=== PATIENT | female | born 1990 | race Caucasian/White ===

== ENCOUNTER 2020-01-15 11:45 | Outpatient (CLI) | payer BC, SELFPAY ==
[2020-01-15 13:15] LABS: Thyroid Stimulating Hormone 2.38 uIU/mL (0.36-3.74)
== END 2020-01-15 11:46 | disposition home or self-care (01) ==
LOC: CHSLAB 11:48
PROVIDERS: PCP Nurse Practitioner Family; Visit Provider Nurse Practitioner Family
DX: R79.89 Other specified abnormal findings of blood chemistry (principal); R94.6 Abnormal results of thyroid function studies
CPT/HCPCS: 36415; 84443

== ENCOUNTER 2020-08-10 10:35 | Outpatient (CLI) | payer MEDICAID, SELFPAY ==
[2020-08-10 10:50] LABS: Basophils Absolute Auto 0.03 K/mm3 (0.00-0.10); Basophils Percent Auto 0.5 % (0.0-1.0); Eosinophils Absolute Auto 0.12 K/mm3 (0.02-0.50); Eosinophils Percent Auto 1.9 % (1.0-6.0); Hematocrit 40.8 % (35.0-49.0); Hemoglobin 13.5 g/dL (12.0-15.0); Immature Granulocyte Absolute 0.04 K/mm3 (0.00-0.00); Immature Granulocyte Percent A 0.6 % (0.0-0.0); Lymphocytes Absolute Auto 1.68 K/mm3 (1.10-4.50); Lymphocytes Percent Auto 26.4 % (18.0-42.0); Mean Corpuscular HGB Conc 33.1 g/dL (32.0-36.0); Mean Corpuscular Hemoglobin 30.7 pg (27.0-31.0); Mean Corpuscular Volume 92.7 fL (78.0-102.0); Mean Platelet Volume 9.1 fl (9.2-11.8); Monocytes Absolute Auto 0.28 K/mm3 (0.10-0.90); Monocytes Percent Auto 4.4 % (2.0-11.0); Neutrophils Absolute Auto 4.2 K/mm3 (1.7-7.2); Neutrophils Percent Auto 66.2 % (50.0-70.0); Platelet Count Result 276 K/mm3 (150-420); Red Cell Distribution Width 12.8 % (11.6-14.4); White Blood Count 6.4 K/mm3 (4.8-10.8)
[2020-08-10 12:52] LABS: Alanine Aminotransferase 33 U/L (14-59); Alkaline Phosphatase 86 U/L (46-116); Anion Gap 7 mmol/L (8-16); Aspartate Amino Transferase 18 U/L (15-37); Bilirubin,Total 0.4 mg/dL (0.00-1.00); Blood Urea Nitrogen 14 mg/dL (7-18); Calcium 8.8 mg/dL (8.5-10.1); Carbon Dioxide 26 mmol/L (21-32); Chloride 106 mmol/L (98-108); Estimated Glomerular Filt Rate > 60; Free T4 Free Thyroxine 0.76 ng/dL (0.76-1.46); Glucose 106 mg/dL (70-99); Osmolality Calculated 288 mOsm/kg (285-295); Potassium 4.2 mmol/L (3.5-5.1); Sodium 139 mmol/L (136-145); Thyroid Stimulating Hormone 1.88 uIU/mL (0.36-3.74); Total Protein 7.1 g/dL (6.4-8.2); Vitamin B12 534 pg/mL (193-986)
[2020-08-13 12:11] LABS: Vitamin D 25 Hydroxy 24 ng/mL (30-100)
== END 2020-08-10 10:36 | disposition home or self-care (01) ==
PROVIDERS: PCP Nurse Practitioner Family; Visit Provider Nurse Practitioner Family
DX: D64.9 Anemia, unspecified (principal); R79.89 Other specified abnormal findings of blood chemistry; E53.8 Deficiency of other specified B group vitamins; Z79.899 Other long term (current) drug therapy
CPT/HCPCS: 36415; 80053; 82306; 82607; 84439; 84443; 85025

== ENCOUNTER 2020-08-18 11:12 | Outpatient (CLI) | payer OTHER, SELFPAY | END 2020-08-18 11:13 | disposition home or self-care (01) | PROVIDERS: PCP Nurse Practitioner Family; Visit Provider Obstetrics & Gynecology Gynecology | DX: Z32.01 Encounter for pregnancy test, result positive (principal) | CPT/HCPCS: 36415; 84702 ==

== ENCOUNTER 2020-08-20 13:14 | Outpatient (CLI) | payer OTHER, SELFPAY | END 2020-08-20 13:15 | disposition home or self-care (01) | LOC: CHSLAB 13:17 | PROVIDERS: PCP Nurse Practitioner Family; Visit Provider Obstetrics & Gynecology Gynecology | DX: O26.20 Pregnancy care for patient with recurrent pregnancy loss, unspecified trimester (principal); Z32.01 Encounter for pregnancy test, result positive | CPT/HCPCS: 36415; 84702 ==

== ENCOUNTER 2020-08-30 14:30 | Outpatient (CLI) | payer OTHER, SELFPAY ==
--- NOTE | ~2020-08-30 | US_ITS ---
EXAMINATION: US OB <=14 wk fetus w TV DATE: 08/30/2020 15:03 INDICATION: First trimester , history of miscarriages TECHNIQUE: Real-time pelvic transabdominal and transvaginal ultrasound was performed. COMPARISON: None. FINDINGS: The uterus measures 10.2 x 5.0 x 5.8 cm. There is an intrauterine gestational sac. A yolk sac is identified. heart motion is identified measuring 103 beats per minute (bpm) by M-mode Do ppler. The crown rump length measures 4 mm , which correlates with an estimated gestational age of 6 weeks and 0 day(s) (+/-) 4 day(s). The right ovary measures 4.6 x 2.9 x 2.2 cm. The left ovary measures 2.8 x 1.4 x 1.8 cm. There is nor mal vascular flow in the ovaries. There is no free fluid in the pelvis. IMPRESSION: 1. Live intrauterine with an estimated gestational age of 6 weeks and 0 day(s) (+/-) 4 day( s) and an estimated delivery date of 04/25/2021. Reviewed, dictated and finalized at location A. IMPRESSION: 1. Live intrauterine with an estimated gestational age of 6 weeks and 0 day(s) (+/-) 4 day(s) and an estimated delivery date of 04/25/2021.
== END 2020-08-30 14:31 | disposition home or self-care (01) ==
LOC: CHSIMG 14:31
PROVIDERS: PCP Nurse Practitioner Family; Visit Provider Obstetrics & Gynecology Gynecology
DX: O26.21 Pregnancy care for patient with recurrent pregnancy loss, first trimester (principal)
CPT/HCPCS: 76801; 76817

== ENCOUNTER 2020-09-09 08:46 | Outpatient (CLI) | payer OTHER, SELFPAY ==
--- NOTE | ~2020-09-09 | US_ITS ---
EXAMINATION: US OB <=14 wk fetus w TV DATE: 09/09/2020 09:32 INDICATION: Assess viability during first trimester TECHNIQUE: Real-time pelvic ultrasound utilizing both a transvaginal and transabdominal probe was pe rformed. The interpreting radiologist was not present for the study. COMPARISON: None. FINDINGS: The uterus measures 7.8 x 4.9 x 6.0 cm. There is an intrauterine gestational sac. A yolk sac and fet al pole are identified. The crown rump length measures 11 mm, which correlates with an estimated gest ational age of 7 weeks and 1 days. heart motion is identified measuring 147 beats per minute (b pm) by M-mode Doppler. The right ovary measures 4.5 x 3.0 x 2.5 cm. The left ovary measures 5.3 x 1.8 x 1.8 cm. There are mu ltiple small anechoic cysts/follicles at the periphery of both ovaries Vascular flow is identified at both ovaries on color Doppler. There is no free fluid in the pelvis. IMPRESSION: 1. Single living fetus with heart rate of 147 bpm. 2. Gestational age by ultrasound of 7 weeks 1 day(s) +/- 5 day(s) with ultrasound estimated date of delivery (TOBIN) of 04/27/2021. Reviewed, dictated and finalized at location A. IMPRESSION: 1. Single living fetus with heart rate of 147 bpm. 2. Gestational age by ultrasound of 7 weeks 1 day(s) +/- 5 day(s) with ultraso und estimated date of delivery (TOBIN) of 04/27/2021.
== END 2020-09-09 08:47 | disposition home or self-care (01) ==
LOC: CHSIMG 08:49
PROVIDERS: PCP Nurse Practitioner Family; Visit Provider Obstetrics & Gynecology Gynecology
DX: O36.80X0 Pregnancy with inconclusive fetal viability, not applicable or unspecified (principal)
CPT/HCPCS: 76801; 76817

== ENCOUNTER 2020-10-20 14:06 | Emergency (ER) | payer OTHER, SELFPAY ==
[2020-10-20 14:15] VITALS: BP 124/72; PULSE 85; RESP 20; TEMP 36.5; O2SAT 100
[2020-10-20] MEDS: SODIUM CHLORIDE 0.9% IV 1,000 ML 999 ML IV CONT (14:31)
[2020-10-20 14:46] LABS: Basophils Absolute Auto 0.01 K/mm3 (0.00-0.10); Basophils Percent Auto 0.1 % (0.0-1.0); Eosinophils Absolute Auto 0.02 K/mm3 (0.02-0.50); Eosinophils Percent Auto 0.3 % (1.0-6.0); Hematocrit 38.9 % (35.0-49.0); Hemoglobin 13.4 g/dL (12.0-15.0); Immature Granulocyte Absolute 0.02 K/mm3 (0.00-0.00); Immature Granulocyte Percent A 0.3 % (0.0-0.0); Lymphocytes Absolute Auto 1.47 K/mm3 (1.10-4.50); Lymphocytes Percent Auto 18.4 % (18.0-42.0); Mean Corpuscular HGB Conc 34.4 g/dL (32.0-36.0); Mean Corpuscular Hemoglobin 31.6 pg (27.0-31.0); Mean Corpuscular Volume 91.7 fL (78.0-102.0); Mean Platelet Volume 9.2 fl (9.2-11.8); Monocytes Absolute Auto 0.41 K/mm3 (0.10-0.90); Monocytes Percent Auto 5.1 % (2.0-11.0); Neutrophils Absolute Auto 6.1 K/mm3 (1.7-7.2); Neutrophils Percent Auto 75.8 % (50.0-70.0); Platelet Count Result 253 K/mm3 (150-420); Red Blood Count 4.24 M/mm3 (4.20-5.40); Red Cell Distribution Width 13.7 % (11.6-14.4)
[2020-10-20 14:47] LABS: Add Urine Microscopic? YES; Appearance Urine Clear (Clear); Bilirubin Urine Negative (Negative); Blood Urine Negative (Negative); Color Urine Yellow (Yellow); Glucose Urine UA Negative (Negative); Ketones Urine 2+ (Negative); Leukocyte Esterase Ur 1+ (Negative); Nitrate Urine Negative (Negative); Protein Urine Negative (Negative)
[2020-10-20 15:00] LABS: Alanine Aminotransferase 21 U/L (14-59); Albumin Level 3.2 g/dL (3.4-5.0); Alkaline Phosphatase 108 U/L (46-116); Anion Gap 11 mmol/L (8-16); Aspartate Amino Transferase 13 U/L (15-37); Bilirubin,Total 0.5 mg/dL (0.00-1.00); Blood Urea Nitrogen 8 mg/dL (7-18); Calcium 9.3 mg/dL (8.5-10.1); Carbon Dioxide 25 mmol/L (21-32); Chloride 100 mmol/L (98-108); Estimated Glomerular Filt Rate > 60; Glucose 80 mg/dL (70-99); Osmolality Calculated 279 mOsm/kg (285-295); Potassium 3.6 mmol/L (3.5-5.1); Sodium 136 mmol/L (136-145); Total Protein 7.4 g/dL (6.4-8.2)
[2020-10-20 15:04] LABS: Bacteria Urine 2+ /hpf; Mucus Urine Few /lpf; RBC Urine 0-2 /hpf (0-2); Squamous Epithelial Cell Urine Few /hpf (Few); WBC Urine 16-20 /hpf (0-3)
--- NOTE | 2020-10-20 15:25 | ED.GENADULT ---
HPI - General Adult General Chief complaint: Unspecified Stated complaint: and feeling dehydrated Source: patient and family History of Present Illness HPI narrative: this is a 30-year-old female 13 weeks presents with some which she describes as not feeling movements for the last day, also feels like she is dehydrated with no dysuria no fever chills no abdominal pain or cramps no vaginal discharge or spotting no flank pain. The patient said she has been nauseated and this concern that that she is dehydrated. Also her concern is that the baby has not moved in the last day, she called her her extract wringer and did not get a call back. Currently the patient is resting comfortably in no acute distress. Onset (ago): day(s) Severity: mild Related Data Home Medications Medication Instructions Recorded Confirmed atomoxetine [Strattera] 80 mg PO QAM 10/20/20 10/20/20 bupropion HCl 300 mg PO DAILY 10/20/20 10/20/20 ondansetron HCl 4 mg PO DAILY 10/20/20 10/20/20 [id number] 1 pkg PO MONTHLY 10/20/20 10/20/20 [Expecta ] Allergies Allergy/AdvReac Type Severity Reaction Status Date / Time ciprofloxacin Allergy Intermediate trouble Verified 09/22/20 10:03 breathing Review of Systems Review of Systems: All systems reviewed & are unremarkable except as noted in HPI and below Constitutional: Constitutional: Reports as per HPI [facility] Past Medical History Medical History (Updated 10/20/20 @ 15:44 by Flo Turner MD) Anemia Bipolar 1 disorder Costochondritis, acute Cough Engages in vaping Fatigue Joint pain Left-sided chest pain Obese Recurrent chest pain Schizoaffective disorder URI (upper respiratory infection) Weakness of wrist Surgical History Surgical History No history of previous surgery Family History Family History Mother Unknown family medical history Father Unknown family medical history Social History Social History Tobacco type: e-cigarettes/vaping Alcohol intake: never Substance use: current Substance use type: marijuana Additional living arrangements comments: with one child Gender identity (if verbalized by the patient): Female Spiritual care concerns: No Exam Const: General: cooperative, healthy appearing, comfortable, no acute distress, well developed and alert HENMT: Head: normal to inspection Eyes: General: appearance normal, both eyes and all related structures Eyelids: eyelids normal Conjunctivae: conjunctivae normal Sclera: sclerae normal EOM: EOMs intact bilaterally Resp: Effort & Inspection: normal respiratory effort and able to speak in complete sentences Cardio: Jugular venous distension: no JVD Palpation: normal PMI Rate: regular rate Rhythm: regular rhythm GI: Inspection: normal to inspection : General: Yes CVA tenderness Urinary Catheter: Urinary Catheter: patent and draining Back/Spine/Pelvis: Back: no CVA tenderness Skin: General skin exam: normal color and no rashes or lesions noted Neuro: General: oriented to person, oriented to place, oriented to time and patient oriented x3 Psych: Appearance: grossly normal Mental Status: mental status grossly normal Speech and movement: Normal speech and movement present Course Course Emergency Course: heart tones at 153, the patient continues to be oral feel comfortable we advised patient of her urinalysis and will prescribe antibiotics. Advised patient to follow-up with her extract wringer for further evaluation and treatment. Vital Signs Vital signs: Vital Signs Temperature 36.5 C 10/20/20 14:15 Pulse Rate 85 10/20/20 14:15 Respiratory Rate 20 10/20/20 14:15 Blood Pressure 124/72 10/20/20 14:15 Pulse Oximetry 100 10/20/20 14:15
[2020-10-20 16:05] VITALS: BP 102/62
== END 2020-10-20 16:10 | disposition home or self-care (01) ==
PROVIDERS: Emergency Provider Emergency Medicine; PCP Nurse Practitioner Family
DX: E86.0 Dehydration (principal); N39.0 Urinary tract infection, site not specified
CPT/HCPCS: 36415; 80053; 81001; 84702; 85025; 96360; 99283; J7030

== ENCOUNTER 2020-11-23 12:18 | Outpatient (CLI) | payer OTHER, SELFPAY ==
--- NOTE | ~2020-11-23 | US_ITS ---
EXAMINATION: US OB >= 14 weeks Fetus DATE: 11/23/2020 13:28 INDICATION: survey TECHNIQUE: Multiple obstetric sonographic images performed. FINDINGS: survey There is a single living fetus in breech presentation. The placenta is anterior without placenta pre via. Placental margin is 2.2 cm from the cervix. Amniotic fluid volume is subjectively normal. cardiac activity and movement is noted with a heart rate of 144 beats per minute. The following anatomy was identified as normal: 4 chamber heart 3 vessel cord cord insertion kidneys urinary bladder stomach spine diaphragm ventricles cisterna magna cerebellum The following biometric data were obtained: BPD: 42mm corresponds to gestational age 18 weeks 5 days. Head circumference: 149 mm corresponds to gestational age 18 weeks 0 days. Abdominal circumference: 124 mm corresponds to gestational age 18 weeks 0 days. Femur length: 27 mm corresponds to gestational age 18 weeks 1 days. Head circumference to abdominal circumference ratio: 1.2 (normal range for expected gestational age i s 1.06-1.27). Estimated weight: 223 grams +/- 33 grams using Hadlock method. IMPRESSION: 1: Single living intrauterine with an estimated gestational age of 18weeks 1days by initial ultrasound measurements, with an EDC of 04/25/2021 in breech presentation. 2. Normal survey. 3: Low-lying anterior placenta measures 2.2 cm from the cervix. Reviewed, dictated and finalized at location A. EWAY SEALER IMPRESSION: 1: Single living intrauterine with an estimated gestational age of 18 weeks 1days by initial ultrasound measurements, with an EDC of 04/25/2021 in br eech presentation. 2. Normal survey. 3: Low-lying anterior placenta measures 2.2 cm from the cervix.
== END 2020-11-23 12:19 | disposition home or self-care (01) ==
LOC: CHSIMG 12:21
PROVIDERS: PCP Nurse Practitioner Family; Visit Provider Nurse Practitioner
DX: Z36.9 Encounter for antenatal screening, unspecified (principal)
CPT/HCPCS: 76805

== ENCOUNTER 2020-11-30 11:21 | Emergency (ER) | payer OTHER, SELFPAY ==
[2020-11-30 11:37] VITALS: RESP 20
== END 2020-11-30 11:39 | disposition left against medical advice (07) ==
LOC: CHSED 11:23
PROVIDERS: Emergency Provider Emergency Medicine; PCP Nurse Practitioner Family
DX: Z53.8 Procedure and treatment not carried out for other reasons (principal)
CPT/HCPCS: 99199

== ENCOUNTER 2020-11-30 12:21 | Observation (INO) | payer OTHER, SELFPAY ==
--- NOTE | 2020-11-30 12:21 | OBADM ---
This patient, Ashlee Webster, admitted to the OB room OB Post 111 for observation. Patient/family oriented to hospital policies and general routines including ID bracelet, bed and alarms, visiting hours, pain management, procedures, bathroom and other care routines, personal items, smoking policy, room service/diet, and visiting hours. Patient/Family are encouraged to report perceived risks to care and to ask questions if they do not understand what they are told or what they should do.
[2020-11-30 12:43] VITALS: TEMP 36.3
[2020-11-30 12:46] VITALS: BP 105/60; PULSE 99
[2020-11-30 12:47] VITALS: BP 107/57; PULSE 103
--- NOTE | 2020-11-30 12:57 | PC.NURSE ---
Updated Dr. Hercules on patient arrival to OB unit with complaint of back pain and stomach tightening this morning that has since resolved. Patient states she still is feeling back pain rated 1/10. Abdomen palpates soft. FHT 145. VSS. Orders received.
[2020-11-30 13:01] VITALS: BP 112/60; PULSE 87
[2020-11-30 13:04] VITALS: BMI 33.3
[2020-11-30 13:16] VITALS: BP 89/47; PULSE 91
[2020-11-30 14:09] LABS: Add Urine Microscopic? YES; Amorphous Sediment Urine Moderate; Appearance Urine Turbid (Clear); Bilirubin Urine Negative (Negative); Blood Urine Negative (Negative); Color Urine Yellow (Yellow); Glucose Urine UA Negative (Negative); Ketones Urine Negative (Negative); Leukocyte Esterase Ur Negative LEU/UL (Negative); Nitrate Urine Negative (Negative); Protein Urine 2+ mg/dL (Negative); Specific Grav Ur 1.023 (1.001-1.035); Squamous Epithelial Cell Urine Occasional /hpf (Few); Urobilinogen Urine Negative mg/dL (<2.0)
--- NOTE | 2020-11-30 14:32 | PC.NURSE ---
Updated Dr. Hercules of patient lab results. Patient denies contractions, no contractions noted via monitoring. SVE closed/thick/high/posterior. Discharge orders received.
--- NOTE | 2020-11-30 14:45 | PC.NURSE ---
Discharge instructions reviewed with patient. Patient states understanding and denies questions. Labor precautions reviewed.
--- NOTE | 2020-12-03 10:20 | P.PNOB_ITS ---
OB - Triage/Final Diagnosis Visit Information Reason for evaluation: threatened labor Evaluation Laboratory results: Laboratory Tests 11/30/20 13:19 Urine Color Yellow Urine Appearance Turbid H Urine pH 8.0 Ur Specific [place] 1.023 Urine Protein 2+ H Urine Glucose (UA) Negative Urine Ketones Negative Ur Blood (Man) Negative Urine Nitrate Negative Urine Bilirubin Negative Urine Urobilinogen Negative Leukocyte Esterase Rfl Negative Ur Squamous Epith Cells Occasional Amorphous Sediment Moderate H
== END 2020-11-30 14:45 | disposition home or self-care (01) ==
PROVIDERS: Admitting Provider Obstetrics & Gynecology Gynecology; PCP Nurse Practitioner Family; Visit Provider Obstetrics & Gynecology Gynecology
DX: O47.9 False labor, unspecified (principal); Z3A.00 Weeks of gestation of pregnancy not specified
CPT/HCPCS: 81001; G0378; G0379

== ENCOUNTER 2020-12-27 12:29 | Outpatient (CLI) | payer OTHER, SELFPAY ==
--- NOTE | ~2020-12-27 | US_ITS ---
EXAMINATION: US OB >= 14 weeks Fetus DATE: 12/27/2020 13:08 INDICATION: Low-lying placenta TECHNIQUE: Real-time ultrasound of the pelvis was performed. COMPARISON: 11/23/2020 FINDINGS: There is a single living fetus in transverse lie. The placenta is anterior and 3.3 cm from the technical internship al cervical os. The cervical length is 3.6 cm.. heart rate is 138 beats per minute (bpm). Feta l cardiac activity and movement are noted. The amniotic fluid index is subjectively normal. The following biometric data were obtained: Biparietal diameter (BPD): 5.8 cm; head circumference (HC): 21.0 cm; abdominal circumference (AC): 18 .6 cm; femur length (FL): 4.1 cm. The femoral length to biparietal diameter ratio is greater than two standard deviations below the john n. Estimated weight is 590 g +/- 88 g, which correlates with the 63rd percentile when 04/25/2021 is used as estimated date of delivery. As single measurements, these parameters are each equal to the following estimated gestational ages w ith ranges of +/- 2 standard deviations: BPD: 24 weeks 0 days +/- 1 weeks 5 days. HC: 23 weeks 1 days +/- 1 weeks 3 days. AC: 23 weeks 3 days +/- 2 weeks 0 days. FL: 23 weeks 2 days +/- 1 weeks 6 days. estimated gestational age based solely on measurements from this exam is 23 weeks 3 days +/- 1 weeks 4 days. IMPRESSION: 1. Single living fetus in transverse lie. 2. Estimated weight is 590 g +/- 88 g, which correlates with the 63rd percentile when 04/25/2021 is used as estimated date of delivery. 3. Normal placenta position. 4. Femoral length to biparietal diameter ratio greater than two standard deviations below the mean. Reviewed, dictated and finalized at location A. LE BLOWER IMPRESSION: 1. Single living fetus in transverse lie. 2. Estimated weight is 590 g +/- 88 g, which correlates with the 63rd per centile when 04/25/2021 is used as estimated date of delivery. 3. Normal placenta position. 4. Femoral length to biparietal diameter ratio greater than two standard deviat ions below the mean.
== END 2020-12-27 12:30 | disposition home or self-care (01) ==
LOC: CHSIMG 12:30
PROVIDERS: PCP Nurse Practitioner Family; Visit Provider Obstetrics & Gynecology Gynecology
DX: O43.892 Other placental disorders, second trimester (principal)
CPT/HCPCS: 76805

== ENCOUNTER 2021-01-06 12:24 | Outpatient (CLI) | payer OTHER, SELFPAY ==
[2021-01-06 12:35] LABS: Basophils Absolute Auto 0.03 K/mm3 (0.00-0.10); Basophils Percent Auto 0.3 % (0.0-1.0); Eosinophils Absolute Auto 0.11 K/mm3 (0.02-0.50); Hematocrit 34.8 % (35.0-49.0); Hemoglobin 11.8 g/dL (12.0-15.0); Immature Granulocyte Absolute 0.17 K/mm3 (0.00-0.00); Immature Granulocyte Percent A 1.5 % (0.0-0.0); Lymphocytes Absolute Auto 1.76 K/mm3 (1.10-4.50); Mean Corpuscular HGB Conc 33.9 g/dL (32.0-36.0); Mean Corpuscular Hemoglobin 32.2 pg (27.0-31.0); Mean Corpuscular Volume 94.8 fL (78.0-102.0); Mean Platelet Volume 9.3 fl (9.2-11.8); Monocytes Absolute Auto 0.48 K/mm3 (0.10-0.90); Monocytes Percent Auto 4.4 % (2.0-11.0); Neutrophils Absolute Auto 8.5 K/mm3 (1.7-7.2); Neutrophils Percent Auto 76.8 % (50.0-70.0); Platelet Count Result 301 K/mm3 (150-420); Red Blood Count 3.67 M/mm3 (4.20-5.40); Red Cell Distribution Width 14.1 % (11.6-14.4)
[2021-01-06 13:05] LABS: Hemoglobin A1C < 4.7 % (<5.7)
[2021-01-06 13:25] LABS: HIV 1 P24 AG Negative (Negative); HIV 1/2 AB Negative (Negative)
[2021-01-06 13:29] LABS: Free T4 Free Thyroxine 0.77 ng/dL (0.76-1.46); Thyroid Stimulating Hormone 1.61 uIU/mL (0.36-3.74)
[2021-01-08 15:13] LABS: RPR Screen Non-Reactive (Non-Reactive)
[2021-01-08 20:00] LABS: Hepatitis B Surface Antigen Nonreactive (Nonreactive)
[2021-01-09 10:05] LABS: Vitamin D 25 Hydroxy 21 ng/mL (30-100)
[2021-01-09 15:04] LABS: Rubella IgG Antibody 6.41 Index
== END 2021-01-06 12:25 | disposition home or self-care (01) ==
LOC: CHSLAB 12:25
PROVIDERS: PCP Nurse Practitioner Family; Visit Provider Obstetrics & Gynecology Gynecology
DX: Z36.9 Encounter for antenatal screening, unspecified (principal)
CPT/HCPCS: 36415; 82306; 83036; 84439; 84443; 85025; 86592; 86703; 86762; 86850; 86900; 86901

== ENCOUNTER 2021-02-03 16:15 | Observation (INO) | payer OTHER, SELFPAY ==
[2021-02-03 16:43] VITALS: BP 112/64; PULSE 103; TEMP 36.9
[2021-02-03 17:00] VITALS: BMI 35.0
--- NOTE | 2021-02-03 17:00 | OBADM ---
This patient, Ashlee Webster, admitted to the OB room 112 at 1615 for observation for contractions Patient/family oriented to hospital policies and general routines including ID bracelet, bed and alarms, visiting hours, pain management, procedures, bathroom and other care routines, personal items, smoking policy, room service/diet, and visiting hours. Patient/Family are encouraged to report perceived risks to care and to ask questions if they do not understand what they are told or what they should do.
[2021-02-03 17:01] VITALS: BP 104/63; PULSE 100
[2021-02-03 17:14] LABS: Add Urine Microscopic? YES; Amorphous Sediment Urine Few; Appearance Urine Cloudy (Clear); Bacteria Urine Trace /hpf; Bilirubin Urine Negative (Negative); Blood Urine Negative (Negative); Color Urine Amber (Yellow); Glucose Urine UA 3+ mg/dL (Negative); Ketones Urine Trace mg/dL (Negative); Leukocyte Esterase Ur Negative LEU/UL (Negative); Mucus Urine Few /lpf; Nitrate Urine Negative (Negative); Protein Urine 2+ mg/dL (Negative); RBC Urine 0-2 /hpf (0-2); Squamous Epithelial Cell Urine Few /hpf (Few); WBC Urine 0-3 /hpf
[2021-02-03 18:01] VITALS: BP 115/63; PULSE 103
--- NOTE | 2021-02-27 02:03 | PM.OBTRLD ---
OB - Triage/Final Diagnosis Visit Information Comments/Additional reasons for admission: I have assessed the risk for this patient, Ashlee Webster, and determined that she would benefit from observation care. Evaluation Laboratory results: Laboratory Tests 02/03/21 17:00 Urine Color Mai Urine Appearance Cloudy H Urine pH 5.0 Ur Specific [place] 1.030 Urine Protein 2+ H Urine Glucose (UA) 3+ H Urine Ketones Trace Ur Blood (Man) Negative Urine Nitrate Negative Urine Bilirubin Negative Urine Urobilinogen 2.0 H Leukocyte Esterase Rfl Negative Urine RBC 0-2 Urine WBC 0-3 Ur Squamous Epith Cells Few Amorphous Sediment Few H Urine Bacteria Trace Urine Mucus Few H Final Diagnosis (1) Back pain affecting : Code(s): O99.891 - Other specified diseases and conditions complicating ; M54.9 - Dorsalgia, unspecified Status: Acute
== END 2021-02-03 18:41 | disposition home or self-care (01) ==
PROVIDERS: Admitting Provider Obstetrics & Gynecology; PCP Nurse Practitioner Family; Visit Provider Obstetrics & Gynecology
DX: M54.9 Dorsalgia, unspecified (principal); O99.891 Other specified diseases and conditions complicating pregnancy; Z3A.28 28 weeks gestation of pregnancy
CPT/HCPCS: 81001; G0378; G0379

== ENCOUNTER 2021-02-11 09:14 | Outpatient (CLI) | payer OTHER, SELFPAY ==
[2021-02-11 10:45] LABS: Hematocrit 33.8 % (35.0-49.0); Hemoglobin 10.8 g/dL (12.0-15.0)
[2021-02-11 11:26] LABS: Glucose 1 Hour PP 50gm Dose 164 mg/dL (70-130)
[2021-02-11 11:37] LABS: HIV 1 P24 AG Negative (Negative); HIV 1/2 AB Negative (Negative)
[2021-02-14 12:12] LABS: Vitamin D 25 Hydroxy 30 ng/mL (30-100)
== END 2021-02-11 09:15 | disposition home or self-care (01) ==
LOC: CHSLAB 09:16
PROVIDERS: PCP Nurse Practitioner Family; Visit Provider Obstetrics & Gynecology Gynecology
DX: Z34.92 Encounter for supervision of normal pregnancy, unspecified, second trimester (principal)
CPT/HCPCS: 36415; 82306; 82947; 85014; 85018; 86703

== ENCOUNTER 2021-03-23 18:44 | Observation (INO) | payer OTHER, SELFPAY ==
[2021-03-23] VITALS (25 sets, daily range): BP systolic 111–124; BP diastolic 61–76; PULSE 86–103; O2SAT 99–100; BMI 36.6
[2021-03-23 19:41] LABS: Add Urine Microscopic? YES; Appearance Urine Cloudy (Clear); Bilirubin Urine Negative (Negative); Blood Urine Negative (Negative); Color Urine Amber (Yellow); Glucose Urine UA 1+ mg/dL (Negative); Ketones Urine Negative (Negative); Leukocyte Esterase Ur 3+ LEU/UL (Negative); Mucus Urine Rare /lpf; Nitrate Urine Negative (Negative); Protein Urine 2+ mg/dL (Negative); Specific Grav Ur 1.018 (1.001-1.035); Squamous Epithelial Cell Urine Many /hpf (Few); Urobilinogen Urine Negative mg/dL (<2.0); WBC Urine >75 /hpf
[2021-03-23] MEDS: ACETAMINOPHEN 500 MG TABLET 1000 MG PO (20:29)
[2021-03-23] MEDS: FAMOTIDINE 20 MG TABLET PO (20:30)
[2021-03-23] MEDS: TERBUTALINE SULFATE 1 MG/ML VIAL 0.25 MG SUB-Q (22:01)
--- NOTE | 2021-03-23 23:21 | LDADM ---
This patient, Ashlee Webster, was admitted to OB Post 112 on 03/23/21 at 18:44. Plans for labor, pain management and were discussed with patient. Patient/family oriented to hospital policies and general routines including ID bracelet, bed and alarms, visiting hours, pain management, procedures, bathroom and other care routines, personal items, smoking policy, room service/diet and guest tray routines, infant security routines, and visiting hours. Patient/Family are encouraged to report perceived risks to care and to ask questions if they do not understand what they are told or what they should do. See OBIX for further documentation.
--- NOTE | 2021-04-18 10:06 | PM.OBTRLD ---
OB - Triage/Final Diagnosis Visit Information Comments/Additional reasons for admission: I have assessed the risk for this patient, Ashlee Webster, and determined that she would benefit from observation care. Evaluation Laboratory results: Laboratory Tests 03/23/21 19:17 Urine Color Mai Urine Appearance Cloudy H Urine pH 6.0 Ur Specific Valentines 1.018 Urine Protein 2+ H Urine Glucose (UA) 1+ H Urine Ketones Negative Ur Blood (Man) Negative Urine Nitrate Negative Urine Bilirubin Negative Urine Urobilinogen Negative Leukocyte Esterase Rfl 3+ H Urine RBC 11-20 H Urine WBC >75 H Ur Squamous Epith Cells Many H Urine Mucus Rare Final Diagnosis (1) False labor: Code(s): O47.9 - False labor, unspecified Status: Acute
== END 2021-03-23 23:35 | disposition home or self-care (01) ==
PROVIDERS: Admitting Provider Obstetrics & Gynecology; Visit Provider Obstetrics & Gynecology
DX: O47.9 False labor, unspecified (principal); Z3A.00 Weeks of gestation of pregnancy not specified
CPT/HCPCS: 81001; 87086; 87088; 96372; A9270; G0378; G0379; J3105

== ENCOUNTER 2021-04-08 10:40 | Outpatient (RCR) | payer OTHER, SELFPAY ==
--- NOTE | ~2021-04-08 | US_ITS ---
EXAMINATION: US OB follow up DATE: 04/08/2021 14:39 INDICATION: Estimated weight and amniotic fluid index to ring third trimester TECHNIQUE: Real-time ultrasound of the pelvis was performed. The interpreting radiologist was not pre sent for the study. COMPARISON: None. FINDINGS: There is a single living fetus in vertex presentation. The placenta is anterior. card iac activity and movement are noted. heart rate is 150 beats per minute (bpm). The amniot ic fluid index is 12.5 cm which is normal. The following biometric data were obtained: Biparietal diameter (BPD): 9.4 cm; head circumference (HC): 33.3 cm; abdominal circumference (AC): 36 .9 cm; femur length (FL): 7.2 cm. The femoral length to abdominal circumference ratio is greater than two standard deviations below the mean. These measurements are otherwise concordant. Estimated weight is 3792 g +/- 568 g, which correlates with the 95th percentile when 04/25/2021 i s used as estimated date of delivery. As single measurements, these parameters are each equal to the following estimated gestational ages w ith ranges of +/- 2 standard deviations: BPD: 38 weeks 2 days +/- 3 weeks 1 days. HC: 38 weeks 0 days +/- 2 weeks 5 days. AC: 40 weeks 6 days +/- 3 weeks 0 days. FL: 37 weeks 0 days +/- 3 weeks 1 days. estimated gestational age based solely on measurements from this exam is 38 weeks 4 days +/- 2 weeks 5 days. IMPRESSION: 1. Single living fetus in vertex presentation. 2. Normal amniotic fluid index. 3. Estimated weight is 3792 g +/- 568 g, which correlates with the 95th percentile when is used as estimated date of delivery. Four. Femoral length to abdominal circumference ratio greate r than two standard deviations below the mean. Reviewed, dictated and finalized at location A. IMPRESSION: 1. Single living fetus in vertex presentation. 2. Normal amniotic fluid index. 3. Estimated weight is 3792 g +/- 568 g, which correlates with the 95th p ercentile when 04/25/2021 is used as estimated date of delivery. Four. Femoral le ngth to abdominal circumference ratio greater than two standard deviations belo w the mean.
--- NOTE | 2021-04-08 14:15 | PC.NURSE ---
Pt to ultrasound per wheelchair.
--- NOTE | 2021-04-08 14:35 | PC.NURSE ---
Pt returned from ultrasound. Waiting for results.
[2021-04-08 15:15] VITALS: BP 119/73; PULSE 105
--- NOTE | 2021-04-08 15:15 | PC.NURSE ---
1158-SVE done due to contractions. SVE 3/thick/high which is unchanged from office visit yesterday. 1515- SVE done again per pt request. No change in SVE.
== END 2021-04-12 08:44 | disposition home or self-care (01) ==
LOC: ANHOBOP 10:40
PROVIDERS: PCP Nurse Practitioner Family; Visit Provider Obstetrics & Gynecology Gynecology
DX: O24.419 Gestational diabetes mellitus in pregnancy, unspecified control (principal); O36.63X0 Maternal care for excessive fetal growth, third trimester, not applicable or unspecified; Z3A.37 37 weeks gestation of pregnancy
CPT/HCPCS: 59025; 76815; 76816

== ENCOUNTER 2021-04-11 21:51 | Inpatient (IN) | payer OTHER, SELFPAY ==
[2021-04-11 22:01] VITALS: TEMP 36.6
[2021-04-11 22:31] VITALS: BP 105/64; PULSE 100
[2021-04-11 22:46] VITALS: BP 108/76; PULSE 105
[2021-04-11 23:01] VITALS: BP 109/71; PULSE 92
[2021-04-11 23:16] VITALS: BP 109/73; PULSE 92
[2021-04-11 23:28] VITALS: TEMP 36.6
[2021-04-11 23:37] LABS: Glucose Point of Care 73 mg/dl (65-105)
[2021-04-11 23:39] LABS: Basophils Percent Auto 0.2 % (0.2-1.2); Eosinophils Absolute Auto 0.1 K/mm3 (0-0.3); Eosinophils Percent Auto 0.8 % (0-4.4); Hematocrit 36.6 % (37.0-47.0); Hemoglobin 11.6 g/dL (12.0-15.0); Immature Granulocyte Absolute 0.08 K/mm3 (0.00-0.031); Immature Granulocyte Percent A 0.7 % (0-0.5); Lymphocytes Absolute Auto 2.64 K/mm3 (0.9-3.2); Lymphocytes Percent Auto 21.5 % (18.3-44.2); Mean Corpuscular HGB Conc 31.7 g/dl (32-36); Mean Corpuscular Hemoglobin 27.3 pg (26-34); Mean Corpuscular Volume 86.1 fl (80-100); Mean Platelet Volume 9.9 fl (7.4-10.4); Monocytes Absolute Auto 0.7 K/mm3 (0.1-0.6); Monocytes Percent Auto 5.8 % (2.6-8.5); Neutrophils Absolute Auto 8.7 K/mm3 (1.3-6.7); Platelet Count Result 345 k/mm3 (150-375); Red Blood Count 4.25 M/mm3 (4.2-5.4); Red Cell Distribution Width 17.1 % (11.5-14.5); White Blood Count 12.3 K/mm3 (4.5-10.0)
[2021-04-12] VITALS (240 sets, daily range): BP systolic 65–129; BP diastolic 32–87; PULSE 28–192; RESP 16–18; TEMP 35.5–36.9; O2SAT 76–100; BMI 37.0
[2021-04-12] MEDS: LACTATED RINGERS 1,000 ML 125 ML IV CONT ×2 (01:19→09:11)
[2021-04-12] MEDS: OXYTOCIN 30 UNITS/NS 500 ML 30 UNITS/500 ML BAG IV CONT (01:21)
[2021-04-12 03:59] LABS: Glucose Point of Care 135 mg/dl (65-105)
--- NOTE | 2021-04-12 04:15 | WPDANESEPP ---
Anes - Eval Pre Procedure Procedure: Labor epidural Date/Time: 04/12/21 04:15 Surgeon: Diomedes Preop Diagnosis: Abd pain with contractions Pre Op Diagnosis: SROM Patient Data Age: 30 Gender: F Height: Weight: Last Vital Signs Temp 97.4 F L 04/12/21 03:50 Pulse 93 04/12/21 04:01 BP 111/72 04/12/21 04:01 Allergies Allergy/AdvReac Type Severity Reaction Status Date / Time ciprofloxacin Allergy Intermediate trouble Verified 03/28/21 13:50 breathing Home Medications Medication Instructions Recorded Confirmed Type Expecta 1 pkg PO DAILY 10/20/20 03/31/21 History atomoxetine [Strattera] 80 mg PO QAM 10/20/20 03/31/21 History metoclopramide HCl 10 mg PO BID PRN 11/30/20 03/31/21 History bupropion HCl 300 mg PO DAILY 02/03/21 03/31/21 History melatonin 5 mg PO HS PRN 02/03/21 03/31/21 History Humulin N NPH U-100 Insulin 20 unit SUBCUT HS 03/23/21 03/31/21 History Laboratory Tests 04/11/21 04/11/21 04/11/21 23:25 23:25 23:25 WBC 12.3 K/mm3 H K/mm3 (4.5-10.0) RBC 4.25 M/mm3 M/mm3 (4.2-5.4) Hgb 11.6 g/dL L g/dL (12.0-15.0) Hct 36.6 % L % (37.0-47.0) MCV 86.1 fl fl (80-100) MCH 27.3 pg pg (26-34) MCHC 31.7 g/dl L g/dl (32-36) RDW 17.1 % H % (11.5-14.5) Plt Count 345 k/mm3 k/mm3 (150-375) MPV 9.9 fl fl (7.4-10.4) Immature Gran % (Auto) 0.7 % H % (0-0.5) Neut % (Auto) 71.0 % % (45.5-73.1) Lymph % (Auto) 21.5 % % (18.3-44.2) [place] % (Auto) 5.8 % % (2.6-8.5) Eos % (Auto) 0.8 % % (0-4.4) Baso % (Auto) 0.2 % % (0.2-1.2) Lymph # (Auto) 2.64 K/mm3 K/mm3 (0.9-3.2) [place] # (Auto) 0.7 K/mm3 H K/mm3 (0.1-0.6) Eos # (Auto) 0.1 K/mm3 K/mm3 (0-0.3) Baso # (Auto) 0.0 K/mm3 K/mm3 (0.0-0.1) Abs Immat Gran (auto) 0.08 K/mm3 H K/mm3 (0.00-0.031) Absolute Neuts (auto) 8.7 K/mm3 H K/mm3 (1.3-6.7) Absolute Nucleated RBC 0.0 K/mm3 K/mm3 (0.0-0.012) Nucleated RBC % 0.0 % % (0.0-0.2) POC Capillary Glucose RPR Pending Blood Type B Positive Antibody Screen Negative 04/11/21 04/12/21 23:25 03:55 WBC RBC Hgb Hct MCV MCH MCHC RDW Plt Count MPV Immature Gran % (Auto) Neut % (Auto) Lymph % (Auto) [place] % (Auto) Eos % (Auto) Baso % (Auto) Lymph # (Auto) [place] # (Auto) Eos # (Auto) Baso # (Auto) Abs Immat Gran (auto) Absolute Neuts (auto) Absolute Nucleated RBC Nucleated RBC % POC Capillary Glucose 73 mg/dl mg/dl 135 mg/dl H mg/dl (65-105) (65-105) RPR Blood Type Antibody Screen Patient hx anesthesia problems: none Family hx anesthesia problems: none PMFSH Past Medical History Medical History Anemia Back pain affecting Bipolar 1 disorder Costochondritis, acute Cough Engages in vaping Fatigue Joint pain Left-sided chest pain Obese Recurrent chest pain Schizoaffective disorder URI (upper respiratory infection) Weakness of wrist Surgical History Surgical History No history of previous surgery Family History Family History Mother Unknown family medical history Father Unknown family medical history Grandparent Esophageal cancer Grandparent Cerebrovascular accident Social History Social History Tobacco type: e-cigarettes/vaping Alcohol intake: never Substance use: former Substanc
[2021-04-12] MEDS: PHENYLEPHRINE 1,000 MCG/10 ML SYRINGE 100 MCG IV PUSH (04:51)
[2021-04-12 06:19] LABS: Glucose Point of Care 104 mg/dl (65-105)
[2021-04-12 06:59] LABS: Glucose Point of Care 78 mg/dl (65-105)
--- NOTE | 2021-04-12 08:52 | LDADM ---
This patient, Ashlee Webster, was admitted to Labor/Delivery/Recovery 103 on 04/11/21 at 21:51. Plans for labor, pain management and were discussed with patient. Patient/family oriented to hospital policies and general routines including ID bracelet, bed and alarms, visiting hours, pain management, procedures, bathroom and other care routines, personal items, smoking policy, room service/diet and guest tray routines, infant security routines, and visiting hours. Patient/Family are encouraged to report perceived risks to care and to ask questions if they do not understand what they are told or what they should do. See OBIX for further documentation.
[2021-04-12 08:54] LABS: Amphetamine Screen Urine Negative (Negative); Barbiturate Screen Urine Negative (Negative); Benzodiazepines Screen Urine Negative (Negative); Cannabinoid Screen Urine Negative (Negative); Cocaine Screen Urine Negative (Negative); Methadone Screen Urine Negative (Negative); Opiate Screen Urine Negative (Negative); Phencyclidine Screen Urine Negative (Negative)
[2021-04-12 08:57] LABS: Rapid Plasma Reagin Non-Reactive (NonReactive)
[2021-04-12 09:14] LABS: Glucose Point of Care 83 mg/dl (65-105)
[2021-04-12 12:35] LABS: Glucose Point of Care 95 mg/dl (65-105)
--- NOTE | 2021-04-12 14:24 | WPDOBADMIT ---
Obstetrics - Admit Note Admission Note: record reviewed. No pertinent additions to the history and/or any subsequent changes in the physical findings that are not consistent with the expected course of the were found. Presented in labor A2GDM complete and pushing Additions to the history and/or subsequent changes in the physical findings follow. None.
--- NOTE | 2021-04-12 14:25 | P.PCNOB_ITS ---
OB - Delivery Note Procedure Delivery date: 04/12/21 Procedure: events: Gestational Diabetes Intrapartal events: None Delivery augmentation: pitocin Delivery monitor: external FHT and external uterine Route of delivery: Laceration Description: None Specimen: Yes Quantitative Blood Loss (ml): 140 Anesthesia type: Epidural Disposition: floor [place] Baby Date of : 04/12/21 Time of : 14:05 Weeks of gestation at delivery: 38 gender: Male Weight (pounds): 9 Weight (ounces): 3 presentation: vertex position: Left Occiput Anterior Placenta delivery description: Spontaneous cord vessel description: 3 Vessels score one minute: 8 score five minutes: 9
[2021-04-12] MEDS: OXYTOCIN 30 UNITS/NS 500 ML 30 UNITS/500 ML BAG 125 UNITS IV CONT (14:39)
--- NOTE | 2021-04-12 16:56 | OBPPTRN ---
Patient transferred to post room # 286 via wheelchair. Support person present. Oriented to unit, room, information board, rooming in, admission packet and security measures. Patient verbalizes understanding.
[2021-04-12] MEDS: ACETAMINOPHEN 325 MG TABLET 650 MG PO (18:00)
[2021-04-12] MEDS: IBUPROFEN 600 MG TABLET PO (20:00)
[2021-04-12] MEDS: ZOLPIDEM TARTRATE (*CRX) 5 MG TABLET PO (21:31)
[2021-04-13 05:05] VITALS: BP 123/65; PULSE 95; RESP 16; TEMP 37.1; O2SAT 100
[2021-04-13] MEDS: IBUPROFEN 600 MG TABLET PO ×3 (05:05→18:30)
[2021-04-13 05:51] LABS: Hematocrit 33.7 % (37.0-47.0); Hemoglobin 10.5 g/dL (12.0-15.0)
[2021-04-13 07:30] VITALS: BP 124/74; PULSE 92; RESP 18; TEMP 37; O2SAT 99
--- NOTE | 2021-04-13 07:41 | PM.OBPNVD ---
OB - PN: Subj Subjective Date/time seen: 04/13/21 07:41 Patient comments: no complaints and pain well controlled baby status: doing well OB - PN: Obj Data Labs CBC & Chem 7: 04/13/21 05:15 Labs: Laboratory Results - last 24 hr 04/11/21 04/12/21 04/12/21 23:25 08:10 09:04 Hgb Hct POC Capillary Glucose 83 Urine Opiates Screen Negative Urine Methadone Screen Negative Ur Barbiturates Screen Negative Ur Phencyclidine Scrn Negative Ur Amphetamine Screen Negative U Benzodiazepines Scrn Negative Urine Cocaine Screen Negative U Cannabinoids Screen Negative RPR Non-reactive 04/12/21 04/13/21 12:33 05:15 Hgb 10.5 L Hct 33.7 L POC Capillary Glucose 95 Urine Opiates Screen Urine Methadone Screen Ur Barbiturates Screen Ur Phencyclidine Scrn Ur Amphetamine Screen U Benzodiazepines Scrn Urine Cocaine Screen U Cannabinoids Screen RPR OB - PN A/P Plan day: 1 Plan: routine care Time Spent With Patient Time: Total time spent is greater than 50% in coordination of care (as documented) at patient's floor/unit and/or counseling patient: Exam : Bimanual exam- vagina & uterus: other (Uterus firm, nt @U)
[2021-04-13] MEDS: MULTIVIT/MIN/PREN/FOL AC/IRON TABLET 1 TAB PO (08:02)
--- NOTE | 2021-04-13 10:14 | PC.NURSE ---
Pt. took medication from home.
--- NOTE | 2021-04-13 11:45 | PC.NURSE ---
Consult with pt., mother is listed as breast/bottle feeding . Mother reports she is bottle feeding and pumping and wishes to exclusively breastfeed. No pump is located in room and mother denies the need for assist with pumping. Offered to assist mother with next feeding. Requested mother call out next feeding before she bottle feeds or pump. Instructed feeding should be initiated three hours from start of last feeding or if feeding cues are noted before. Mother voiced understanding of information shared.
[2021-04-13 12:12] VITALS: BP 118/72; PULSE 96; RESP 16; TEMP 36.9; O2SAT 99
--- NOTE | 2021-04-13 15:46 | WPDANLDPN2 ---
Anes-Prog Note L&D Date/Time: 04/13/21 15:46 Comfortable throughout: labor (pt stated she progressed quickly and felt contractions during delivery ) Neuraxial method: epidural Epidural/Spinal procedure site: clean & non-tender Neuro status: Neuro function grossly intact. Cardiovascular status: normal Respiratory status: normal Airway patency: baseline Mental status: baseline Post-Op hydration status: normal Vital Signs: Last Vital Signs Temp 36.9 C 04/13/21 12:12 Pulse 96 04/13/21 12:12 Resp 16 04/13/21 12:12 BP 118/72 04/13/21 12:12 Pulse Ox 99 04/13/21 12:12 Pain score (VAS): 0/10. Patient up at bedside at time of assessment, appears comfortable. Support person at bedside. Post-procedural complaints: none Patient feedback: Patient satisfied with anesthetic care.
[2021-04-13 19:40] VITALS: BP 114/78; PULSE 91; RESP 16; TEMP 36.7; O2SAT 99
[2021-04-13] MEDS: ZOLPIDEM TARTRATE (*CRX) 5 MG TABLET PO (22:06)
[2021-04-14] MEDS: IBUPROFEN 600 MG TABLET PO ×2 (03:25→09:11)
[2021-04-14 07:45] VITALS: BP 116/69; PULSE 103; RESP 22; TEMP 36.7; O2SAT 98
[2021-04-14] MEDS: MULTIVIT/MIN/PREN/FOL AC/IRON TABLET 1 TAB PO (09:11)
[2021-04-14] MEDS: ACETAMINOPHEN 325 MG TABLET 650 MG PO (09:12)
--- NOTE | 2021-04-14 11:20 | PC.NURSE ---
Consult with pt., mother reports she puts to breast at times, she will always bottle feed after . Several attempts have been made to assist mother with latching. Mother reports I just put him to breast when he seems really awake Again offered assist with feeding. Mother declines stating he will latch she just does not want to do it all of the time. Reviewed stimulation and milk supply. Mother states she pumps to stimulate milk supply or will give to . Offered to assist mother with pumping, mother declines reporting she is pumping without issue. Reviewed should be fed every 3-4 hours hours hours waking if needed if she is breast and bottle feeding. Mother should wake to feed every 2-3 hours if . Mother is feeding as required and waking to feed if needed. Infant is currently meeting outcomes for weight, output, jaundice and feeding frequencies. Mother states she feels confident to continue current feeding plan at home. Reviewed transition to breast milk, signs of adequate intake, and engorgement/relief. Instructed to call ICP if intake/output less than required. Reviewed regular medications mother is taking. Information provided per Ayla. Reviewed community resources on the [facility] website and in the Mom/Baby guide. Information on outpatient services provided. Mother has no further questions at this time.
--- NOTE | 2021-04-14 12:39 | PM.OBPNVD ---
OB - PN: Subj Subjective Date/time seen: 04/14/21 12:39 Patient comments: pain well controlled and other (back pain) baby status: doing well and nursing well OB - PN: Obj Data Labs CBC & Chem 7: 04/13/21 05:15 OB - PN A/P Plan day: 2 Plan: routine care, discharge home, follow up 6 weeks and other (plans micronor for bc) Time Spent With Patient Time: Total time spent is greater than 50% in coordination of care (as documented) at patient's floor/unit and/or counseling patient: Exam : Bimanual exam- vagina & uterus: other (Uterus firm, nt @U)
--- NOTE | 2021-04-14 13:45 | PC.NURSE ---
Patient viewed the discharge video Mother & Baby Care, The First Two Weeks . Patient was given the opportunity and encouraged to ask questions. Patient verbalized understanding of information shared and has been given the mother/baby guide for home reference.
--- NOTE | 2021-04-14 13:50 | PC.NURSE ---
Pt. states she will take her own meds
[2021-04-17 13:21] VITALS: BP 117/79; PULSE 95; RESP 20; TEMP 36.8; O2SAT 99
--- NOTE | 2021-04-27 11:40 | PM.OBDSVD ---
DS: Admitting Diagnosis Admitting Diagnosis Admitting Diagnosis: labor DS: Discharge Diagnosis Discharge Diagnosis (1) (spontaneous vaginal delivery): Code(s): O80 - Encounter for full-term uncomplicated delivery Status: Acute (2) Gestational diabetes mellitus (GDM) affecting , antepartum: Code(s): O24.419 - Gestational diabetes mellitus in , unspecified control Status: Acute OB - DS: Summary OB Procedures : NST and Ultrasound OB Procedures Intrapartum: Spontaneous Vag Delivery OB Procedures: : None Time Spent with Patient Time attestation: Total time spent providing and/or coordinating discharge services: DS: Data Data Completed and Pending Completed studies during hospitalization: Pending at discharge 04/12/21 15:25 Surgical [PTH] Routine Discharge Plan Discharge Attending physician on discharge: Minerva Hercules Consulting providers: Titi Hassan Discharging Clinician: Minerva Hercules Patient Disposition: Home, Self-Care Activity: may shower and pelvic rest Diet: regular Discharge Instructions: Education: Mom and Baby Guide Given to: Mother Follow-Up: Call your delivering provider's office for an appointment to be seen in: call for appointment Mom and baby should come to the [facility] for the follow-up appointment. Appointment Date/Time: April 17, 2021 at 1:30 pm What to expect at your follow-up visit: Physical Assessment Call [phone] if you are unable to keep your appointment time. BREAST CARE: * Wear a snug supportive bra. * For engorgement discomfort: Breast Feeding: * Apply warm moist washcloths * Express milk as needed to relieve engorgement * Wear loose clothing * For sore nipples: * Identify correct latch-on * Apply warm moist washcloths before and after nursing * Air dry nipples after nursing * May apply Lansinoh cream to nipples EPISIOTOMY/PERINEAL CARE: * Until bleeding stops, use your bogdan bottle after urinating * Change your pad frequently throughout the day * No tub baths until seen by your physician - You may shower ACTIVITY: * Rest as much as possible. * Do not exercise or lift anything heavier than your baby (such as laundry or other children.) * Avoid stairs or driving as much as possible. * Do not put anything into the vagina. No douching, tampons, or sexual activity until seen by physician. NOTIFY PHYSICIAN IF YOU HAVE ANY QUESTIONS OR IF ANY OF THE FOLLOWING SYMPTOMS OCCUR: * If your perineum becomes red, swollen, or more painful than what you have experienced in the hospital. * If your vaginal bleeding becomes foul smelling. * If your vaginal bleeding becomes more heavy than a period or if your bleeding changes from pink to bright red. However, you may pass an occasional walnut-sized clot once or twice for the first week . * If you experience a sharp, shooting pain in you calves. * If you discover a hard, reddened area on your breast or if you experience flu-like symptoms. DIET: * Eat regular, well-balanced meals. * Drink plenty of fluids daily. If , drink to thirst. Patient Instructions: How to Stop Smoking (DC), Secondhand Smoke Exposure in Children (GEN), Electronic Cigarettes and Your Health (GEN) Stand Alone Forms: General Discharge Information Follow-up/Referrals: Minerva Hercules MD [Physician] - Discharge Medications: New [place]-Jose Kit 2-2 % kit 1 applic RECTAL HS PRN (Reason: hemorrhoids) Qty: 1 RF: 6 ibuprofen 600 mg Tablet 600 mg PO Q6H PRN (Reason: Cramping) Qty: 60 RF: 0 zolpidem 5 mg Tablet 5 mg PO HS PRN (Reason: Insomnia) Qty: 10 RF: 0 norethindrone (contraceptive) 0.35 mg tablet 0.35 mg PO DAILY Qty: 84 RF: 3 Continued atomoxetine [Strattera] 80 mg Capsule 80 mg PO QAM RF: 0 E
== END 2021-04-14 14:15 | disposition home or self-care (01) | DRG 560 ==
LOC: ANHLDR 04-12 16:54 → ANHOB2 04-12 16:59
PROVIDERS: Obstetrics & Gynecology; Admitting Provider Obstetrics & Gynecology Gynecology; PCP Nurse Practitioner Family; Visit Provider Obstetrics & Gynecology Gynecology
DX: O24.429 Gestational diabetes mellitus in childbirth, unspecified control (principal); Z37.0 Single live birth; Z3A.38 38 weeks gestation of pregnancy; O99.02 Anemia complicating childbirth; D64.9 Anemia, unspecified; O99.344 Other mental disorders complicating childbirth; F31.9 Bipolar disorder, unspecified; F25.9 Schizoaffective disorder, unspecified; F90.9 Attention-deficit hyperactivity disorder, unspecified type; O99.214 Obesity complicating childbirth; E66.01 Morbid (severe) obesity due to excess calories
CPT/HCPCS: 36415; 80307; 82948; 84112; 85014; 85018; 85025; 86592; 86850; 86900; 86901; 88307; A9270; J2370; J2590; J2795; J7120

== ENCOUNTER 2021-04-17 19:02 | Emergency (ER) | payer OTHER, SELFPAY ==
--- NOTE | ~2021-04-17 | XR_ITS ---
EXAMINATION: XR chest 1V portable 04/17/2021 19:44 INDICATION: Left-sided chest pain. 5 days . PROCEDURE: AP portable chest COMPARISON: 11/23/2019 FINDINGS: The lungs are clear. The cardiomediastinal silhouette is within normal limits. There are no pleural effusions. There is no pneumothorax suspected. IMPRESSION: 1: NO ACUTE CARDIOPULMONARY DISEASE. Reviewed, dictated and finalized at location A.
--- NOTE | ~2021-04-17 | CT_ITS ---
EXAMINATION: CTA chest PE protocol DATE: 04/17/2021 21:01 CDT INDICATION: Left-sided chest pain. 5 days . TECHNIQUE: Computed tomographic angiography (CTA) of the chest was performed with 100 mL Omnipaque-35 0 intravenous contrast. The dose-length product was 404.32 mGy-cm. Maximum intensity projection 3D-re constructions of the aorta and other arteries were constructed by the technologist on a separate work station. Automated exposure control and iterative reconstruction technique were employed. COMPARISON: Chest x-ray dated 04/17/2021. FINDINGS: Study is technically adequate without evidence for pulmonary embolism. No thoracic lymphade nopathy. No significant pleural or pericardial effusion. Heart size normal. Upper abdomen is unremark able. No pneumothorax. No endobronchial lesions. No focal airspace consolidation. IMPRESSION: 1. No acute cardiopulmonary disease. No evidence for pulmonary embolism. Reviewed, dictated and finalized at location A.
[2021-04-17 19:20] VITALS: BP 122/76; PULSE 92; RESP 20; TEMP 36.3; O2SAT 99
--- NOTE | 2021-04-17 19:22 | ECG_ITS ---
Measurements Intervals [place] Rate: 88 P: 44 PA: 127 QRS: 54 QRSD: 82 T: 37 QT: 351 QTc: 425 Interpretive Statements SINUS RHYTHM NORMAL ECG Electronically Signed On 04-18-2021 6:07:07 CDT by Bob Encarnacion D.O.
--- NOTE | 2021-04-17 19:23 | ED.GENADULT ---
HPI - General Adult General Chief complaint: Unspecified Stated complaint: chest pain Source: patient Mode of arrival: ambulatory Limitations: no limitations History of Present Illness HPI narrative: Ashlee is a 30F with a PMH of depression and a recent vaginal delivery on 04/12. Since leaving the hospital she has had worsening tingling and pain on a deep breath. She has also had TTP just to the left of the sternum. She admits some mild lightheadedness but no nausea or vomiting. It is not worse with activity. The tingling radiates down her left arm. Related Data Home Medications Medication Instructions Recorded Confirmed Expecta 1 pkg PO DAILY 10/20/20 04/17/21 atomoxetine [Strattera] 80 mg PO QAM 10/20/20 04/17/21 metoclopramide HCl 10 mg PO BID PRN 11/30/20 04/17/21 bupropion HCl 300 mg PO DAILY 02/03/21 04/17/21 melatonin 5 mg PO HS PRN 02/03/21 04/17/21 Allergies Allergy/AdvReac Type Severity Reaction Status Date / Time ciprofloxacin Allergy Intermediate trouble Verified 04/17/21 19:26 breathing Review of Systems Constitutional: Constitutional: Reports no additional constitutional complaints, Denies chills, Denies fever(s) and Denies headache(s) Eyes: Eyes: Reports no additional eye complaints ENT: Reports system reviewed and no additional complaints, except as documented Cardiovascular: Cardiovascular: Reports as per HPI Respiratory: Respiratory: Reports as per HPI Gastrointestinal: Gastrointestinal: Reports no additional gastrointestinal complaints Genitourinary: Genitourinary: Reports no additional female genitourinary complaints Musculoskeletal: Musculoskeletal: Reports as per HPI Integumentary/Breasts: Skin/Breast: Reports system reviewed and no additional complaints, except as docu Neurologic: Reports system reviewed and no additional complaints, except as documented Psychiatric: Psychiatric: Reports no additional psychiatric complaints Endocrine: Endocrine: Reports no additional endocrine complaints Hematologic/Lymphatic: Hematologic/Lymphatic: Reports no additional hematologic/lymphatic complaints Allergic/Immunologic: Allergic/Immunologic: Reports no additional allergic/immunologic complaints [facility] Past Medical History Medical History Anemia Back pain affecting Bipolar 1 disorder Costochondritis, acute Cough Engages in vaping Fatigue Joint pain Left-sided chest pain Obese Recurrent chest pain Schizoaffective disorder URI (upper respiratory infection) Weakness of wrist Surgical History Surgical History No history of previous surgery Family History Family History Mother Unknown family medical history Father Unknown family medical history Grandparent Esophageal cancer Grandparent Cerebrovascular accident Social History Social History Smoking status: Current every day smoker Tobacco type: smokeless tobacco Second hand tobacco smoke exposure: Yes Alcohol intake: never Substance use: former Substance use type: marijuana Additional living arrangements comments: with one child Gender identity (if verbalized by the patient): Female Spiritual care concerns: No Exam Const: General: cooperative, healthy appearing, comfortable, no acute distress, well developed and alert HENMT: Head: normal to inspection Eyes: Other: atraumatic Neck: Neck: normal visual inspection Chest: Chest palpation & inspection: normal inspection of the chest and tenderness costochondral junction and costal cartilage (left) Resp: Effort & Inspection: normal respiratory effort, able to speak in complete sentences and not labored Auscultation: clear to auscultation bilaterally Cardio: Rate: regular rate Rhythm: regular
[2021-04-17 19:40] LABS: Basophils Absolute Auto 0.03 K/mm3 (0.00-0.10); Basophils Percent Auto 0.4 % (0.0-1.0); Eosinophils Absolute Auto 0.25 K/mm3 (0.02-0.50); Hematocrit 38.5 % (35.0-49.0); Hemoglobin 11.8 g/dL (12.0-15.0); Immature Granulocyte Absolute 0.07 K/mm3 (0.00-0.00); Immature Granulocyte Percent A 0.8 % (0.0-0.0); Lymphocytes Absolute Auto 2.03 K/mm3 (1.10-4.50); Lymphocytes Percent Auto 24.3 % (18.0-42.0); Mean Corpuscular HGB Conc 30.6 g/dL (32.0-36.0); Mean Corpuscular Volume 88.1 fL (78.0-102.0); Mean Platelet Volume 8.6 fl (9.2-11.8); Monocytes Absolute Auto 0.31 K/mm3 (0.10-0.90); Monocytes Percent Auto 3.7 % (2.0-11.0); Neutrophils Absolute Auto 5.7 K/mm3 (1.7-7.2); Neutrophils Percent Auto 67.8 % (50.0-70.0); Platelet Count Result 412 K/mm3 (150-420); Red Blood Count 4.37 M/mm3 (4.20-5.40); Red Cell Distribution Width 16.4 % (11.6-14.4); White Blood Count 8.4 K/mm3 (4.8-10.8)
[2021-04-17 20:03] LABS: Alanine Aminotransferase 44 U/L (14-59); Albumin Level 2.6 g/dL (3.4-5.0); Alkaline Phosphatase 186 U/L (46-116); Anion Gap 11 mmol/L (8-16); Aspartate Amino Transferase 24 U/L (15-37); Bilirubin,Total 0.2 mg/dL (0.00-1.00); Blood Urea Nitrogen 12 mg/dL (7-18); Calcium 8.8 mg/dL (8.5-10.1); Carbon Dioxide 27 mmol/L (21-32); Chloride 103 mmol/L (98-108); Estimated CRCL calculation 85 ml/min; Estimated Glomerular Filt Rate > 60; Glucose 104 mg/dL (70-99); NT Pro B Type Natriuretic Pept 41 pg/mL (0-125); Osmolality Calculated 291 mOsm/kg (285-295); Potassium 3.6 mmol/L (3.5-5.1); Sodium 141 mmol/L (136-145); Total Protein 6.9 g/dL (6.4-8.2)
[2021-04-17 20:18] LABS: Troponin I 4.4 ng/L (0.00-60.4)
[2021-04-17] MEDS: LORazepam INJ (*CRX) 2 MG/ML VIAL 0.5 MG IV PUSH (20:45)
[2021-04-17 21:54] VITALS: BP 124/83; PULSE 86; RESP 20; TEMP 36.9; O2SAT 99
== END 2021-04-17 21:55 | disposition home or self-care (01) ==
PROVIDERS: Emergency Provider Family Medicine; PCP Nurse Practitioner Family
DX: M94.0 Chondrocostal junction syndrome [Tietze] (principal)
CPT/HCPCS: 36415; 71045; 71275; 80053; 83880; 84484; 85025; 85380; 93005; 96374; 99283; 99284; J2060; Q9967

== ENCOUNTER 2021-06-13 18:07 | Outpatient (CLI) | payer OTHER, SELFPAY ==
[2021-06-13 19:28] LABS: SARS-CoV-2 RNA PCR Negative (Negative)
== END 2021-06-13 18:08 | disposition home or self-care (01) ==
LOC: CHSLAB 18:10
PROVIDERS: PCP Nurse Practitioner Family; Visit Provider Nurse Practitioner Family
DX: R09.81 Nasal congestion (principal); R68.89 Other general symptoms and signs; Z20.822 Contact with and (suspected) exposure to COVID-19
CPT/HCPCS: C9803; U0003; U0005

== ENCOUNTER 2021-10-10 13:22 | Outpatient (CLI) | payer OTHER, SELFPAY ==
--- NOTE | 2021-10-10 13:40 | PC.NURSE ---
PT to room 211 amb. A&Ox3. [facility] plan of care explained. Consent signed. Pt has no questions or complaints. Oriented to room. Call waldrop in reach. Reminded to call with needs.
[2021-10-10] MEDS: FAMOTIDINE 20 MG TABLET PO (13:50)
[2021-10-10] MEDS: ACETAMINOPHEN 325 MG TABLET 650 MG PO (13:50)
[2021-10-10] MEDS: diphenhydrAMINE HCl CAP 25 MG CAPSULE PO (13:50)
[2021-10-10 14:14] VITALS: BP 127/69; PULSE 84; RESP 20; TEMP 36.6; O2SAT 99
--- NOTE | 2021-10-10 15:31 | PC.NURSE ---
Pt has no complaints or concerns. Discharged to home amb per self.
== END 2021-10-10 13:23 | disposition home or self-care (01) ==
LOC: CHSTREATRM 13:26
PROVIDERS: PCP Nurse Practitioner Family; Visit Provider Nurse Practitioner Family
DX: U07.1 COVID-19 (principal)
CPT/HCPCS: A9270; J7050; M0243; Q0244

== ENCOUNTER 2021-11-22 18:16 | Outpatient (CLI) | payer OTHER, SELFPAY | END 2021-11-22 18:17 | disposition home or self-care (01) | PROVIDERS: PCP Nurse Practitioner Family; Visit Provider Obstetrics & Gynecology Gynecology | DX: O26.21 Pregnancy care for patient with recurrent pregnancy loss, first trimester (principal) | CPT/HCPCS: 36415; 84702 ==

== ENCOUNTER 2021-11-24 17:30 | Outpatient (CLI) | payer OTHER, SELFPAY | END 2021-11-24 17:31 | disposition home or self-care (01) | LOC: CHSLAB 17:32 | PROVIDERS: PCP Nurse Practitioner Family; Visit Provider Obstetrics & Gynecology Gynecology | DX: O26.21 Pregnancy care for patient with recurrent pregnancy loss, first trimester (principal) | CPT/HCPCS: 36415; 84702 ==

== ENCOUNTER 2021-11-30 18:09 | Outpatient (CLI) | payer OTHER, SELFPAY | END 2021-11-30 18:10 | disposition home or self-care (01) | LOC: CHSLAB 18:10 | PROVIDERS: PCP Nurse Practitioner Family; Visit Provider Obstetrics & Gynecology Gynecology | DX: Z32.00 Encounter for pregnancy test, result unknown (principal) | CPT/HCPCS: 36415; 84702 ==

== ENCOUNTER 2021-12-02 13:30 | Outpatient (CLI) | payer OTHER, SELFPAY | END 2021-12-02 13:31 | disposition home or self-care (01) | LOC: CHSLAB 13:33 | PROVIDERS: PCP Nurse Practitioner Family; Visit Provider Obstetrics & Gynecology Gynecology | DX: Z32.00 Encounter for pregnancy test, result unknown (principal) | CPT/HCPCS: 36415; 84702 ==

== ENCOUNTER 2021-12-11 15:01 | Outpatient (CLI) | payer OTHER, SELFPAY ==
--- NOTE | ~2021-12-11 | US_ITS ---
US OB <=14 wk fetus w TV DATE: 12/11/2021 15:38 INDICATION: ; history of miscarriage. TECHNIQUE: Region imaging via transabdominal and transvaginal approaches COMPARISON: 04/08/2021 obstetrical ultrasound follow-up FINDINGS: Retroverted uterus measures up to 7.6 cm vertical dimension, 4.8 cm anteroposterior dimensi on. A normally shaped intrauterine gestational sac is identified with yolk sac and pole, heart rate 119 bpm. [place]-rump length averages 0.66 cm, consistent with 6 weeks 4 days +/- 4 days estimated gestational a ge, TOBIN: 08/02/2022. 2 cm right ovarian cyst. There is blood flow to the right ovary. Left ovary is not visualized. No pel lorena mass or abnormal pelvic fluid collection is evident. IMPRESSION: Estimated gestational age of 6 weeks 4 days +/- 4 days; TOBIN: 08/02/2022 2 cm right ovarian cyst Reviewed, dictated and finalized at Location [facility]. Reviewed, dictated and finalized at location A. Y MAKER IMPRESSION: Estimated gestational age of 6 weeks 4 days +/- 4 days; TOBIN: 022 2 cm right ovarian cyst
== END 2021-12-11 15:02 | disposition home or self-care (01) ==
LOC: CHSIMG 15:02
PROVIDERS: PCP Nurse Practitioner Family; Visit Provider Obstetrics & Gynecology Gynecology
DX: O26.21 Pregnancy care for patient with recurrent pregnancy loss, first trimester (principal)
CPT/HCPCS: 76801; 76817

== ENCOUNTER 2022-02-19 11:07 | Observation (INO) | payer MEDICARE, SELFPAY ==
[2022-02-19 11:33] VITALS: BP 113/63; PULSE 79; RESP 15; TEMP 35.5
--- NOTE | 2022-02-19 11:55 | OBADM ---
This patient, Ashlee Webster, admitted to the OB room OB Post 112 for observation. Patient/family oriented to hospital policies and general routines including ID bracelet, bed and alarms, visiting hours, pain management, procedures, bathroom and other care routines, personal items, smoking policy, room service/diet, and visiting hours. Patient/Family are encouraged to report perceived risks to care and to ask questions if they do not understand what they are told or what they should do.
--- NOTE | 2022-02-19 11:58 | PC.NURSE ---
Addendum entered by Minerva Lozano RN 02/27/22 08:37: Pt is 17 wks gestation. Original Note: 1107-Pt came in stating she has dfm and feels unsafe at home b/c she has thoughts of killing herself. Pt states I took a whole bottle of pills on Saturday and tried to kill myself b/c I am overwhelmed and sleep deprived and I have borderline personality disorder and this happens when I am . FHT's dopplered at 140, pt immediately began to cry. I asked if these are tears of natalie and she said yes. Pt said she did not call 911 or come to the ER Saturday after taking the pills, I asked if she slept and she responded with I don't really remember what happened when asked what kind of pills she took she said she took 30 15mg pills of adderal. Pt says she wants to be admitted into a psychiatric facility b/c she is afraid of what she will do to herself. called, orders received to transfer pt to ER so she can be assessed and transferred to a psych lui. Pt agrees to this plan. VSS 1145-Pt taken to ER per wheelchair.
--- NOTE | 2022-02-26 09:47 | PM.OBTRLD ---
OB - Triage/Final Diagnosis Visit Information Reason for evaluation: other (NST secondary suicide attempt by drug overdose) Comments/Additional reasons for admission: I have assessed the risk for this patient, Ashlee Webster, and determined that she would benefit from observation care.
== END 2022-02-19 11:45 ==
PROVIDERS: Admitting Provider Obstetrics & Gynecology Gynecology; PCP Nurse Practitioner Family; Visit Provider Obstetrics & Gynecology Gynecology
DX: O9A.212 Injury, poisoning and certain other consequences of external causes complicating pregnancy, second trimester (principal); T50.902A Poisoning by unspecified drugs, medicaments and biological substances, intentional self-harm, initial encounter; Z3A.17 17 weeks gestation of pregnancy
CPT/HCPCS: 36415; 80053; 80307; 81001; 81025; 84443; 84702; 85025; 87086; 93005; 99284; C9803; G0378; G0379; J7030; U0003; U0005

== ENCOUNTER 2022-02-19 11:51 | Emergency (ER) | payer MEDICARE, MEDICAID, SELFPAY ==
[2022-02-19 11:55] VITALS: BP 104/60; PULSE 78; RESP 14; TEMP 36.5; O2SAT 100
--- NOTE | 2022-02-19 12:37 | ECG_ITS ---
Measurements Intervals [place] Rate: 94 P: 43 ME: 134 QRS: 36 QRSD: 82 T: 34 QT: 383 QTc: 480 Interpretive Statements SINUS RHYTHM COMPARED TO ECG 04/17/2021 19:41:11 NO SIGNIFICANT CHANGES Electronically Signed On 02-19-2022 15:53:52 CDT by Jose G Lima M.D.
[2022-02-19 12:47] LABS: Basophils Percent Auto 0.3 % (0.2-1.2); Eosinophils Absolute Auto 0.1 K/mm3 (0-0.3); Eosinophils Percent Auto 1.1 % (0-4.4); Hematocrit 34.6 % (37.0-47.0); Hemoglobin 11.2 g/dL (12.0-15.0); Immature Granulocyte Absolute 0.02 K/mm3 (0.00-0.031); Immature Granulocyte Percent A 0.3 % (0-0.5); Lymphocytes Absolute Auto 1.35 K/mm3 (0.9-3.2); Lymphocytes Percent Auto 18.7 % (18.3-44.2); Mean Corpuscular HGB Conc 32.4 g/dl (32-36); Mean Corpuscular Hemoglobin 27.5 pg (26-34); Mean Corpuscular Volume 84.8 fl (80-100); Mean Platelet Volume 9.4 fl (7.4-10.4); Monocytes Absolute Auto 0.4 K/mm3 (0.1-0.6); Monocytes Percent Auto 5.3 % (2.6-8.5); Neutrophils Absolute Auto 5.4 K/mm3 (1.3-6.7); Neutrophils Percent Auto 74.3 % (45.5-73.1); Platelet Count Result 260 k/mm3 (150-375); Red Blood Count 4.08 M/mm3 (4.2-5.4); Red Cell Distribution Width 15.5 % (11.5-14.5); White Blood Count 7.2 K/mm3 (4.5-10.0)
[2022-02-19 12:56] LABS: Alanine Aminotransferase 19 U/L (4-35); Albumin Level 3.6 g/dL (3.5-5.1); Alkaline Phosphatase 80 U/L (38-126); Anion Gap 7 mmol/L (8-16); Aspartate Amino Transferase 23 U/L (14-36); Bilirubin,Total 0.4 mg/dL (0.2-1.3); Blood Urea Nitrogen 9 mg/dL (7-17); Calcium 8.5 mg/dL (8.4-10.2); Carbon Dioxide 20 mmol/L (22-30); Chloride 107 mmol/L (98-107); Estimated CRCL calculation 115 ml/min; Estimated Glomerular Filt Rate > 60; Glucose 125 mg/dL (65-110); Potassium 3.6 mmol/L (3.4-5.0); Sodium 134 mmol/L (137-145)
[2022-02-19 12:58] LABS: Ethanol < 10 mg/dL (<10)
[2022-02-19 13:00] LABS: Add Urine Microscopic? YES; Appearance Urine Cloudy (Clear); Bilirubin Urine Negative (Negative); Blood Urine Negative (Negative); Color Urine Yellow (Yellow); Glucose Urine UA Negative (Negative); Ketones Urine Negative (Negative); Leukocyte Esterase Ur 1+ LEU/UL (Negative); Mucus Urine Rare /lpf; Nitrate Urine Negative (Negative); Protein Urine Negative (Negative); RBC Urine 0-2 /hpf (0-2); Specific Grav Ur 1.015 (1.001-1.035); Squamous Epithelial Cell Urine Many /hpf (Few); Urobilinogen Urine Negative mg/dL (<2.0)
[2022-02-19 13:02] LABS: Acetaminophen < 10 ug/mL (10-30); Amphetamine Screen Urine Positive (Negative); Barbiturate Screen Urine Negative (Negative); Benzodiazepines Screen Urine Negative (Negative); Cannabinoid Screen Urine Negative (Negative); Cocaine Screen Urine Negative (Negative); Methadone Screen Urine Negative (Negative); Opiate Screen Urine Negative (Negative); Phencyclidine Screen Urine Negative (Negative); Salicylate < 1.0 mg/dL (2-20)
--- NOTE | 2022-02-19 14:23 | ED.PSYCH ---
HPI - Psych General Chief Complaint: Psychiatric Symptoms <Daija Alvarez MD - Last Filed: 02/19/22 21:51> Stated Complaint: thoughts of harming self <Daija Alvarez MD - Last Filed: 02/19/22 21:51> Time Seen by Provider: 02/19/22 12:02 <Daija Alvarez MD - Last Filed: 02/19/22 21:51> Source: patient and RN notes reviewed <Daija Alvarez MD - Last Filed: 02/19/22 21:51> Mode of arrival: ambulatory <Daija Alvarez MD - Last Filed: 02/19/22 21:51> Limitations: no limitations <Daija Alvarez MD - Last Filed: 02/19/22 21:51> History of Present Illness HPI Narrative: This is 31 year old female GA 17 weeks who presents for evaluation of suicide attempt. Patient states she attempted suicide on Saturday by taking 30 pills of 15 mg adderall. She reports she did not realize what she did until last night so that is why she is here in ER. She has history of depression and suicide attempt in the past. She was evaluated by OB in labor and delivery today prior to ER. She states fetus was determined to be ok. She denies nausea, vomiting, abdominal pain, vaginal bleeding or leakagel of fluid. She denies chest pain or shortness of breath. <Daija Alvarez MD - Last Filed: 02/19/22 21:51> Related Data Home Medications: Home Medications Medication Instructions Recorded Confirmed dextroamphetamine-amphetamine ER 40 mg PO DAILY cap 08/10/21 20 mg 24hr capsule,extend release <Daija Alvarez MD - Last Filed: 02/19/22 21:51> Allergies/Adverse Reactions: Allergies Allergy/AdvReac Type Severity Reaction Status Date / Time ciprofloxacin Allergy Intermediate trouble Verified 09/01/21 15:51 breathing <Daija Alvarez MD - Last Filed: 02/19/22 21:51> Review of Systems Review of Systems: All systems reviewed & are unremarkable except as noted in HPI and below <Daija Alvarez MD - Last Filed: 02/19/22 21:51> PMFSH Past Medical History Medical History: Medical History Anemia Back pain affecting Bipolar 1 disorder Costochondritis, acute Cough Engages in vaping False labor Fatigue Gestational diabetes mellitus (GDM) affecting , antepartum Joint pain Left-sided chest pain Obese Recurrent chest pain Schizoaffective disorder (spontaneous vaginal delivery) URI (upper respiratory infection) Weakness of wrist <Daija Alvarez MD - Last Filed: 02/19/22 21:51> Surgical History Surgical History: Surgical History No history of previous surgery <Daija Alvarez MD - Last Filed: 02/19/22 21:51> Family History Family History: Family History Mother Unknown family medical history Father Unknown family medical history Grandparent Esophageal cancer Grandparent Cerebrovascular accident <Daija Alvarez MD - Last Filed: 02/19/22 21:51> Social History Social History: Social History Smoking status: Current every day smoker Tobacco type: smokeless tobacco Second hand tobacco smoke exposure: Yes Alcohol intake: never Substance use: former Substance use type: prescription drug Additional living arrangements comments: with one child Gender identity (if verbalized by the patient): Female Spiritual care concerns: No <Daija Alvarez MD - Last Filed: 02/19/22 21:51> Exam Const: General: no acute distress and alert <Daija Alvarez MD - Last Filed: 02/19/22 21:51> Orientation/consciousness: patient oriented x3 <Daija Alvarez MD - Last Filed: 02/19/22 21:51> Eyes: Pupils: Equal, round and reactive pupils present <Daija Alvarez MD - Last Filed: 02/19/22 21:51> EOM: EOMs intact bilaterally <Daija Alvarez MD - Last
--- NOTE | 2022-02-19 14:28 | PC.NURSE ---
called poison control. They state if pt were to have any critical side effects, they would have happened within the first 3-8 hours. Pharmacist states that there is no need to continue to evaluate the side effects of the Adderall since it has been 3 days since she consumed the medication and to continue with psychiatric follow up.
[2022-02-19] MEDS: SODIUM CHLORIDE 0.9% IV 1,000 ML 999 ML IV CONT (14:37)
--- NOTE | 2022-02-19 15:41 | PC.NURSE ---
crisis here to evaluate pt.
[2022-02-19 15:48] LABS: SARS-CoV-2 RNA PCR Negative
--- NOTE | 2022-02-19 21:56 | PC.NURSE ---
spoke with tavo from crisis, per tavo miles would like the pt information faxed over. fax number [phone]. pt packet faxed at this time .
--- NOTE | 2022-02-20 00:57 | PC.NURSE ---
pt states at this time that she no longer wants to be placed and no longer wants to be inpatient. pt is denying SI and thoughts/plans/intention of self harm. Charge nurse notified. Crisis called at this time to re-evaluate patient. Crisis states someone will be on the way.
--- NOTE | 2022-02-20 01:54 | PC.NURSE ---
crisis here to re-evaluate pt at this time.
--- NOTE | 2022-02-20 04:23 | PC.NURSE ---
back up worker states pt has decided to remain voluntary for placement. pt denying SI at this time and scoring low risk. sitter pulled at this time. Charge nurse and EDP made aware.
--- NOTE | 2022-02-20 04:44 | PC.NURSE ---
spoke with kevan from [facility], they will not be accepting pt due to her being and they do not have OB.
[2022-02-20 06:41] VITALS: BP 100/55; PULSE 66; RESP 18; O2SAT 97
--- NOTE | 2022-02-20 08:06 | PC.NURSE ---
covid result and medical clearance faxed to [facility]
--- NOTE | 2022-02-20 09:07 | PC.NURSE ---
[facility] refused pt stating they cant provide care for women.
--- NOTE | 2022-02-20 09:16 | PC.NURSE ---
crisis contacted ed and stated they will continue looking for bed placement. pt resting in darkened room. no distress noted.
--- NOTE | 2022-02-20 11:33 | PC.NURSE ---
patient requesting to speak with crisis at this time. she states that she is no longer suicidal and just wants to go home. barry reassessed
[2022-02-20 15:53] VITALS: BP 114/71; PULSE 75; RESP 16; O2SAT 98
== END 2022-02-20 15:54 | disposition home or self-care (01) ==
PROVIDERS: General Practice; Emergency Provider Emergency Medicine; PCP Nurse Practitioner Family
DX: O9A.212 Injury, poisoning and certain other consequences of external causes complicating pregnancy, second trimester (principal); T43.622A Poisoning by amphetamines, intentional self-harm, initial encounter; O99.342 Other mental disorders complicating pregnancy, second trimester; F31.9 Bipolar disorder, unspecified; F25.9 Schizoaffective disorder, unspecified; Z20.822 Contact with and (suspected) exposure to COVID-19; O99.212 Obesity complicating pregnancy, second trimester; E66.9 Obesity, unspecified; Z3A.17 17 weeks gestation of pregnancy; Z91.51 Personal history of suicidal behavior; Z79.899 Other long term (current) drug therapy; Z86.2 Personal history of diseases of the blood and blood-forming organs and certain disorders involving the immune mechanism
CPT/HCPCS: 36415; 80053; 80307; 81001; 81025; 84443; 84702; 85025; 87086; 93005; 99284; C9803; J7030; U0003; U0005

== ENCOUNTER 2022-03-07 13:42 | Observation (INO) | payer MEDICARE, MEDICAID, SELFPAY ==
--- NOTE | ~2022-03-07 | US_ITS ---
EXAMINATION: US abdomen limited DATE: 03/07/2022 15:46 INDICATION: Periumbilical infection. Appendicitis. TECHNIQUE: Multiple grayscale and Doppler ultrasound images of the right lower quadrant and umbilical region of the abdomen were obtained. COMPARISON: None FINDINGS: Moderate-sized umbilical hernia containing primarily hyperechoic fat and small amount of anechoic flu id which measures 4.1 x 3.6 x 2.6 cm. Small amount of vascular flow seen within the herniated fat on color Doppler. No hernia with peristalsing bowel. The appendix is not identified in the right lower q uadrant. IMPRESSION: 1. Moderate-sized umbilical hernia containing primarily fat and minimal fluid. No herniated bowel. 2. Appendix is not identified. Reviewed, dictated and finalized at location A.
--- NOTE | 2022-03-07 13:53 | ED_ITS ---
HPI - Abdominal Pain General Chief Complaint: Abdominal Pain Stated Complaint: abdominal pain Time Seen by Provider: 03/07/22 13:51 Source: patient Related Data Home Medications Medication Instructions Recorded Confirmed dextroamphetamine-amphetamine ER 40 mg PO DAILY cap 08/10/21 20 mg 24hr capsule,extend release Allergies Allergy/AdvReac Type Severity Reaction Status Date / Time ciprofloxacin Allergy Intermediate trouble Verified 09/01/21 15:51 breathing PMFSH Past Medical History Medical History Anemia Back pain affecting Bipolar 1 disorder Costochondritis, acute Cough Engages in vaping False labor Fatigue Gestational diabetes mellitus (GDM) affecting , antepartum Joint pain Left-sided chest pain Obese Recurrent chest pain Schizoaffective disorder (spontaneous vaginal delivery) URI (upper respiratory infection) Weakness of wrist Surgical History Surgical History No history of previous surgery Family History Family History Mother Unknown family medical history Father Unknown family medical history Grandparent Esophageal cancer Grandparent Cerebrovascular accident Social History Social History Smoking status: Current every day smoker Tobacco type: smokeless tobacco Second hand tobacco smoke exposure: Yes Alcohol intake: never Substance use: former Substance use type: prescription drug Additional living arrangements comments: with one child Gender identity (if verbalized by the patient): Female Spiritual care concerns: No Discharge Plan Discharge Prescriptions: No Action dextroamphetamine-amphetamine [Adderall XR] 20 mg capsule,extended release 24hr 40 mg PO DAILY RF: 0 flibanserin 100 mg tablet 100 mg PO QHS Qty: 30 RF: 0
[2022-03-07 14:00] VITALS: BP 105/55; PULSE 81; RESP 17; TEMP 36.7; O2SAT 100
--- NOTE | 2022-03-07 14:35 | PC.NURSE ---
Upon completing the [place] [facility] Scre[facility], pt reports that she had a suicide attempt about three weeks ago. Pt reports she was seen here and she believes that those suicidal thoughts were secondary to a medication that she was on that she is no longer taking. Pt currently denies SI/HI or any psychiatric symptoms. Has no mental health complaints and reports since she stopped the medication she has not had any more suicidal thoughts or intentions of self-harm. scrap picker made aware of high risk screening due to the recent attempt, MD Glynn also made aware. Per MD Glynn, after seeing patient, he does not feel that patient is at any current risk of self-harm, and per MD Glynn, no need to initiate any suicide precautions at this time.
--- NOTE | 2022-03-07 14:50 | ED.ABDPAIN ---
HPI - Abdominal Pain General Chief Complaint: Abdominal Pain Stated Complaint: abdominal pain Time Seen by Provider: 03/07/22 13:51 Source: patient Mode of arrival: ambulatory Limitations: no limitations History of Present Illness HPI narrative: Patient is 31 years old white female came to the emergency room complaining of periumbilical pain started last night while sleeping. Worse with touch, standing, sitting or any movement. Better laying down flat. Patient is 20 weeks , denies any vaginal bleeding or discharge. Denies any fever, chills, nausea, vomiting, diarrhea, constipation, urinary symptoms or trauma. Related Data Home Medications Medication Instructions Recorded Confirmed dextroamphetamine-amphetamine ER 40 mg PO DAILY cap 08/10/21 20 mg 24hr capsule,extend release Allergies Allergy/AdvReac Type Severity Reaction Status Date / Time ciprofloxacin Allergy Intermediate trouble Verified 09/01/21 15:51 breathing Review of Systems Review of Systems: CONSTITUTIONAL: Denies fever, chills, or sweats. EYES: Denies visual changes, redness, or discharge. ENT: Denies rhinorrhea, congestion, sore throat, or otalgia. CARDIOVASCULAR: Denies chest pain, palpitations, or edema. RESPIRATORY: Denies cough or dyspnea. GASTROINTESTINAL: Umbilical pain GENITOURINARY: Denies dysuria or hematuria. SKIN: Denies rash or itching. MUSCULOSKELETAL: Denies back pain, joint pain, or myalgia. NEUROLOGIC: Denies headache, numbness, or weakness. PSYCHIATRIC: Denies anxiety or depression. [facility] Past Medical History Medical History Anemia Back pain affecting Bipolar 1 disorder Costochondritis, acute Cough Engages in vaping False labor Fatigue Gestational diabetes mellitus (GDM) affecting , antepartum Joint pain Left-sided chest pain Obese Recurrent chest pain Schizoaffective disorder (spontaneous vaginal delivery) URI (upper respiratory infection) Weakness of wrist Surgical History Surgical History No history of previous surgery Family History Family History Mother Unknown family medical history Father Unknown family medical history Grandparent Esophageal cancer Grandparent Cerebrovascular accident Social History Social History Smoking status: Current every day smoker Tobacco type: smokeless tobacco Second hand tobacco smoke exposure: Yes Alcohol intake: never Substance use: former Substance use type: prescription drug Additional living arrangements comments: with one child Gender identity (if verbalized by the patient): Female Spiritual care concerns: No Exam Narrative: General appearance: Well-developed, well-nourished Skin: Normal color Head: Normocephalic, nontraumatic Eyes: Clear conjunctiva ENT: Oropharynx normal, ears normal, nose normal Neck: Supple, nontender Chest and respiratory: Airway patent, no respiratory distress, no accessory muscle use Heart: Regular rate/rhythm Abdomen: Soft, moderate tenderness right lower quadrant, no rebound or guarding. Severe tenderness to the umbilicus with light touch, probably indurated skin of the umbilicus with the palpation. No erythema, no discharge, no swelling no organomegaly, quiet bowel sounds Vascular: Normal peripheral pulses, normal capillary refill. Musculoskeletal: Normal range of motion, nontender back Neurologic: Alert and oriented ?3, STE[employer]INTENANCE is normal as tested, no gross motor deficit
--- NOTE | 2022-03-07 15:20 | PC.NURSE ---
Pt refused IV, states she would rather me just draw her blood without leaving an IV catheter in. Pt informed of ordered IV fluids and pain medication that are through the IV route. Pt states she does not want any IV fluids and is requesting oral pain medication. Will speak with MD Glynn. Pt being taken to US at this time. Labs obtained and sent.
[2022-03-07 15:29] LABS: Basophils Percent Auto 0.2 % (0.2-1.2); Eosinophils Absolute Auto 0.1 K/mm3 (0-0.3); Eosinophils Percent Auto 0.7 % (0-4.4); Hematocrit 36.7 % (37.0-47.0); Hemoglobin 11.7 g/dL (12.0-15.0); Immature Granulocyte Absolute 0.09 K/mm3 (0.00-0.031); Immature Granulocyte Percent A 0.8 % (0-0.5); Lymphocytes Absolute Auto 1.71 K/mm3 (0.9-3.2); Lymphocytes Percent Auto 14.6 % (18.3-44.2); Mean Corpuscular HGB Conc 31.9 g/dl (32-36); Mean Corpuscular Hemoglobin 27.1 pg (26-34); Mean Corpuscular Volume 85.2 fl (80-100); Mean Platelet Volume 9.5 fl (7.4-10.4); Monocytes Absolute Auto 0.4 K/mm3 (0.1-0.6); Monocytes Percent Auto 3.6 % (2.6-8.5); Neutrophils Absolute Auto 9.4 K/mm3 (1.3-6.7); Neutrophils Percent Auto 80.1 % (45.5-73.1); Platelet Count Result 257 k/mm3 (150-375); Red Blood Count 4.31 M/mm3 (4.2-5.4); Red Cell Distribution Width 15.9 % (11.5-14.5); White Blood Count 11.7 K/mm3 (4.5-10.0)
[2022-03-07 15:40] LABS: Alanine Aminotransferase 15 U/L (4-35); Albumin Level 3.7 g/dL (3.5-5.1); Alkaline Phosphatase 83 U/L (38-126); Anion Gap 6 mmol/L (8-16); Aspartate Amino Transferase 19 U/L (14-36); Bilirubin,Total 0.4 mg/dL (0.2-1.3); Blood Urea Nitrogen 8 mg/dL (7-17); Calcium 8.6 mg/dL (8.4-10.2); Carbon Dioxide 24 mmol/L (22-30); Chloride 103 mmol/L (98-107); Estimated Glomerular Filt Rate > 60; Glucose 86 mg/dL (65-110); Lipase 204 U/L (23-300); Potassium 3.8 mmol/L (3.4-5.0); Sodium 133 mmol/L (137-145)
[2022-03-07 17:37] VITALS: BP 112/68; PULSE 86; RESP 15; O2SAT 99
--- NOTE | 2022-03-07 19:16 | PC.NURSE ---
1911- called Dr. Hercules- full assessment of pt negative except for pain in umbilical area. pt states that it feels like someone is cutting her in belly button area. orders received to d/c IV morphine, can give tylenol 1000mg as needed for pain every 6 hours, pt may eat tonight and NPO after midnight. dopple heart tones once a shift. will continue to monitor and call if questions/concerns.
[2022-03-07] MEDS: ACETAMINOPHEN 500 MG TABLET 1000 MG PO (20:23)
[2022-03-07 20:25] VITALS: BMI 36.5
--- NOTE | 2022-03-07 21:32 | PC.NURSE ---
pt requesting sleep aid. called Dr. Hercules @[phone]- order received for Hydroxyzine 25 mg PO once. will continue to monitor pt and call if questions/concerns
[2022-03-07 22:04] VITALS: BP 110/50; PULSE 82
[2022-03-07] MEDS: hydrOXYzine HCL 25 MG TABLET PO (22:06)
--- NOTE | 2022-03-08 00:40 | PC.NURSE ---
0002- pt now NPO- all food and drinks removed from pt reach.
[2022-03-08] MEDS: SODIUM CHLORIDE 0.9% IV 1,000 ML 125 ML IV CONT (01:31)
--- NOTE | 2022-03-08 01:50 | PC.NURSE ---
pt resting quietly. no complaints at this time.
[2022-03-08 01:51] VITALS: TEMP 36.7
--- NOTE | 2022-03-08 04:40 | PC.NURSE ---
2205- Heart tones 135-140. pt feeling baby move and movement noted audibly on monitor.
[2022-03-08 08:46] VITALS: BP 93/50; PULSE 80
--- NOTE | 2022-03-08 08:50 | PM.OBTRLD ---
OB - Triage/Final Diagnosis Visit Information Date of evaluation: 03/08/22 Reason for evaluation: other (umbilical pain) Comments/Additional reasons for admission: I have assessed the risk for this patient, Ashlee Webster, and determined that she would benefit from observation care. Patient seen through ER who felt patient needed admitted for pain and surgical consult. Patient tolerating diet, pain under control with tylenol. afebrile VSS abdomen periumbilical errythema, skin tender to light touch abdomen soft, nt, fundus soft, nt +FHTs Evaluation Laboratory results: Laboratory Tests 03/07/22 03/07/22 15:19 15:19 WBC 11.7 H RBC 4.31 Hgb 11.7 L Hct 36.7 L MCV 85.2 MCH 27.1 MCHC 31.9 L RDW 15.9 H Plt Count 257 MPV 9.5 Immature Gran % (Auto) 0.8 H Neut % (Auto) 80.1 H Lymph % (Auto) 14.6 L Cannon % (Auto) 3.6 Eos % (Auto) 0.7 Baso % (Auto) 0.2 Lymph # (Auto) 1.71 Cannon # (Auto) 0.4 Eos # (Auto) 0.1 Baso # (Auto) 0.0 Abs Immat Gran (auto) 0.09 H Absolute Neuts (auto) 9.4 H Absolute Nucleated RBC 0.0 Nucleated RBC % 0.0 Sodium 133 L Potassium 3.8 Chloride 103 Carbon Dioxide 24 Anion Gap 6 L BUN 8 Creatinine 0.60 L Estim Creat Clear Calc Not Reportable Estimated GFR > 60 Glucose 86 Calcium 8.6 Total Bilirubin 0.4 AST 19 ALT 15 Alkaline Phosphatase 83 Total Protein 7.0 Albumin 3.7 Lipase 204 Vital signs: Vital Signs - 24 hr 03/07/22 14:00 03/07/22 17:37 03/07/22 22:04 Temperature 98.0 F Pulse Rate 81 86 82 Respiratory Rate 17 15 Blood Pressure 105/55 L 112/68 110/50 L Pulse Oximetry 100 99 03/08/22 01:51 03/08/22 08:46 Temperature 98.0 F Pulse Rate 80 Respiratory Rate Blood Pressure 93/50 L Pulse Oximetry Final Diagnosis (1) Cellulitis, abdominal wall: Code(s): L03.311 - Cellulitis of abdominal wall Status: Acute Plan: Plan Keflex 500 mg TID x 7 days. DC home. Cancel surgical consult as not needed.
--- NOTE | 2022-03-08 08:57 | PC.NURSE ---
Dr. Blackwell's office was informed of cancellation of consult.
[2022-03-08] MEDS: CEPHALEXIN 500 MG CAPSULE PO ×2 (09:42→16:02)
== END 2022-03-08 17:22 | disposition home or self-care (01) ==
LOC: ANHED 14:58 → ANHOBPP 17:00
PROVIDERS: Admitting Provider Obstetrics & Gynecology Gynecology; Emergency Provider Emergency Medicine; PCP Nurse Practitioner Family; Visit Provider Obstetrics & Gynecology Gynecology
DX: O99.712 Diseases of the skin and subcutaneous tissue complicating pregnancy, second trimester (principal); L03.311 Cellulitis of abdominal wall; K42.9 Umbilical hernia without obstruction or gangrene; Z3A.20 20 weeks gestation of pregnancy
CPT/HCPCS: 36415; 76705; 80053; 83690; 85025; 96360; 96361; 99285; A9270; G0378; G0379; J7030

== ENCOUNTER 2022-03-17 10:08 | Outpatient (CLI) | payer MEDICARE, SELFPAY ==
--- NOTE | ~2022-03-17 | US_ITS ---
US OB /maternal detail DATE: 03/17/2022 10:44 INDICATION: anatomy screen TECHNIQUE: Real-time imaging and Doppler analysis COMPARISON: 12/07/2021 obstetrical ultrasound FINDINGS: Live maldonado intrauterine gestation, fetus in longitudinal lie, breech presentation with heart rate of 136 bpm. Anterior placenta, lower margin 3.9 cm above the internal os. Subjectively normal amount of amniotic fluid. ventricles, cerebellum, cisterna magna, nuchal fold, upper lip, spine appear normal. Four-chamb er heart with normal left and right ventricular outflow tracts. diaphragm is intact. Flui d is demonstrated in the stomach and urinary bladder. No hydronephrosis. Three-vessel cor d with normal insertion at the abdominal wall. extremities are normal. Biparietal diameter 4.81 cm; 20 weeks 4 days Head circumference 18.19 cm; 20 weeks 4 days Abdominal circumference 15.08 cm; 20 weeks 2 days Femur length 3.30 cm; 20 weeks 2 days Composite age by Hadlock formula is 20 weeks 3 days +/- 1 week 3 days with TOBIN of 08/01/2022, compared to 08/02/2022 estimate from 12/07/2021 obstetrical ultrasound examination. Estimated weight is 348.3 +/- 50 2.2 g. Estimated weight-GP: 49.0% Head circumference/abdominal circumference 1.21, within normal range of 1.07-1.25 Femur length/head circumference 18.14, within normal range of 16.41-20.01 IMPRESSION: Breech presentation Normal anatomy screen Reviewed, dictated and finalized at [facility]. Reviewed, dictated and finalized at location A.
== END 2022-03-17 10:09 ==
LOC: MICIMG 10:09
PROVIDERS: PCP Nurse Practitioner Family; Visit Provider Nurse Practitioner
DX: O32.1XX0 Maternal care for breech presentation, not applicable or unspecified (principal); Z3A.00 Weeks of gestation of pregnancy not specified
CPT/HCPCS: 76805

== ENCOUNTER 2022-04-21 08:17 | Outpatient (CLI) | payer MEDICARE, MEDICAID, SELFPAY | END 2022-04-21 08:18 | disposition home or self-care (01) | LOC: CHSIMG 08:18 | PROVIDERS: PCP Nurse Practitioner Family; Visit Provider Nurse Practitioner Family | DX: O26.899 Other specified pregnancy related conditions, unspecified trimester (principal); R51.9 Headache, unspecified | CPT/HCPCS: 99199 ==

== ENCOUNTER 2022-04-27 19:00 | Outpatient (CLI) | payer MEDICARE, MEDICAID, SELFPAY ==
[2022-04-27 19:18] VITALS: BP 104/55; PULSE 87
[2022-04-27 19:30] VITALS: BP 101/45; PULSE 83
[2022-04-27 19:45] VITALS: BP 114/55; PULSE 82
[2022-04-27 19:45] LABS: Glucose Point of Care 71 mg/dl (65-105)
[2022-04-27 20:00] VITALS: BP 114/55; PULSE 82
== END 2022-04-27 20:04 | disposition home or self-care (01) ==
LOC: ANHOBOP 19:03 → ANHLDR 05-08 06:35
PROVIDERS: PCP Nurse Practitioner Family; Visit Provider Obstetrics & Gynecology Gynecology
DX: O13.9 Gestational [pregnancy-induced] hypertension without significant proteinuria, unspecified trimester (principal); Z3A.00 Weeks of gestation of pregnancy not specified
CPT/HCPCS: 59025; 82948; 99199

== ENCOUNTER 2022-05-10 13:04 | Observation (INO) | payer MEDICARE, MEDICAID, SELFPAY ==
--- NOTE | 2022-05-10 13:33 | OBADM ---
This patient, Ashlee Webster, admitted to the OB room [facility] for observation. Patient/family oriented to hospital policies and general routines including ID bracelet, bed and alarms, visiting hours, pain management, procedures, bathroom and other care routines, personal items, smoking policy, room service/diet, and visiting hours. Patient/Family are encouraged to report perceived risks to care and to ask questions if they do not understand what they are told or what they should do.
[2022-05-10 13:46] VITALS: BP 125/58; PULSE 90
[2022-05-10 14:01] VITALS: BP 118/57; PULSE 85
[2022-05-10 14:16] VITALS: BP 111/56; PULSE 80
[2022-05-10 14:20] LABS: Appearance Urine Slightly Cloudy (Clear); Bilirubin Urine 1+ (Negative); Blood Urine Negative (Negative); Glucose Urine UA Trace mg/dL (Negative); Ketones Urine Trace mg/dL (Negative); Leukocyte Esterase Ur Negative LEU/UL (NEGATIVE); Nitrate Urine Negative (Negative); Protein Urine 1+ mg/dL (Negative); Specific Grav Ur >= 1.030 (1.001-1.035); pH Urine 5.5 (5.0-9.0)
[2022-05-10 14:22] LABS: Add Urine Microscopic? YES; Color Urine Yellow (Yellow)
[2022-05-10 14:26] LABS: Calcium Oxalate Crystals Urine Present /hpf; Mucus Urine Rare /lpf; RBC Urine 0-2 /hpf (0-2); Squamous Epithelial Cell Urine Many /hpf (Few)
[2022-05-10 14:30] VITALS: BP 119/57; PULSE 82
--- NOTE | 2022-05-15 07:47 | PM.OBTRLD ---
OB - Triage/Final Diagnosis Visit Information Reason for evaluation: threatened labor Comments/Additional reasons for admission: I have assessed the risk for this patient, Ashlee Webster, and determined that she would benefit from observation care. Evaluation Laboratory results: Laboratory Tests 05/10/22 13:23 Urine Color Yellow Urine Appearance Slightly cloudy Urine pH 5.5 Ur Specific [place] >= 1.030 Urine Protein 1+ H Urine Glucose (UA) Trace H Urine Ketones Trace Ur Blood (Man) Negative Urine Nitrate Negative Urine Bilirubin 1+ H Urine Urobilinogen 1.0 Ur Leukocyte Esterase Negative Urine RBC 0-2 Urine WBC 4-6 H Ur Squamous Epith Cells Many H Calcium Oxalate Crystal Present Urine Mucus Rare
== END 2022-05-10 15:24 | disposition home or self-care (01) ==
PROVIDERS: Admitting Provider Obstetrics & Gynecology Gynecology; PCP Nurse Practitioner Family; Visit Provider Obstetrics & Gynecology Gynecology
DX: O47.03 False labor before 37 completed weeks of gestation, third trimester (principal); Z3A.28 28 weeks gestation of pregnancy
CPT/HCPCS: 81001; 87086; G0378; G0379

== ENCOUNTER 2022-06-04 16:27 | Outpatient (CLI) | payer MEDICARE, MEDICAID, SELFPAY ==
[2022-06-04 17:20] VITALS: BP 97/48; PULSE 90
[2022-06-04 17:21] VITALS: BP 94/54; PULSE 89
[2022-06-04 17:31] VITALS: BP 110/56; PULSE 125
[2022-06-04 17:33] LABS: Basophils Percent Auto 0.3 % (0.2-1.2); Eosinophils Absolute Auto 0.1 K/mm3 (0-0.3); Eosinophils Percent Auto 0.4 % (0-4.4); Hematocrit 30.5 % (37.0-47.0); Hemoglobin 9.4 g/dL (12.0-15.0); Immature Granulocyte Absolute 0.22 K/mm3 (0.00-0.031); Immature Granulocyte Percent A 1.9 % (0-0.5); Lymphocytes Absolute Auto 1.97 K/mm3 (0.9-3.2); Mean Corpuscular HGB Conc 30.8 g/dl (32-36); Mean Corpuscular Hemoglobin 24.7 pg (26-34); Mean Corpuscular Volume 80.3 fl (80-100); Mean Platelet Volume 9.6 fl (7.4-10.4); Monocytes Absolute Auto 0.8 K/mm3 (0.1-0.6); Neutrophils Absolute Auto 8.5 K/mm3 (1.3-6.7); Neutrophils Percent Auto 73.4 % (45.5-73.1); Platelet Count Result 296 k/mm3 (150-375); Red Cell Distribution Width 16.9 % (11.5-14.5); White Blood Count 11.6 K/mm3 (4.5-10.0)
[2022-06-04 17:34] LABS: Appearance Urine Slightly Cloudy (Clear); Bilirubin Urine Negative (Negative); Blood Urine Negative (Negative); Color Urine Yellow (Yellow); Glucose Urine UA 1+ mg/dL (Negative); Ketones Urine Negative (Negative); Leukocyte Esterase Ur 1+ LEU/UL (NEGATIVE); Nitrate Urine Negative (Negative); Protein Urine Negative (Negative); Urobilinogen Urine 0.2 mg/dL (<2.0)
[2022-06-04 17:35] LABS: Add Urine Microscopic? YES
[2022-06-04 17:43] LABS: Alanine Aminotransferase 10 U/L (6-35); Albumin Level 3.7 g/dL (3.5-5.1); Alkaline Phosphatase 105 U/L (38-126); Anion Gap 6 mmol/L (8-16); Aspartate Amino Transferase 16 U/L (14-36); Bilirubin,Total 0.4 mg/dL (0.2-1.3); Blood Urea Nitrogen 8 mg/dL (7-17); Calcium 8.7 mg/dL (8.4-10.2); Carbon Dioxide 22 mmol/L (22-30); Chloride 105 mmol/L (98-107); Estimated Glomerular Filt Rate > 60; Glucose 87 mg/dL (65-110); Sodium 133 mmol/L (137-145); Uric Acid 3.7 mg/dL (2.5-7.5)
[2022-06-04 17:46] VITALS: BP 105/52; PULSE 90
[2022-06-04 17:49] LABS: Bacteria Urine Trace /hpf; Mucus Urine Rare /lpf; Squamous Epithelial Cell Urine Many /hpf (Few)
[2022-06-04 17:58] LABS: Total Protein Urine Random 7 mg/dL; Ur Ttl Prot Creatinine Ratio 0.07 mg/mg (0-0.20)
[2022-06-04 18:01] VITALS: BP 104/56; PULSE 90
[2022-06-04 18:16] VITALS: BP 106/51; PULSE 83
[2022-06-04 18:23] LABS: HIV 1/2 Ab P24 Ag Result Negative (Negative)
[2022-06-04 22:07] LABS: Hemoglobin A1C 4.9 % (<5.7)
[2022-06-04 23:00] LABS: Hepatitis B Surface Antigen Negative (Negative); Rubella IgG Antibody 47.7 IU/ML
[2022-06-05 06:15] LABS: Rapid Plasma Reagin Non-Reactive (NonReactive)
== END 2022-06-04 18:32 | disposition home or self-care (01) ==
LOC: ANHOBOP 16:34 → ANHOBPP 16:38
PROVIDERS: PCP Nurse Practitioner Family; Visit Provider Obstetrics & Gynecology Gynecology
DX: O13.9 Gestational [pregnancy-induced] hypertension without significant proteinuria, unspecified trimester (principal); Z3A.00 Weeks of gestation of pregnancy not specified
CPT/HCPCS: 36415; 59025; 80053; 81001; 82306; 82570; 83036; 84156; 84550; 85025; 86592; 86703; 86762; 86850; 86900; 86901; 87086; 87088; 87340; 99199; G0432

== ENCOUNTER 2022-06-12 08:19 | Outpatient (CLI) | payer MEDICARE, MEDICAID, SELFPAY ==
--- NOTE | ~2022-06-12 | US_ITS ---
EXAMINATION: US OB follow up DATE: 06/12/2022 09:45 INDICATION: Size greater than dates during third trimester TECHNIQUE: Real-time ultrasound of the pelvis was performed. The interpreting radiologist was not pre sent for the study. COMPARISON: 03/17/2022 FINDINGS: There is a single living fetus in vertex presentation. The placenta is anterior and 8.2 cm from the internal cervical os. The cervical length is 5.7 cm. cardiac activity and moveme nt are noted. heart rate is 150 beats per minute (bpm). The amniotic fluid index is 13.5 cm whi ch is normal (normal range: 8.3 cm to 24.5 cm). The following biometric data were obtained: Biparietal diameter (BPD): 8.5 cm; head circumference (HC): 31.3 cm; abdominal circumference (AC): 28 .5 cm; femur length (FL): 6.4 cm. These measurements are concordant. Estimated weight is 2107 g +/- 316 g, which correlates with the 38th percentile when 07/30/2022 is used as estimated date of delivery. As single measurements, these parameters are each equal to the following estimated gestational ages w ith ranges of +/- 2 standard deviations: BPD: 34 weeks 1 days +/- 3 weeks 1 days. HC: 35 weeks 1 days +/- 3 weeks 0 days. AC: 32 weeks 4 days +/- 3 weeks 0 days. FL: 33 weeks 0 days +/- 3 weeks 0 days. estimated gestational age based solely on measurements from this exam is 33 weeks 5 days +/- 2 weeks 3 days. IMPRESSION: 1. Single living fetus in vertex presentation. 2. Estimated weight is 2107 g +/- 316 g, which correlates with the 38th percentile when 07/30/20 22 is used as estimated date of delivery. 3. Normal amniotic fluid index. Reviewed, dictated and finalized at location B. IMPRESSION: 1. Single living fetus in vertex presentation. 2. Estimated weight is 2107 g +/- 316 g, which correlates with the 38th p ercentile when 07/30/2022 is used as estimated date of delivery. 3. Normal amniotic fluid index.
== END 2022-06-12 08:20 | disposition home or self-care (01) ==
LOC: CHSIMG 08:20
PROVIDERS: PCP Nurse Practitioner Family; Visit Provider Obstetrics & Gynecology Gynecology
DX: O36.63X0 Maternal care for excessive fetal growth, third trimester, not applicable or unspecified (principal)
CPT/HCPCS: 76816

== ENCOUNTER 2022-06-19 14:12 | Observation (INO) | payer MEDICARE, MEDICAID, SELFPAY ==
[2022-06-19 14:46] VITALS: BP 115/59; PULSE 97
[2022-06-19 14:55] VITALS: BMI 39.6
[2022-06-19 15:01] VITALS: BP 123/63; PULSE 99
[2022-06-19 15:15] LABS: Appearance Urine Clear (Clear); Bilirubin Urine Negative (Negative); Blood Urine Negative (Negative); Color Urine Yellow (Yellow); Glucose Urine UA 2+ mg/dL (Negative); Ketones Urine Trace mg/dL (Negative); Leukocyte Esterase Ur Negative LEU/UL (Negative); Nitrate Urine Negative (Negative); Protein Urine Trace mg/dL (Negative); Specific Grav Ur >= 1.030 (1.001-1.035); pH Urine 5.5 (5.0-9.0)
[2022-06-19 15:16] VITALS: BP 113/58; PULSE 90
[2022-06-19 15:25] LABS: Mucus Urine Rare /lpf; RBC Urine 0-2 /hpf (0-2); Squamous Epithelial Cell Urine Few /hpf (Few); WBC Urine 0-3 /hpf
[2022-06-19 15:26] LABS: Add Urine Microscopic? YES
[2022-06-19 15:31] VITALS: BP 107/63; PULSE 91
[2022-06-19 15:46] VITALS: BP 112/61; PULSE 88
--- NOTE | 2022-06-19 15:51 | PC.NURSE ---
Spoke to Dr. Hercules. Informed of tracings and contractions. Orders to discharge home. Increase fluids.
--- NOTE | 2022-06-25 09:15 | P.PNOB_ITS ---
OB - Triage/Final Diagnosis Visit Information Reason for evaluation: threatened labor Comments/Additional reasons for admission: I have assessed the risk for this patient, Ashlee Webster, and determined that she would benefit from observation care. Evaluation Laboratory results: Laboratory Tests 06/19/22 15:05 Urine Color Yellow Urine Appearance Clear Urine pH 5.5 Ur Specific [place] >= 1.030 Urine Protein Trace Urine Glucose (UA) 2+ H Urine Ketones Trace Ur Blood (Man) Negative Urine Nitrate Negative Urine Bilirubin Negative Urine Urobilinogen 1.0 Leukocyte Esterase Rfl Negative Urine RBC 0-2 Urine WBC 0-3 Ur Squamous Epith Cells Few Urine Mucus Rare
== END 2022-06-19 16:08 | disposition home or self-care (01) ==
PROVIDERS: Admitting Provider Obstetrics & Gynecology Gynecology; PCP Nurse Practitioner Family; Visit Provider Obstetrics & Gynecology Gynecology
DX: O47.03 False labor before 37 completed weeks of gestation, third trimester (principal); O24.419 Gestational diabetes mellitus in pregnancy, unspecified control; Z3A.34 34 weeks gestation of pregnancy
CPT/HCPCS: 81001; G0378; G0379

== ENCOUNTER 2022-07-09 15:14 | Outpatient (CLI) | payer MEDICARE, MEDICAID, SELFPAY ==
[2022-07-09 16:24] LABS: SARS-CoV-2 RNA PCR Positive (Negative)
== END 2022-07-09 15:15 | disposition home or self-care (01) ==
LOC: CHSLAB 15:16
PROVIDERS: PCP Nurse Practitioner Family; Visit Provider Nurse Practitioner Family
DX: U07.1 COVID-19 (principal); J02.9 Acute pharyngitis, unspecified
CPT/HCPCS: C9803; U0003; U0005

== ENCOUNTER 2022-07-23 16:46 | Inpatient (IN) | payer MEDICARE, MEDICAID, SELFPAY ==
[2022-07-23 17:27] VITALS: BP 105/52; PULSE 93
[2022-07-23 17:38] VITALS: BMI 40.7
[2022-07-23 17:45] LABS: Basophils Percent Auto 0.3 % (0.2-1.2); Eosinophils Absolute Auto 0.2 K/mm3 (0-0.3); Eosinophils Percent Auto 1.5 % (0-4.4); Hematocrit 32.5 % (37.0-47.0); Immature Granulocyte Percent A 0.9 % (0-0.5); Lymphocytes Percent Auto 24.3 % (18.3-44.2); Mean Corpuscular HGB Conc 30.8 g/dl (32-36); Mean Corpuscular Hemoglobin 25.8 pg (26-34); Mean Platelet Volume 9.3 fl (7.4-10.4); Monocytes Absolute Auto 0.8 K/mm3 (0.1-0.6); Monocytes Percent Auto 6.9 % (2.6-8.5); Neutrophils Absolute Auto 7.6 K/mm3 (1.3-6.7); Neutrophils Percent Auto 66.1 % (45.5-73.1); Platelet Count Result 331 k/mm3 (150-375); Red Blood Count 3.87 M/mm3 (4.2-5.4); Red Cell Distribution Width 20.4 % (11.5-14.5); White Blood Count 11.5 K/mm3 (4.5-10.0)
--- NOTE | 2022-07-23 17:45 | LDADM ---
This patient, Ashlee Webster, was admitted to Labor/Delivery/Recovery 106 on 07/23/22 at 16:46. Plans for labor, pain management and were discussed with patient. Patient/family oriented to hospital policies and general routines including ID bracelet, bed and alarms, visiting hours, pain management, procedures, bathroom and other care routines, personal items, smoking policy, room service/diet and guest tray routines, infant security routines, and visiting hours. Patient/Family are encouraged to report perceived risks to care and to ask questions if they do not understand what they are told or what they should do. See OBIX for further documentation.
[2022-07-23 17:46] VITALS: BP 103/62; PULSE 90
[2022-07-23 17:46] LABS: Glucose Point of Care 99 mg/dl (65-105)
[2022-07-23 18:01] VITALS: BP 91/45; PULSE 90
[2022-07-23 18:31] VITALS: BP 87/61; PULSE 88
[2022-07-23 18:34] VITALS: BP 120/67; PULSE 91
[2022-07-23] MEDS: DINOPROSTONE 10 MG VAG INSERT VAGINAL (18:45)
[2022-07-23] MEDS: INSULIN HUMAN NPH (*BKC) 100 UNITS/ML 32 UNITS SUB-Q (21:59)
[2022-07-23] MEDS: diphenhydrAMINE HCl CAP 25 MG CAPSULE 50 MG PO (22:02)
[2022-07-23 22:11] VITALS: BP 118/61; PULSE 89
[2022-07-23 22:17] LABS: Glucose Point of Care 82 mg/dl (65-105)
[2022-07-23] MEDS: METOCLOPRAMIDE HCL 10 MG TABLET (23:13)
[2022-07-24] VITALS (178 sets, daily range): BP systolic 87–137; BP diastolic 31–75; PULSE 67–103; RESP 16; TEMP 36.2–36.7; O2SAT 96–100
[2022-07-24 02:21] LABS: Glucose Point of Care 107 mg/dl (65-105)
--- NOTE | 2022-07-24 06:28 | WPDANESEPP ---
Anes - Eval Pre Procedure Procedure: labor epidural Date/Time: 07/24/22 06:28 Surgeon: nadeen Preop Diagnosis: pain during labor Pre Op Diagnosis: iol Patient Data Age: 32 Gender: F Height: 1.65 m Weight: 111 kg Last Vital Signs Temp 36.4 C L 07/24/22 04:11 Pulse 82 07/24/22 04:11 BP 122/53 L 07/24/22 04:11 O2 Del Method Room Air 07/23/22 17:38 Allergies Allergy/AdvReac Type Severity Reaction Status Date / Time ciprofloxacin Allergy Intermediate trouble Verified 04/11/22 08:17 breathing Home Medications Medication Instructions Recorded Confirmed Type metoclopramide HCl 10 mg tablet 10 mg PO DAILY 04/11/22 07/23/22 History insulin NPH isoph U-100 human 100 32 unit subcut HS 05/10/22 07/23/22 History unit/mL subcutaneous suspension (Humulin N NPH U-100 Insulin (isophane susp)) omeprazole 20 mg capsule,delayed 20 mg PO DAILY 05/10/22 07/23/22 History release vits no.126-ferrous fum 1 tablet PO DAILY 05/10/22 07/23/22 History 28 mg iron-folic acid 800 mcg tablet (Classic ) bupropion HCl 150 mg 24 hr tablet, 150 mg PO QAM 06/19/22 07/23/22 History extended release (Wellbutrin XL) ferrous sulfate 28 mg iron tablet 28 mg PO BID 06/19/22 07/23/22 History Laboratory Tests 07/23/22 07/23/22 07/23/22 17:39 17:39 17:39 WBC 11.5 K/mm3 H K/mm3 (4.5-10.0) RBC 3.87 M/mm3 L M/mm3 (4.2-5.4) Hgb 10.0 g/dL L g/dL (12.0-15.0) Hct 32.5 % L % (37.0-47.0) MCV 84.0 fl fl (80-100) MCH 25.8 pg L pg (26-34) MCHC 30.8 g/dl L g/dl (32-36) RDW 20.4 % H % (11.5-14.5) Plt Count 331 k/mm3 k/mm3 (150-375) MPV 9.3 fl fl (7.4-10.4) Immature Gran % (Auto) 0.9 % H % (0-0.5) Neut % (Auto) 66.1 % % (45.5-73.1) Lymph % (Auto) 24.3 % % (18.3-44.2) Miner % (Auto) 6.9 % % (2.6-8.5) Eos % (Auto) 1.5 % % (0-4.4) Baso % (Auto) 0.3 % % (0.2-1.2) Lymph # (Auto) 2.80 K/mm3 K/mm3 (0.9-3.2) Miner # (Auto) 0.8 K/mm3 H K/mm3 (0.1-0.6) Eos # (Auto) 0.2 K/mm3 K/mm3 (0-0.3) Baso # (Auto) 0.0 K/mm3 K/mm3 (0.0-0.1) Abs Immat Gran (auto) 0.10 K/mm3 H K/mm3 (0.00-0.031) Absolute Neuts (auto) 7.6 K/mm3 H K/mm3 (1.3-6.7) Absolute Nucleated RBC 0.0 K/mm3 K/mm3 (0.0-0.012) Nucleated RBC % 0.0 % % (0.0-0.2) POC Capillary Glucose RPR Pending Blood Type B Positive Antibody Screen Negative 07/23/22 07/23/22 07/24/22 17:40 21:58 02:16 WBC RBC Hgb Hct MCV MCH MCHC RDW Plt Count MPV Immature Gran % (Auto) Neut % (Auto) Lymph % (Auto) Miner % (Auto) Eos % (Auto) Baso % (Auto) Lymph # (Auto) Miner # (Auto) Eos # (Auto) Baso # (Auto) Abs Immat Gran (auto) Absolute Neuts (auto) Absolute Nucleated RBC Nucleated RBC % POC Capillary Glucose 99 mg/dl mg/dl 82 mg/dl mg/dl 107 mg/dl H mg/dl (65-105) (65-105) (65-105) RPR Blood Type Antibody Screen Patient hx anesthesia problems: none Family hx anesthesia problems: none Results Review: All pre-operative results and documents have been reviewed as part of the pre-operative evaluation. [facility] Past Medical History Medical History Anemia Back pain affecting Bipolar 1 disorder Costochondritis, acute Cough Engages in vaping False labor Fatigue Gestational diabetes mellitus (GDM) affecting , antepartum Joint pain
[2022-07-24 06:32] LABS: Rapid Plasma Reagin Non-Reactive (NonReactive)
[2022-07-24 07:06] LABS: Glucose Point of Care 93 mg/dl (65-105)
--- NOTE | 2022-07-24 07:37 | WPDOBADMIT ---
Obstetrics - Admit Note Admission Note: record reviewed. No pertinent additions to the history and/or any subsequent changes in the physical findings that are not consistent with the expected course of the were found. Additions to the history and/or subsequent changes in the physical findings follow. None.
--- NOTE | 2022-07-24 07:56 | PM.OBPNLAB ---
Pain Control Date/time seen: 07/24/22 07:45 Assessment and Plan Comments: Called to bedside. Pt sitting on bathroom floor and reported that she fell. She stated, it was a slow fall . She denies impact to her abdomen and that she slid down onto her bottom. There is no vaginal bleeding or leaking of fluid. Plan to apply EFM immediately. If increased pain or abnormal uterine tone, or change in FHT tracing, will consider abruption labs.
--- NOTE | 2022-07-24 08:06 | PM.OBPNLAB ---
Pain Control Date/time seen: 07/24/22 08:06 Comments: Feeling very occasional contractions. Minimal discomfort. Pelvic Exam Dilation (cm): 2 Effacement (%): 50 station: -3 (ballotable) Amniotic membrane status: Intact Contractions Monitor mode: External Contraction pattern: Irregular Contraction phase: Resting Contraction intensity: Mild Status status: Category ll Assessment and Plan Assessment: induction ongoing Plan: begin patient augmentation Comments: Discussed plan of care with patient. Uterine resting tone soft. Abdomen nontender. Instructed patient to notify staff immediately for vaginal bleeding, rupture of membranes, or increased abdominal pain.. Deferred amniotomy at this time due to head is ballotable. Plan for induction with Pitocin. Discussed possibility of Kuhn balloon placement with patient and she declines. Consider amniotomy later today when head is well applied to the cervix.
[2022-07-24] MEDS: LACTATED RINGERS 1,000 ML 125 ML IV CONT ×3 (08:18→13:10)
[2022-07-24] MEDS: FAMOTIDINE 20 MG TABLET PO (08:18)
[2022-07-24] MEDS: OXYTOCIN 30 UNITS/NS 500 ML 30 UNITS/500 ML BAG IV CONT (08:18)
[2022-07-24] MEDS: METOCLOPRAMIDE HCL 10 MG TABLET PO (08:18)
[2022-07-24 10:59] LABS: Glucose Point of Care 102 mg/dl (65-105)
--- NOTE | 2022-07-24 11:28 | P.PNAN_ITS ---
Anes - Eval Final PreProcedure Day of Procedure 07/24/22 11:28 Patient weight: morbidly obese Neurological: alert and oriented ASA classification: III Emergent: no Anesthetic plan: proceed Anesthesia type and monitoring: regional epidural and standard monitoring Results Review: All pre-operative results and documents have been reviewed as part of the pre- operative evaluation. Informed Consent: The patient's anesthetic plan and its attendant risks and benefits were discussed with the patient/family/POA. Questions were solicited and answers provided to the satisfaction of the patient/family/POA.
--- NOTE | 2022-07-24 12:18 | PM.OBPNLAB ---
Pain Control Date/time seen: 07/24/22 12:12 Pain control: epidural Pelvic Exam Dilation (cm): 2 Effacement (%): 50 station: -3 (ballotable) Amniotic membrane status: Intact Comments: head ballotable Contractions Monitor mode: External Contraction frequency: 2 (2-4) Contraction duration: 60 Contraction pattern: Irregular Contraction phase: Resting Contraction intensity: Mild Status status: Category ll Comments: Reassured by moderate variability and accelerations Assessment and Plan Pitocin rate (mU/min): 6 Assessment: induction ongoing Plan: continuous present management Comments: Discussed plan of care with patient. Due to lack of cervical change, recommend placing Kuhn balloon for cervical dilation. Patient is comfortable with her epidural and is agreeable. Kuhn balloon placed through cervical os easily using a stylet. Inflated with 60 mL sterile saline and secured the patient's thigh. Plan to up titrate Pitocin as needed to achieve adequate contraction pattern. Recommend applying tension to Kuhn balloon Q 30-60 minutes. Will assess for possibility of amniotomy with next exam. Anticipate vaginal .
[2022-07-24] MEDS: ONDANSETRON INJ 4 MG/2 ML VIAL IV PUSH (13:11)
[2022-07-24 15:41] LABS: Glucose Point of Care 80 mg/dl (65-105)
--- NOTE | 2022-07-24 17:50 | P.PNOB_ITS ---
Pain Control Date/time seen: 07/24/22 17:20 Pain control: epidural Pelvic Exam Dilation (cm): 4 Effacement (%): 50 station: -3 (ballotable) Amniotic membrane status: Intact Comments: Cervix extremely far to the right Contractions Monitor mode: External Contraction frequency: 2 (2-4) Contraction pattern: Irregular Contraction phase: Resting Contraction intensity: Moderate Status status: Category ll Assessment and Plan Assessment: active labor and induction ongoing Comments: CNM to bedside. Discussed plan of care with patient. RN at bedside frequently this afternoon and the pt was frequently repositioned. Despite this, the head remained ballotable and the cervix was not midline. Patient strongly wishes to avoid section. Discussed option of Walcher's position with her and she is agreeable. Patient assisted to Walcher's position with 2 RNs at bedside. The bed was not broken down during this time. After approximately 5 minutes, she was repositioned to low Enriquez's. A repeat cervical exam was per formed and there was much improvement. The head was well applied to the cervix and the cervix was noted to be midline. Discussed option of amniotomy with patient including risks and benefits and she is agreeable. Amniotomy performed. Large amount of clear amniotic fluid returned. Cervical exam is 5 cm 60% effaced -2 station and the head remains well applied to the cervix. Pitocin was decreased to half the rate. Anticipate vaginal .
[2022-07-24] MEDS: METOCLOPRAMIDE HCL INJ 10 MG/2 ML VIAL IV PUSH (18:21)
[2022-07-24 21:35] LABS: Glucose Point of Care 88 mg/dl (65-105)
[2022-07-24 23:16] LABS: Glucose Point of Care 88 mg/dl (65-105)
[2022-07-25] VITALS (78 sets, daily range): BP systolic 104–144; BP diastolic 48–81; PULSE 76–103; RESP 16–20; TEMP 36.3–36.7; O2SAT 96–100
[2022-07-25] MEDS: LACTATED RINGERS 1,000 ML 125 ML IV CONT (01:31)
[2022-07-25 02:43] LABS: Glucose Point of Care 93 mg/dl (65-105)
[2022-07-25] MEDS: METOCLOPRAMIDE HCL 10 MG TABLET PO (03:12)
[2022-07-25] MEDS: miSOPROStol 200 MCG TABLET 800 MCG RECTAL (04:21)
--- NOTE | 2022-07-25 04:36 | PM.OBPRVD ---
OB - Delivery Note Procedure Delivery date: 07/25/22 Procedure: Events: Gestational Diabetes (GDMA2) Induction method: Per Cervidil Protocol Delivery augmentation: Rupture of Membranes and Pitocin Delivery monitor: External FHT, External Uterine and Internal Uterine Route of delivery: Episiotomy description: None Laceration Description: None Specimen: Yes (placenta) Quantitative Blood Loss (ml): 150 Anesthesia type: Epidural Disposition: Floor Complications: Retained placenta Narrative: Patient with urge to push. Patient pushed and brought the head to a crown. With the next push, there was delivery of the entire head and good restitution. Then there was spontaneous delivery of the remainder of the . The infant was placed skin to skin on the maternal abdomen and there was delayed cord clamping for just over a minute. The cord was then doubly clamped and cut. After greater than 20 minutes, there was slight cord elongation and a small gush of blood but the placenta was not expulsed. On exam, part of the placenta was found to be at the cervical os. The cervix was then manually removed. Afterwards it was examined and found to be grossly intact. There was good uterine tone with minimal bleeding. Cytotec 800 mcg was given ND for prophylaxis. Ancef 2 g IV piggyback will be given for infection prophylaxis. Baby Date of : 07/25/22 Time of : 03:49 Weeks of gestation at delivery: 39 gender: Male Weight (pounds): 8 Weight (ounces): 12 presentation: vertex position: Left Occiput Anterior Placenta delivery description: Manual Removal Cord Vessel Description: 3 Vessels score one minute: 9 score five minutes: 9
--- NOTE | 2022-07-25 04:44 | PM.OBDSVD ---
DS: Admitting Diagnosis Discharge Date 07/26/22 Admitting Diagnosis IUP at 39 weeks GDMA2 ADHD/Anxiety Schizoaffective Disorder DS: Discharge Diagnosis Discharge Diagnosis (1) Vaginal delivery: Code(s): O80 - Encounter for full-term uncomplicated delivery Status: Acute (2) Anxiety: Code(s): F41.9 - Anxiety disorder, unspecified Status: Acute (3) Gestational diabetes mellitus (GDM) affecting , antepartum: Code(s): O24.419 - Gestational diabetes mellitus in , unspecified control Status: Acute (4) (spontaneous vaginal delivery): Code(s): O80 - Encounter for full-term uncomplicated delivery Status: Acute (5) Schizoaffective disorder: Code(s): F25.9 - Schizoaffective disorder, unspecified Status: Acute OB - DS: Summary Hospital Course Hospital Course: Uncomplicated OB Procedures : NST and Ultrasound OB Procedures Intrapartum: Spontaneous Vag Delivery OB Procedures: : Antibiotics Peripartum Data Delivery Method: Natural Vaginal Laceration Description: None Episiotomy description: None complications: retained placenta (Manual removal of placenta) Status at Discharge Overall status at discharge: patient is progressing back to baseline Time Spent with Patient Time attestation: Total time spent providing and/or coordinating discharge services: Exam Narrative: Alert and oriented. Mood is pleasant and cooperative. Urinating without difficulty. Denies passing any large clots. Perineum with minimal edema. Const: General: no acute distress Orientation/consciousness: patient oriented x3 Limitations: no limitations Resp: Effort & Inspection: normal respiratory effort Auscultation: clear to auscultation bilaterally Cardio: Rate: regular rate GI: Inspection: normal to inspection Skin: General skin exam: normal color Neuro: General: patient oriented x3 Extrem: General: normal to inspection Psych: Appearance: grossly normal Mental Status: mental status grossly normal Affect: normal affect Thought process: Normal thought process present DS: Data Data Completed and Pending Labs on day of discharge: Labs from last 24 hours 07/25/22 07/24/22 07/24/22 01:44 23:13 20:00 POC Capillary Glucose 93 88 88 RPR 07/24/22 07/24/22 07/24/22 15:37 10:55 06:59 POC Capillary Glucose 80 102 93 RPR 07/23/22 17:39 POC Capillary Glucose RPR Non-reactive Discharge Plan Discharge Attending physician on discharge: Minerva Hercules Discharging Clinician: Gosia Cohen Anticipated Discharge Date/Time: 07/26/22 11:51 Patient Disposition: Home, Self-Care Activity: may shower Diet: as tolerated and regular Discharge Instructions: Education: Mom and Baby Guide Given to: Mother Follow-Up: Call your delivering provider's office for an appointment to be seen in: 2 weeks for hormone check and 6 weeks post Mom and baby should come to the [facility] for the follow-up appointment. Appointment Date/Time: July 27, 2022 at 10:00 am What to expect at your follow-up visit: Blood Pressure Check Call [phone] if you are unable to keep your appointment time. BREAST CARE: * Wear a snug supportive bra. * For engorgement discomfort: Bottle Feeding: * May apply ice packs PERINEAL CARE: * Until bleeding stops, use your bogdan bottle after urinating * Change your pad frequently throughout the day * You may take sitz baths several times a day (fill your bathtub with warm water and soak for 20 minutes.) Do NOT bathe in the water * No tub baths until seen by your physician - You may shower ACTIVITY: * Rest as much as possible. * Do not exercise or lift anything heavier than your baby (such as laundry or other children.) * Avoid stairs or driving as much as possible. * Do not put anything into the vagin
[2022-07-25] MEDS: OXYTOCIN 30 UNITS/NS 500 ML 30 UNITS/500 ML BAG 125 UNITS IV CONT (04:52)
[2022-07-25] MEDS: ceFAZolin 2 GM/D5W 50 ML 2 GM/50 ML BAG IVPB (06:27)
[2022-07-25] MEDS: PANTOPRAZOLE 40 MG TABLET PO (07:21)
[2022-07-25] MEDS: IBUPROFEN 600 MG TABLET PO ×2 (07:22→16:36)
[2022-07-25] MEDS: DOCUSATE SODIUM 100 MG CAPSULE PO ×2 (07:22→16:37)
[2022-07-25] MEDS: buPROPion HCL XL (24 HR) 150 MG TABCR PO (10:04)
[2022-07-25] MEDS: ACETAMINOPHEN 325 MG TABLET 650 MG PO ×2 (11:58→20:26)
--- NOTE | 2022-07-25 12:35 | PC.NURSE ---
[id number] Introductions were made, then consulted with patient to assess needs related to . Mother led the conversation with her?plans to feed?her infant and the?experience so far. Mother states she does not want to breastfeed or breastpump at this time. Resources provided for inpatient and outpatient services using a resource guide and mom/baby guide. Mother voiced understanding of information provided for milk production, risks and benefits related to medications she is prescribed, and mother decided to formula bottle feed her infant. Primary is present for mother's decision.
--- NOTE | 2022-07-25 14:14 | PCCCNOTE ---
Addendum entered by MERVIN Villegas 07/26/22 12:20: Have spoke to DCFS in [facility] as well as DCFS in [facility] today. DCFS will be following up with pt. and her family at home. They are aware of discharge home today. Spoke to GUTIERREZ Mojica to notify. She is aware and in agreement; she states no additional concerns at this time. Intake ID#[id number]. Original Note: Received referral. Met with pt. She lives with her spouse, one year old and three year old. She denies any history with DCFS. She confirms mental health history of Borderline Personality Disorder. Bipolar, Schizoaffective Disorder, Depression, Anxiety and ADHD also in history and physical. She took overdose of aderrall in February of 2022 at 20 weeks in suicide attempt. Behavioral Health hospitalization was attempted at that time however, unable to find acceptance due to . A safety contract was completed through [facility] cylinder worker at that time. She indicates following with a psychiatrist at [facility] in [place]. I provided her with additional counseling resources and Suicide Prevention Lifeline card. She indicates having support from her spouse's brother, mother and father that live locally. She indicates having all needed items to care for at return home. She is current with [facility]. Additional resources also provided. Have discussion with post RN and labor/manager labor delivery. RN's indicate that when father of baby visited hospital, the one year old and three year old where left in the car for at least 25 minutes. Pt. indicated to RN having childcare issues. All above has been reported to DCFS. Received call from [facility] DCFS; she indicates plan to visit father of baby and other children. She indicates [facility] DCFS to be present at hospital to visit mother and . RN notified.
[2022-07-25] MEDS: POLYSACCHARIDE IRON COMPLEX 150 MG CAPSULE PO (16:37)
--- NOTE | 2022-07-25 17:10 | PCCCNOTE ---
Addendum entered by Leah Gabriel RN 07/25/22 17:54: cc called and clarified with patient that the DCFS called was made because her left the 1 and 3 year old in the car while he came into the hospital. patient stated that the staff was aware that the children were in the car and he only came in to cut the cord . patient also stated that she doesnt want to talk about it anymore, and wanted CC to notify the staff of that as well. patient stated that DCFS made the home visit already today and she spoke with DCFS as well. CC called and spoke with GUTIERREZ martinez to notify her that patient does not want to talk about it. CC will continue to follow for any needs that may arise. Original Note: spoke with patient via phone after malt house kiln operator received a call from patient's spouse with concerns of patient not feeling safe here in the hospital. patient stated to myself, that she felt like the staff was talking bad about her and that is why DCFS was called. I informed patient that DCFS was likely called due to the suicide attempt while . patient inquired why the call to DCFS was made now and not when she attempted suicide in February. CC informed patient that a care coordination consult was made for that prior attempt from february and not for any current concerns with her care of the . patient states that she would like to put the past in the past and she is doing really well now . CC gave her phone # to patient and said she can call again if she feels unsafe. patient states she feels safe, she just was not sure why DCFS was just now getting involved.
[2022-07-25 18:49] LABS: Hematocrit 29.9 % (37.0-47.0); Hemoglobin 9.2 g/dL (12.0-15.0)
[2022-07-25 19:01] LABS: Alanine Aminotransferase 13 U/L (6-35); Alkaline Phosphatase 106 U/L (38-126); Anion Gap 9 mmol/L (8-16); Aspartate Amino Transferase 21 U/L (14-36); Bilirubin,Total 0.3 mg/dL (0.2-1.3); Blood Urea Nitrogen 7 mg/dL (7-17); Calcium 8.9 mg/dL (8.4-10.2); Carbon Dioxide 22 mmol/L (22-30); Chloride 105 mmol/L (98-107); Estimated CRCL calculation 142 ml/min; Estimated Glomerular Filt Rate > 60; Glucose 134 mg/dL (65-110); Potassium 3.5 mmol/L (3.4-5.0); Sodium 136 mmol/L (137-145); Uric Acid 4.5 mg/dL (2.5-7.5)
[2022-07-25] MEDS: ZOLPIDEM TARTRATE (*CRX) 5 MG TABLET PO (20:26)
--- NOTE | 2022-07-25 22:00 | PC.NURSE ---
Stated, I'm exhausted and want to get a good nights sleep. Ambien 5mg administered at 2025 for sleep. [place] sent to nursery for the night.
[2022-07-26 04:55] VITALS: BP 128/75; PULSE 76; RESP 18; TEMP 37
[2022-07-26] MEDS: ACETAMINOPHEN 325 MG TABLET 650 MG PO ×2 (04:55→15:30)
[2022-07-26] MEDS: IBUPROFEN 600 MG TABLET PO ×3 (04:55→15:30)
--- NOTE | 2022-07-26 05:49 | PC.NURSE ---
Fasting blood sugar 139.
[2022-07-26 05:54] LABS: Glucose Point of Care 139 mg/dl (65-105)
[2022-07-26 07:30] VITALS: BP 108/84; PULSE 77; RESP 18; TEMP 36.6; O2SAT 99
--- NOTE | 2022-07-26 08:15 | PC.NURSE ---
PT introductions made and plan of care discussed per post , pain management, bottle feeding, daily care activities and pending discharge to home. PT sole recipient of such instructions and no barriers to learning identified at this time. PT received such instructions per one to one discussion, mom baby care guide and demonstrations this shift. PT verbalized understanding of such care.
[2022-07-26] MEDS: buPROPion HCL XL (24 HR) 150 MG TABCR PO (09:57)
[2022-07-26] MEDS: DOCUSATE SODIUM 100 MG CAPSULE PO (09:58)
[2022-07-26] MEDS: MULTIVIT/MIN/PREN/FOL AC/IRON TABLET 1 TAB PO (09:58)
[2022-07-26] MEDS: POLYSACCHARIDE IRON COMPLEX 150 MG CAPSULE PO (09:59)
[2022-07-26 10:00] VITALS: PULSE 77; RESP 18; O2SAT 99
[2022-07-26] MEDS: PANTOPRAZOLE 40 MG TABLET PO (10:03)
--- NOTE | 2022-07-26 10:50 | WPDANLDPN2 ---
Anes-Prog Note L&D Date/Time: 07/26/22 10:50 Comfortable throughout: labor and delivery Neuraxial method: epidural Epidural/Spinal procedure site: clean & non-tender Neuro status: Neuro function grossly intact. Cardiovascular status: normal Respiratory status: normal Airway patency: baseline Mental status: baseline Post-Op hydration status: normal Vital Signs: Last Vital Signs Temp 36.6 C 07/26/22 07:30 Pulse 77 07/26/22 10:00 Resp 18 07/26/22 10:00 BP 108/84 07/26/22 07:30 Pulse Ox 99 07/26/22 10:00 O2 Del Method Room Air 07/26/22 10:00 Pain score (VAS): 2 I/O: Intake & Output 07/25/22 07/26/22 07/26/22 23:59 07:59 15:59 Intake Total 240 240 Balance 240 240 Patient feedback: Patient satisfied with anesthetic care.
--- NOTE | 2022-07-26 12:26 | P.PNOB_ITS ---
OB - PN: Subj Subjective Date/time seen: 07/26/22 12:27 Patient comments: pain well controlled [place] baby status: bottle feeding well [place] feeding status: exclusively bottle feeding OB - PN: Obj Data Labs CBC & Chem 7: 07/25/22 18:44 07/25/22 18:44 Labs: Laboratory Results - last 24 hr 07/25/22 07/25/22 07/26/22 18:44 18:44 05:49 Hgb 9.2 L Hct 29.9 L Sodium 136 L Potassium 3.5 Chloride 105 Carbon Dioxide 22 Anion Gap 9 BUN 7 Creatinine 0.60 L Estim Creat Clear Calc 142 Estimated GFR > 60 Glucose 134 H POC Capillary Glucose 139 H Uric Acid 4.5 Calcium 8.9 Total Bilirubin 0.3 AST 21 ALT 13 Alkaline Phosphatase 106 Total Protein 6.0 L Albumin 3.0 L OB - PN A/P Plan day: 1 Plan: discharge home Comments: s/p consult with clinical social worker. Time Spent With Patient Time: Total time spent is greater than 50% in coordination of care (as documented) at patient's floor/unit and/or counseling patient: Review of Systems Review of Systems: All systems reviewed & are unremarkable except as noted in HPI and below Exam Narrative: Alert and oriented. Mood is pleasant and cooperative. Urinating without difficulty. Denies passing any large clots. Perineum with minimal edema. Const: General: no acute distress Orientation/consciousness: patient oriented x3 Limitations: no limitations Resp: Effort & Inspection: normal respiratory effort Auscultation: clear to auscultation bilaterally Cardio: Rate: regular rate GI: Inspection: normal to inspection Neuro: General: patient oriented x3 Extrem: General: normal to inspection Psych: Appearance: grossly normal Mental Status: mental status grossly normal Affect: normal affect Thought process: Normal thought process present
--- NOTE | 2022-07-26 15:00 | PC.NURSE ---
Pt received discharge instructions per protocol and verbalized understanding of such care.
--- NOTE | 2022-07-26 15:42 | PC.NURSE ---
PT discharged to home ambulatory accompanied by infant to waiting car.
[2022-07-27 10:13] VITALS: BP 129/76; PULSE 66; RESP 20; TEMP 37.1; O2SAT 100
== END 2022-07-26 15:42 | disposition home or self-care (01) | DRG 807 ==
LOC: ANHLDR 07-25 04:54 → ANHOB2 07-25 07:13
PROVIDERS: Advanced Practice Midwife; Admitting Provider Obstetrics & Gynecology Gynecology; PCP Nurse Practitioner Family; Visit Provider Obstetrics & Gynecology Gynecology
DX: O24.429 Gestational diabetes mellitus in childbirth, unspecified control (principal); Z37.0 Single live birth; O99.344 Other mental disorders complicating childbirth; F41.9 Anxiety disorder, unspecified; O76 Abnormality in fetal heart rate and rhythm complicating labor and delivery; Z3A.39 39 weeks gestation of pregnancy; O73.0 Retained placenta without hemorrhage; F25.9 Schizoaffective disorder, unspecified; W19.XXXA Unspecified fall, initial encounter
CPT/HCPCS: 36415; 80053; 82948; 84550; 85014; 85018; 85025; 86592; 86850; 86900; 86901; 88307; A9270; J0131; J0690; J1815; J2405; J2590; J2765; J2795; J7120

== ENCOUNTER 2022-07-29 08:08 | Emergency (ER) | payer MEDICARE, MEDICAID, SELFPAY ==
--- NOTE | ~2022-07-29 | CT_ITS ---
EXAMINATION: CT brain wo con DATE: 07/29/2022 08:54 INDICATION: Headache for 2 hours. Hypertension. TECHNIQUE: Computed tomography (CT) of the head was performed without intravenous contrast. The mA wa s adjusted according to patient size. Iterative reconstruction technique was employed. Exam dose: 52 9.67 mGy-cm total exam DLP. COMPARISON: None FINDINGS: No intracranial mass lesion or hemorrhage or cerebrovascular accident. No midline shift or mass effect effect. Normal ventricular size. Normal arzola-white matter differentiation. No subdural or epidural hematoma. No fracture or bone destruction of the cranial vault. Included paranasal sinuses and mastoid air cell s are normally developed and aerated. IMPRESSION: No significant abnormality Reviewed, dictated and finalized at [facility]. Reviewed, dictated and finalized at [facility]. IMPRESSION: No significant abnormality
--- NOTE | ~2022-07-29 | XR_ITS ---
XR chest 1V DATE: 07/29/2022 08:55 INDICATION: Chest tightness TECHNIQUE: PA chest COMPARISON: 04/17/2021 CT pulmonary scan portable AP chest 11/23/2021 view chest FINDINGS: Normal heart size. No hilar or mediastinal enlargement. No pulmonary infiltrate or consolid ation, pleural effusion or pulmonary vascular congestion or pneumothorax. Included skeletal structures are unremarkable. IMPRESSION: Negative chest Reviewed, dictated and finalized at [facility]. IMPRESSION: Negative chest
[2022-07-29 08:10] VITALS: BP 173/95; PULSE 83; RESP 18; TEMP 36.6; O2SAT 97
--- NOTE | 2022-07-29 08:12 | ECG_ITS ---
Measurements Intervals [place] Rate: 81 P: 35 NH: 133 QRS: 49 QRSD: 78 T: 38 QT: 367 QTc: 426 Interpretive Statements SINUS RHYTHM BASELINE ARTIFACT- I, II, III, AVR, AVL NORMAL ECG COMPARED TO ECG 02/19/2022 14:46:02 NO SIGNIFICANT CHANGES Electronically Signed On 07-29-2022 8:40:47 CDT by Bob Encarnacion D.O.
[2022-07-29 08:30] VITALS: BP 172/93; PULSE 81; RESP 16; O2SAT 97
[2022-07-29 09:00] VITALS: BP 154/89; PULSE 74; RESP 16; O2SAT 100
[2022-07-29] MEDS: ASPIRIN 325 MG ENTERIC TABLET PO (09:00)
[2022-07-29] MEDS: ONDANSETRON INJ 4 MG/2 ML VIAL IV PUSH (09:00)
[2022-07-29] MEDS: SODIUM CHLORIDE 0.9% IV 500 ML 999 ML IV CONT (09:00)
[2022-07-29 09:14] LABS: Basophils Absolute Auto 0.04 K/mm3 (0.00-0.10); Basophils Percent Auto 0.6 % (0.0-1.0); Eosinophils Absolute Auto 0.24 K/mm3 (0.02-0.50); Eosinophils Percent Auto 3.6 % (1.0-6.0); Hematocrit 35.5 % (35.0-49.0); Hemoglobin 10.9 g/dL (12.0-15.0); Immature Granulocyte Absolute 0.09 K/mm3 (0.00-0.00); Immature Granulocyte Percent A 1.3 % (0.0-0.0); Lymphocytes Absolute Auto 1.37 K/mm3 (1.10-4.50); Lymphocytes Percent Auto 20.4 % (18.0-42.0); Mean Corpuscular HGB Conc 30.7 g/dL (32.0-36.0); Mean Corpuscular Hemoglobin 26.1 pg (27.0-31.0); Mean Corpuscular Volume 85.1 fL (78.0-102.0); Mean Platelet Volume 9.1 fl (9.2-11.8); Monocytes Absolute Auto 0.33 K/mm3 (0.10-0.90); Monocytes Percent Auto 4.9 % (2.0-11.0); Neutrophils Absolute Auto 4.6 K/mm3 (1.7-7.2); Neutrophils Percent Auto 69.2 % (50.0-70.0); Platelet Count Result 285 K/mm3 (150-420); Red Blood Count 4.17 M/mm3 (4.20-5.40); Red Cell Distribution Width 18.7 % (11.6-14.4); White Blood Count 6.7 K/mm3 (4.8-10.8)
[2022-07-29 09:17] LABS: Add Urine Microscopic? YES; Appearance Urine Clear (Clear); Bilirubin Urine Negative (Negative); Blood Urine 3+ (Negative); Color Urine Light Yellow (Yellow); Glucose Urine UA Negative (Negative); Ketones Urine Negative (Negative); Leukocyte Esterase Ur 1+ (Negative); Nitrate Urine Negative (Negative); Protein Urine Negative (Negative); Specific Grav Ur <= 1.005 (1.010-1.020); Urobilinogen Urine 0.2 mg/dL (0.2-1.0)
[2022-07-29 09:20] LABS: Amphetamine Screen Urine Positive (Negative); Barbiturate Screen Urine Negative (Negative); Benzodiazepines Screen Urine Negative (Negative); Cannabinoid Screen Urine Negative (Negative); Cocaine Screen Urine Negative (Negative); Methadone Screen Urine Negative (Negative); Opiate Screen Urine Negative (Negative); Phencyclidine Screen Urine Negative (Negative)
[2022-07-29 09:25] LABS: Amorphous Sediment Urine Few; Squamous Epithelial Cell Urine Many /hpf (Few); WBC Clumps Urine Present /hpf
[2022-07-29 09:27] LABS: Alanine Aminotransferase 21 U/L (14-59); Albumin Level 3.1 g/dL (3.4-5.0); Alkaline Phosphatase 116 U/L (46-116); Anion Gap 12 mmol/L (8-16); Aspartate Amino Transferase 20 U/L (15-37); Bilirubin,Total 0.4 mg/dL (0.00-1.00); Blood Urea Nitrogen 10 mg/dL (7-18); Calcium 9.1 mg/dL (8.5-10.1); Carbon Dioxide 25 mmol/L (21-32); Chloride 105 mmol/L (98-108); Estimated CRCL calculation 96 ml/min; Estimated Glomerular Filt Rate > 60; Glucose 102 mg/dL (70-99); Osmolality Calculated 293 mOsm/kg (285-295); Potassium 3.7 mmol/L (3.5-5.1); Sodium 142 mmol/L (136-145); Total Protein 7.1 g/dL (6.4-8.2); Troponin I 11.2 ng/L (0.00-60.4)
[2022-07-29 09:29] LABS: Ethanol < 2 mg/dL (0-6)
[2022-07-29 09:30] VITALS: BP 153/74; PULSE 74; RESP 16; O2SAT 98
[2022-07-29 09:30] LABS: SPREG INTERNAL CONTROL Positive; Serum Qual hCG Positive
[2022-07-29 09:32] LABS: Lactic Acid Reflex 1.2 mmol/L (0.4-2.0)
--- NOTE | 2022-07-29 09:52 | ED.CHESTPAIN ---
HPI - Chest Pain General Chief Complaint: Chest Pain Stated Complaint: high BP, chest pain Time Seen by Provider: 07/29/22 08:12 Source: patient and RN notes reviewed Mode of arrival: ambulatory Limitations: no limitations History of Present Illness complaint: chest pain and other (BP was elevated at home.) Timing of current episode: constant Onset: during rest Pain location: substernal (mild) and other Pain radiation: none Severity: mild Pain scale (0-10): 2 Quality: aching Relieving factors: remaining still Exacerbating factors: exertion and inspiration Related Data Home Medications Medication Instructions Recorded Confirmed dextroamphetamine-amphetamine ER 1 cap PO QHS 07/29/22 07/29/22 25 mg 24hr capsule,extend release Allergies Allergy/AdvReac Type Severity Reaction Status Date / Time ciprofloxacin Allergy Intermediate trouble Verified 07/29/22 08:45 breathing Review of Systems Review of Systems: All systems reviewed & are unremarkable except as noted in HPI and below Constitutional: Constitutional: Reports no additional constitutional complaints Eyes: Eyes: Reports no additional eye complaints ENT: Reports system reviewed and no additional complaints, except as documented Cardiovascular: Cardiovascular: Reports chest pain Respiratory: Respiratory: Reports no additional respiratory complaints Gastrointestinal: Gastrointestinal: Reports heartburn and Reports nausea Genitourinary: Genitourinary: Reports no additional female genitourinary complaints Musculoskeletal: Musculoskeletal: Reports no additional musculoskeletal complaints Integumentary/Breasts: Skin/Breast: Reports system reviewed and no additional complaints, except as docu Neurologic: Reports system reviewed and no additional complaints, except as documented Psychiatric: Psychiatric: Reports no additional psychiatric complaints Endocrine: Endocrine: Reports no additional endocrine complaints Hematologic/Lymphatic: Hematologic/Lymphatic: Reports no additional hematologic/lymphatic complaints Allergic/Immunologic: Allergic/Immunologic: Reports no additional allergic/immunologic complaints [facility] Past Medical History Medical History Anemia Back pain affecting Bipolar 1 disorder Costochondritis, acute Cough Engages in vaping False labor Fatigue Gestational diabetes mellitus (GDM) affecting , antepartum Joint pain Left-sided chest pain Obese Recurrent chest pain Schizoaffective disorder (spontaneous vaginal delivery) URI (upper respiratory infection) Weakness of wrist Surgical History Surgical History No history of previous surgery Family History Family History Mother Unknown family medical history Father Unknown family medical history Grandparent Esophageal cancer Grandparent Cerebrovascular accident Social History Social History Smoking status: Current every day smoker Tobacco type: e-cigarettes/vaping Second hand tobacco smoke exposure: No Alcohol intake: never Substance use: never Substance use type: prescription drug Additional living arrangements comments: with one child Gender identity (if verbalized by the patient): Female Spiritual care concerns: No Exam Const: General: healthy appearing and no acute distress Nutritional Appearance: well nourished Orientation/consciousness: patient oriented x3 Limitations: no limitations HENMT: Head: normal to inspection Ears: external ears normal, TM's normal bilaterally and EAC's normal General nose exam: Normal external nose present and Normal nares present Face and sinus: normal facial exam and sinuses nontender Mouth: Yes Normal oral and palatal mucosa present and Yes moist mucou
[2022-07-29] MEDS: IBUPROFEN 400 MG TABLET 800 MG PO (09:59)
[2022-07-29 10:00] VITALS: BP 143/79; PULSE 76; RESP 16; TEMP 36.8; O2SAT 100
[2022-07-29] MEDS: PANTOPRAZOLE SODIUM IV 40 MG VIAL IV PUSH (10:02)
[2022-07-29] MEDS: MAG HYDROX/ALUMINUM HYD/SIMETH 30 ML, PHENobarb/HYOSCY/ATROPINE/SCOP 32.4 MG, LIDOCAINE... PO (10:03)
== END 2022-07-29 10:19 | disposition home or self-care (01) ==
PROVIDERS: Emergency Provider Emergency Medicine; PCP Nurse Practitioner Family
DX: N39.0 Urinary tract infection, site not specified (principal); R07.89 Other chest pain; K21.9 Gastro-esophageal reflux disease without esophagitis; F17.200 Nicotine dependence, unspecified, uncomplicated; F31.9 Bipolar disorder, unspecified; M25.50 Pain in unspecified joint
CPT/HCPCS: 36415; 70450; 71045; 80053; 80307; 81001; 83605; 84484; 84703; 85025; 93005; 96361; 96374; 96375; 99284; A9270; C9113; J0696; J2405; J7040

== ENCOUNTER 2022-08-06 16:33 | Emergency (ER) | payer MEDICARE, MEDICAID, SELFPAY ==
[2022-08-06 16:42] VITALS: BP 121/98; PULSE 93; RESP 16; TEMP 36.3; O2SAT 99
--- NOTE | 2022-08-06 16:47 | PC.NURSE ---
Patient moderate risk on [place] suicide risk assessment. Denies having thoughts of harming herself in the past month, however she states she has attempted to harm herself in the past.
[2022-08-06 17:22] LABS: Basophils Percent Auto 0.7 % (0.2-1.2); Eosinophils Absolute Auto 0.2 K/mm3 (0-0.3); Eosinophils Percent Auto 2.8 % (0-4.4); Hematocrit 42.6 % (37.0-47.0); Hemoglobin 12.8 g/dL (12.0-15.0); Immature Granulocyte Absolute 0.02 K/mm3 (0.00-0.031); Immature Granulocyte Percent A 0.3 % (0-0.5); Lymphocytes Absolute Auto 1.81 K/mm3 (0.9-3.2); Lymphocytes Percent Auto 29.9 % (18.3-44.2); Mean Corpuscular Hemoglobin 26.2 pg (26-34); Mean Corpuscular Volume 87.1 fl (80-100); Mean Platelet Volume 8.7 fl (7.4-10.4); Monocytes Absolute Auto 0.3 K/mm3 (0.1-0.6); Monocytes Percent Auto 4.3 % (2.6-8.5); Neutrophils Absolute Auto 3.8 K/mm3 (1.3-6.7); Platelet Count Result 403 k/mm3 (150-375); Red Blood Count 4.89 M/mm3 (4.2-5.4); Red Cell Distribution Width 17.8 % (11.5-14.5); White Blood Count 6.1 K/mm3 (4.5-10.0)
[2022-08-06 17:32] LABS: Alanine Aminotransferase 24 U/L (6-35); Albumin Level 4.4 g/dL (3.5-5.1); Alkaline Phosphatase 118 U/L (38-126); Anion Gap 11 mmol/L (8-16); Aspartate Amino Transferase 23 U/L (14-36); Bilirubin,Total 0.6 mg/dL (0.2-1.3); Blood Urea Nitrogen 20 mg/dL (7-17); Calcium 9.2 mg/dL (8.4-10.2); Carbon Dioxide 24 mmol/L (22-30); Chloride 105 mmol/L (98-107); Estimated CRCL calculation 84 ml/min; Estimated Glomerular Filt Rate > 60; Glucose 79 mg/dL (65-110); Potassium 4.4 mmol/L (3.4-5.0); Sodium 140 mmol/L (137-145)
--- NOTE | 2022-08-06 18:36 | PC.NURSE ---
pt approached intake desk and states she is going to make an appointment with her OBGYN. pt ambulated out of ED doors.
--- NOTE | 2022-08-06 20:32 | PC.NURSE ---
pt LWBS TRIAGED, CALLED FOR ROOM AND NOT IN LOBBY
== END 2022-08-06 20:37 | disposition left against medical advice (07) ==
LOC: ANHED 20:36
PROVIDERS: Emergency Provider Emergency Medicine; PCP Nurse Practitioner Family
DX: O72.2 Delayed and secondary postpartum hemorrhage (principal)
CPT/HCPCS: 36415; 80053; 85025; 86850; 86900; 86901; 99199

== ENCOUNTER 2023-01-25 12:56 | Outpatient (CLI) | payer MEDICARE, MEDICAID, SELFPAY ==
[2023-01-25 13:09] LABS: Basophils Absolute Auto 0.02 K/mm3 (0.00-0.10); Basophils Percent Auto 0.4 % (0.0-1.0); Eosinophils Absolute Auto 0.06 K/mm3 (0.02-0.50); Eosinophils Percent Auto 1.3 % (1.0-6.0); Hematocrit 43.6 % (35.0-49.0); Immature Granulocyte Absolute 0.01 K/mm3 (0.00-0.00); Immature Granulocyte Percent A 0.2 % (0.0-0.0); Lymphocytes Absolute Auto 1.21 K/mm3 (1.10-4.50); Lymphocytes Percent Auto 26.9 % (18.0-42.0); Mean Corpuscular HGB Conc 34.4 g/dL (32.0-36.0); Mean Corpuscular Hemoglobin 29.9 pg (27.0-31.0); Mean Platelet Volume 9.5 fl (9.2-11.8); Monocytes Absolute Auto 0.23 K/mm3 (0.10-0.90); Monocytes Percent Auto 5.1 % (2.0-11.0); Neutrophils Percent Auto 66.1 % (50.0-70.0); Platelet Count Result 332 K/mm3 (150-420); Red Blood Count 5.01 M/mm3 (4.20-5.40); Red Cell Distribution Width 14.6 % (11.6-14.4); White Blood Count 4.5 K/mm3 (4.8-10.8)
--- NOTE | 2023-01-25 13:15 | ECG_ITS ---
Measurements Intervals [place] Rate: 66 P: 55 CT: 134 QRS: 59 QRSD: 82 T: 53 QT: 392 QTc: 412 Interpretive Statements SINUS RHYTHM BORDERLINE ST-T WAVE ABNORMALITY- ANTERIOR LEADS BORDERLINE ECG COMPARED TO ECG 07/29/2022 08:30:32 NO SIGNIFICANT CHANGES Electronically Signed On 01-25-2023 13:39:52 RESIDENT SERVICES SUPERVISOR by Bob Encarnacion D.O.
[2023-01-25 13:31] LABS: Appearance Urine Clear (Clear); Color Urine Yellow (Yellow); Glucose Urine UA Negative (Negative); Protein Urine Negative (Negative); Specific Grav Ur 1.015 (1.010-1.020); pH Urine 7.5 (5.0-8.0)
[2023-01-25 13:32] LABS: Add Urine Microscopic? YES; Bacteria Urine Trace /hpf; Bilirubin Urine Negative (Negative); Blood Urine Negative (Negative); Ketones Urine Negative (Negative); Leukocyte Esterase Ur 1+ LEU/UL (Negative); Nitrate Urine Negative (Negative); RBC Urine None seen /hpf (0-2); Squamous Epithelial Cell Urine Moderate /hpf (Few); Urobilinogen Urine 0.2 mg/dL (0.2-1.0)
[2023-01-25 13:56] LABS: Alanine Aminotransferase 111 U/L (14-59); Albumin Level 3.9 g/dL (3.4-5.0); Alkaline Phosphatase 97 U/L (46-116); Anion Gap 11 mmol/L (8-16); Aspartate Amino Transferase 56 U/L (15-37); Bilirubin,Total 0.9 mg/dL (0.00-1.00); Blood Urea Nitrogen 8 mg/dL (7-18); Carbon Dioxide 23 mmol/L (21-32); Chloride 108 mmol/L (98-108); Estimated Glomerular Filt Rate > 60; Free T4 Free Thyroxine 0.94 ng/dL (0.76-1.46); Glucose 93 mg/dL (70-99); Magnesium 2.2 mg/dL (1.8-2.4); Osmolality Calculated 292 mOsm/kg (285-295); Sodium 142 mmol/L (136-145); Thyroid Stimulating Hormone 1.29 uIU/mL (0.36-3.74); Total Protein 7.5 g/dL (6.4-8.2)
--- NOTE | 2023-01-28 13:25 | WPDHOLTEREM ---
Holter/Event Monitor Holter/Event Monitor Date of procedure: 01/25/23 Holter/Event Procedure: 48 Hr Holter Monitor Indications: Palpitations Conclusion: 1. 48 hour holter monitor on 01/25/23. 2. Underlying rhythm is sinus rhythm. HR range 49-114 bpm; average HR 78 bpm. 3. There are 13 premature supraventricular complexes and 2 supraventricular couplets. 4. No premature ventricular complexes. No ventricular tachycardia. 5. No sinoatrial or atrioventricular blocks. No significant pauses greater than 2 seconds. 6. Patient reports symptoms of chest pain, palpitations, dizziness demonstrates sinus rhythm, HR range 80-86 bpm.
== END 2023-01-25 12:57 | disposition home or self-care (01) ==
LOC: CHSLAB 12:58
PROVIDERS: PCP Nurse Practitioner Family; Visit Provider Nurse Practitioner Family
DX: R00.2 Palpitations (principal); R82.90 Unspecified abnormal findings in urine; R94.31 Abnormal electrocardiogram [ECG] [EKG]
CPT/HCPCS: 36415; 80053; 81001; 83735; 84439; 84443; 85025; 87086; 93005; 93225; 93226

== ENCOUNTER 2023-03-26 17:33 | Outpatient (CLI) | payer MEDICARE, MEDICAID, SELFPAY ==
--- NOTE | ~2023-03-26 | XR_ITS ---
Lumbosacral Spine: AP and lateral views Clinical History: Pain Findings: The normal lordotic curve is maintained. The vertebral bodies and posterior elements are i ntact. The intervertebral disc spaces are preserved. The sacroiliac joints are normally outlined. Impression: No significant abnormality. Reviewed, dictated and finalized at [facility]. Impression: No significant abnormality.
--- NOTE | ~2023-03-26 | XR_ITS ---
AP view of the pelvis and AP and lateral views of the bilateral hips Clinical history: Pain Findings: No acute fracture or dislocation is seen. Osseous alignment is anatomic. Bilateral hip and SI joint spaces are preserved. No evidence of pubic diastases. Soft tissues are unremarkable. Impression: No significant abnormality is seen. Reviewed, dictated and finalized at [facility]. Impression: No significant abnormality is seen.
[2023-03-26 17:57] LABS: Basophils Absolute Auto 0.04 K/mm3 (0.00-0.10); Basophils Percent Auto 0.7 % (0.0-1.0); Eosinophils Absolute Auto 0.12 K/mm3 (0.02-0.50); Eosinophils Percent Auto 2.1 % (1.0-6.0); Hemoglobin 14.3 g/dL (12.0-15.0); Immature Granulocyte Absolute 0.02 K/mm3 (0.00-0.00); Immature Granulocyte Percent A 0.3 % (0.0-0.0); Lymphocytes Absolute Auto 1.72 K/mm3 (1.10-4.50); Lymphocytes Percent Auto 29.6 % (18.0-42.0); Mean Corpuscular Hemoglobin 31.3 pg (27.0-31.0); Mean Corpuscular Volume 91.9 fL (78.0-102.0); Mean Platelet Volume 9.6 fl (9.2-11.8); Monocytes Absolute Auto 0.46 K/mm3 (0.10-0.90); Monocytes Percent Auto 7.9 % (2.0-11.0); Neutrophils Absolute Auto 3.5 K/mm3 (1.7-7.2); Neutrophils Percent Auto 59.4 % (50.0-70.0); Platelet Count Result 306 K/mm3 (150-420); Red Blood Count 4.57 M/mm3 (4.20-5.40); Red Cell Distribution Width 13.7 % (11.6-14.4); White Blood Count 5.8 K/mm3 (4.8-10.8)
[2023-03-26 18:34] LABS: Iron 58 ug/dL (50-170)
[2023-03-26 18:39] LABS: Rheumatoid Factor Screen Negative (Negative)
[2023-03-26 18:59] LABS: Erythrocyte Sedimentation Rate 18 mm/hr (0-15)
[2023-04-02 13:01] LABS: Vitamin D 25 Hydroxy 29 ng/mL (30-100)
[2023-04-04 05:33] LABS: Anti Nuclear Antibody Pattern Nuclear, Speckled
== END 2023-03-26 17:34 | disposition home or self-care (01) ==
PROVIDERS: PCP Nurse Practitioner Family; Visit Provider Nurse Practitioner Family
DX: M25.552 Pain in left hip (principal); M25.551 Pain in right hip; Z79.899 Other long term (current) drug therapy
CPT/HCPCS: 36415; 72100; 73521; 82306; 83540; 85025; 85652; 86038; 86039; 86430

== ENCOUNTER 2023-05-06 11:12 | Emergency (ER) | payer MEDICARE, MEDICAID, SELFPAY ==
[2023-05-06] VITALS (17 sets, daily range): BP systolic 113–131; BP diastolic 72–87; PULSE 76–93; RESP 15–24; TEMP 36.8; O2SAT 96–100
--- NOTE | 2023-05-06 11:21 | ED.ARRPALP ---
HPI - Arrhythmia/Palpitations General Chief Complaint: Arrhythmia/Palpitations Stated Complaint: palpations Time Seen by Provider: 05/06/23 11:21 Source: patient Mode of arrival: ambulatory Limitations: no limitations History of Present Illness HPI narrative: 32-year-old female with a history of vaping, any [place], bipolar disorder, Adalgisa-Danlos, uterovaginal prolapse, umbilical hernia, palpitation with an unremarkable 48 hour Holter in on 01/25/2023 presents to the ER with -- 1 hour history of palpitation without any chest pain shortness of breath At rest -- arthralgia involving the lower back the hips the knees and the neck. She had a positive MANDO in the past and thinks she has lupus. She would like to be tested. complaint: rapid heart beat Onset (ago): hour(s) ( started 1 hour ago and now resolved) Duration: constant Severity: mild Context: occurred during rest Associated symptoms: other ( arthralgias) Related Data Home Medications Medication Instructions Recorded Confirmed lorazepam 0.5 mg tablet 0.25 mg PO PRN PRN Anxiety 12/11/22 05/06/23 propranolol 20 mg tablet 5 mg PO TID 01/08/23 05/06/23 topiramate 50 mg tablet 100 mg PO BID 01/08/23 05/06/23 atomoxetine 60 mg capsule 60 mg PO DAILY 05/06/23 05/06/23 drospirenone (contraceptive) 4 mg 1 tablet PO DAILY 05/06/23 05/06/23 (28) tablet (Slynd) zolpidem 5 mg tablet 5 mg PO HS 05/06/23 05/06/23 Allergies Allergy/AdvReac Type Severity Reaction Status Date / Time ciprofloxacin Allergy Intermediate trouble Verified 05/06/23 11:17 breathing Review of Systems Review of Systems: All systems reviewed & are unremarkable except as noted in HPI and below Constitutional: Constitutional: Reports as per HPI and Reports no additional constitutional complaints Eyes: Eyes: Reports as per HPI and Reports no additional eye complaints ENT: Reports system reviewed and no additional complaints, except as documented and Reports as per HPI Cardiovascular: Cardiovascular: Reports as per HPI, Reports no additional cardiovascular complaints and Reports rapid heart rate Respiratory: Respiratory: Reports as per HPI and Reports no additional respiratory complaints Gastrointestinal: Gastrointestinal: Reports as per HPI and Reports no additional gastrointestinal complaints Genitourinary: Genitourinary: Reports no additional female genitourinary complaints and Reports as per HPI Musculoskeletal: Musculoskeletal: Reports no additional musculoskeletal complaints and Reports as per HPI Integumentary/Breasts: Skin/Breast: Reports system reviewed and no additional complaints, except as docu and Reports as per HPI Neurologic: Reports system reviewed and no additional complaints, except as documented and Reports as per HPI Psychiatric: Psychiatric: Reports no additional psychiatric complaints, Reports as per HPI and Reports anxiety Endocrine: Endocrine: Reports no additional endocrine complaints and Reports as per HPI Hematologic/Lymphatic: Hematologic/Lymphatic: Reports no additional hematologic/lymphatic complaints and Reports as per HPI Allergic/Immunologic: Allergic/Immunologic: Reports no additional allergic/immunologic complaints and Reports as per HPI PMFSH Past Medical History Medical History Anemia Back pain affecting Bipolar 1 disorder Costochondritis, acute Cough Engages in vaping False labor Fatigue Gestational diabetes mellitus (GDM) affecting , antepartum Joint pain Left-sided chest pain Obese Recurrent chest pain Schizoaffective disorder (spontaneous vaginal delivery) URI (upper respiratory infection) Weakness of wrist Surgical History Surgical History No history of previous surgery Family History Family History Mother Unknown family medical history Father Unknown
--- NOTE | 2023-05-06 11:36 | ECG_ITS ---
Measurements Intervals [place] Rate: 76 P: 52 NV: 139 QRS: 56 QRSD: 81 T: 46 QT: 377 QTc: 424 Interpretive Statements SINUS RHYTHM NONSPECIFIC T-WAVE ABNORMALITY BORDERLINE ECG COMPARED TO ECG 01/25/2023 13:24:19 NO SIGNIFICANT CHANGE Electronically Signed On 05-06-2023 16:14:58 CDT by Flo Lyman M.D.
[2023-05-06 11:57] LABS: Basophils Absolute Auto 0.03 K/mm3 (0.00-0.10); Basophils Percent Auto 0.6 % (0.0-1.0); Eosinophils Absolute Auto 0.05 K/mm3 (0.02-0.50); Hematocrit 44.7 % (35.0-49.0); Hemoglobin 15.3 g/dL (12.0-15.0); Immature Granulocyte Absolute 0.01 K/mm3 (0.00-0.00); Immature Granulocyte Percent A 0.2 % (0.0-0.0); Lymphocytes Absolute Auto 1.45 K/mm3 (1.10-4.50); Lymphocytes Percent Auto 28.9 % (18.0-42.0); Mean Corpuscular HGB Conc 34.2 g/dL (32.0-36.0); Mean Corpuscular Hemoglobin 31.8 pg (27.0-31.0); Mean Corpuscular Volume 92.9 fL (78.0-102.0); Mean Platelet Volume 9.5 fl (9.2-11.8); Monocytes Absolute Auto 0.24 K/mm3 (0.10-0.90); Monocytes Percent Auto 4.8 % (2.0-11.0); Neutrophils Absolute Auto 3.2 K/mm3 (1.7-7.2); Neutrophils Percent Auto 64.5 % (50.0-70.0); Platelet Count Result 328 K/mm3 (150-420); Red Blood Count 4.81 M/mm3 (4.20-5.40); Red Cell Distribution Width 12.9 % (11.6-14.4)
[2023-05-06 11:58] LABS: Appearance Urine Clear (Clear); Bilirubin Urine Negative (Negative); Blood Urine Negative (Negative); Color Urine Light Yellow (Yellow); Glucose Urine UA Negative (Negative); Ketones Urine Negative (Negative); Leukocyte Esterase Ur 2+ LEU/UL (Negative); Nitrate Urine Negative (Negative); Protein Urine Negative (Negative); pH Urine 7.5 (5.0-8.0)
[2023-05-06 12:02] LABS: Add Urine Microscopic? YES; Pregnancy On Board Control Positive; Urine Pregnancy Test Negative
[2023-05-06 12:03] LABS: Bacteria Urine 1+ /hpf; RBC Urine None seen /hpf (0-2); Squamous Epithelial Cell Urine Few /hpf (Few)
[2023-05-06 12:14] LABS: Lactic Acid Reflex 0.4 mmol/L (0.4-2.0)
[2023-05-06 12:21] LABS: Alanine Aminotransferase 65 U/L (14-59); Alkaline Phosphatase 103 U/L (46-116); Anion Gap 12 mmol/L (8-16); Aspartate Amino Transferase 31 U/L (15-37); Bilirubin,Total 0.8 mg/dL (0.00-1.00); Blood Urea Nitrogen 17 mg/dL (7-18); Carbon Dioxide 23 mmol/L (21-32); Chloride 105 mmol/L (98-108); Estimated CRCL calculation 88 ml/min; Estimated Glomerular Filt Rate > 60; Glucose 90 mg/dL (70-99); Osmolality Calculated 291 mOsm/kg (285-295); Potassium 4.1 mmol/L (3.5-5.1); Sodium 140 mmol/L (136-145); Thyroid Stimulating Hormone 1.97 uIU/mL (0.36-3.74); Total Protein 7.9 g/dL (6.4-8.2)
[2023-05-06 12:22] LABS: Troponin I < 4.0 ng/L (0.00-60.4)
--- NOTE | 2023-05-06 12:25 | PC.NURSE ---
PT IS SITTING ON STRETCHER ON CELL PHONE AT THIS TIME. NAD NOTED. WILL CONTINUE TO MONITOR. PT IS AWAITING RESULTS.
--- NOTE | 2023-05-08 12:28 | PC.NURSE ---
FINAL URINE CULTURE RESULTS: MIXED GENITAL MOHSEN ISOLATED. NO ACTION NEEDED.
== END 2023-05-06 13:00 | disposition home or self-care (01) ==
PROVIDERS: Emergency Provider Internal Medicine Critical Care Medicine; PCP Nurse Practitioner Family
DX: F41.9 Anxiety disorder, unspecified (principal); R00.2 Palpitations; M54.50 Low back pain, unspecified; M54.2 Cervicalgia; M25.552 Pain in left hip; M25.551 Pain in right hip; M25.562 Pain in left knee; M25.561 Pain in right knee; R21 Rash and other nonspecific skin eruption; Q79.60 Ehlers-Danlos syndrome, unspecified; F17.219 Nicotine dependence, cigarettes, with unspecified nicotine-induced disorders; Z79.899 Other long term (current) drug therapy
CPT/HCPCS: 36415; 80053; 81001; 81025; 83605; 84443; 84484; 85025; 87086; 87088; 93005; 99284

== ENCOUNTER 2023-05-22 16:46 | Outpatient (CLI) | payer MEDICARE, MEDICAID, SELFPAY ==
--- NOTE | ~2023-05-22 | XR_ITS ---
XR chest 2V DATE: 05/22/2023 17:07 INDICATION: Pleural pain, palpitations. TECHNIQUE: PA and lateral views COMPARISON: 07/29/2022 PA chest FINDINGS: Normal heart size. No hilar or mediastinal enlargement. No pulmonary infiltrate or consolid ation, pleural effusion or pulmonary vascular congestion or pneumothorax. Mild thoracic dextroscoliosis. IMPRESSION: No active cardiopulmonary disease Reviewed, dictated and finalized at location A.
== END 2023-05-22 16:47 | disposition home or self-care (01) ==
LOC: CHSIMG 16:50
PROVIDERS: PCP Nurse Practitioner Family; Visit Provider Nurse Practitioner Family
DX: R07.81 Pleurodynia (principal)
CPT/HCPCS: 71046

== ENCOUNTER 2023-06-03 12:43 | Outpatient (CLI) | payer MEDICARE, MEDICAID, SELFPAY ==
--- NOTE | 2023-06-03 12:48 | ECHO_ITS ---
Patient Info Name: Ashlee Webster Age: 32 years : 1990 Gender: Female Ht: 65 in Wt: 200 lbs BSA: 2.07 m2 HR: 77 bpm BP: 120 / 84 mmHg Heart Rhythm: Sinus Rhythm Technical Quality: Good Exam Date: 06/03/2023 12:53 PM Exam Location: [facility] Patient Status: Outpatient Admit Date: 06/03/2023 Staff Ordering Physician: Mai Saeed NP [employer] Manager: Anthony Vora RDCS Attending Provider: Mai Saeed NP Referring Physician: Darlin MORAN; Exam Type: CA echo doppler color flow Study Info Indications - other chest pain Complete two-dimensional, color flow and Doppler transthoracic echocardiogram is performed. Summary 1. Complete two-dimensional, color flow and Doppler transthoracic echocardiogram is performed. 2. Left ventricular chamber dimension is normal. 3. Left ventricular systolic function is normal, estimated at 60-65%. 4. The left ventricular diastolic function is normal. 5. E/e' 7 is not elevated. 6. There is trace mitral valve regurgitation. 7. There is mild tricuspid valve regurgitation. 8. No pulmonary hypertension, estimated pulmonary arterial systolic pressure is 25 mmHg. Left Ventricle E/e' 7 is not elevated. Left ventricular chamber dimension is normal. Left ventricular systolic function is normal, estimated at 60-65%. The left ventricular diastolic function is normal. Right Ventricle Right ventricular chamber dimension is normal. Right ventricular systolic function is normal. Left Atria Left atrial chamber dimension is normal. Right Atria Right atrial chamber dimension is normal. Aortic Valve The aortic valve is trileaflet. There is no aortic valve stenosis. There is no aortic valve regurgitation. Pulmonic Valve There is no pulmonic regurgitation. Mitral Valve There is no mitral valve stenosis. There is trace mitral valve regurgitation. Tricuspid Valve There is mild tricuspid valve regurgitation. No pulmonary hypertension, estimated pulmonary arterial systolic pressure is 25 mmHg. Pericardium/Pleural There is no pericardial effusion. Inferior Vena Cava Normal inferior vena cava with >50% collapse upon inspiration consistent with normal right atrial pressure, 5 mmHg. Aorta The aortic root size at the sinus of Valsalva is normal. Left Ventricular Outflow Tract Name Value Normal LVOT 2D LVOT Diameter 1.8 cm LVOT Doppler LVOT Peak Velocity 115 cm/s LVOT Peak Gradient 5 mmHg LVOT Mean Gradient 3 mmHg LVOT VTI 24 cm LVOT VTI/AV VTI Ratio 0.8 LVOT Stroke Volume 64 ml Pulmonic Valve Name Value Normal RVOT Doppler RVOT Peak Gradient 3 mmHg PV Doppler PV Peak Velocity 98 cm/s
== END 2023-06-03 12:44 | disposition home or self-care (01) ==
LOC: CHSIMG 12:44
PROVIDERS: PCP Nurse Practitioner Family; Visit Provider Nurse Practitioner Family
DX: R00.2 Palpitations (principal); R07.89 Other chest pain; I08.1 Rheumatic disorders of both mitral and tricuspid valves
CPT/HCPCS: 93306

== ENCOUNTER 2023-07-03 12:17 | Outpatient (CLI) | payer MEDICARE, MEDICAID, SELFPAY | END 2023-07-03 12:18 | disposition home or self-care (01) | LOC: CHSLAB 12:20 | PROVIDERS: PCP Nurse Practitioner Family; Visit Provider Obstetrics & Gynecology Gynecology | DX: O26.21 Pregnancy care for patient with recurrent pregnancy loss, first trimester (principal); Z3A.00 Weeks of gestation of pregnancy not specified | CPT/HCPCS: 36415; 84702 ==

== ENCOUNTER 2023-07-05 12:08 | Outpatient (CLI) | payer MEDICARE, MEDICAID, SELFPAY | END 2023-07-05 12:09 | disposition home or self-care (01) | LOC: CHSLAB 12:11 | PROVIDERS: PCP Nurse Practitioner Family; Visit Provider Obstetrics & Gynecology Gynecology | DX: O26.21 Pregnancy care for patient with recurrent pregnancy loss, first trimester (principal); Z3A.00 Weeks of gestation of pregnancy not specified | CPT/HCPCS: 36415; 84702 ==

== ENCOUNTER 2023-08-02 12:47 | Outpatient (CLI) | payer MEDICARE, MEDICAID, SELFPAY ==
--- NOTE | ~2023-08-02 | US_ITS ---
EXAMINATION: US OB <=14 wk fetus w TV DATE: 08/02/2023 14:08 INDICATION: Spotting during first trimester TECHNIQUE: Real-time pelvic transabdominal and transvaginal ultrasound was performed. COMPARISON: None. FINDINGS: The uterus measures 11.4 x 5.8 x 5.5 cm. There is an intrauterine gestational sac. A yolk s ac is identified. No pole is identified. The mean sac diameter measures 2.3 cm, which correlate s with an estimated gestational age of 7 weeks and 1 day(s) (+/-) 5 day(s). The left ovary is not visualized however no left adnexal abnormality is seen. The right ovary measure s 3.8 x 3.1 x 2.7 cm. There is normal vascular flow in the right ovary. There is no free fluid in the pelvis. IMPRESSION: 1. Intrauterine gestational sac and yolk sac without visible pole with an estimated gestational age of 7 weeks and 1 day(s) (+/-) 5 day(s) and an estimated delivery date of 03/19/2024 based on mean sac diameter. Reviewed, dictated and finalized at location F. IMPRESSION: 1. Intrauterine gestational sac and yolk sac without visible pole with an estimated gestational age of 7 weeks and 1 day(s) (+/-) 5 day(s) and an estima sharmin delivery date of 03/19/2024 based on mean sac diameter.
== END 2023-08-02 12:48 | disposition home or self-care (01) ==
LOC: CHSIMG 12:49
PROVIDERS: PCP Nurse Practitioner Family; Visit Provider Obstetrics & Gynecology Gynecology
DX: O26.851 Spotting complicating pregnancy, first trimester (principal); Z3A.01 Less than 8 weeks gestation of pregnancy
CPT/HCPCS: 76801; 76817

== ENCOUNTER 2023-08-05 14:19 | Outpatient (CLI) | payer MEDICARE, SELFPAY | END 2023-08-05 14:20 | disposition home or self-care (01) | LOC: CHSLAB 14:22 | PROVIDERS: PCP Nurse Practitioner Family; Visit Provider Obstetrics & Gynecology Gynecology | DX: O26.21 Pregnancy care for patient with recurrent pregnancy loss, first trimester (principal); O28.3 Abnormal ultrasonic finding on antenatal screening of mother | CPT/HCPCS: 36415; 84702 ==

== ENCOUNTER 2023-08-07 12:23 | Outpatient (CLI) | payer MEDICARE, SELFPAY | END 2023-08-07 12:24 | disposition home or self-care (01) | LOC: CHSLAB 12:26 | PROVIDERS: PCP Nurse Practitioner Family; Visit Provider Obstetrics & Gynecology Gynecology | DX: O26.21 Pregnancy care for patient with recurrent pregnancy loss, first trimester (principal); O28.3 Abnormal ultrasonic finding on antenatal screening of mother; Z3A.00 Weeks of gestation of pregnancy not specified | CPT/HCPCS: 36415; 84702 ==

== ENCOUNTER 2023-08-14 12:11 | Outpatient (CLI) | payer MEDICARE, SELFPAY | END 2023-08-14 12:12 | disposition home or self-care (01) | LOC: CHSLAB 08-15 11:55 | PROVIDERS: PCP Nurse Practitioner Family; Visit Provider Obstetrics & Gynecology Gynecology | DX: O02.81 Inappropriate change in quantitative human chorionic gonadotropin (hCG) in early pregnancy (principal) | CPT/HCPCS: 36415; 84702 ==

== ENCOUNTER 2023-08-21 09:59 | Outpatient (CLI) | payer MEDICARE, SELFPAY | END 2023-08-21 10:00 | disposition home or self-care (01) | PROVIDERS: PCP Nurse Practitioner Family; Visit Provider Obstetrics & Gynecology Gynecology | DX: O02.81 Inappropriate change in quantitative human chorionic gonadotropin (hCG) in early pregnancy (principal) | CPT/HCPCS: 36415; 84702 ==

== ENCOUNTER 2023-08-28 12:18 | Outpatient (CLI) | payer MEDICARE, SELFPAY | END 2023-08-28 12:19 | disposition home or self-care (01) | LOC: CHSLAB 12:19 | PROVIDERS: Visit Provider Obstetrics & Gynecology Gynecology | DX: O02.81 Inappropriate change in quantitative human chorionic gonadotropin (hCG) in early pregnancy (principal) | CPT/HCPCS: 36415; 84702 ==

== ENCOUNTER 2023-09-04 10:38 | Outpatient (CLI) | payer MEDICARE, SELFPAY | END 2023-09-04 10:39 | disposition home or self-care (01) | LOC: CHSLAB 10:40 | PROVIDERS: PCP Nurse Practitioner Family; Visit Provider Obstetrics & Gynecology Gynecology | DX: O00.01 Abdominal pregnancy with intrauterine pregnancy (principal); O03.9 Complete or unspecified spontaneous abortion without complication | CPT/HCPCS: 36415; 84702 ==

== ENCOUNTER 2023-09-11 09:58 | Outpatient (CLI) | payer MEDICARE, SELFPAY | END 2023-09-11 09:59 | disposition home or self-care (01) | LOC: CHSLAB 10:00 | PROVIDERS: PCP Nurse Practitioner Family; Visit Provider Obstetrics & Gynecology Gynecology | DX: O02.81 Inappropriate change in quantitative human chorionic gonadotropin (hCG) in early pregnancy (principal) | CPT/HCPCS: 36415; 84702 ==

== ENCOUNTER 2023-09-18 09:36 | Outpatient (CLI) | payer MEDICARE, SELFPAY | END 2023-09-18 09:37 | disposition home or self-care (01) | LOC: CHSLAB 09:38 | PROVIDERS: PCP Nurse Practitioner Family; Visit Provider Obstetrics & Gynecology Gynecology | DX: O02.81 Inappropriate change in quantitative human chorionic gonadotropin (hCG) in early pregnancy (principal) | CPT/HCPCS: 36415; 84702 ==

== ENCOUNTER 2023-09-25 09:10 | Outpatient (CLI) | payer MEDICARE, SELFPAY | END 2023-09-25 09:11 | disposition home or self-care (01) | LOC: CHSLAB 09:13 | PROVIDERS: PCP Nurse Practitioner Family; Visit Provider Obstetrics & Gynecology Gynecology | DX: O02.81 Inappropriate change in quantitative human chorionic gonadotropin (hCG) in early pregnancy (principal) | CPT/HCPCS: 36415; 84702 ==

== ENCOUNTER 2023-09-27 14:06 | Outpatient (CLI) | payer MEDICARE, MEDICAID, SELFPAY ==
--- NOTE | ~2023-09-27 | US_ITS ---
EXAMINATION: US pelvic complete w TV DATE: 09/27/2023 14:40 INDICATION: Abnormal uterine bleeding, recent miscarriage TECHNIQUE: Multiple transabdominal and endovaginal sonographic images of the pelvis were obtained. COMPARISON: 08/02/2023 FINDINGS: The uterus measures 9.1 x 5.3 x 6.1 cm. The endometrial complex measures 32 mm. The right o vary measures 3.8 x 2.2 x 2.2 cm. The left ovary measures 2.6 x 2.6 x 2.8 cm. There is normal vascula r flow in the right ovary. There is no free fluid in the pelvis. IMPRESSION: 1. Thickened endometrium which could be due to recent miscarriage or possibly retained products of co nception. Reviewed, dictated and finalized at location B. E THEATER USHER IMPRESSION: 1. Thickened endometrium which could be due to recent miscarriage or possibly r etained products of conception.
[2023-09-27 14:24] LABS: Basophils Absolute Auto 0.03 K/mm3 (0.00-0.10); Basophils Percent Auto 0.5 % (0.0-1.0); Eosinophils Absolute Auto 0.18 K/mm3 (0.02-0.50); Eosinophils Percent Auto 2.8 % (1.0-6.0); Hematocrit 42.9 % (35.0-49.0); Hemoglobin 14.2 g/dL (12.0-15.0); Immature Granulocyte Absolute 0.02 K/mm3 (0.00-0.00); Immature Granulocyte Percent A 0.3 % (0.0-0.0); Lymphocytes Absolute Auto 2.12 K/mm3 (1.10-4.50); Mean Corpuscular HGB Conc 33.1 g/dL (32.0-36.0); Mean Corpuscular Hemoglobin 30.9 pg (27.0-31.0); Mean Corpuscular Volume 93.5 fL (78.0-102.0); Monocytes Absolute Auto 0.35 K/mm3 (0.10-0.90); Monocytes Percent Auto 5.4 % (2.0-11.0); Neutrophils Absolute Auto 3.7 K/mm3 (1.7-7.2); Platelet Count Result 290 K/mm3 (150-420); Red Blood Count 4.59 M/mm3 (4.20-5.40); Red Cell Distribution Width 12.1 % (11.6-14.4); White Blood Count 6.4 K/mm3 (4.8-10.8)
== END 2023-09-27 14:07 | disposition home or self-care (01) ==
LOC: CHSIMG 14:07
PROVIDERS: PCP Nurse Practitioner Family; Visit Provider Obstetrics & Gynecology Gynecology
DX: N93.8 Other specified abnormal uterine and vaginal bleeding (principal); R93.89 Abnormal findings on diagnostic imaging of other specified body structures
CPT/HCPCS: 36415; 76830; 76856; 85025

== ENCOUNTER 2023-10-02 09:50 | Outpatient (CLI) | payer MEDICARE, SELFPAY | END 2023-10-02 09:51 | disposition home or self-care (01) | LOC: CHSLAB 09:52 | PROVIDERS: PCP Nurse Practitioner Family; Visit Provider Obstetrics & Gynecology Gynecology | DX: O02.81 Inappropriate change in quantitative human chorionic gonadotropin (hCG) in early pregnancy (principal) | CPT/HCPCS: 36415; 84702 ==

== ENCOUNTER 2023-10-09 09:33 | Outpatient (CLI) | payer MEDICARE, SELFPAY | END 2023-10-09 09:34 | disposition home or self-care (01) | LOC: CHSLAB 09:35 | PROVIDERS: PCP Nurse Practitioner Family; Visit Provider Obstetrics & Gynecology Gynecology | DX: O02.81 Inappropriate change in quantitative human chorionic gonadotropin (hCG) in early pregnancy (principal) | CPT/HCPCS: 36415; 84702 ==

== ENCOUNTER 2023-10-23 08:59 | Outpatient (CLI) | payer MEDICARE, SELFPAY | END 2023-10-23 09:00 | disposition home or self-care (01) | LOC: CHSLAB 09:04 | PROVIDERS: PCP Nurse Practitioner Family; Visit Provider Obstetrics & Gynecology Gynecology | DX: O02.81 Inappropriate change in quantitative human chorionic gonadotropin (hCG) in early pregnancy (principal) | CPT/HCPCS: 36415; 84702 ==

== ENCOUNTER 2023-10-24 16:52 | Outpatient (CLI) | payer MEDICARE, SELFPAY ==
[2023-10-24 17:28] LABS: Strep Group A RT-PCR NOT DETECTED (Negative)
[2023-10-24 17:38] LABS: SARS-CoV-2 RNA PCR Negative (Negative)
[2023-10-24 17:39] LABS: Influenza A QL RT-PCR Negative (Negative); Influenza B QL RT-PCR Negative (Negative)
== END 2023-10-24 16:53 | disposition home or self-care (01) ==
LOC: CHSLAB 16:54
PROVIDERS: PCP Nurse Practitioner Family; Visit Provider Nurse Practitioner Family
DX: R07.0 Pain in throat (principal); R07.81 Pleurodynia
CPT/HCPCS: 87636; 87651

== ENCOUNTER 2023-10-30 09:12 | Outpatient (CLI) | payer MEDICARE, SELFPAY | END 2023-10-30 09:13 | disposition home or self-care (01) | LOC: CHSLAB 09:13 | PROVIDERS: PCP Nurse Practitioner Family; Visit Provider Obstetrics & Gynecology Gynecology | DX: O02.81 Inappropriate change in quantitative human chorionic gonadotropin (hCG) in early pregnancy (principal) | CPT/HCPCS: 36415; 84702 ==

== ENCOUNTER 2023-11-06 09:08 | Outpatient (CLI) | payer MEDICARE, SELFPAY ==
[2023-11-06 17:34] LABS: Basophils Absolute Auto 0.03 K/mm3 (0.00-0.10); Basophils Percent Auto 0.4 % (0.0-1.0); Eosinophils Absolute Auto 0.17 K/mm3 (0.02-0.50); Eosinophils Percent Auto 2.1 % (1.0-6.0); Hematocrit 44.1 % (35.0-49.0); Immature Granulocyte Absolute 0.02 K/mm3 (0.00-0.00); Immature Granulocyte Percent A 0.2 % (0.0-0.0); Lymphocytes Absolute Auto 2.67 K/mm3 (1.10-4.50); Mean Corpuscular Volume 91.1 fL (78.0-102.0); Mean Platelet Volume 9.5 fl (9.2-11.8); Monocytes Percent Auto 3.7 % (2.0-11.0); Neutrophils Absolute Auto 4.9 K/mm3 (1.7-7.2); Neutrophils Percent Auto 60.6 % (50.0-70.0); Platelet Count Result 350 K/mm3 (150-420); Red Blood Count 4.84 M/mm3 (4.20-5.40); Red Cell Distribution Width 12.6 % (11.6-14.4); White Blood Count 8.1 K/mm3 (4.8-10.8)
[2023-11-06 18:22] LABS: Alanine Aminotransferase 52 U/L (14-59); Alkaline Phosphatase 88 U/L (46-116); Anion Gap 7 mmol/L (8-16); Aspartate Amino Transferase 22 U/L (15-37); Bilirubin,Total 0.8 mg/dL (0.00-1.00); Blood Urea Nitrogen 9 mg/dL (7-18); Calcium 9.4 mg/dL (8.5-10.1); Carbon Dioxide 30 mmol/L (21-32); Chloride 100 mmol/L (98-108); Estimated Glomerular Filt Rate 60; Glucose 81 mg/dL (70-99); Osmolality Calculated 281 mOsm/kg (285-295); Potassium 3.9 mmol/L (3.5-5.1); Sodium 137 mmol/L (136-145); Total Protein 7.5 g/dL (6.4-8.2)
== END 2023-11-06 09:09 | disposition home or self-care (01) ==
PROVIDERS: PCP Nurse Practitioner Family; Visit Provider Obstetrics & Gynecology Gynecology
DX: O02.81 Inappropriate change in quantitative human chorionic gonadotropin (hCG) in early pregnancy (principal)
CPT/HCPCS: 36415; 80053; 84702; 85025

== ENCOUNTER 2023-11-14 09:29 | Outpatient (CLI) | payer MEDICARE, MEDICAID, SELFPAY | END 2023-11-14 09:30 | disposition home or self-care (01) | PROVIDERS: PCP Nurse Practitioner Family; Visit Provider Obstetrics & Gynecology Gynecology | DX: O02.81 Inappropriate change in quantitative human chorionic gonadotropin (hCG) in early pregnancy (principal) | CPT/HCPCS: 36415; 84702 ==

== ENCOUNTER 2023-11-21 09:11 | Outpatient (CLI) | payer MEDICARE, SELFPAY | END 2023-11-21 09:12 | disposition home or self-care (01) | PROVIDERS: PCP Nurse Practitioner Family; Visit Provider Obstetrics & Gynecology Gynecology | DX: O02.81 Inappropriate change in quantitative human chorionic gonadotropin (hCG) in early pregnancy (principal) | CPT/HCPCS: 36415; 84702 ==

== ENCOUNTER 2023-11-28 09:23 | Outpatient (CLI) | payer MEDICARE, SELFPAY | END 2023-11-28 09:24 | disposition home or self-care (01) | LOC: CHSLAB 09:27 | PROVIDERS: PCP Nurse Practitioner Family; Visit Provider Obstetrics & Gynecology Gynecology | DX: O02.81 Inappropriate change in quantitative human chorionic gonadotropin (hCG) in early pregnancy (principal) | CPT/HCPCS: 36415; 84702 ==

== ENCOUNTER 2023-11-29 11:45 | Outpatient (CLI) | payer MEDICARE, SELFPAY ==
--- NOTE | ~2023-11-29 | US_ITS ---
EXAMINATION: US pelvic complete w TV DATE: 11/29/2023 12:50 INDICATION: Inappropriate rising hCG TECHNIQUE: Multiple transabdominal and endovaginal sonographic images of the pelvis were obtained. COMPARISON: 09/27/2023 FINDINGS: The uterus measures 9.9 x 3.6 x 6.4 cm. The endometrial complex thickened measuring 20 mm in thickne ss with prominent increased vascular flow within the endometrial complex on color Doppler. No evident intrauterine gestational sac. The right ovary measures 3.4 x 1.7 x 3.0 cm. The left ovary measures 2 .2 x 2.0 x 3.1 cm. 1.6 cm anechoic cyst in the left ovary. There is a minimal amount of anechoic flui d along the left ovary. There is normal vascular flow in the ovaries. IMPRESSION: 1. Endometrial complex remain thickened and hypervascular measuring 20 mm in thickness but without in ternal gestational sac. Differential would include retained products of conception related to a misca rriage from several months prior; more recent early, failed or ectopic or potentially gesta tional trophoblastic disease. 2. 1.2 cm left ovarian cyst with minimal amount of anechoic free fluid at the left adnexa. Reviewed, dictated and finalized at location A. ERY ROD ASSEMBLER IMPRESSION: 1. Endometrial complex remain thickened and hypervascular measuring 20 mm in th ickness but without internal gestational sac. Differential would include retain ed products of conception related to a miscarriage from several months prior; m ore recent early, failed or ectopic or potentially gestational tropho blastic disease. 2. 1.2 cm left ovarian cyst with minimal amount of anechoic free fluid at the l eft adnexa.
== END 2023-11-29 11:46 | disposition home or self-care (01) ==
PROVIDERS: PCP Nurse Practitioner Family; Visit Provider Obstetrics & Gynecology Gynecology
DX: O02.81 Inappropriate change in quantitative human chorionic gonadotropin (hCG) in early pregnancy (principal); Z3A.00 Weeks of gestation of pregnancy not specified; N83.202 Unspecified ovarian cyst, left side
CPT/HCPCS: 76830; 76856

== ENCOUNTER 2023-12-02 01:32 | Day surgery (SDC) | payer MEDICARE, MEDICAID, SELFPAY ==
[2023-11-29 15:02] VITALS: BMI 32.3
--- NOTE | 2023-11-29 15:13 | PC.NURSE ---
Report to the Outpatient Waiting Room, entrance under the green pavilion located off [facility], at time 0900 on date 12/02/23. Planned Procedure Time: 1100. Time changes happen often and if your time is changed the preop area will call you the afternoon before. - You and your visitor will be asked to self-screen and do not enter if you have any COVID symptoms. - A mask is optional within the hospital at this time. Patients may have clear liquids (water, carbonated beverages, clear teas, apple juice) until 3 hours prior to surgery with a maximum of 20 ounces. - No food from midnight until time of surgery Take the following medications with a SIP of water the morning of surgery: LAMOTRIGINE, PROPRANOLOL DO NOT STOP ANY OF YOUR OTHER PRESCRIPTION MEDICATIONS PRIOR TO SURGERY ?EXCEPT THE FOLLOWING Medications to discontinue per physician: VITAMINS/SUPPLEMENTS Date to take last dose: NO MORE UNTIL AFTER SURGERY Please no make-up, nail arabic, hairspray, perfume, deodorant, or body powder the day of surgery. No jewelry (including any body piercings) or valuables the day of surgery, leave them at home. Please take a shower or bath the night before, or the morning of, surgery with an antibacterial soap. Wear comfortable, loose fitting clothing. - Jewelry must be removed prior to entering the operating room. Rings and piercings that are not removed may be cut off. - The hospital will not accept responsibility for valuables. - Please leave all valuables, including medications, at home the day of surgery. If you are going home after surgery, a licensed cement mixer driver must drive you home. - NO public transportation without another adult if you receive anesthesia. - We recommend that an adult stay with you for 24 hours following discharge. - We also recommend that you do not drive, make important decision, drink alcoholic beverages, or take any drugs that were not prescribed by your health care provider for at least 24 hours after your discharge time. Follow any additional instructions given to you from your surgeon. If you or anyone in your household have experienced Covid symptoms in the past week, please notify your surgeon or the nurse liaison at the phone number below for possible testing. Telephone instructions given to PT - SB NIX and asked if any additional questions and then verbalized understanding. Patient advised to call surgeon office or pre surgery nurse liaison [phone] if any additional questions.
--- NOTE | 2023-12-02 07:18 | WPDANESEPPF ---
Anes - Initial Pre Proc Eval Procedure: Operation Date: 12/02/23 11:00 Proposed Procedures p Suction Dilation and Curettage - Minerva Hercules MD Date/Time: 12/02/23 07:18 Surgeon: Minerva Hercules MD Pre Op Diagnosis: retained products of conception Patient Data Age: 33 Gender: F Height: 1.65 m Weight: 88 kg Allergies Allergy/AdvReac Type Severity Reaction Status Date / Time ciprofloxacin Allergy Intermediate trouble Verified 12/02/23 09:43 breathing Home Medications Medication Instructions Recorded Confirmed Type ferrous sulfate 28 mg PO BID 30 days #60 tabs 07/26/22 11/29/23 Rx omeprazole magnesium 20 mg 20 mg PO ONCE PRN acid reflux #20 07/12/23 11/29/23 Rx tablet,delayed release (Prilosec tabs OTC) propranolol 20 mg tablet 5 mg PO BID 07/12/23 12/02/23 History lamotrigine 100 mg tablet 200 mg PO DAILY 10/15/23 12/02/23 History (Lamictal) atomoxetine 60 mg capsule 60 mg PO DAILY 11/07/23 11/29/23 History (Strattera) clonazepam 0.25 mg disintegrating 0.25 mg PO HS 11/07/23 11/29/23 History tablet semaglutide 1 mg/dose (4 mg/3 mL) 1 mg (0.75 mL) subcut WEEKLY #3 mL 11/14/23 12/02/23 Rx subcutaneous pen injector Patient hx anesthesia problems: none Family hx anesthesia problems: none Results Review: All pre-operative results and documents have been reviewed as part of the pre-operative evaluation. [facility] Past Medical History Medical History (Updated 12/02/23 @ 08:27 by Minerva Hercules MD) Back pain affecting Bipolar 1 disorder History of spontaneous x5 Hypertension Obese Panic attacks Schizoaffective disorder (spontaneous vaginal delivery) x3 Surgical History Surgical History No history of previous surgery Family History Family History Mother Unknown family medical history Father Unknown family medical history Grandparent Esophageal cancer Grandparent Cerebrovascular accident Social History Social History Smoking status: Current every day smoker Tobacco type: e-cigarettes/vaping Second hand tobacco smoke exposure: No Alcohol intake: current Alcohol use details: 1/YEAR Substance use: never Substance use type: does not use Lack of Transportation: No Lack of Food: Sometimes True Current Housing: I Have Housing Concerned About Future Housing: No Difficulty Paying Gas/Electric Bills: YES Difficulty Paying for Meds: No Currently Unemployed: No Education: High School Diploma/GED Difficulty w/ Childcare or Family Care: YES Living arrangements: with family Additional living arrangements comments: with one child Occupation/Education: unemployed Gender identity (if verbalized by the patient): Female Spiritual care concerns: No Anes - Eval Final PreProcedure Day of Procedure 12/02/23 07:18 Patient weight: obese Heart: regular rate and rhythm Lungs: clear to auscultation Airway: Mallampati scale class II Neurological: alert and oriented Last oral intake: >/= 8 hours ASA classification: III Emergent: no Anesthetic plan: proceed Anesthesia type and monitoring: general GIVS and standard monitoring Results Review: All pre-operative results and documents have been reviewed as part of the pre-operative evaluation. Informed Consent: The patient's anesthetic plan and its attendant risks and benefits were discussed with the patient/family/POA. Questions were solicited and answers provided to the satisfaction of the patient/family/POA.
--- NOTE | 2023-12-02 08:22 | WPDHPUPDATE1 ---
History and Physical Update Update Date/Time: 12/02/23 08:22 History and Physical has been reviewed, including an updated exam of the patient. There are NO changes in the patient's condition. Risks, benefits, and alternatives have been discussed and questions answered. Patient agrees to proceed with procedure.
--- NOTE | 2023-12-02 08:22 | PM.HPGS ---
History of Present Illness History of Present Illness Consent: Risks, benefits, and alternatives have been discussed and questions answered. Patient agrees to proceed with procedure. Chief complaint: retained products of conception Narrative: Ashlee Webster is a 33 year old female with persistently elevated beta HCG levels after spontaneous . Initially levels decreased consistently however the levels plateaued and then went up slightly. Patient was given methotrexate x1 and the level initially went down but now has gone up again. Pelvic ultrasound shows possible retained products conception. Plan is to proceed with D&C hysteroscopy possible suction D&C to evaluate the endometrium. The risks of infection, bleeding, perforation, and possible pathology are reviewed. Review of Systems Review of Systems: not repeated day of surgery; patient states no changes in status PMFSH Past Medical History Medical History (Updated 12/02/23 @ 08:27 by Minerva Hercules MD) Back pain affecting Bipolar 1 disorder History of spontaneous x5 Hypertension Obese Panic attacks Schizoaffective disorder (spontaneous vaginal delivery) x3 Surgical History Surgical History No history of previous surgery Family History Family History Mother Unknown family medical history Father Unknown family medical history Grandparent Esophageal cancer Grandparent Cerebrovascular accident Social History Social History Smoking status: Current every day smoker Tobacco type: e-cigarettes/vaping Second hand tobacco smoke exposure: No Alcohol intake: current Alcohol use details: 1/YEAR Substance use: never Substance use type: does not use Lack of Transportation: No Lack of Food: Sometimes True Current Housing: I Have Housing Concerned About Future Housing: No Difficulty Paying Gas/Electric Bills: YES Difficulty Paying for Meds: No Currently Unemployed: No Education: High School Diploma/GED Difficulty w/ Childcare or Family Care: YES Living arrangements: with family Additional living arrangements comments: with one child Occupation/Education: unemployed Gender identity (if verbalized by the patient): Female Spiritual care concerns: No Meds Home Medications and Allergies Home Medications Medication Instructions Recorded Confirmed Type ferrous sulfate 28 mg PO BID 30 days #60 tabs 07/26/22 11/29/23 Rx omeprazole magnesium 20 mg 20 mg PO ONCE PRN acid reflux #20 07/12/23 11/29/23 Rx tablet,delayed release (Prilosec tabs OTC) propranolol 20 mg tablet 5 mg PO BID 07/12/23 11/29/23 History lamotrigine 100 mg tablet 200 mg PO DAILY 10/15/23 11/29/23 History (Lamictal) atomoxetine 60 mg capsule 60 mg PO DAILY 11/07/23 11/29/23 History (Strattera) clonazepam 0.25 mg disintegrating 0.25 mg PO HS 11/07/23 11/29/23 History tablet semaglutide 1 mg/dose (4 mg/3 mL) 1 mg (0.75 mL) subcut WEEKLY #3 mL 11/14/23 11/29/23 Rx subcutaneous pen injector Allergies Allergy/AdvReac Type Severity Reaction Status Date / Time ciprofloxacin Allergy Intermediate trouble Verified 11/29/23 15:02 breathing Exam Const: General: healthy appearing and alert Orientation/consciousness: patient oriented x3 Resp: Effort & Inspection: normal respiratory effort GI: GI Palp: Yes Soft to palpation, No Tenderness to palpation present (GI) and No Palpable mass present : External Female Exam: normal external appearance Speculum Exam - Vagina: normal appearance of the vagina and normal vaginal discharge Speculum Exam - Cervix: normal appearance of the cervix Bimanual exam- vagina & uterus: uterine size normal and consistency normal Bimanual Exam- Adnexa, other: normal adnexae and No adn
[2023-12-02 09:35] VITALS: BP 122/84; PULSE 89; RESP 14; TEMP 36.9; O2SAT 100
[2023-12-02] MEDS: ACETAMINOPHEN 500 MG TABLET 1000 MG PO (09:35)
[2023-12-02] MEDS: LACTATED RINGERS 1,000 ML 30 ML IV CONT (09:35)
[2023-12-02 09:37] LABS: Glucose Point of Care 70 mg/dl (65-105)
--- NOTE | 2023-12-02 11:39 | SUR.PREOP ---
no upreg test per Dr. Hercules.
--- NOTE | 2023-12-02 12:21 | P.OP_ITS ---
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 There is a irregular, white, nodule on the left endometrium in the lower uterine segment. There are increased areas of vascularity at the fundus. The remainder of the endometrium appears grossly normal. Description of Procedure The patient is taken to the operating room and placed under anesthesia in the dorsal lithotomy position. She was prepped and draped in the usual sterile fashion. Watkins speculum was placed in the vagina and the cervix grasped on the anterior lip with a tenaculum. The uterus is sounded to 10cm. The [employer] hysteroscope was placed and with the above-stated findings the Aveeta resection device is placed. Under direct visualization the nodularity is removed. The device read a fluid deficit 900cc however fluid was leaking between the under buttock drape onto the floor. The sheet and towels were soaking wet probably more of an accurate deficit would be 400 to 500 cc. Near the end of the resection, visibility became poor. The hysteroscope was removed and the sharp curette used to curette the endometrium until a good uterine cry was noted in all areas. Once no further tissue was obtained the curetting ceased and all instruments were removed. The sponge, needle, and instrument counts are correct per the OR staff. Patient was taken to recovery in stable condition. Estimated Blood Loss 50 Drains No Packing No Pathology Yes ( Endocervical shavings and curettings) Complications No immediate complications Condition Stable Disposition PACU
[2023-12-02 12:24] VITALS: BP 125/82; PULSE 88; RESP 16; O2SAT 98
[2023-12-02] MEDS: fentaNYL CITRATE INJ (*CRX) 100 MCG/2 ML VIAL 25 MCG IV PUSH ×2 (12:35→12:39)
[2023-12-02 12:55] VITALS: BP 125/58; PULSE 73; RESP 16
[2023-12-02 13:25] VITALS: BP 111/58; PULSE 70; RESP 16
== END 2023-12-02 13:40 | disposition home or self-care (01) ==
PROVIDERS: PCP Nurse Practitioner Family; Visit Provider Obstetrics & Gynecology Gynecology
PROC: (CPT 59812; principal; 2023-12-02 11:00)
DX: O03.4 Incomplete spontaneous abortion without complication (principal); I10 Essential (primary) hypertension; F31.9 Bipolar disorder, unspecified; F25.9 Schizoaffective disorder, unspecified; F17.290 Nicotine dependence, other tobacco product, uncomplicated; Z79.85 Long-term (current) use of injectable non-insulin antidiabetic drugs
CPT/HCPCS: 59812; 82948; 88305; A9270; J1100; J1885; J2250; J2405; J2704; J3010; J7120

== ENCOUNTER 2023-12-05 16:06 | Outpatient (CLI) | payer MEDICARE, MEDICAID, SELFPAY ==
--- NOTE | ~2023-12-05 | US_ITS ---
EXAMINATION: US venous doppler [facility] DATE: 12/05/2023 17:04 INDICATION: Left lower limb pain TECHNIQUE: Faulkner scale images without and with compression and Doppler images of the left lower extrem ity veins were obtained. COMPARISON: None FINDINGS: The left common femoral vein, profunda femoral vein, femoral vein, popliteal vein, peroneal trunk, posterior tibial veins, and greater saphenous vein are patent. IMPRESSION: 1. Patent left lower extremity veins. No evidence of deep venous thrombosis. Reviewed, dictated and finalized at location F. S ENABLEMENT LEAD
== END 2023-12-05 16:07 | disposition home or self-care (01) ==
PROVIDERS: PCP Nurse Practitioner Family; Visit Provider Obstetrics & Gynecology Gynecology
DX: M79.662 Pain in left lower leg (principal)
CPT/HCPCS: 93971

== ENCOUNTER 2023-12-12 15:49 | Outpatient (CLI) | payer MEDICARE, MEDICAID, SELFPAY ==
[2023-12-12 16:33] LABS: Beta HCG Quantitative < 1.00 mIU/mL (0-6)
== END 2023-12-12 15:50 | disposition home or self-care (01) ==
PROVIDERS: PCP Nurse Practitioner Family; Visit Provider Obstetrics & Gynecology Gynecology
DX: O03.9 Complete or unspecified spontaneous abortion without complication (principal); O02.81 Inappropriate change in quantitative human chorionic gonadotropin (hCG) in early pregnancy
CPT/HCPCS: 36415; 84702

== ENCOUNTER 2023-12-19 15:58 | Outpatient (CLI) | payer MEDICARE, OTHER, SELFPAY ==
[2023-12-19 16:38] LABS: Beta HCG Quantitative < 1.00 mIU/mL (0-6)
== END 2023-12-19 15:59 | disposition home or self-care (01) ==
LOC: CHSLAB 16:01
PROVIDERS: PCP Nurse Practitioner Family; Visit Provider Obstetrics & Gynecology Gynecology
DX: O02.81 Inappropriate change in quantitative human chorionic gonadotropin (hCG) in early pregnancy (principal)
CPT/HCPCS: 36415; 84702

== ENCOUNTER 2023-12-26 08:53 | Outpatient (RCR) | payer MEDICARE, MEDICAID, SELFPAY ==
[2023-12-05 09:58] LABS: Beta HCG Quantitative < 1.00 mIU/mL (0-6)
[2023-12-26 09:50] LABS: Beta HCG Quantitative < 1.00 mIU/mL (0-6)
== END 2024-03-04 23:59 | disposition home or self-care (01) ==
LOC: CHSLAB 08:53
PROVIDERS: PCP Nurse Practitioner Family; Visit Provider Obstetrics & Gynecology Gynecology
DX: O03.9 Complete or unspecified spontaneous abortion without complication (principal); O02.81 Inappropriate change in quantitative human chorionic gonadotropin (hCG) in early pregnancy
CPT/HCPCS: 36415; 84702

== ENCOUNTER 2023-12-30 14:01 | Outpatient (NON) | payer MEDICARE, MEDICAID, SELFPAY | END 2023-12-30 14:02 | disposition home or self-care (01) | LOC: CHSLAB 14:04 | PROVIDERS: Visit Provider Family Medicine | DX: D23.62 Other benign neoplasm of skin of left upper limb, including shoulder (principal) | CPT/HCPCS: 88305 ==

== ENCOUNTER 2024-01-02 09:03 | Outpatient (CLI) | payer MEDICARE, MEDICAID, SELFPAY ==
[2024-01-02 09:58] LABS: Beta HCG Quantitative < 1.00 mIU/mL (0-6)
== END 2024-01-02 09:04 | disposition home or self-care (01) ==
LOC: CHSLAB 09:06
PROVIDERS: PCP Nurse Practitioner Family; Visit Provider Obstetrics & Gynecology Gynecology
DX: O02.81 Inappropriate change in quantitative human chorionic gonadotropin (hCG) in early pregnancy (principal)
CPT/HCPCS: 36415; 84702

== ENCOUNTER 2024-01-29 20:56 | Emergency (ER) | payer MEDICARE, MEDICAID, SELFPAY ==
[2024-01-29] VITALS (20 sets, daily range): BP systolic 107–119; BP diastolic 71–95; PULSE 84–110; RESP 12–29; TEMP 37.3; O2SAT 98–100
--- NOTE | ~2024-01-29 | XR_ITS ---
EXAMINATION: XR chest 1V portable 01/29/2024 23:01 INDICATION: Left-sided chest pain for 4 hours PROCEDURE: AP portable chest COMPARISON: Comparison to multiple prior studies sequentially, with oldest reviewed study dated 04/2020. FINDINGS: The lungs are clear. The cardiomediastinal silhouette is within normal limits. There are no pleural effusions. There is no pneumothorax suspected. IMPRESSION: 1: NO ACUTE CARDIOPULMONARY DISEASE. Reviewed, dictated and finalized at location A.
--- NOTE | 2024-01-29 22:08 | PC.NURSE ---
PATIENT RESTING ON STRETCHER IN ED 7 WITHOUT DISTRESS, DENIES CURRENT NEEDS. RN MONITORING. CALL LIGHT WITHIN REACH. PATIENT AWAITING RESULTS.
--- NOTE | 2024-01-29 22:09 | ECG_ITS ---
Measurements Intervals [place] Rate: 90 P: 24 PA: 118 QRS: 30 QRSD: 77 T: 29 QT: 358 QTc: 440 Interpretive Statements SINUS RHYTHM WITH SHORT PA INTERVAL LOW QRS VOLTAGE IN PRECORDIAL LEADS BORDERLINE ST-T WAVE ABNORMALITY- ANTERIOR LEADS BASELINE ARTIFACT- I, III, AVR, AVL, AVF, V2 BORDERLINE ECG COMPARED TO ECG 05/06/2023 11:57:35 NO SIGNIFICANT CHANGES Electronically Signed On 01-30-2024 6:28:21 CDT by Bob Encarnacion D.O.
--- NOTE | 2024-01-29 22:13 | ED.CHESTPAIN ---
HPI - Chest Pain General Chief Complaint: Dizziness Stated Complaint: chest pain/back pain/dizziness Time Seen by Provider: 01/29/24 21:47 Source: patient Mode of arrival: ambulatory Limitations: no limitations History of Present Illness HPI narrative: 33-year-old female, smoker with history of obesity, hypertension, panic disorder, schizoaffective disorder, anemia, undifferentiated connective tissue disorder presents to the ER with -- 30 minute history of substernal chest pain which started off as 6/10 and decreased spontaneously. symptoms started at 6:30 p.m. and resolved by 7 p.m. -- interscapular back pain which is persistent -- dizziness/ lightheadedness which started after her chest pain resolved. it is persistent -- transient shortness of breath along with the chest pain which has currently resolved no fever or chills. No upper respiratory symptoms. MD complaint: chest pain Onset (ago): hour(s) ( Started 3 hours ago) Timing of current episode: episodic Prior episodes: No Onset: during rest Pain location: substernal Pain radiation: back Pain scale (0-10): 6 Quality: aching Relieving factors: nothing Exacerbating factors: nothing Associated symptoms: dyspnea Treatment prior to arrival: none Risk Factors Coronary artery disease risk factors: smoking history Thoracic aortic dissection risk factors: none Related Data On Oral Contraceptives: Yes ( estrogen free control pill Drospirenone) Home Medications Medication Instructions Recorded Confirmed propranolol 20 mg tablet 5 mg PO BID 07/12/23 12/20/23 lamotrigine 100 mg tablet 200 mg PO DAILY 10/15/23 12/20/23 (Lamictal) atomoxetine 60 mg capsule 60 mg PO DAILY 11/07/23 12/20/23 (Strattera) clonazepam 0.25 mg disintegrating 0.25 mg PO HS 11/07/23 12/20/23 tablet drospirenone (contraceptive) 4 mg 1 tablet PO DAILY 12/20/23 12/20/23 (28) tablet (Slynd) hydroxychloroquine 100 mg tablet 100 mg PO BID 01/10/24 Allergies Allergy/AdvReac Type Severity Reaction Status Date / Time ciprofloxacin Allergy Intermediate trouble Verified 01/10/24 07:48 breathing Review of Systems Review of Systems: All systems reviewed & are unremarkable except as noted in HPI and below Constitutional: Constitutional: Reports as per HPI and Reports no additional constitutional complaints Eyes: Eyes: Reports as per HPI and Reports no additional eye complaints ENT: Reports system reviewed and no additional complaints, except as documented and Reports as per HPI Cardiovascular: Cardiovascular: Reports as per HPI, Reports no additional cardiovascular complaints and Reports chest pain ( radiates to the back) Respiratory: Respiratory: Reports as per HPI, Reports no additional respiratory complaints and Reports dyspnea Comments: patient had transient shortness of which resolved when the chest pain resolved Gastrointestinal: Gastrointestinal: Reports as per HPI and Reports no additional gastrointestinal complaints Genitourinary: Genitourinary: Reports no additional female genitourinary complaints Musculoskeletal: Musculoskeletal: Reports no additional musculoskeletal complaints and Reports as per HPI Integumentary/Breasts: Skin/Breast: Reports system reviewed and no additional complaints, except as docu and Reports as per HPI Neurologic: Reports system reviewed and no additional complaints, except as documented and Reports as per HPI Psychiatric: Psychiatric: Reports no additional psychiatric complaints and Reports as per HPI Endocrine: Endocrine: Reports no additional endocrine complaints and Reports as per HPI Hematologic/Lymphatic: Hematologic/Lymphatic: Reports no additional hematologic/lymphatic complaints and Reports as per HPI Allergic/Immunologic: Allergic/Immunologic: Reports no additional allergic/immunologic complaints and Reports as per HPI [facility] Past Medical History Medical History Back pa
[2024-01-29 22:28] LABS: Basophils Absolute Auto 0.03 K/mm3 (0.00-0.10); Basophils Percent Auto 0.6 % (0.0-1.0); Eosinophils Absolute Auto 0.15 K/mm3 (0.02-0.50); Eosinophils Percent Auto 3.1 % (1.0-6.0); Hematocrit 45.3 % (35.0-49.0); Hemoglobin 15.6 g/dL (12.0-15.0); Immature Granulocyte Absolute 0.01 K/mm3 (0.00-0.00); Immature Granulocyte Percent A 0.2 % (0.0-0.0); Lymphocytes Absolute Auto 2.06 K/mm3 (1.10-4.50); Lymphocytes Percent Auto 42.4 % (18.0-42.0); Mean Corpuscular HGB Conc 34.4 g/dL (32-36); Mean Corpuscular Hemoglobin 31.1 pg (27.0-31.0); Mean Corpuscular Volume 90.2 fL (78.0-102.0); Monocytes Absolute Auto 0.41 K/mm3 (0.10-0.90); Monocytes Percent Auto 8.4 % (2.0-11.0); Neutrophils Percent Auto 45.3 % (50.0-70.0); Platelet Count Result 248 K/mm3 (150-420); Red Blood Count 5.02 M/mm3 (4.20-5.40); Red Cell Distribution Width 12.5 % (11.6-14.4); White Blood Count 4.9 K/mm3 (4.8-10.8)
[2024-01-29 22:43] LABS: D Dimer 0.19 mg/L (0.19-0.50); Partial Thromboplastin Time 25.9 Sec (23.9-30.70); Prothrombin Time 10.5 Seconds (9.50-12.1)
[2024-01-29 22:49] LABS: Lactic Acid Reflex 0.9 mmol/L (0.4-2.0)
[2024-01-29] MEDS: ASPIRIN 81 MG CHEWABLE TABLET 324 MG PO (22:59)
[2024-01-29 23:00] LABS: Alanine Aminotransferase 35 U/L (14-59); Albumin Level 4.4 g/dL (3.4-5.0); Alkaline Phosphatase 83 U/L (46-116); Anion Gap 11 mmol/L (8-16); Aspartate Amino Transferase 19 U/L (15-37); Bilirubin,Total 1.3 mg/dL (0.00-1.00); Blood Urea Nitrogen 12 mg/dL (7-18); Carbon Dioxide 26 mmol/L (21-32); Chloride 105 mmol/L (98-108); Estimated Glomerular Filt Rate 57; Glucose 79 mg/dL (70-99); NT Pro B Type Natriuretic Pept 19 pg/mL (0-125); Osmolality Calculated 292 mOsm/kg (285-295); Potassium 3.6 mmol/L (3.5-5.1); Sodium 142 mmol/L (136-145); Total Protein 7.8 g/dL (6.4-8.2)
[2024-01-29 23:01] LABS: Thyroid Stimulating Hormone 2.51 uIU/mL (0.36-3.74); Troponin I < 4.0 ng/L (0.00-60.4)
--- NOTE | 2024-01-29 23:03 | PC.NURSE ---
PATIENT MEDICATED, EKG COMPLETED AND PATIENT PROVIDED WITH ICE WATER PER REQUEST. PATIENT REPORTS HER DIZZINESS REMAINS HOWEVER THE PAIN IN HER BACK HAS IMPROVED. RN MONITORING. CALL LIGHT WITHIN REACH.
--- NOTE | 2024-01-29 23:43 | PC.NURSE ---
PATIENT AWAKE AND ALERT, AMBULATORY TO BATHROOM WITHOUT DIFFICULTY.
[2024-01-30] VITALS (8 sets, daily range): BP systolic 106–115; BP diastolic 69–76; PULSE 78–99; RESP 15–22; TEMP 37.1; O2SAT 91–100
[2024-01-30] LABS: Pregnancy On Board Control Positive; Urine Pregnancy Test Negative
--- NOTE | 2024-01-30 00:05 | PC.NURSE ---
DR BENNETT AT BEDSIDE FOR PATIENT UPDATE. PATIENT AWAKE AND ALERT WITHOUT DISTRESS, VSS. RN MONITORING. CALL LIGHT WITHIN REACH.
[2024-01-30 00:34] LABS: Appearance Urine Clear (Clear); Bilirubin Urine Negative (Negative); Blood Urine Negative (Negative); Color Urine Light Yellow (Yellow); Glucose Urine UA Negative (Negative); Ketones Urine Negative (Negative); Leukocyte Esterase Ur Negative LEU/UL (Negative); Nitrate Urine Negative (Negative); Protein Urine Negative (Negative); Urobilinogen Urine 0.2 mg/dL (0.2-1.0)
[2024-01-30 00:35] LABS: Add Urine Microscopic? NO
== END 2024-01-30 01:08 | disposition home or self-care (01) ==
PROVIDERS: Emergency Provider Internal Medicine Critical Care Medicine; PCP Nurse Practitioner Family
DX: R07.89 Other chest pain (principal); F41.9 Anxiety disorder, unspecified; R42 Dizziness and giddiness; M54.6 Pain in thoracic spine; I10 Essential (primary) hypertension; F17.290 Nicotine dependence, other tobacco product, uncomplicated
CPT/HCPCS: 36415; 71045; 80053; 81003; 81025; 83605; 83880; 84443; 84484; 85025; 85380; 85610; 85730; 93005; 99284; A9270

== ENCOUNTER 2024-03-23 14:41 | Outpatient (CLI) | payer MEDICARE, MEDICAID, SELFPAY ==
--- NOTE | ~2024-03-23 | XR_ITS ---
AP view of the pelvis and AP and lateral views of the bilateral hips Clinical history: Pain Findings: No acute fracture or dislocation is seen. Osseous alignment is anatomic. Bilateral hip and SI joint spaces are preserved. Soft tissues are unremarkable. Impression: No significant abnormality is seen. Reviewed, dictated and finalized at location . Impression: No significant abnormality is seen.
== END 2024-03-23 14:42 | disposition home or self-care (01) ==
LOC: CHSIMG 14:43
PROVIDERS: PCP Nurse Practitioner Family; Visit Provider Nurse Practitioner Family
DX: M25.552 Pain in left hip (principal); M25.551 Pain in right hip
CPT/HCPCS: 73521

== ENCOUNTER 2024-03-27 14:30 | Outpatient (RCR) | payer MEDICARE, MEDICAID, SELFPAY ==
--- NOTE | 2024-03-27 16:24 | OPREHPOC ---
Outpatient Therapy Plan of Care This is a Multidisciplinary Plan of Care that may contain components documented by all disciplines (PT, OT, and ST.) PT Problem 1 PT Problem #1 Knowledge Deficit PT Goal 1 Goal patient to demonstrate independence with HEP Target Visit 5 PT Problem 2 PT Problem #2 Pain PT Goal 1 Goal 1. patient to report highest pain at 3/10 2. patient to report ability to sleep with no disturbance due to B hip pain Target Visit 10 PT Problem 3 PT Problem #3 Impaired Strength PT Goal 1 Goal Patient to demonstrate 4+/5 B hip strength to return to stair navigation at PLOF Target Visit 10 PT Problem 4 PT Problem #4 Impaired Functional Mobil PT Goal 1 Goal 1. Patient to demonstrate 20% improvement on LEFS 2. patient to report ability to get into car and into bed with no reports of B hip pain 3. patient to report ability to stand for >30 min to complete house hold tasks Target Visit 10
--- NOTE | 2024-03-27 16:27 | PTOPEVAL1 ---
Assessment and note entered by Coreen Burton DPT Evaluation Information Assessment Status Evaluation Diagnosis B hip pain Subjective Information patient reports that she has been having B hip pain for the last 4 years but reports recently they have been painful as well as unstable. she reports last year after having a baby she was diagnosed with undifferentiated connective tissue disease. She reports the L LE is worse and is unstable . patient reports that any activity that requires her to lift her leg increases her pain such as getting into and out of the car, getting into of bed, walking, and navigating stairs. she reports things are worse when her hip goes out on her which happens about 1x a week. at this time to improve pain she rests and has a cane. Reported Pain Level Pain Score 0,2: Self Report Assessment PT Clinical Summary Mrs. Webster is a 33 year old female who presents to PT with B hip pain. She demonstrates decreased B LE strength, decreased core strength and tenderness to the L greater trochanter limiting her ability to sleep, get into and out of bed and the car, stand for prolonged periods and ambulate prolonged distances. She would benefit from skilled PT to address impairments and return to PLOF. Plan of Care Interventions Aquatic Therapy,Electrical Stimulation,Gait Training,Hot Pack/Cold Pack,Mechanical Traction, Neuro Re-education,Patient/Caregiver Educati, Therapeutic Activities,Therapeutic Exercise PT Services Indicated Yes Treatment Frequency and 2x weekly for 10 visits Duration These treatments will address the objective and functional deficits as defined above. The patient will be advanced safely and appropriately in order for the patient to progress towards his/her prior level of function. Additional exercises will be introduced and as well as a comprehensive home exercise program upon discharge, if needed, ?to ensure carryover of functional gains achieved in the clinic. This treatment plan has been reviewed and agreement upon by the patient.
--- NOTE | 2024-04-08 13:03 | PCPTNOTE ---
Patient cancelled session due to illness.
== END 2024-06-17 14:31 | disposition home or self-care (01) ==
LOC: CHSPT 14:30
PROVIDERS: PCP Family Medicine; Visit Provider Nurse Practitioner Family
DX: M25.551 Pain in right hip (principal); M25.552 Pain in left hip
CPT/HCPCS: 97014; 97110; 97112; 97140; 97150; 97161; G0283

== ENCOUNTER 2024-04-15 10:48 | Outpatient (CLI) | payer MEDICARE, MEDICAID, SELFPAY | END 2024-04-15 10:49 | disposition home or self-care (01) | LOC: CHSLAB 10:50 | PROVIDERS: PCP Nurse Practitioner Family; Visit Provider Obstetrics & Gynecology Gynecology | DX: O02.81 Inappropriate change in quantitative human chorionic gonadotropin (hCG) in early pregnancy (principal) | CPT/HCPCS: 36415; 84702 ==

== ENCOUNTER 2024-04-17 13:37 | Outpatient (CLI) | payer MEDICARE, MEDICAID, SELFPAY | END 2024-04-17 13:38 | disposition home or self-care (01) | LOC: CHSLAB 13:40 | PROVIDERS: PCP Nurse Practitioner Family; Visit Provider Obstetrics & Gynecology Gynecology | DX: O02.81 Inappropriate change in quantitative human chorionic gonadotropin (hCG) in early pregnancy (principal) | CPT/HCPCS: 36415; 84702 ==

== ENCOUNTER 2024-04-24 21:18 | Emergency (ER) | payer MEDICARE, MEDICAID, SELFPAY ==
[2024-04-24] VITALS (17 sets, daily range): BP systolic 84–135; BP diastolic 49–79; PULSE 55–87; RESP 14–24; TEMP 35.5–35.6; O2SAT 95–100
--- NOTE | ~2024-04-24 | CT_ITS ---
CT abdomen pelvis w con Ordering provider: Rolando Alvarez DO History: . RUQ ABD PAIN RADIATING TO BACK X FEW DAYS. PT 5 WEEKS PREG. . Comparison: None. Technique: CT abdomen with IV and without oral contrast. Radiation reduction technique utilized. Findings: VISUALIZED LOWER CHEST: Normal. Pleural thickening in the lower lobes area posteriorly. UPPER ABDOMINAL ORGANS: Liver: Normal. Gallbladder: Distended with no stones. CBD measures 0.8 CM. Spleen: Normal. Stomach/duodenum: Sliding hiatus hernia. Pancreas: Normal. Slightly dilated pancreatic duct. Adrenals: Normal. Kidneys: Normal. Urinary Bladder: Normal. Retroverted uterus. Small hypodense cysts seen in the uterus. VISUALIZED BOWEL AND MESENTERY: Focal Thickening of the wall of the transverse colon in the midportio n is noted. Follow-up and further evaluation advised. Normal appendix. The bowel is otherwise normal. No free air or free fluid. No mesenteric lymphadenopathy. Small mesenteric lymph nodes. RETROPERITONEUM: Normal aorta. No retroperitoneal lymphadenopathy. MUSCULOSKELETAL: fat containing umbilical hernia. Otherwise, The superficial soft tissues are normal . Normal spine. Pubic symphysitis. IMPRESSION: Sliding hiatus hernia. Focal thickening in the transverse colon which may be spastic but follow-up and further evaluation ad vised to exclude malignancy. Umbilical hernia containing fat. Reviewed, dictated and finalized at location A. IMPRESSION: Sliding hiatus hernia. Focal thickening in the transverse colon which may be spastic but follow-up and further evaluation advised to exclude malignancy. Umbilical hernia containing fat.
--- NOTE | 2024-04-24 21:36 | ECG_ITS ---
Test Date: 2024-04-24 21:49:17 Measurements Intervals [place] Rate: 52 P: 52 TN: 145 QRS: 66 QRSD: 83 T: 52 QT: 446 QTc: 416 Interpretive Statements SINUS BRADYCARDIA No previous ECG available for comparison Electronically Signed On 04-28-2024 10:38:15 CDT by eLonard Solorio M.D.
--- NOTE | 2024-04-24 21:37 | ED.GENADULT ---
HPI - General Adult General Chief complaint: Abdominal Pain Stated complaint: unspecified Time Seen by Provider: 04/24/24 21:26 History of Present Illness HPI narrative: Ashlee is a at 5 weeks gestation per her report with a medical history of anxiety, depression, tricuspid regurgitation, and connective tissue disorder that presented to the ED with abdominal pain. It started a few days ago but became much worse today and it started to radiate to the back and she became quite nauseated but did not vommit. No fevers, chills, dyspnea, chest pain or vaginal discharge/bleeding reported. Related Data Home Medications Medication Instructions Recorded Confirmed clonazepam 0.5 mg tablet 0.5 mg PO QHS 04/24/24 04/24/24 lamotrigine 100 mg tablet 200 mg PO DAILY 04/24/24 04/24/24 metformin 500 mg tablet,extended 500 mg PO BID 04/24/24 04/24/24 release 24 hr propranolol 10 mg tablet 10 mg PO DAILY 04/24/24 04/24/24 Allergies Allergy/AdvReac Type Severity Reaction Status Date / Time ciprofloxacin [From Cipro] Allergy Difficulty Verified 04/24/24 22:00 Breathing Review of Systems Review of Systems: All systems reviewed & are unremarkable except as noted in HPI and below Exam Const: General: ill appearing (rocking back and forth while sitting in bed) acutely Nutritional Appearance: well nourished Orientation/consciousness: patient oriented x3 HENMT: Head: normal to inspection Ears: external ears normal Face/Nose/Sinus: Normal external nose present Eyes: Conjunctivae: conjunctivae normal Pupils: Equal, round and reactive pupils present EOM: EOMs intact bilaterally Neck: Neck: normal visual inspection Chest: Chest palpation & inspection: normal inspection of the chest Resp: Effort & Inspection: normal respiratory effort Auscultation: clear to auscultation bilaterally Cardio: Rate: regular rate and tachycardic GI: Inspection: non-distended GI Palp: Yes Tenderness to palpation present (GI), No Guarding due to palpation present (GI), No Rigid due to palpation, No Palpable mass present and No Rebound tenderness present Auscultation: Hypoactive bowel sounds present : General: Yes CVA tenderness Skin: General skin exam: normal color Neuro: General: patient oriented x3 and moves all extremities Extrem: General: normal to inspection Psych: Mental Status: mental status grossly normal Course Course Emergency Course: Ordered morphine, Zofran, fluids, labs, EKG and UA EKG showed bradycardia with a rate of 52, normal axis, No ST elevation/depression or ectopy She was more more comfortable laying calmly in bed after the morphine. Labs showed normal WBC and Hgb, mild hypokalemia but otherwise her chemistries were unremarkable. Lipase and lactic acid were wnl as well as CRP. DDX includes pancreatitis vs gallbladder spasm vs gastritis/PUD vs nausea and vomiting vs other. No clear cause given normal labs and the GI cocktail had no effect. I discussed a CT with Ashlee. We discussed how it could potentially harm the fetus but not diagnosing a medical condition could also harm the fetus as well as her. She then stated that she has extreme mental health issues including SI while . She wants to be with her 3 children and has an appointment to terminate the fetus. After this discussion a CT was ordered. She continued to vomit so benadryl was ordered as well. CT abdomen pelvis w con Ordering provider: Rolando Alvarez DO History: . RUQ ABD PAIN RADIATING TO BACK X FEW DAYS. PT 5 WEEKS PREG. . Comparison: None. Technique: CT abdomen with IV and without oral contrast. Radiation reduction technique utilized. Findings: VISUALIZED LOWER CHEST: Normal. Pleural thickening in the lower lobes area posteriorly. UPPER ABDOMINAL ORGANS: Liver: Normal. Gallbladder: Distended with no stones. CBD measures 0.8 CM. Spleen: Normal. Stomach/duodenum: Sliding hiatus hernia. Pancreas: Normal. Slightly dilated p
[2024-04-24 21:55] LABS: Basophils Absolute Auto 0.03 K/mm3 (0.00-0.10); Basophils Percent Auto 0.3 % (0.0-1.0); Eosinophils Absolute Auto 0.11 K/mm3 (0.02-0.50); Eosinophils Percent Auto 1.2 % (1.0-6.0); Hematocrit 40.7 % (35.0-49.0); Hemoglobin 13.6 g/dL (12.0-15.0); Immature Granulocyte Absolute 0.02 K/mm3 (0.00-0.00); Immature Granulocyte Percent A 0.2 % (0.0-0.0); Lymphocytes Absolute Auto 2.88 K/mm3 (1.10-4.50); Lymphocytes Percent Auto 30.9 % (18.0-42.0); Mean Corpuscular HGB Conc 33.4 g/dL (32-36); Mean Corpuscular Hemoglobin 31.3 pg (27.0-31.0); Mean Corpuscular Volume 93.8 fL (78.0-102.0); Monocytes Absolute Auto 0.36 K/mm3 (0.10-0.90); Monocytes Percent Auto 3.9 % (2.0-11.0); Neutrophils Absolute Auto 5.92 K/mm3 (1.70-7.20); Neutrophils Percent Auto 63.5 % (50.0-70.0); Platelet Count Result 289 K/mm3 (150-420); Red Blood Count 4.34 M/mm3 (4.20-5.40); White Blood Count 9.3 K/mm3 (4.8-10.8)
[2024-04-24] MEDS: LACTATED RINGERS 1,000 ML 999 ML IV CONT (21:56)
[2024-04-24] MEDS: MORPHINE SULFATE (*CRX) 4 MG/ML INJ IV PUSH (21:56)
[2024-04-24] MEDS: ONDANSETRON INJ 4 MG/2 ML VIAL IV PUSH (21:56)
[2024-04-24 22:05] LABS: Appearance Urine Clear (Clear); Bilirubin Urine Negative (Negative); Blood Urine Negative (Negative); Color Urine Yellow (Yellow); Glucose Urine UA Negative (Negative); Ketones Urine Negative (Negative); Leukocyte Esterase Ur Negative LEU/UL (Negative); Nitrate Urine Negative (Negative); Protein Urine Negative (Negative); Specific Grav Ur 1.025 (1.010-1.020); Urobilinogen Urine 0.2 mg/dL (0.2-1.0); pH Urine 6.5 (5.0-8.0)
[2024-04-24 22:08] LABS: Add Urine Microscopic? NO; Pregnancy On Board Control Positive; Urine Pregnancy Test Positive
[2024-04-24 22:11] LABS: INR 0.9; Prothrombin Time 10.2 Seconds (9.50-12.1)
[2024-04-24 22:15] LABS: Alanine Aminotransferase 52 U/L (14-59); Albumin Level 3.9 g/dL (3.4-5.0); Alkaline Phosphatase 59 U/L (46-116); Anion Gap 11 mmol/L (4-12); Aspartate Amino Transferase 33 U/L (15-37); Blood Urea Nitrogen 12 mg/dL (7-18); Carbon Dioxide 27 mmol/L (21-32); Chloride 102 mmol/L (98-108); Estimated Glomerular Filt Rate > 60; Glucose 110 mg/dL (70-99); Lipase 55 U/L (16-77); Osmolality Calculated 290 mOsm/kg (285-295); Potassium 3.1 mmol/L (3.5-5.1); Sodium 140 mmol/L (136-145); Total Protein 7.2 g/dL (6.4-8.2)
[2024-04-24 22:17] LABS: CRP < 0.5 mg/dL (0.0-0.9); Troponin I < 4.0 ng/L (0.00-60.4)
[2024-04-24 22:20] LABS: Lactic Acid Reflex 1.8 mmol/L (0.4-2.0)
[2024-04-24] MEDS: MAG HYDROX/ALUMINUM HYD/SIMETH 30 ML, PHENobarb/HYOSCY/ATROPINE/SCOP 32.4 MG, LIDOCAINE... PO (22:34)
[2024-04-24] MEDS: POTASSIUM CHLORIDE 20 MEQ PACKET (FOR LIQUID) 40 MEQ PO (22:38)
--- NOTE | 2024-04-24 22:48 | PC.NURSE ---
dr andrade in with patient discussing plan of care. discussing ct scan with . pt states , increases mental health issues and has been feeling more depressed with this . pt has scheduled on saturday. pt has consented verbally with this marine underwriter and dr andrade for ct abdomin.
[2024-04-24] MEDS: diphenhydrAMINE HCl INJ 50 MG/ML VIAL IV PUSH (22:54)
--- NOTE | 2024-04-24 22:54 | PC.NURSE ---
assumed care. report received from Rigoberto WHITLEY
--- NOTE | 2024-04-24 23:03 | PC.NURSE ---
patient being transported to CT
--- NOTE | 2024-04-24 23:17 | PC.NURSE ---
patient returned from ct. warm blanket was given.
[2024-04-25 00:01] VITALS: BP 103/61; PULSE 72; RESP 15; O2SAT 99
[2024-04-25 00:16] VITALS: BP 102/58; PULSE 64; RESP 15; O2SAT 99
--- NOTE | 2024-04-25 00:21 | PC.NURSE ---
ER provider at the bedside
[2024-04-25 00:31] VITALS: BP 98/69; PULSE 71; RESP 10; O2SAT 100
--- NOTE | 2024-05-01 14:34 | PC.NURSE ---
Final blood culture report, No growth after 5 days, no further action or treatment needed.
== END 2024-04-25 00:44 | disposition home or self-care (01) ==
PROVIDERS: Emergency Provider Family Medicine; PCP Nurse Practitioner Family
DX: K52.9 Noninfective gastroenteritis and colitis, unspecified (principal)
CPT/HCPCS: 36415; 74177; 80053; 81003; 81025; 83605; 83690; 84484; 85025; 85610; 86140; 87040; 93005; 96361; 96374; 96375; 99284; A9270; J1200; J2270; J2405; J7120; Q9967

== ENCOUNTER 2024-05-04 09:08 | Outpatient (CLI) | payer MEDICARE, MEDICAID, SELFPAY ==
--- NOTE | ~2024-05-04 | US_ITS ---
US pelvic complete w TV Ordering provider: Minerva Hercules MD History: . Threatened AB <14 wks . Comparison: November 29, 2023 Technique: Transabdominal and endovaginal ultrasound of the pelvis (Doppler ultrasound interrogation techniques used as needed for this exam.) FINDINGS: CERVIX: Normal. UTERUS: Measures 8.4x 6.4x 5.2 cm in length which is within normal limits and is anteverted. No myom etrial masses. ENDOMETRIUM: Normal in thickness measuring 12.3 mm. (Note: the premenopausal endometrium may measure up to 16 mm when in the secretory phase.) No endometrial masses, cysts or fluid. CUL DE SAC: No free fluid. RIGHT OVARY: Normal in size measuring 3.7x 2.3x 3.5 cm. Normal echotexture. Doppler vascular flow pre sent. LEFT OVARY: Normal in size measuring 2.8x 2.5x 1.7 cm. Normal echotexture. Doppler vascular flow pres ent. ADNEXA: Normal. No mass. IMPRESSION: Slightly thickened endometrium with no gestational sac or definite retained products. Follow-up advis ed.. Reviewed, dictated and finalized at location A. IMPRESSION: Slightly thickened endometrium with no gestational sac or definite retained pro ducts. Follow-up advised..
== END 2024-05-04 09:09 | disposition home or self-care (01) ==
PROVIDERS: PCP Obstetrics & Gynecology Gynecology; Visit Provider Obstetrics & Gynecology Gynecology
DX: O20.0 Threatened abortion (principal)
CPT/HCPCS: 36415; 76830; 76856; 84702

== ENCOUNTER 2024-05-06 10:02 | Outpatient (CLI) | payer MEDICARE, MEDICAID, SELFPAY ==
[2024-05-06 11:10] LABS: Alanine Aminotransferase 37 U/L (14-59); Albumin Level 3.7 g/dL (3.4-5.0); Alkaline Phosphatase 64 U/L (46-116); Anion Gap 7 mmol/L (4-12); Aspartate Amino Transferase 21 U/L (15-37); Bilirubin,Total 0.9 mg/dL (0.00-1.00); Blood Urea Nitrogen 11 mg/dL (7-18); Calcium 8.7 mg/dL (8.5-10.1); Carbon Dioxide 29 mmol/L (21-32); Chloride 104 mmol/L (98-108); Estimated Glomerular Filt Rate > 60; Glucose 90 mg/dL (70-99); Osmolality Calculated 289 mOsm/kg (285-295); Potassium 3.7 mmol/L (3.5-5.1); Sodium 140 mmol/L (136-145); Total Protein 7.1 g/dL (6.4-8.2)
== END 2024-05-06 10:03 | disposition home or self-care (01) ==
LOC: CHSLAB 10:05
PROVIDERS: PCP Nurse Practitioner Family; Visit Provider Obstetrics & Gynecology Gynecology
DX: O02.81 Inappropriate change in quantitative human chorionic gonadotropin (hCG) in early pregnancy (principal); E87.6 Hypokalemia
CPT/HCPCS: 36415; 80053; 84702

== ENCOUNTER 2024-05-19 00:51 | Day surgery (SDC) | payer MEDICARE, MEDICAID, SELFPAY ==
[2024-05-18 10:31] VITALS: BMI 30.8
--- NOTE | 2024-05-18 10:32 | PC.NURSE ---
Report to the Outpatient Waiting Room, entrance under the green pavilion located off [facility], at time _1000_ on date _[id number]_. Planned Procedure Time: _1200_. Time changes happen often and if your time is changed the preop area will call you the afternoon before. - You and your visitor will be asked to self-screen and do not enter if you have any COVID symptoms. - A mask is optional within the hospital at this time. Patients may have clear liquids (water, carbonated beverages, clear teas, apple juice) until 3 hours prior to surgery with a maximum of 20 ounces. - No food from midnight until time of surgery Take the following medications with a SIP of water the morning of surgery: __Propanlolol and Lamotrigine DO NOT STOP ANY OF YOUR OTHER PRESCRIPTION MEDICATIONS PRIOR TO SURGERY ?EXCEPT THE FOLLOWING Medications to discontinue per physician None Date to take last dose Please no make-up, nail bruneian, hairspray, perfume, deodorant, or body powder the day of surgery. No jewelry (including any body piercings) or valuables the day of surgery, leave them at home. Please take a shower or bath the night before, or the morning of, surgery with an antibacterial soap. Wear comfortable, loose fitting clothing. - Jewelry must be removed prior to entering the operating room. Rings and piercings that are not removed may be cut off. - The hospital will not accept responsibility for valuables. - Please leave all valuables, including medications, at home the day of surgery. If you are going home after surgery, a licensed screw driver operator must drive you home. - NO public transportation without another adult if you receive anesthesia. - We recommend that an adult stay with you for 24 hours following discharge. - We also recommend that you do not drive, make important decision, drink alcoholic beverages, or take any drugs that were not prescribed by your health care provider for at least 24 hours after your discharge time. Follow any additional instructions given to you from your surgeon. If you or anyone in your household have experienced Covid symptoms in the past week, please notify your surgeon or the nurse liaison at the phone number below for possible testing. Telephone instructions given to _Ashlee___and asked if any additional questions and then verbalized understanding. Patient advised to call surgeon office or pre surgery nurse liaison [phone] if any additional questions.
[2024-05-19] MEDS: ACETAMINOPHEN 500 MG TABLET 1000 MG PO (10:08)
[2024-05-19 10:22] LABS: Glucose Point of Care 78 mg/dl (65-105)
[2024-05-19 10:52] VITALS: BP 114/70; PULSE 93; RESP 16; TEMP 37.1; O2SAT 100; BMI 31.3
[2024-05-19] MEDS: LACTATED RINGERS 1,000 ML 30 ML IV CONT (11:00)
[2024-05-19 11:06] LABS: Glucose Point of Care 71 mg/dl (65-105)
[2024-05-19] MEDS: DEXTROSE 50% 25 GM/50 ML SYRINGE IV PUSH (11:09)
--- NOTE | 2024-05-19 11:36 | WPDHPUPDATE1 ---
History and Physical Update Update Date/Time: 05/19/24 11:36 History and Physical has been reviewed, including an updated exam of the patient. There are NO changes in the patient's condition. Risks, benefits, and alternatives have been discussed and questions answered. Patient agrees to proceed with procedure.
--- NOTE | 2024-05-19 11:37 | PM.HPGS ---
History of Present Illness History of Present Illness Consent: Risks, benefits, and alternatives have been discussed and questions answered. Patient agrees to proceed with procedure. Chief complaint: retained products of conception Narrative: Ashlee Webster is a 33 year old female with decreasing HCGs and heavy bleeding episode. U/s showed no sac. HCG was being followed q week aqnd elevated from 161 to239. Recommended to proceed with suction D&C. Risks of infection, bleeding, perforation, and possible pathology. Agrees to proceed. Review of Systems Review of Systems: not repeated day of surgery; patient states no changes in status PMFSH Past Medical History Medical History (Updated 05/19/24 @ 11:43 by Minerva Hercules MD) Bipolar 1 disorder History of spontaneous x5 Hypertension Obese Panic attacks Schizoaffective disorder (spontaneous vaginal delivery) x3 Surgical History Surgical History No history of previous surgery Family History Family History Mother Unknown family medical history Father Unknown family medical history Grandparent Esophageal cancer Grandparent Cerebrovascular accident Social History Social History Smoking status: Current every day smoker Tobacco type: e-cigarettes/vaping Second hand tobacco smoke exposure: No Alcohol intake: current Alcohol use details: 1/YEAR Substance use: never Substance use type: does not use Lack of Transportation: No Lack of Food: Sometimes True Current Housing: I Have Housing Concerned About Future Housing: No Difficulty Paying Gas/Electric Bills: YES Difficulty Paying for Meds: No Currently Unemployed: No Education: High School Diploma/GED Difficulty w/ Childcare or Family Care: YES Living arrangements: with family Additional living arrangements comments: with one child Occupation/Education: unemployed Gender identity (if verbalized by the patient): Female Spiritual care concerns: No Meds Home Medications and Allergies Home Medications Medication Instructions Recorded Confirmed Type ferrous sulfate 28 mg PO BID 30 days #60 tabs 07/26/22 05/18/24 Rx omeprazole magnesium 20 mg 20 mg PO ONCE PRN acid reflux #20 07/12/23 05/18/24 Rx tablet,delayed release (Prilosec tabs OTC) clonazepam 0.5 mg tablet 0.5 mg PO QHS 04/24/24 05/18/24 History lamotrigine 100 mg tablet 200 mg PO DAILY 04/24/24 05/18/24 History cyclobenzaprine 5 mg tablet 5 mg PO QHS PRN muscle spasm #30 05/05/24 05/18/24 Rx tabs dicyclomine 20 mg tablet 20 mg PO TID PRN abdominal pain 05/05/24 05/18/24 Rx #30 tabs propranolol 10 mg tablet 5 mg PO BID 05/05/24 05/18/24 History semaglutide 2 mg/dose (8 mg/3 mL) 2 mg (0.75 mL) subcut WEEKLY 4 05/05/24 05/18/24 Rx subcutaneous pen injector (Ozempic) weeks #3 mL Allergies Allergy/AdvReac Type Severity Reaction Status Date / Time ciprofloxacin Allergy Intermediate trouble Verified 05/18/24 10:23 breathing Vital Signs Vital Signs - 24 hr 05/19/24 10:52 Temperature 98.8 F Pulse Rate 93 Respiratory Rate 16 Blood Pressure 114/70 Pulse Oximetry 100 Exam Const: General: healthy appearing and alert Orientation/consciousness: patient oriented x3 Resp: Effort & Inspection: normal respiratory effort GI: GI Palp: Yes Soft to palpation, No Tenderness to palpation present (GI) and No Palpable mass present : General: Yes other (deferred to OR) Neuro: General: patient oriented x3 Assessment and Plan Assessment and plan (1) Spontaneous loss: Code(s): O03.9 - Complete or unspecified spontaneous without complication Status: Acute Assessment and Plan: Proceed with suction D&C
--- NOTE | 2024-05-19 11:43 | WPDANESEPPF ---
Anes - Initial Pre Proc Eval Procedure: Operation Date: 05/19/24 12:00 Proposed Procedures p Suction Dilation and Curettage - Minerva Hercules MD Date/Time: 05/19/24 11:43 Surgeon: Minerva Hercules MD Pre Op Diagnosis: retained products of conception Patient Data Age: 33 Gender: F Height: 1.65 m Weight: 85.3 kg Last Vital Signs Temp 37.1 C 05/19/24 10:52 Pulse 93 05/19/24 10:52 Resp 16 05/19/24 10:52 BP 114/70 05/19/24 10:52 Pulse Ox 100 05/19/24 10:52 Allergies Allergy/AdvReac Type Severity Reaction Status Date / Time ciprofloxacin Allergy Intermediate trouble Verified 05/18/24 10:23 breathing Home Medications Medication Instructions Recorded Confirmed Type ferrous sulfate 28 mg PO BID 30 days #60 tabs 07/26/22 05/18/24 Rx omeprazole magnesium 20 mg 20 mg PO ONCE PRN acid reflux #20 07/12/23 05/18/24 Rx tablet,delayed release (Prilosec tabs OTC) clonazepam 0.5 mg tablet 0.5 mg PO QHS 04/24/24 05/18/24 History lamotrigine 100 mg tablet 200 mg PO DAILY 04/24/24 05/18/24 History cyclobenzaprine 5 mg tablet 5 mg PO QHS PRN muscle spasm #30 05/05/24 05/18/24 Rx tabs dicyclomine 20 mg tablet 20 mg PO TID PRN abdominal pain 05/05/24 05/18/24 Rx #30 tabs propranolol 10 mg tablet 5 mg PO BID 05/05/24 05/18/24 History semaglutide 2 mg/dose (8 mg/3 mL) 2 mg (0.75 mL) subcut WEEKLY 4 05/05/24 05/18/24 Rx subcutaneous pen injector (Ozempic) weeks #3 mL Laboratory Tests 05/19/24 05/19/24 10:15 11:02 POC Capillary Glucose 78 mg/dl 71 mg/dl (65-105) (65-105) Patient hx anesthesia problems: other (myalgias) Family hx anesthesia problems: none Results Review: All pre-operative results and documents have been reviewed as part of the pre-operative evaluation. [facility] Past Medical History Medical History Back pain affecting Bipolar 1 disorder History of spontaneous x5 Hypertension Obese Panic attacks Schizoaffective disorder (spontaneous vaginal delivery) x3 Surgical History Surgical History No history of previous surgery Family History Family History Mother Unknown family medical history Father Unknown family medical history Grandparent Esophageal cancer Grandparent Cerebrovascular accident Social History Social History Smoking status: Current every day smoker Tobacco type: e-cigarettes/vaping Second hand tobacco smoke exposure: No Alcohol intake: current Alcohol use details: 1/YEAR Substance use: never Substance use type: does not use Lack of Transportation: No Lack of Food: Sometimes True Current Housing: I Have Housing Concerned About Future Housing: No Difficulty Paying Gas/Electric Bills: YES Difficulty Paying for Meds: No Currently Unemployed: No Education: High School Diploma/GED Difficulty w/ Childcare or Family Care: YES Living arrangements: with family Additional living arrangements comments: with one child Occupation/Education: unemployed Gender identity (if verbalized by the patient): Female Spiritual care concerns: No Anes - Eval Final PreProcedure Day of Procedure 05/19/24 11:43 Patient weight: obese Heart: regular rate and rhythm Lungs: decreased breath sounds Airway: Mallampati scale class II Neurological: alert and oriented Last oral intake: >/= 8 hours ASA classification: III Emergent: no Anesthetic plan: proceed Anesthesia type and monitoring: general GIVS and standard monitoring Results Review: All pre-operative results and documents have been reviewed as part of the pre-operative evaluation. Informed Consent: The patient's anesthetic plan and its attendant risks and benefits were di
[2024-05-19 11:56] LABS: Glucose Point of Care 82 mg/dl (65-105)
[2024-05-19 12:43] VITALS: BP 106/64; PULSE 89; RESP 16; O2SAT 99
--- NOTE | 2024-05-19 12:43 | P.OP_ITS ---
Procedure Note - Detailed Date of Procedure 05/19/24 Pre-op Diagnosis retained products of conception Post-op Diagnosis Same Procedure Performed Suction D&C Surgeon Minerva Hercules MD Anesthesia MAC Findings the uterus sounds to 8cm and is retroverted Description of Procedure The patient is taken to operating room placed under anesthesia in dorsal lithotomy position. She was prepped and draped in usual sterile fashion. [place] speculum was placed in the vagina and the cervix was grasped on the anterior lip with a tenaculum. The uterus is sounded to 8cm noted to be retroverted. The cervix is serially dilated to an 8 [place]. The suction 8 curved curette is used to evacuate the uterus. Minimal material was obtained. The sharp curette is used to curette the endometrium until a good uterine cry was noted in all areas and 1 additional pass was taken with the suction curette. All instruments are removed. Sponge, needle, and instrument counts are correct per the OR staff. Patient was awakened from anesthesia and taken to recovery in stable condition. Estimated Blood Loss 5 Drains No Packing No Pathology Yes ( Products of conception for pathology and genetics) Complications No immediate complications Condition Stable Disposition PACU
[2024-05-19 12:52] LABS: Glucose Point of Care 85 mg/dl (65-105)
[2024-05-19] MEDS: oxyCODONE HCL (*CRX) 5 MG TAB IR PO (12:59)
[2024-05-19 13:10] VITALS: BP 106/70; PULSE 66; RESP 18
--- NOTE | 2024-05-19 13:10 | SUR.PHASEII ---
Per Dr. Hercules pt does not need rhogam.
[2024-05-19 13:28] VITALS: BP 105/64; PULSE 65; RESP 18
== END 2024-05-19 13:42 | disposition home or self-care (01) ==
PROVIDERS: PCP Nurse Practitioner Family; Visit Provider Obstetrics & Gynecology Gynecology
PROC: (CPT 59820; principal; 2024-05-19 12:00)
DX: O03.9 Complete or unspecified spontaneous abortion without complication (principal); F17.290 Nicotine dependence, other tobacco product, uncomplicated; I10 Essential (primary) hypertension; F25.9 Schizoaffective disorder, unspecified; E66.9 Obesity, unspecified; Z68.31 Body mass index [BMI] 31.0-31.9, adult
CPT/HCPCS: 59820; 82948; 88305; A9270; J2210; J2250; J3010; J7120

== ENCOUNTER 2024-05-29 09:04 | Outpatient (RCR) | payer MEDICARE, MEDICAID, SELFPAY ==
[2024-05-29 09:57] LABS: Beta HCG Quantitative < 1.00 mIU/mL (0-6)
== END 2024-08-13 23:59 | disposition home or self-care (01) ==
LOC: CHSLAB 09:04
PROVIDERS: PCP Nurse Practitioner Family; Visit Provider Obstetrics & Gynecology Gynecology
DX: O02.81 Inappropriate change in quantitative human chorionic gonadotropin (hCG) in early pregnancy (principal)
CPT/HCPCS: 36415; 84702

== ENCOUNTER 2024-06-18 13:45 | Outpatient (CLI) | payer MEDICARE, MEDICAID, SELFPAY ==
[2024-06-18 14:01] LABS: Basophils Absolute Auto 0.04 K/mm3 (0.00-0.10); Basophils Percent Auto 0.6 % (0.0-1.0); Eosinophils Absolute Auto 0.11 K/mm3 (0.02-0.50); Eosinophils Percent Auto 1.7 % (1.0-6.0); Hematocrit 45.2 % (35.0-49.0); Hemoglobin 15.9 g/dL (12.0-15.0); Immature Granulocyte Absolute 0.01 K/mm3 (0.00-0.00); Immature Granulocyte Percent A 0.2 % (0.0-0.0); Lymphocytes Absolute Auto 2.24 K/mm3 (1.10-4.50); Lymphocytes Percent Auto 35.3 % (18.0-42.0); Mean Corpuscular HGB Conc 35.2 g/dL (32-36); Mean Corpuscular Hemoglobin 31.2 pg (27.0-31.0); Mean Corpuscular Volume 88.6 fL (78.0-102.0); Mean Platelet Volume 8.6 fl (9.2-11.8); Monocytes Absolute Auto 0.26 K/mm3 (0.10-0.90); Monocytes Percent Auto 4.1 % (2.0-11.0); Neutrophils Absolute Auto 3.68 K/mm3 (1.70-7.20); Neutrophils Percent Auto 58.1 % (50.0-70.0); Platelet Count Result 318 K/mm3 (150-420); White Blood Count 6.3 K/mm3 (4.8-10.8)
[2024-06-18 14:56] LABS: Alanine Aminotransferase 33 U/L (14-59); Albumin Level 4.9 g/dL (3.4-5.0); Alkaline Phosphatase 86 U/L (46-116); Anion Gap 14 mmol/L (4-12); Aspartate Amino Transferase 17 U/L (15-37); Bilirubin,Total 1.2 mg/dL (0.00-1.00); Blood Urea Nitrogen 14 mg/dL (7-18); Calcium 9.6 mg/dL (8.5-10.1); Carbon Dioxide 26 mmol/L (21-32); Chloride 102 mmol/L (98-108); Cholesterol 165 mg/dL (0-200); Estimated Glomerular Filt Rate 58; Glucose 82 mg/dL (70-99); HDL Direct 44 mg/dL (40-60); LDL Cholesterol Calculated 93 mg/dL (<130); Osmolality Calculated 293 mOsm/kg (285-295); Potassium 4.1 mmol/L (3.5-5.1); Sodium 142 mmol/L (136-145); Total Protein 8.3 g/dL (6.4-8.2); Triglycerides 138 mg/dL (0-150)
[2024-06-18 15:00] LABS: Thyroid Stimulating Hormone Reflex 1.62 u/IU/mL (0.36-3.74)
[2024-06-22 14:59] LABS: ANA Cascade Screen NEGATIVE (NEGATIVE)
== END 2024-06-18 13:46 | disposition home or self-care (01) ==
LOC: CHSLAB 13:47
PROVIDERS: PCP Nurse Practitioner Family; Visit Provider Nurse Practitioner Family
DX: R76.8 Other specified abnormal immunological findings in serum (principal); F31.9 Bipolar disorder, unspecified; Z68.34 Body mass index [BMI] 34.0-34.9, adult; E66.9 Obesity, unspecified
CPT/HCPCS: 36415; 80053; 80061; 83516; 84443; 85025; 86038; 86225; 86235

== ENCOUNTER 2024-06-19 07:53 | Outpatient (CLI) | payer MEDICARE, MEDICAID, SELFPAY ==
--- NOTE | ~2024-06-19 | US_ITS ---
EXAMINATION: US thyroid DATE: 06/19/2024 08:22 INDICATION: Neck pain. Family history of thyroid abnormalities. TECHNIQUE: Multiple ultrasound images of the thyroid were obtained. COMPARISON: Ultrasound 09/09/2019 FINDINGS: The right thyroid lobe measures 4.0 x 1.5 x 1.7 cm. The left thyroid lobe measures 4.3 x 1.2 x 1.3 c m. There is normal echotexture and echogenicity throughout the thyroid gland. No discrete nodules id entified. Normal vascular flow is present. IMPRESSION: 1. Normal thyroid. Reviewed, dictated and finalized at location A. IMPRESSION: 1. Normal thyroid.
== END 2024-06-19 07:54 | disposition home or self-care (01) ==
LOC: CHSIMG 07:54
PROVIDERS: PCP Nurse Practitioner Family; Visit Provider Nurse Practitioner Family
DX: M54.2 Cervicalgia (principal)
CPT/HCPCS: 76536

== ENCOUNTER 2024-06-25 10:13 | Emergency (ER) | payer MEDICARE, MEDICAID, SELFPAY ==
[2024-06-25] VITALS (14 sets, daily range): BP systolic 96–149; BP diastolic 56–92; PULSE 59–100; RESP 16–20; TEMP 36.9; O2SAT 94–100
--- NOTE | ~2024-06-25 | US_ITS ---
EXAMINATION: US abdomen complete DATE: 06/25/2024 10:45 INDICATION: Epigastric and right upper quadrant abdominal pain. TECHNIQUE: Multiple grayscale and Doppler ultrasound images of the abdomen were obtained. COMPARISON: CT abdomen and pelvis 04/24/2024 FINDINGS: The visualized portions of the head, body, and tail of the pancreas are normal. The liver i s normal without focal lesion. The gallbladder is distended and contains gallstones. No gallbladder w all thickening. There was a positive sonographic Farah's sign. The common duct is dilated to 10 mm. There is normal flow in main portal vein. The spleen is normal in size. The kidneys are normal in siz e. Abdominal aorta is normal in caliber. Inferior vena cava is normal. IMPRESSION: 1. Distended gallbladder with gallstones and positive sonographic Farah sign, consistent with acute cholecystitis. 2. Dilated common duct. Consider MRCP. Reviewed, dictated and finalized at location A.
--- NOTE | 2024-06-25 10:20 | ECG_ITS ---
Test Date: 2024-06-25 10:30:56 Measurements Intervals [place] Rate: 64 P: 44 [place]: 156 QRS: 62 QRSD: 82 T: 17 QT: 415 QTc: 431 Interpretive Statements SINUS RHYTHM NONSPECIFIC T-WAVE ABNORMALITY BORDERLINE ECG No previous ECG available for comparison Electronically Signed On 06-29-2024 14:41:06 CDT by Flo Lyman M.D.
[2024-06-25 10:21] LABS: Glucose Point of Care 95 mg/dl (65-105)
--- NOTE | 2024-06-25 10:23 | PC.NURSE ---
Cardiopulmonary at bedside performing EKG
--- NOTE | 2024-06-25 10:23 | ED.ABDPAIN ---
HPI - Abdominal Pain General Chief Complaint: Abdominal Pain Stated Complaint: vomiting; back pain Time Seen by Provider: 06/25/24 10:17 History of Present Illness HPI narrative: Pt presents with sudden onset of pain under her ribs and around to her back for the last two hours. Pt also is nauseated and has vomited 4 times. Pt denies dysuria or frequency. Pt had oats this morning and salmon last night to eat. Pt is on ozempic but has not changes doses for months. Pt did get started on [id number] recently for autoimmune inflammatory condition. Related Data Home Medications Medication Instructions Recorded Confirmed clonazepam 0.5 mg tablet 0.5 mg PO QHS 04/24/24 06/25/24 lamotrigine 100 mg tablet 200 mg PO DAILY 04/24/24 06/25/24 propranolol 10 mg tablet 5 mg PO BID 05/05/24 06/25/24 hydroxychloroquine 100 mg tablet 100 mg PO DAILY 06/15/24 06/25/24 propranolol 10 mg tablet 1 mg PO DAILY 06/25/24 06/25/24 Allergies Allergy/AdvReac Type Severity Reaction Status Date / Time ciprofloxacin Allergy Intermediate trouble Verified 06/25/24 11:23 breathing Review of Systems Review of Systems: All systems reviewed & are unremarkable except as noted in HPI and below PMFSH Past Medical History Medical History Bipolar 1 disorder History of spontaneous x5 Hypertension Obese Panic attacks Schizoaffective disorder (spontaneous vaginal delivery) x3 Surgical History Surgical History No history of previous surgery Family History Family History Mother Unknown family medical history Father Unknown family medical history Grandparent Esophageal cancer Grandparent Cerebrovascular accident Social History Social History Smoking status: Current every day smoker Tobacco type: e-cigarettes/vaping Second hand tobacco smoke exposure: No Alcohol intake: current Alcohol use details: 1/YEAR Substance use: never Substance use type: does not use Lack of Transportation: No Lack of Food: Sometimes True Current Housing: I Have Housing Concerned About Future Housing: No Difficulty Paying Gas/Electric Bills: YES Difficulty Paying for Meds: No Currently Unemployed: No Education: High School Diploma/GED Difficulty w/ Childcare or Family Care: YES Living arrangements: with family Additional living arrangements comments: with one child Occupation/Education: unemployed Gender identity (if verbalized by the patient): Female Spiritual care concerns: No Exam Const: General: healthy appearing and no acute distress Nutritional Appearance: well nourished Orientation/consciousness: patient oriented x3 Limitations: no limitations HENMT: Head: normal to inspection Neck: Neck: normal visual inspection and no lymphadenopathy Resp: Effort & Inspection: normal respiratory effort Auscultation: clear to auscultation bilaterally Cardio: Rate: regular rate Rhythm: regular rhythm GI: GI Palp: Yes Soft to palpation and Yes Tenderness to palpation present (GI) (epigastric regoin and RUQ) Auscultation: normal bowel sounds : General: Yes bladder normal to palpation Back/Spine/Pelvis: Back: CVA tenderness Skin: General skin exam: normal color Rashes: no rashes Wounds: no wounds Neuro: General: patient oriented x3, moves all extremities, no meningeal signs and no focal motor deficits Speech: normal speech Extrem: General: normal to inspection and no clubbing, cyanosis or edema Psych: Mental Status: mental status grossly normal Affect: normal affect Attitude: cooperative Course Vital Signs Vital signs: Vital Signs Temperature 98.4 F 06/25/24 10:13 Pulse Rate 100 06/25/24 10:13 Respiratory Rate 20 06/25/24 10:13 Blood Press
--- NOTE | 2024-06-25 10:30 | PC.NURSE ---
Cardiopulmonary finished with EKg, Patient being taken down to ultrasound.
[2024-06-25 11:07] LABS: Basophils Absolute Auto 0.04 K/mm3 (0.00-0.10); Basophils Percent Auto 0.5 % (0.0-1.0); Eosinophils Absolute Auto 0.06 K/mm3 (0.02-0.50); Eosinophils Percent Auto 0.7 % (1.0-6.0); Hematocrit 42.7 % (35.0-49.0); Hemoglobin 15.1 g/dL (12.0-15.0); Immature Granulocyte Absolute 0.02 K/mm3 (0.00-0.00); Immature Granulocyte Percent A 0.2 % (0.0-0.0); Lymphocytes Absolute Auto 1.46 K/mm3 (1.10-4.50); Lymphocytes Percent Auto 17.7 % (18.0-42.0); Mean Corpuscular HGB Conc 35.4 g/dL (32-36); Mean Corpuscular Hemoglobin 31.4 pg (27.0-31.0); Mean Corpuscular Volume 88.8 fL (78.0-102.0); Mean Platelet Volume 8.6 fl (9.2-11.8); Monocytes Percent Auto 3.6 % (2.0-11.0); Neutrophils Absolute Auto 6.36 K/mm3 (1.70-7.20); Neutrophils Percent Auto 77.3 % (50.0-70.0); Platelet Count Result 312 K/mm3 (150-420); Red Blood Count 4.81 M/mm3 (4.20-5.40); White Blood Count 8.2 K/mm3 (4.8-10.8)
[2024-06-25] MEDS: SODIUM CHLORIDE 0.9% IV 1,000 ML 999 ML IV CONT (11:11)
[2024-06-25] MEDS: ONDANSETRON INJ 4 MG/2 ML VIAL IV PUSH (11:12)
[2024-06-25 11:19] LABS: Prothrombin Time 10.9 Seconds (9.50-12.1)
[2024-06-25 11:23] LABS: Alanine Aminotransferase 19 U/L (14-59); Albumin Level 4.3 g/dL (3.4-5.0); Alkaline Phosphatase 78 U/L (46-116); Anion Gap 10 mmol/L (4-12); Aspartate Amino Transferase 18 U/L (15-37); Bilirubin,Total 1.6 mg/dL (0.00-1.00); Blood Urea Nitrogen 11 mg/dL (7-18); Calcium 9.2 mg/dL (8.5-10.1); Carbon Dioxide 28 mmol/L (21-32); Chloride 105 mmol/L (98-108); Estimated CRCL calculation 67 ml/min; Estimated Glomerular Filt Rate 58; Glucose 96 mg/dL (70-99); Osmolality Calculated 295 mOsm/kg (285-295); Potassium 4.1 mmol/L (3.5-5.1); Sodium 143 mmol/L (136-145); Total Protein 7.6 g/dL (6.4-8.2)
[2024-06-25 11:26] LABS: Troponin I < 4.0 ng/L (0.00-60.4)
[2024-06-25] MEDS: fentaNYL CITRATE INJ (*CRX) 100 MCG/2 ML VIAL 50 MCG IV PUSH (11:38)
--- NOTE | 2024-06-25 11:50 | PC.NURSE ---
Took pt to restroom in wheelchair. Collected urine sample. Pt. returned to room, resting comfortably.
[2024-06-25 11:53] LABS: Lipase 651 U/L (16-77)
[2024-06-25 11:57] LABS: Add Urine Microscopic? NO; Appearance Urine Clear (Clear); Bilirubin Urine Negative (Negative); Blood Urine Negative (Negative); Color Urine Light Yellow (Yellow); Glucose Urine UA Negative (Negative); Ketones Urine Negative (Negative); Leukocyte Esterase Ur Negative LEU/UL (Negative); Nitrate Urine Negative (Negative); Protein Urine Negative (Negative); Specific Grav Ur 1.015 (1.010-1.020); Urobilinogen Urine 0.2 mg/dL (0.2-1.0); pH Urine 7.5 (5.0-8.0)
== END 2024-06-25 14:06 | disposition short-term general hospital (02) ==
PROVIDERS: Emergency Provider Emergency Medicine; PCP Nurse Practitioner Family
DX: K80.70 Calculus of gallbladder and bile duct without cholecystitis without obstruction (principal); K85.90 Acute pancreatitis without necrosis or infection, unspecified; I10 Essential (primary) hypertension; F17.290 Nicotine dependence, other tobacco product, uncomplicated; Z79.899 Other long term (current) drug therapy
CPT/HCPCS: 36415; 76700; 80053; 81003; 82948; 83690; 84484; 85025; 85610; 93005; 96361; 96374; 96375; 99285; J1885; J2405; J3010; J7030

== ENCOUNTER 2024-06-25 14:47 | Observation (INO) | payer MEDICARE, MEDICAID, SELFPAY ==
--- NOTE | 2024-06-25 14:55 | ADMGEN ---
This patient, Ashlee Webster, was admitted to [facility] Room 304-01. Patient/family oriented to hospital policies and general routines including ID bracelet, bed and alarms, visiting hours, pain management, procedures, bathroom and other care routines, personal items, smoking policy, room service/diet, and visiting hours. Information on how to activate the Rapid Response Team has been discussed. Patient/Family are encouraged to report perceived risks to care and to ask questions if they do not understand what they are told or what they should do.
[2024-06-25 15:05] LABS: Glucose Point of Care 77 mg/dl (65-105)
[2024-06-25] MEDS: SODIUM CHLORIDE 0.9% IV 1,000 ML 100 ML IV CONT (15:41)
[2024-06-25] MEDS: ACETAMINOPHEN 325 MG TABLET 650 MG PO (16:00)
--- NOTE | 2024-06-25 16:19 | PM.IMHP ---
H&P: HPI History of Present Illness Date/Time: 06/25/24 16:19 Chief Complaint: Abdominal Pain Narrative: 34 y/o F presents here with abdominal pain with PMH of vape nicotine use, anxiety, depression, insomnia, pre-diabetic, and undifferentiated connective tissue disease, and tricuspid regurgitation. The patient presented to [place] ED for further evaluation of abdominal pain today (06/25). She reported acute onset of right upper abdominal pain, nausea, and vomiting 1 hour prior to arrival to the ED. She describes the abdominal pain as nondescript, radiating to right flank, constant initially, no aggravating factors, and alleviated by pain medication. Emesis is nonbilious and nonbloody, estimates she vomited 4 times. Abdominal pain is accompanied by chills and diarrhea. Denying fever, urinary symptoms, or body aches. recently but had DNC done. No previous episodes similar to today. Has had intermittent shoulder pain with radiation into shoulder for the past month. No trauma or heavy lifting. Patient is currently on Ozempic for weight loss but has no recent dosing changes and on Plaquenil for an undifferentiated connective tissue disease. Abdominal pain currently improved. Initial VS at presentation: 98.4? F, HR 100, RR 20, 149/92, and 94% on RA. ED workup showed: No leukocytosis, hemoglobin 15.1, creatinine 1.08 and GFR 58 (previously 0.79 and GFR >60 on 05/06/2024), total bilirubin 1.6 and lipase 651. UA not suggestive of UTI. Ultrasound of the abdomen showed distended gallbladder with gallstones and positive sonographic Farah sign and dilated common bile duct. Review of Systems Review of Systems: All systems reviewed & are unremarkable except as noted in HPI and below PMFSH Past Medical History Medical History Anxiety Eczema Gestational diabetes mellitus (GDM) affecting , antepartum History of spontaneous x5 Hypertension former, resolved with weight loss Panic attacks Positive MANDO (antinuclear antibody) (spontaneous vaginal delivery) x3 Trace mitral valve regurgitation Trace tricuspid valve regurgitation Surgical History Surgical History (Updated 06/25/24 @ 17:36 by Dorothy Ann APRN) History of dilatation and curettage Family History Family History Mother Unknown family medical history Father Unknown family medical history Grandparent Esophageal cancer Grandparent Cerebrovascular accident Social History Social History Smoking status: Current every day smoker Second hand tobacco smoke exposure: No Additional smoking assessment comments: pt states vapes, but not cigarettes. Alcohol intake: current Alcohol use details: 1/YEAR Substance use: never Substance use type: does not use Do You Feel Safe in your Home?: Yes Lack of Transportation: No Lack of Food: Sometimes True Current Housing: I Have Housing Concerned About Future Housing: No Difficulty Paying Gas/Electric Bills: YES Difficulty Paying for Meds: No Currently Unemployed: No Education: High School Diploma/GED Difficulty w/ Childcare or Family Care: YES Living arrangements: with family Additional living arrangements comments: with one child Occupation/Education: unemployed Gender identity (if verbalized by the patient): Female Spiritual care concerns: No Meds Home Medications and Allergies Home Medications Medication Instructions Recorded Confirmed Type ferrous sulfate 28 mg PO BID 30 days #60 tabs 07/26/22 06/25/24 Rx clonazepam 0.5 mg tablet 0.5 mg PO QHS 04/24/24 06/25/24 History lamotrigine 100 mg tablet 200 mg PO DAILY 04/24/24 06/25/24 History cyclobenzaprine 5 mg tablet 5 mg PO QHS PRN muscle spasm #30 05/05/24 06/25/24 Rx tabs dicyclomine 20 mg tablet 20 mg PO TID PRN a
[2024-06-25] MEDS: NICOTINE (*PBKC) 14 MG PATCH 1 PATCH TRANSDERM (17:47)
--- NOTE | 2024-06-25 19:04 | PM.CNGS ---
Assessment and Plan Assessment and plan (1) Cholelithiasis and cholecystitis without obstruction: Qualifiers: Cholelithiasis location: gallbladder Cholecystitis acuity: unspecified acuity Qualified Code(s): K80.10 - Calculus of gallbladder with chronic cholecystitis without obstruction Code(s): K80.10 - Calculus of gallbladder with chronic cholecystitis without obstruction Status: Acute Assessment and Plan: it appears that patient has had an episode of acute biliary colic with some evidence of acute cholecystitis but no fever or leukocytosis. Her lipase was elevated but with her pain much improved and decreased tenderness, I suspect this has significantly decreased. Patient looks much better this evening and is eating with minimal abdominal pain. Dr. Aguilar will be taking over for me tomorrow. I called and talked to him about the patient. We will go ahead and make her NPO after midnight but recheck her labs in the morning. May possibly go ahead with cholecystectomy tomorrow. She will need cholecystectomy eventually due to her gallstones and episode of pain from gallstones. (2) Serum lipase elevation: Code(s): R74.8 - Abnormal levels of other serum enzymes Status: Acute Assessment and Plan: Could have been due to acute gallbladder inflammation or possibly from a small stone in the bile duct. Will recheck lipase again in the morning. As I noted above, patient is feeling much better this evening. Further plans pending labs and clinical condition tomorrow morning. History of Present Illness Consult details Consult date: 06/25/24 Reason for consult: abdominal pain Requesting physician: Maricruz Horowitz III, DO Narrative: Patient developed about 9:00 a.m. this morning severe epigastric and subcostal abdominal pain that radiated around to her back. She had at least 4 episodes of vomiting. She does take Ozempic and has been on Ozempic for quite some time. 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 She was noted to have right upper quadrant tenderness and some tachycardia. Her white blood cell count and liver enzymes were normal. She had an ultrasound that showed a dilated gallbladder with multiple gallstones and a positive sonographic Farah sign. Her common bile duct was [address] scan from 04/24/2024 showed an 8 mm common bile duct. I called and spoke to Dr. Horowitz, the emergency room physician in [place]. Serum lipase level was noted to be 651. This was not back when I talked to Dr. Horowitz. I saw the patient after she arrived at [place] earlier this evening. Her abdominal pain was greatly improved. She had been started on a low-fat diet and was very hungry. She noted that she felt much better than she did earlier today. She is seen now in consultation. Review of Systems Review of Systems: All systems reviewed & are unremarkable except as noted in HPI and below ( HPI) PMFSH Past Medical History Medical History Anxiety Eczema Gestational diabetes mellitus (GDM) affecting , antepartum History of spontaneous x5 Hypertension former, resolved with weight loss Panic attacks Positive MANDO (antinuclear antibody) (spontaneous vaginal delivery) x3 Trace mitral valve regurgitation Trace tricuspid valve regurgitation Surgical History Surgical History History of dilatation and curettage Family History Family History Mother Unknown family medical history Father Unknown family medical history Grandparent Esophageal cancer Grandparent Cerebrovascular accident Social History Social History Smoking status: Current every day smoker Second hand tobacco smoke exposure: No Neeraj
[2024-06-25 20:58] VITALS: BP 104/71; PULSE 75; RESP 19; TEMP 36.8; O2SAT 98
[2024-06-25] MEDS: clonazePAM (*CRX) 0.5 MG TABLET PO (22:12)
[2024-06-25] MEDS: MELATONIN 3 MG TABLET PO (22:12)
[2024-06-25 22:47] LABS: Pregnancy On Board Control Positive; Urine Pregnancy Test Negative
[2024-06-26] VITALS (15 sets, daily range): BP systolic 96–126; BP diastolic 59–82; PULSE 62–100; RESP 12–20; TEMP 36.3–37; O2SAT 75–100; BMI 29.0
[2024-06-26 06:11] LABS: Basophils Percent Auto 0.7 % (0.2-1.2); Eosinophils Absolute Auto 0.1 K/mm3 (0-0.3); Eosinophils Percent Auto 1.6 % (0-4.4); Hematocrit 41.8 % (37.0-47.0); Immature Granulocyte Absolute 0.01 K/mm3 (0.00-0.031); Immature Granulocyte Percent A 0.2 % (0-0.5); Lymphocytes Absolute Auto 1.57 K/mm3 (0.9-3.2); Lymphocytes Percent Auto 35.4 % (18.3-44.2); Mean Corpuscular HGB Conc 33.5 g/dl (32-36); Mean Corpuscular Volume 92.7 fl (80-100); Mean Platelet Volume 9.1 fl (7.4-10.4); Monocytes Absolute Auto 0.2 K/mm3 (0.1-0.6); Monocytes Percent Auto 3.6 % (2.6-8.5); Neutrophils Absolute Auto 2.6 K/mm3 (1.3-6.7); Neutrophils Percent Auto 58.5 % (45.5-73.1); Platelet Count Result 229 k/mm3 (150-375); Red Blood Count 4.51 M/mm3 (4.2-5.4); Red Cell Distribution Width 12.4 % (11.5-14.5); White Blood Count 4.4 K/mm3 (4.5-10.0)
[2024-06-26 06:25] LABS: Alanine Aminotransferase 19 U/L (6-35); Albumin Level 3.9 g/dL (3.5-5.1); Alkaline Phosphatase 57 U/L (38-126); Anion Gap 8 mmol/L (4-12); Aspartate Amino Transferase 20 U/L (14-36); Bilirubin,Total 1.2 mg/dL (0.2-1.3); Blood Urea Nitrogen 9 mg/dL (7-17); Calcium 8.6 mg/dL (8.4-10.2); Carbon Dioxide 23 mmol/L (22-30); Chloride 107 mmol/L (98-107); Estimated Glomerular Filt Rate > 60; Glucose 89 mg/dL (65-110); Lipase 274 U/L (23-300); Potassium 3.8 mmol/L (3.4-5.0); Sodium 138 mmol/L (137-145)
[2024-06-26] MEDS: NICOTINE (*PBKC) 14 MG PATCH 1 PATCH TRANSDERM (07:48)
--- NOTE | 2024-06-26 08:10 | PM.IMPN ---
Progress Note: A&P Assessment and Plan (1) Acute cholecystitis: Code(s): K81.0 - Acute cholecystitis Status: Acute Assessment and Plan: Patient transferred from [facility] with complaints of abdominal pain. Imaging was concerning for acute cholecystitis. General surgery was consulted, recs appreciated She is POD 0 for lap opal Labs were unremarkable on admission VSS Surgery is okay with discharge later today if she tolerates her dinner Subjective Date/time seen: 06/26/24 08:10 Interval history: 34 y/o F presents here with abdominal pain with PMH of vape nicotine use, anxiety, depression, insomnia, pre-diabetic, and undifferentiated connective tissue disease, and tricuspid regurgitation. The patient presented to [place] ED for further evaluation of abdominal pain today (06/25). She reported acute onset of right upper abdominal pain, nausea, and vomiting 1 hour prior to arrival to the ED. She describes the abdominal pain as nondescript, radiating to right flank, constant initially, no aggravating factors, and alleviated by pain medication. Emesis is nonbilious and nonbloody, estimates she vomited 4 times. Abdominal pain is accompanied by chills and diarrhea. Denying fever, urinary symptoms, or body aches. 06/26/24: Patient is seen after her surgery. She is having some abdominal pain. Laprascopic sites are clean, dry, intact, and open to air. Review of Systems Review of Systems: All systems reviewed & are unremarkable except as noted in HPI and below Exam Narrative: General: well appearing, appears stated age. HEENT: normocephalic, atraumatic. Mucous membranes moist. EOMI, PERRLA, bilateral sclera anicteric, no conjunctival injection. Neck supple without JVD, lymphadenopathy, or bruit. Respiratory: clear to auscultation bilaterally. No rales/rhonic/wheezes. Cardiovascular: Regular rate and rhythm, normal S1-S2 upon auscultation. No murmurs, rubs, or clicks. PMI is nondisplaced, capillary refill less than 3 second. Abdomen: Soft, round, no pulsatile masses, . No rebound, no guarding. No CVA tenderness, no hepatosplenomegaly. Bowel sounds hypoactive four quadrants. No high pitch or tinkling sounds, resonant to percussion. Extremities: No cyanosis, clubbing, or edema present. Pulses are palpable 2/2. Active ROM to all four extremities. Neuro: Alert and orientated x 4. PERRLA. Cranial nerves 2-12 intact without focal deficit. Skin: Warm, dry, and intact, without rash, erythema, or lesion. Lines: PIV Incisions: Laparoscopic incisional sites which are clean, dry, and intact. Psych: pleasant, cooperative, normal speech, normal affect, no hallucinations, no dysarthria Objective Data Vital Signs Vital Signs: Vital Signs - 24 hr 06/25/24 20:58 06/25/24 20:00 06/26/24 06:00 Temperature 98.2 F 98.6 F Pulse Rate 75 77 Respiratory Rate 19 20 Blood Pressure 104/71 96/60 L Pulse Oximetry 98 100 Oxygen Delivery Room Air 06/26/24 07:46 Temperature Pulse Rate 87 Respiratory Rate Blood Pressure 103/59 L Pulse Oximetry 99 Oxygen Delivery Intake/Output Intake/Output: Intake & Output 06/23/24 06/24/24 06/25/24 06/26/24 23:59 23:59 23:59 23:59 Intake Total 120 1000 Balance 120 1000 Meds/Results Medications: Active Medications Generic Name Dose Route Start Last Admin Trade Name Freq PRN Reason Stop Dose Admin Acetaminophen 650 mg 06/25/24 14:58 06/25/24 16:00 Acetaminophen 325 Mg Tablet PO 650 mg Q4H PRN Administration Mild Pain (1-3) or Fever Hydrocodone Bitart/Acetaminophen 1 tab 06/25/24 14:58 Hydrocodone/Acetaminophen (*Crx) 5-325 Mg Tablet PO Q4H PRN Moderate Pain (4-6) Bisacodyl 5 mg 06/25/24 14:58 Bisacodyl 5 Mg Tablet Ec PO DAILY PRN Constipation Clonazepam 0.5 mg 06/25/24 21:00 06/25/24 22:12 Clonazepam (*Crx) 0.5 Mg Tablet PO 0.5 mg QHS KRISTAL Administration Hydroxychloroquine
--- NOTE | 2024-06-26 08:27 | WPDHPUPDATE1 ---
History and Physical Update Update Date/Time: 06/26/24 08:27 History and Physical has been reviewed, including an updated exam of the patient. There are NO changes in the patient's condition. Risks, benefits, and alternatives have been discussed and questions answered. Patient agrees to proceed with procedure.
--- NOTE | 2024-06-26 08:37 | PC.NURSE ---
Patient down to pre-op via wheelchair.
--- NOTE | 2024-06-26 09:05 | WPDANESEPPF ---
Anes - Initial Pre Proc Eval Procedure: Operation Date: 06/26/24 09:15 Proposed Procedures p Laparoscopic Cholecystectomy - Katrina Blackwell MD Date/Time: 06/26/24 09:05 Surgeon: Morena Sampson APRN Pre Op Diagnosis: ACUTE CHOLECYSTITIS/PANCREATITIS Patient Data Age: 34 Gender: F Height: 1.65 m Weight: 79.3 kg Last Vital Signs Temp 36.8 C 06/26/24 08:35 Pulse 80 06/26/24 08:35 Resp 16 06/26/24 08:35 BP 118/77 06/26/24 08:35 Pulse Ox 98 06/26/24 08:35 O2 Del Method Room Air 06/26/24 08:35 Allergies Allergy/AdvReac Type Severity Reaction Status Date / Time ciprofloxacin Allergy Intermediate trouble Verified 06/25/24 11:23 breathing Home Medications Medication Instructions Recorded Confirmed Type ferrous sulfate 28 mg PO BID 30 days #60 tabs 07/26/22 06/25/24 Rx clonazepam 0.5 mg tablet 0.5 mg PO QHS 04/24/24 06/25/24 History lamotrigine 100 mg tablet 200 mg PO DAILY 04/24/24 06/25/24 History cyclobenzaprine 5 mg tablet 5 mg PO QHS PRN muscle spasm #30 05/05/24 06/25/24 Rx tabs dicyclomine 20 mg tablet 20 mg PO TID PRN abdominal pain 05/05/24 06/25/24 Rx #30 tabs azelastine 137 mcg (0.1 %) nasal 137 mcg (0.137 mL) intranasal Q12H 06/15/24 06/25/24 Rx spray #30 mL cetirizine 10 mg tablet (Zyrtec) 10 mg PO DAILY PRN allergy 06/15/24 06/25/24 Rx symptoms #30 tabs hydroxychloroquine 100 mg tablet 100 mg PO DAILY 06/15/24 06/25/24 History nicotine (polacrilex) 4 mg gum 4 mg buccal Q1H PRN nicotine 06/15/24 06/25/24 Rx cravings #110 ea semaglutide 2 mg/dose (8 mg/3 mL) 2 mg (0.75 mL) subcut WEEKLY 4 06/15/24 06/25/24 Rx subcutaneous pen injector (Ozempic) weeks #3 mL [id number] 3-fat com #1 27 1 cap PO DAILY 06/25/24 06/25/24 History mg-1 mg-300 mg capsule acetaminophen 325 mg capsule 650 mg PO Q6H PRN pain 06/25/24 06/25/24 History (Tylenol) omeprazole magnesium 20 mg 20 mg PO DAILY acid reflux 06/25/24 06/25/24 History tablet,delayed release (Prilosec OTC) propranolol 10 mg tablet 5 mg PO DAILY 06/25/24 06/25/24 History Laboratory Tests 06/25/24 06/25/24 06/26/24 15:01 22:39 06:00 WBC 4.4 L K/mm3 (4.5-10.0) RBC 4.51 M/mm3 (4.2-5.4) Hgb 14.0 g/dL (12.0-15.0) Hct 41.8 % (37.0-47.0) MCV 92.7 fl (80-100) MCH 31.0 pg (26-34) MCHC 33.5 g/dl (32-36) RDW 12.4 % (11.5-14.5) Plt Count 229 k/mm3 (150-375) MPV 9.1 fl (7.4-10.4) Immature Gran % (Auto) 0.2 % (0-0.5) Neut % (Auto) 58.5 % (45.5-73.1) Lymph % (Auto) 35.4 % (18.3-44.2) [place] % (Auto) 3.6 % (2.6-8.5) Eos % (Auto) 1.6 % (0-4.4) Baso % (Auto) 0.7 % (0.2-1.2) Lymph # (Auto) 1.57 K/mm3 (0.9-3.2) [place] # (Auto) 0.2 K/mm3 (0.1-0.6) Eos # (Auto) 0.1 K/mm3 (0-0.3) Baso # (Auto) 0.0 K/mm3 (0.0-0.1) Abs Immat Gran (auto) 0.01 K/mm3 (0.00-0.031) Absolute Neuts (auto) 2.6 K/mm3 (1.3-6.7) Absolute Nucleated RBC 0.000 K/mm3 (0.0-0.012) Nucleated RBC % 0.0 % (0.0-0.2) Sodium 138 mmol/L (137-145) Potassium 3.8 mmol/L (3.4-5.0) Chloride 107 mmol/L (98-107) Carbon Dioxide 23 mmol/L (22-30) Anion Gap 8 mmol/L (4-12) BUN 9 D mg/dL (7-17) Creatinine 0.80 mg/dL (0.7-1.0) Estim Creat Clear Calc Not Reportable Estimated GFR > 60 (59 - ) Glucose 89 mg/dL (65-110) POC Capillary Glucose 77 mg/dl (65-105) Calcium 8.6 mg/dL (8.4-10.2) Total Bilirubin 1.2 mg/dL (0.2-1.3) AST 20 U/L (14-36) ALT 19 U/L (6-35) Alkaline Phosphatase 57 U/L (38-126) Total Protein 7.0 g/dL (6.3-8.2) Albumin 3.9 g/dL (3.5-5.1) Lipase
[2024-06-26] MEDS: ceFAZolin 2 GM/D5W 50 ML 2 GM/50 ML BAG IVPB (09:10)
[2024-06-26] MEDS: BUPIVACAINE/EPINEPHRINE 0.5% 10 ML VIAL 30 ML INFILTRATE (09:10)
[2024-06-26] MEDS: LACTATED RINGERS 1,000 ML 30 ML IV CONT ×2 (10:21)
--- NOTE | 2024-06-26 10:22 | W.PM.PROC2 ---
Procedure Note - Detailed Date of Procedure 06/26/24 Pre-op Diagnosis ACUTE CHOLECYSTITIS/PANCREATITIS Post-op Diagnosis Same Procedure Performed Laparoscopic cholecystectomy Surgeon Katrina Blackwell MD Anesthesia General Indications 34-year-old female presented to the hospital complaining of postprandial right upper quadrant abdominal pain associated with nausea and vomiting. Workup including imaging significant for cholecystitis, cholelithiasis, biliary pancreatitis. Findings Cholecystitis with cholelithiasis Description of Procedure The patient was taken to the operating room placed in the supine position. After adequate induction of general anesthesia, the patient was prepped and draped in normal sterile fashion. A time-out was then performed to verify the patient's identity as well as the procedure being performed. I then made a 5 mm incision in the supraumbilical region. Through this, a Veress needle was placed into the peritoneal cavity and CO2 gas was then insufflated. After adequate pneumoperitoneum was achieved, the Veress needle was removed and a 5 mm optiview trocar was placed through this incision under direct visualization. I then placed the laparoscope through this trocar site and under direct visualization placed a further 12 mm subxiphoid port as well as 2 additional 5 mm ports in the right upper abdomen. The gallbladder was then identified and was noted to be inflamed, distended, and full of gallstones. I was able to place a grasper at the dome of the gallbladder and this was retracted anterior and cephalad up over the liver. A 2nd retractor was then placed at the infundibulum and retracted laterally, this allowed visualization of the triangle of [place]. I then was able to visualize the cystic duct in its entirety from its proximal insertion into the gallbladder, to its distal junction with the common hepatic/common bile duct junction. At this point, I carefully skeletonized the proximal cystic duct with the [place] dissector. I then clipped and transected the proximal cystic duct. Next I visualized the cystic artery. Again the artery was skeletonized, clipped, and transected. I then used the Bovie cautery to take down the peritoneal attachments of the gallbladder off the liver bed. This was somewhat difficult given the amount of inflammation in the posterior space. Once the gallbladder specimen was completely detached, an endo-pouch was placed through the 12 mm port site. I then placed the gallbladder specimen into the Endo pouch and removed the endo-pouch from the 12 mm port site. The specimen will now be sent to pathology for further review. I then copiously irrigated the right upper quadrant. Some mild oozing was noted in the liver bed and this was controlled with the bovie cautery. Hemostasis was noted in the liver bed, the clips were noted to be in good position on both the cystic duct stump and the cystic artery stump. No other pathology was noted in the right upper quadrant. I then moved the laparoscope to the subxiphoid port. No iatrogenic injury or other pathology was noted in the lower abdomen. I then closed the 12 mm trocar site under direct visualization using the Ángel cone and 0 Vicryl suture. At this point, the abdomen was desufflated and all ports removed. All port sites were then closed with 4.O Monocryl subcuticular sutures. Dermabond was placed on each incision. The patient tolerated the procedure well, was extubated in the operating room postoperative and will be transferred to the recovery room in stable condition Estimated Blood Loss 5 Drains No Packing No Pathology Yes Complications No immediate complications Condition Stable Disposition PACU [facility] Billing Surgery - Charge Forward: Surgery Billing
[2024-06-26] MEDS: fentaNYL CITRATE INJ (*CRX) 100 MCG/2 ML VIAL 25 MCG IV PUSH ×4 (10:30→10:47)
[2024-06-26] MEDS: ONDANSETRON INJ 4 MG/2 ML VIAL IV PUSH (10:33)
[2024-06-26] MEDS: diphenhydrAMINE HCl INJ 50 MG/ML VIAL 25 MG IV PUSH (11:00)
[2024-06-26] MEDS: SCOPOLAMINE 1 MG PATCH 1 PATCH TRANSDERM (11:00)
[2024-06-26] MEDS: MORPHINE SULFATE (*CRX) 2 MG/ML INJ IV PUSH (11:30)
--- NOTE | 2024-06-26 11:37 | PC.NURSE ---
Patient back from PACU at 11:25.
[2024-06-26] MEDS: PROPRANOLOL HCL 10 MG TABLET 5 MG PO (12:04)
[2024-06-26] MEDS: PANTOPRAZOLE 40 MG TABLET PO (12:04)
[2024-06-26] MEDS: lamoTRIgine 100 MG TABLET 200 MG PO (12:04)
[2024-06-26] MEDS: oxyCODONE/ACETAMINOPHEN (*CRX) 5-325 MG TABLET 1 TABLET PO (14:55)
--- NOTE | 2024-06-26 16:17 | PM.DS ---
DS: Admitting Diagnosis Discharge Date 06/26/24 Admitting Diagnosis abdominal pain DS: Discharge Diagnosis Discharge Diagnosis (1) Acute cholecystitis: Code(s): K81.0 - Acute cholecystitis Status: Acute Assessment and Plan: Patient transferred from [facility] with complaints of abdominal pain. Imaging was concerning for acute cholecystitis. General surgery was consulted, recs appreciated She is POD 0 for lap opal Labs were unremarkable on admission VSS Surgery is okay with discharge later today if she tolerates her dinner DS: Summary Hospital Course Reason for hospitalization: acute choleycystits Hospital Course: 34 y/o F presents here with abdominal pain with PMH of vape nicotine use, anxiety, depression, insomnia, pre-diabetic, and undifferentiated connective tissue disease, and tricuspid regurgitation. The patient presented to [place] ED for further evaluation of abdominal pain today (06/25). She reported acute onset of right upper abdominal pain, nausea, and vomiting 1 hour prior to arrival to the ED. She describes the abdominal pain as nondescript, radiating to right flank, constant initially, no aggravating factors, and alleviated by pain medication. Emesis is nonbilious and nonbloody, estimates she vomited 4 times. Abdominal pain is accompanied by chills and diarrhea. Denying fever, urinary symptoms, or body aches. She was taken to surgery for a laparoscopic cholecystectomy. She did well and tolerated diet. Her labs were unremarkable on admission. Surgery was okay with her discharging same day. Overall did well and she was discharged in stable condition with surgical follow-up. Time Spent with Patient Time attestation: Total time spent providing and/or coordinating discharge services:65 Exam Narrative: General: well appearing, appears stated age. HEENT: normocephalic, atraumatic. Mucous membranes moist. EOMI, PERRLA, bilateral sclera anicteric, no conjunctival injection. Neck supple without JVD, lymphadenopathy, or bruit. Respiratory: clear to auscultation bilaterally. No rales/rhonic/wheezes. Cardiovascular: Regular rate and rhythm, normal S1-S2 upon auscultation. No murmurs, rubs, or clicks. PMI is nondisplaced, capillary refill less than 3 second. Abdomen: Soft, round, no pulsatile masses, . No rebound, no guarding. No CVA tenderness, no hepatosplenomegaly. Bowel sounds hypoactive four quadrants. No high pitch or tinkling sounds, resonant to percussion. Extremities: No cyanosis, clubbing, or edema present. Pulses are palpable 2/2. Active ROM to all four extremities. Neuro: Alert and orientated x 4. PERRLA. Cranial nerves 2-12 intact without focal deficit. Skin: Warm, dry, and intact, without rash, erythema, or lesion. Lines: PIV Incisions: Laparoscopic incisional sites which are clean, dry, and intact. Psych: pleasant, cooperative, normal speech, normal affect, no hallucinations, no dysarthria DS: Data Data Completed and Pending Pending studies at discharge: Pending at discharge 06/26/24 09:45 Surgical [PTH] Routine Labs on day of discharge: Labs from last 24 hours 06/26/24 06/25/24 06:00 22:39 WBC 4.4 L RBC 4.51 Hgb 14.0 Hct 41.8 MCV 92.7 MCH 31.0 MCHC 33.5 RDW 12.4 Plt Count 229 MPV 9.1 Immature Gran % (Auto) 0.2 Neut % (Auto) 58.5 Lymph % (Auto) 35.4 [place] % (Auto) 3.6 Eos % (Auto) 1.6 Baso % (Auto) 0.7 Lymph # (Auto) 1.57 [place] # (Auto) 0.2 Eos # (Auto) 0.1 Baso # (Auto) 0.0 Abs Immat Gran (auto) 0.01 Absolute Neuts (auto) 2.6 Absolute Nucleated RBC 0.000 Nucleated RBC % 0.0 Sodium 138 Potassium 3.8 Chloride 107 Carbon Dioxide 23 Anion Gap 8 BUN 9 D Creatinine 0.80 Estim Creat Clear Calc Not Reportable Estimated GFR > 60 Glucose 89 Calcium 8.6 Total Bilirubin 1.2 AST 20 ALT 19 Alkaline Phosphatase 57 Total Protein 7.0 Albumin 3.9
== END 2024-06-26 17:00 | disposition home or self-care (01) ==
PROVIDERS: Internal Medicine; Student in an Organized Health Care Education/Training Program; Surgery; Admitting Provider Family Medicine; PCP Nurse Practitioner Family; Visit Provider Nurse Practitioner Acute Care
PROC: 0FT44ZZ Resection of Gallbladder, Percutaneous Endoscopic Approach (ICD-10-PCS; CPT 47562; principal; 2024-06-26 09:15)
DX: K80.00 Calculus of gallbladder with acute cholecystitis without obstruction (principal); F41.9 Anxiety disorder, unspecified; F32.A Depression, unspecified; F17.290 Nicotine dependence, other tobacco product, uncomplicated; Z79.85 Long-term (current) use of injectable non-insulin antidiabetic drugs
CPT/HCPCS: 47562; 36415; 80053; 81025; 82948; 83690; 85025; 88304; 96361; 96365; A9270; G0378; J0690; J1100; J1170; J1200; J2250; J2270; J2405; J2704; J3010; J7030; J7120

== ENCOUNTER 2024-06-28 16:34 | Emergency (ER) | payer MEDICARE, MEDICAID, SELFPAY ==
[2024-06-28 16:36] VITALS: BP 114/77; PULSE 90; RESP 16; TEMP 36.4; O2SAT 100
--- NOTE | 2024-06-28 16:57 | ED.ABDPAIN ---
HPI - Abdominal Pain General Chief Complaint: Abdominal Pain Stated Complaint: abdominal pain s/p cholecystectomy Source: patient Mode of arrival: ambulatory Limitations: no limitations History of Present Illness MD elicited complaint: abdominal pain Pertinent past history: other (had laparoscopic cholecystectomy 2 days ago) Location: RUQ and R flank Severity: moderate Related Data Patient : No Home Medications Medication Instructions Recorded Confirmed clonazepam 0.5 mg tablet 0.5 mg PO QHS 04/24/24 06/25/24 lamotrigine 100 mg tablet 200 mg PO DAILY 04/24/24 06/25/24 hydroxychloroquine 100 mg tablet 100 mg PO DAILY 06/15/24 06/25/24 [id number]-omega 3-fat com #1 27 1 cap PO DAILY 06/25/24 06/25/24 mg-1 mg-300 mg capsule acetaminophen 325 mg capsule 650 mg PO Q6H PRN pain 06/25/24 06/25/24 (Tylenol) omeprazole magnesium 20 mg 20 mg PO DAILY acid reflux 06/25/24 06/25/24 tablet,delayed release (Prilosec OTC) propranolol 10 mg tablet 5 mg PO DAILY 06/25/24 06/25/24 Allergies Allergy/AdvReac Type Severity Reaction Status Date / Time ciprofloxacin Allergy Intermediate trouble Verified 06/28/24 16:43 breathing Review of Systems Review of Systems: All systems reviewed & are unremarkable except as noted in HPI and below Constitutional: Constitutional: Reports as per HPI, Denies chills and Denies fever(s) Eyes: Eyes: Reports as per HPI ENT: Reports system reviewed and no additional complaints, except as documented Cardiovascular: Cardiovascular: Reports as per HPI and Denies chest pain Respiratory: Respiratory: Reports as per HPI, Denies cough and Denies dyspnea Gastrointestinal: Gastrointestinal: Reports as per HPI, Reports abdominal pain, Reports bloating, Denies constipation, Denies diarrhea, Denies nausea and Denies vomiting Genitourinary: Genitourinary: Reports no additional female genitourinary complaints Musculoskeletal: Musculoskeletal: Reports no additional musculoskeletal complaints Integumentary/Breasts: Skin/Breast: Reports system reviewed and no additional complaints, except as docu Neurologic: Reports system reviewed and no additional complaints, except as documented PMFSH Past Medical History Medical History Anxiety Eczema Gestational diabetes mellitus (GDM) affecting , antepartum History of spontaneous x5 Hypertension former, resolved with weight loss Panic attacks Positive MANDO (antinuclear antibody) (spontaneous vaginal delivery) x3 Trace mitral valve regurgitation Trace tricuspid valve regurgitation Surgical History Surgical History History of dilatation and curettage Family History Family History Mother Unknown family medical history Father Unknown family medical history Grandparent Esophageal cancer Grandparent Cerebrovascular accident Social History Social History Smoking status: Current every day smoker Second hand tobacco smoke exposure: No Additional smoking assessment comments: pt states vapes, but not cigarettes. Alcohol intake: current Alcohol use details: 1/YEAR Substance use: never Substance use type: does not use Do You Feel Safe in your Home?: Yes Lack of Transportation: No Lack of Food: Sometimes True Current Housing: I Have Housing Concerned About Future Housing: No Difficulty Paying Gas/Electric Bills: YES Difficulty Paying for Meds: No Currently Unemployed: No Education: High School Diploma/GED Difficulty w/ Childcare or Family Care: YES Living arrangements: with family Additional living arrangements comments: with one child Occupation/Education: unemployed Gender identity (if verbalized by the patient): Female Spiritual care concerns: No
== END 2024-06-28 17:08 | disposition home or self-care (01) ==
PROVIDERS: Emergency Provider Emergency Medicine; PCP Nurse Practitioner Family
DX: G89.18 Other acute postprocedural pain (principal); I10 Essential (primary) hypertension; F17.200 Nicotine dependence, unspecified, uncomplicated; Z79.899 Other long term (current) drug therapy
CPT/HCPCS: 99281

== ENCOUNTER 2024-07-02 10:25 | Outpatient (CLI) | payer MEDICARE, MEDICAID, SELFPAY ==
--- NOTE | ~2024-07-02 | XR_ITS ---
XR abdomen/kub 1V Ordering provider: Mai Saeed NP History: . R10.9 - Unspecified abdominal pain gallbladder removed kyleigh . Comparison: None. FINDINGS: BOWEL: Nonobstructive bowel gas pattern. ORGANOMEGALY: None. Status post cholecystectomy. SIGNIFICANT PATHOLOGIC CALCIFICATIONS: None. OTHER: Pubic symphysitis. No free air is seen under the diaphragm. IMPRESSION: NO ACUTE ABDOMINAL FINDINGS. Reviewed, dictated and finalized at location A.
== END 2024-07-02 10:26 | disposition home or self-care (01) ==
LOC: CHSIMG 10:29
PROVIDERS: PCP Nurse Practitioner Family; Visit Provider Nurse Practitioner Family
DX: R10.9 Unspecified abdominal pain (principal)
CPT/HCPCS: 74018

== ENCOUNTER 2024-07-23 15:57 | Outpatient (CLI) | payer MEDICARE, MEDICAID, SELFPAY ==
--- NOTE | 2024-07-23 16:02 | ECHO_ITS ---
Patient Info Name: Ashlee Webster Age: 34 years : 1990 Gender: Female Ht: 65 in Wt: 170 lbs BSA: 1.90 m2 HR: 78 bpm BP: 124 / 78 mmHg Heart Rhythm: Sinus Rhythm Technical Quality: Good Exam Date: 07/23/2024 3:50 PM Exam Location: Echo Lab Patient Status: Outpatient Admit Date: 07/23/2024 Staff Ordering Physician: Tavo Moffett APRN Crime Scene Technician: Anthony Vora RDCS Attending Provider: Tavo Moffett APRN Exam Type: CA echo doppler color flow Study Info Indications - NONRHUMATIC MITRAL VALVE INSUFFICENCY Complete two-dimensional, color flow and Doppler transthoracic echocardiogram is performed. Summary 1. Complete two-dimensional, color flow and Doppler transthoracic echocardiogram is performed. 2. Left ventricular chamber dimension is normal. 3. Left ventricular systolic function is normal, estimated at 60-65%. 4. The left ventricular diastolic function is grade I diastolic dysfunction. 5. E/e' 7 is not elevated. 6. There is mild tricuspid valve regurgitation. 7. No pulmonary hypertension, estimated pulmonary arterial systolic pressure is 25 mmHg. Left Ventricle E/e' 7 is not elevated. Left ventricular chamber dimension is normal. Left ventricular systolic function is normal, estimated at 60-65%. The left ventricular diastolic function is grade I diastolic dysfunction. Right Ventricle Right ventricular systolic function is normal and with normal TAPSE 3.0 cm. Right ventricular chamber dimension is normal. Left Atria Left atrial chamber dimension is normal. Right Atria Right atrial chamber dimension is normal. Aortic Valve The aortic valve is trileaflet. There is no aortic valve stenosis. There is no aortic valve regurgitation. Pulmonic Valve There is no pulmonic regurgitation. Mitral Valve There is no mitral valve stenosis. There is no mitral valve regurgitation. Tricuspid Valve There is mild tricuspid valve regurgitation. No pulmonary hypertension, estimated pulmonary arterial systolic pressure is 25 mmHg. Pericardium/Pleural There is no pericardial effusion. Inferior Vena Cava Normal inferior vena cava with >50% collapse upon inspiration consistent with normal right atrial pressure, 5 mmHg. Aorta The aortic root size at the sinus of Valsalva is normal. Left Ventricular Outflow Tract Name Value Normal LVOT 2D LVOT Diameter 1.8 cm LVOT Doppler LVOT Peak Velocity 138 cm/s LVOT Peak Gradient 8 mmHg LVOT Mean Gradient 4 mmHg LVOT VTI 26 cm LVOT VTI/AV VTI Ratio 0.9 LVOT Stroke Volume 68 ml Pulmonic Valve Name Value Normal PV Doppler PV Peak Velocity 106 cm/s PV Peak Gradient 4 mmHg Mitral Valve Name
== END 2024-07-23 15:58 | disposition home or self-care (01) ==
LOC: CHSIMG 15:58
PROVIDERS: PCP Nurse Practitioner Family; Visit Provider Nurse Practitioner Family
DX: R07.89 Other chest pain (principal); R00.2 Palpitations; I34.0 Nonrheumatic mitral (valve) insufficiency; I07.1 Rheumatic tricuspid insufficiency
CPT/HCPCS: 93306

== ENCOUNTER 2024-08-30 19:10 | Emergency (ER) | payer MEDICARE, MEDICAID, SELFPAY ==
--- NOTE | ~2024-08-30 | XR_ITS ---
EXAMINATION: XR chest 2V Exam Date/Time: 08/30/2024 21:00 CDT HISTORY: COUGH X 2 WEEKS. FEVER. Comparison: 01/29/2024, 05/22/2023. RESULT: Lines, tubes, and devices: None. Lungs and pleura: Ill-defined segmental airspace disease in the right upper lobe, best seen in the l ateral view. No pneumothorax or pleural effusion. Cardiomediastinal silhouette: Stable. Other: No acute osseous or upper abdominal finding. IMPRESSION: Findings concerning for right upper lobe pneumonia. Reviewed, dictated and finalized at location K.
[2024-08-30 19:12] VITALS: BP 136/87; PULSE 126; RESP 18; TEMP 37.7; O2SAT 100
--- NOTE | 2024-08-30 19:13 | ED.GENADULT ---
HPI - General Adult General Chief complaint: Upper Respiratory Infection Stated complaint: upper respiratory Time Seen by Provider: 08/30/24 19:13 Source: patient Mode of arrival: ambulatory Limitations: no limitations History of Present Illness HPI narrative: 34-year-old white female complains of cough and fever for last 2 weeks associated with the yellow-green sputum trunk back and chest discomfort with cough. Sore throat sneezing and runny nose. She has been taking Tylenol and cough drops. She has had no exposure to COVID but her family was sick a month or month and half ago. She has had some nausea without any vomiting. She denies any rash or itching bleeding or bruising swelling lumps or bumps dizziness or lightheadedness. She has general fatigue and tiredness and generalized weakness. Denies any numbness. Denies any other complaints. She lost 83 lb on Ozempic she has hyperglycemia. She is on Ozempic for weight loss and for her hyperglycemia. She called her primary care provider [facility] nurse practitioner on Saturday but could get in. That was 2 days ago. Related Data Home Medications Medication Instructions Recorded Confirmed clonazepam 0.5 mg tablet 0.5 mg PO QHS 04/24/24 08/30/24 lamotrigine 100 mg tablet 200 mg PO DAILY 04/24/24 08/30/24 hydroxychloroquine 100 mg tablet 100 mg PO DAILY 06/15/24 08/30/24 acetaminophen 325 mg capsule 650 mg PO Q6H PRN pain 06/25/24 08/30/24 (Tylenol) omeprazole magnesium 20 mg 20 mg PO DAILY acid reflux 06/25/24 08/30/24 tablet,delayed release (Prilosec OTC) propranolol 10 mg tablet 5 mg PO DAILY 06/25/24 08/30/24 bupropion HCl 100 mg tablet,12 hr 100 mg PO DAILY 08/30/24 08/30/24 sustained-release Allergies Allergy/AdvReac Type Severity Reaction Status Date / Time ciprofloxacin Allergy Intermediate trouble Verified 08/30/24 19:32 breathing Review of Systems Review of Systems: All systems reviewed & are unremarkable except as noted in HPI and below PMFSH Past Medical History Medical History Anxiety Eczema Gestational diabetes mellitus (GDM) affecting , antepartum History of spontaneous x5 Hypertension former, resolved with weight loss Panic attacks Positive MANDO (antinuclear antibody) (spontaneous vaginal delivery) x3 Trace mitral valve regurgitation Trace tricuspid valve regurgitation Surgical History Surgical History History of dilatation and curettage Hx laparoscopic cholecystectomy 06/26/24 Dr. Katrina Blackwell Family History Family History Mother Unknown family medical history Father Unknown family medical history Grandparent Esophageal cancer Grandparent Cerebrovascular accident Social History Social History Smoking status: Current every day smoker Tobacco type: e-cigarettes/vaping Second hand tobacco smoke exposure: No Additional smoking assessment comments: pt states vapes, but not cigarettes. Alcohol intake: never Substance use: never Substance use type: does not use Do You Feel Safe in your Home?: Yes Lack of Transportation: No Lack of Food: Sometimes True Current Housing: I Have Housing Concerned About Future Housing: No Difficulty Paying Gas/Electric Bills: YES Difficulty Paying for Meds: No Currently Unemployed: No Education: High School Diploma/GED Difficulty w/ Childcare or Family Care: YES Living arrangements: with family Additional living arrangements comments: with one child Occupation/Education: unemployed Gender identity (if verbalized by the patient): Female Spiritual care concerns: No Exam Narrative: White female patient with no apparent distress.? Pulse 126 temp 37.7? centigrade rest of the vitals are normal. Head normocephalic, atraumatic.? Eyes conjunctiva pink sclera nonicteric.? Extraocular movements are intact.? Ears externally normal.? Oropharynx is clear with moist mucous membranes without exudates.? Neck is supple nontender no lymphadenopathy.? Back is nontender.? Lungs are clear.?Heart is regular rate and rhythm without murmurs gallops or rubs.? Chest wall nontender. Abdomen is soft and nontender no hepatosplenomegaly or masses no CVA tenderness no abdominal bruits.? Extremities no cyanosis clubbing or edema.? Skin is warm and dry without rashes or lesions.? Neurological patient is alert and oriented x4.? Motor and sensory grossly intact.? Gait is normal. Course Vital Signs Vital signs: Vital Signs Temperature 37.7 C H 08/30/24 19:12 Pulse Rate 126 H 08/30/24 19:12 Respiratory Rate 18 08/30/24 19:12 Blood Pressure 136/87 08/30/24 19:12 Pulse Oximetry 100 08/30/24 19:12 Oxygen Delivery Room Air 08/30/24 19:12 Temperature 37.7 C H 08/30/24 19:12 Pulse Rate 126 H 08/30/24 19:12 Respiratory Rate 18 08/30/24 19:12 Blood Pressure 136/87 08/30/24 19:12 Pulse Oximetry 100 08/30/24 19:12 Oxygen Delivery Room Air 08/30/24 19:12 Medical Decision Making MDM Narrative Medical decision making narrative: Patient was placed in Room # 6 History and physical was performed. COVID flu RSV negative, strep screen negative, test negative chest x-ray PA and lateral per radiologist:Findings concerning for right upper lobe pneumonia. Independent Historian: patient External Source Review: Differential Dx includes but not limited to: COVID flu RSV pneumonia Medications were Reviewed: home meds reviewed Independently Interpreted by me: Meds, treatment, ED course: Zofran 4 ODT Social Situation Impacting Patients Care: Shared decision Making: evaluation was discussed all questions were asked and answered patient agreed with the plan. Discussed with Dr. ZAIDI DIAGNOSIS: Right upper lobe pneumonia DISPOSITION: discharge home CONDITION AT DISCHARGE: stable Vital Signs Vital Signs: Vital Signs Temperature 37.7 C H 08/30/24 19:12 Pulse Rate 126 H 08/30/24 19:12 Respiratory Rate 18 08/30/24 19:12 Blood Pressure 136/87 08/30/24 19:12 Pulse Oximetry 100 08/30/24 19:12 Oxygen Delivery Room Air 08/30/24 19:12 Temperature 37.7 C H 08/30/24 19:12 Pulse Rate 126 H 08/30/24 19:12 Respiratory Rate 18 08/30/24 19:12 Blood Pressure 136/87 08/30/24 19:12 Pulse Oximetry 100 08/30/24 19:12 Oxygen Delivery Room Air 08/30/24 19:12 Lab Data Labs: Lab Results 08/30/24 08/30/24 Range/Units 19:14 20:28 Urine Test Negative Influenza A (RT-PCR) Negative (Negative) Influenza B (RT-PCR) Negative (Negative) RSV (RT-PCR) Negative (Negative) SARS-CoV-2 RNA (RT-PCR) Negative (Negative) Group A Strep (PCR) Not detected (Negative) Discharge Plan Discharge Clinical Impression: Pneumonia Qualifiers: Pneumonia type: due to unspecified organism Laterality: right Lung location: upper lobe of lung Qualified Code(s): J18.9 - Pneumonia, unspecified organism Patient Disposition: Home, Self-Care Condition: Stable Instructions: Antibiotic Form, Bacterial Pneumonia (ED) Additional Instructions: doxycycline 100 mg twice a day for 7 days. Albuterol 2 puffs 4 times a day for 10 days. Zofran 4 mg dissolved under tongue every 4 hours as needed for nausea vomiting. Increase her fluids by mouth. Return if you get worse or develops any new symptoms. Follow-up with your primary care provider this week. Prescriptions: New doxycycline hyclate 100 mg capsule 100 mg PO BID 10 Days Qty: 20 0RF albuterol sulfate 90 mcg/actuation aerosol powdr breath activated 2 inh inhalation QID 10 Days Qty: 1 0RF ondansetron 4 mg tablet,disintegrating 4 mg PO Q4H PRN (Reason: nausea and vomiting) 7 Days Qty: 14 0RF Rx Instructions: give 1st dose 30min before emetogenic chemo No Action clonazepam 0.5 mg tablet 0.5 mg PO QHS lamotrigine 100 mg tablet 200 mg PO DAILY propranolol 10 mg tablet 5 mg PO DAILY bupropion HCl 100 mg tablet sustained-release 12 hr 100 mg PO DAILY dicyclomine 20 mg tablet 20 mg PO TID PRN (Reason: abdominal pain) Qty: 30 1RF cyclobenzaprine 5 mg tablet 5 mg PO QHS PRN (Reason: muscle spasm) Qty: 30 1RF Rx Instructions: Can increase to 10 mg (2 tablets) as needed at night magnesium hydroxide [Milk of Magnesia] 400 mg/5 mL suspension 30 ml PO BID PRN (Reason: constipation) Qty: 355 0RF nicotine 14 mg/24 hr patch 24 hour 1 patch transdermal DAILY Qty: 14 0RF Rx Instructions: STEP 2 hydroxychloroquine 100 mg tablet 100 mg PO DAILY Patient Comments: Once daily at night. Ozempic 2 mg/dose (8 mg/3 mL) pen injector 2 mg subcut WEEKLY 28 Days Qty: 3 1RF Rx Instructions: Saturday acetaminophen [Tylenol] 325 mg Capsule 650 mg PO Q6H PRN (Reason: pain) omeprazole magnesium [Prilosec OTC] 20 mg tablet,delayed release (DR/EC) 20 mg PO DAILY Ferrous Sulfate 28 mg PO BID 30 Days Qty: 60 2RF Follow-up/Referrals: Tavo Moffett APRN [Primary Care Provider] - Time of Disposition: 21:29
--- NOTE | 2024-08-30 19:23 | PC.NURSE ---
COVID PCR obtained and taken to lab
[2024-08-30 20:11] LABS: Influenza A QL RT-PCR Negative (Negative); Influenza B QL RT-PCR Negative (Negative); RSV RNA, RT-PCR Negative (Negative); SARS-CoV-2 RNA PCR Negative (Negative)
[2024-08-30 20:46] LABS: Pregnancy On Board Control Positive; Urine Pregnancy Test Negative
[2024-08-30 21:10] LABS: Strep Group A RT-PCR NOT DETECTED (Negative)
[2024-08-30] MEDS: ONDANSETRON HCL ODT 4 MG TABLET PO (21:21)
[2024-08-30] MEDS: DOXYCYCLINE HYCLATE 100 MG TABLET PO (21:52)
[2024-08-30 21:59] VITALS: BP 128/79; PULSE 98; RESP 18; TEMP 37.2; O2SAT 100
== END 2024-08-30 21:59 | disposition home or self-care (01) ==
PROVIDERS: Emergency Provider Emergency Medicine; PCP Nurse Practitioner Family
DX: J18.9 Pneumonia, unspecified organism (principal); I10 Essential (primary) hypertension; F17.290 Nicotine dependence, other tobacco product, uncomplicated; Z79.899 Other long term (current) drug therapy; Z20.822 Contact with and (suspected) exposure to COVID-19
CPT/HCPCS: 71046; 81025; 87637; 87651; 99283; A9270

== ENCOUNTER 2024-09-14 09:22 | Outpatient (CLI) | payer MEDICARE, MEDICAID, SELFPAY ==
--- NOTE | ~2024-09-14 | XR_ITS ---
Clinical Indication: Pneumonia PA and lateral views of the chest: Comparison: 08/30/2024 Findings: The lungs are clear, without evidence of focal consolidation or pleural effusion. Cardiome diastinal silhouette is within normal limits. Bones and soft tissues are unremarkable. Impression: Normal chest. Reviewed, dictated and finalized at location . Impression: Normal chest.
== END 2024-09-14 09:23 | disposition home or self-care (01) ==
LOC: CHSIMG 09:24
PROVIDERS: PCP Nurse Practitioner Family; Visit Provider Nurse Practitioner Family
DX: J18.9 Pneumonia, unspecified organism (principal)
CPT/HCPCS: 71046

== ENCOUNTER 2024-10-12 15:35 | Outpatient (CLI) | payer MEDICARE, MEDICAID, SELFPAY ==
--- NOTE | 2024-10-12 15:55 | ECG_ITS ---
Test Date: 2024-10-12 16:06:31 Measurements Intervals [place] Rate: 88 P: 56 [place]: 134 QRS: 71 QRSD: 83 T: 62 QT: 356 QTc: 433 Interpretive Statements SINUS RHYTHM BASELINE WANDER- II, III, AVR, AVL, AVF NORMAL ECG Compared to ECG 06/25/2024 10:30:56 No significant changes Electronically Signed On 10-12-2024 16:16:55 CASH SURRENDER CALCULATOR by Bob Encarnacion D.O.
[2024-10-12 15:58] LABS: Basophils Absolute Auto 0.02 K/mm3 (0.00-0.10); Basophils Percent Auto 0.3 % (0.0-1.0); Eosinophils Absolute Auto 0.14 K/mm3 (0.02-0.50); Eosinophils Percent Auto 2.1 % (1.0-6.0); Hematocrit 40.2 % (35.0-49.0); Hemoglobin 13.7 g/dL (12.0-15.0); Immature Granulocyte Absolute 0.02 K/mm3 (0.00-0.00); Immature Granulocyte Percent A 0.3 % (0.0-0.0); Lymphocytes Absolute Auto 1.93 K/mm3 (1.10-4.50); Lymphocytes Percent Auto 29.4 % (18.0-42.0); Mean Corpuscular HGB Conc 34.1 g/dL (32-36); Mean Corpuscular Hemoglobin 31.1 pg (27.0-31.0); Mean Corpuscular Volume 91.2 fL (78.0-102.0); Mean Platelet Volume 8.6 fl (9.2-11.8); Monocytes Absolute Auto 0.33 K/mm3 (0.10-0.90); Neutrophils Absolute Auto 4.12 K/mm3 (1.70-7.20); Neutrophils Percent Auto 62.9 % (50.0-70.0); Platelet Count Result 347 K/mm3 (150-420); Red Blood Count 4.41 M/mm3 (4.20-5.40); White Blood Count 6.6 K/mm3 (4.8-10.8)
[2024-10-12 16:00] LABS: Add Urine Microscopic? YES; Appearance Urine Clear (Clear); Bilirubin Urine Negative (Negative); Blood Urine Negative (Negative); Color Urine Light Yellow (Yellow); Glucose Urine UA Negative (Negative); Ketones Urine Negative (Negative); Leukocyte Esterase Ur Trace (Negative); Nitrate Urine Negative (Negative); Protein Urine Negative (Negative); Urobilinogen Urine 0.2 mg/dL (0.2-1.0)
[2024-10-12 16:06] LABS: Bacteria Urine 3+ /hpf; RBC Urine 0-2 /hpf (0-2); Squamous Epithelial Cell Urine Moderate /hpf (Few)
[2024-10-12 17:11] LABS: Alanine Aminotransferase 57 U/L (14-59); Alkaline Phosphatase 97 U/L (46-116); Anion Gap 8 mmol/L (4-12); Aspartate Amino Transferase 29 U/L (15-37); Carbon Dioxide 29 mmol/L (21-32); Chloride 101 mmol/L (98-108); Estimated Glomerular Filt Rate > 60; Free T4 Free Thyroxine 0.93 ng/dL (0.76-1.46); Iron 143 ug/dL (50-170); Sodium 138 mmol/L (136-145); Thyroid Stimulating Hormone 1.54 uIU/mL (0.36-3.74); Total Protein 7.1 g/dL (6.4-8.2); Vitamin B12 749 pg/mL (193-986)
[2024-10-12 17:39] LABS: Albumin Level 4.1 g/dL (3.4-5.0); Bilirubin,Total 0.7 mg/dL (0.00-1.00); Blood Urea Nitrogen 10 mg/dL (7-18); Calcium 9.5 mg/dL (8.5-10.1); Glucose 78 mg/dL (70-99); Osmolality Calculated 284 mOsm/kg (285-295)
[2024-10-13 09:09] LABS: Vitamin D 25 Hydroxy 27 ng/mL (30-100)
[2024-10-13 09:38] LABS: Total Triiodothyronine (T3) 123 ng/dL (76-181)
== END 2024-10-12 15:36 | disposition home or self-care (01) ==
PROVIDERS: PCP Nurse Practitioner Family; Visit Provider Obstetrics & Gynecology Gynecology
DX: O26.21 Pregnancy care for patient with recurrent pregnancy loss, first trimester (principal); Z79.899 Other long term (current) drug therapy; R79.89 Other specified abnormal findings of blood chemistry; R00.0 Tachycardia, unspecified
CPT/HCPCS: 36415; 80053; 81001; 82306; 82607; 83540; 83735; 84439; 84443; 84480; 84702; 85025; 93005

== ENCOUNTER 2024-10-14 16:27 | Outpatient (CLI) | payer MEDICARE, MEDICAID, SELFPAY | END 2024-10-14 16:28 | disposition home or self-care (01) | PROVIDERS: PCP Nurse Practitioner Family; Visit Provider Obstetrics & Gynecology Gynecology | DX: O26.21 Pregnancy care for patient with recurrent pregnancy loss, first trimester (principal); O02.81 Inappropriate change in quantitative human chorionic gonadotropin (hCG) in early pregnancy | CPT/HCPCS: 36415; 84702 ==

== ENCOUNTER 2024-10-21 13:35 | Outpatient (CLI) | payer MEDICARE, MEDICAID, SELFPAY ==
--- NOTE | ~2024-10-21 | US_ITS ---
EXAMINATION: US OB transvaginal DATE: 10/21/2024 14:34 INDICATION: Spotting in the first trimester. Beta-hCG was 14,357 mIU/mL on 10/14/24. TECHNIQUE: Real-time transvaginal pelvic ultrasound was performed. COMPARISON: None. FINDINGS: The uterus measures 9.0 x 5.6 x 5.0 cm. There is no visible intrauterine gestational sac. The endomet rial complex measures 21 mm in thickness. The right ovary measures 3.7 x 2.0 x 2.3 cm. The left ovary measures 5.1 x 3.6 x 3.3 cm. There is a 3.6 cm cyst in left ovary, likely a follicular cyst. There i s no free fluid in the pelvis. IMPRESSION: 1. No visible intrauterine gestational sac. Given the recent beta-hCG, this finding may be secondary to spontaneous or ectopic . Reviewed, dictated and finalized at location A. NESS INTELLIGENCE DIRECTOR IMPRESSION: 1. No visible intrauterine gestational sac. Given the recent beta-hCG, this fi nding may be secondary to spontaneous or ectopic .
== END 2024-10-21 13:36 | disposition home or self-care (01) ==
PROVIDERS: PCP Nurse Practitioner Family; Visit Provider Obstetrics & Gynecology Gynecology
DX: O26.851 Spotting complicating pregnancy, first trimester (principal); O26.21 Pregnancy care for patient with recurrent pregnancy loss, first trimester
CPT/HCPCS: 76817

== ENCOUNTER 2024-10-22 07:44 | Outpatient (CLI) | payer MEDICARE, SELFPAY | END 2024-10-22 07:45 | disposition home or self-care (01) | LOC: CHSLAB 07:45 | PROVIDERS: PCP Nurse Practitioner Family; Visit Provider Obstetrics & Gynecology Gynecology | DX: O03.9 Complete or unspecified spontaneous abortion without complication (principal); O02.81 Inappropriate change in quantitative human chorionic gonadotropin (hCG) in early pregnancy | CPT/HCPCS: 36415; 84702 ==

== ENCOUNTER 2024-10-28 09:29 | Day surgery (SDC) | payer MEDICARE, SELFPAY ==
[2024-09-03 15:03] VITALS: BMI 29.0
[2024-10-28 11:05] VITALS: BP 117/77; PULSE 85; RESP 15; TEMP 37.1; O2SAT 100
[2024-10-28 11:19] LABS: Glucose Point of Care 66 mg/dl (65-105)
[2024-10-28] MEDS: LACTATED RINGERS 1,000 ML 150 ML IV CONT (11:20)
--- NOTE | 2024-10-28 11:25 | SUR.PREOP ---
Pt at [facility] for colonoscopy procedure. While getting pt ready for procedure Pt states had a confirmed miscarriage last week. Pt's test performed today at [facility] positive. Pt states had an ultrasound at [facility] on 10/21/24 which showed no visible intrauterine gestational sac and then had confirmed decreasing beta-hcg levels. This RN went over this information with Dr. Cuellar and Dr. Bowman who both state it is okay to procedure with procedure. Both physicians spoke with patient at bedside. Pt would like to continue with plan of colonoscopy today. Pt's pre-op blood sugar 66, pt states is asymptomatic of low blood sugar symptoms. Dr. Cuellar notified of pt's blood sugar. No further orders at this time, but states he would like a post-op blood sugar drawn.
--- NOTE | 2024-10-28 11:35 | WPDANESEPPF ---
Anes - Initial Pre Proc Eval Procedure: Operation Date: 10/28/24 12:00 Proposed Procedures p Diagnostic Colonoscopy - Randal Bowman MD Date/Time: 10/28/24 11:35 Surgeon: Randal Bowman MD Pre Op Diagnosis: Abnormal Findings on Diagnostic Imaging of Other Patient Data Age: 34 Gender: F Height: 1.65 m Weight: 81.25 kg Last Vital Signs Temp 37.1 C 10/28/24 11:05 Pulse 85 10/28/24 11:05 Resp 15 10/28/24 11:05 BP 117/77 10/28/24 11:05 Pulse Ox 100 10/28/24 11:05 O2 Del Method Room Air 10/28/24 11:05 Allergies Allergy/AdvReac Type Severity Reaction Status Date / Time ciprofloxacin Allergy Intermediate trouble Verified 10/28/24 10:53 breathing Home Medications ?Medication ?Instructions ?Recorded ?Confirmed ?Type ferrous sulfate 28 mg PO BID 30 days #60 tabs 07/26/22 10/28/24 Rx clonazepam 0.5 mg tablet 0.5 mg PO QHS 04/24/24 10/28/24 History lamotrigine 100 mg tablet 200 mg PO DAILY 04/24/24 10/28/24 History cyclobenzaprine 5 mg tablet 5 mg PO QHS PRN muscle spasm #30 05/05/24 10/28/24 Rx tabs dicyclomine 20 mg tablet 20 mg PO TID PRN abdominal pain 05/05/24 10/28/24 Rx #30 tabs acetaminophen 325 mg capsule 650 mg PO Q6H PRN pain 06/25/24 10/28/24 History (Tylenol) omeprazole magnesium 20 mg 20 mg PO DAILY acid reflux 06/25/24 10/28/24 History tablet,delayed release (Prilosec OTC) propranolol 10 mg tablet 5 mg PO DAILY 06/25/24 10/28/24 History benzonatate 200 mg capsule 200 mg PO TID PRN cough #30 caps 09/07/24 10/28/24 Rx guaifenesin 200 mg tablet 200 mg PO QID PRN congestion #30 09/07/24 10/28/24 Rx tabs hydroxychloroquine 100 mg tablet 200 mg PO DAILY 10/02/24 10/28/24 History melatonin 1 tab-cap PO DIRECTED 10/06/24 10/28/24 History nicotine 14 mg/24 hr daily 10/28/24 History transdermal patch semaglutide 1 mg/dose (4 mg/3 mL) mg subcut 10/28/24 History subcutaneous pen injector (Ozempic) Laboratory Tests 10/28/24 11:16 POC Capillary Glucose 66 mg/dl (65-105) Patient hx anesthesia problems: none Family hx anesthesia problems: none Results Review: All pre-operative results and documents have been reviewed as part of the pre-operative evaluation. [facility] Past Medical History Medical History History of spontaneous x5 Hypertension former, resolved with weight loss Trace tricuspid valve regurgitation Trace mitral valve regurgitation Positive MANDO (antinuclear antibody) Eczema Anxiety Gestational diabetes mellitus (GDM) affecting , antepartum (spontaneous vaginal delivery) x3 Panic attacks Surgical History Surgical History Hx laparoscopic cholecystectomy 06/26/24 Dr. Katrina Blackwell History of dilatation and curettage Family History Family History Mother Unknown family medical history Father Unknown family medical history Grandparent Esophageal cancer Grandparent Cerebrovascular accident Social History Social History Smoking status: Former smoker Tobacco type: e-cigarettes/vaping Smokeless tobacco user: other Second hand tobacco smoke exposure: No Additional smoking assessment comments: pt states vapes, but not cigarettes. Alcohol intake: never Substance use: never Substance use type: does not use Do You Feel Safe in your Home?: Yes Lack of Transportation: No Lack of Food: Sometimes True Current Housing: I Have Housing Concerned About Future Housing: No Difficulty Paying Gas/Electric Bills: YES Difficulty Paying for Meds: No Currently Unemployed: No Education: High School Diploma/GED Difficulty w/ Childcare or Family Care: YES Living arrangements: with family Additional living arrangements comments: with one child Occupation/Education: unemployed Gender identity (if verbalized by the patient): Female Spiritual care concerns: No Anes - Eval Final PreProcedure Day of Procedure 10/28/24 11:35 Patient weight: overweight Heart: regular rate and rhythm Lungs: clear to auscultation Airway: Mallampati scale class II Neurological: alert and oriented Last oral intake: >/= 8 hours ASA classification: III Emergent: no Anesthetic plan: proceed Anesthesia type and monitoring: general and standard monitoring Results Review: All pre-operative results and documents have been reviewed as part of the pre-operative evaluation. Informed Consent: The patient's anesthetic plan and its attendant risks and benefits were discussed with the patient/family/POA. Questions were solicited and answers provided to the satisfaction of the patient/family/POA.
--- NOTE | 2024-10-28 11:39 | PM.HPGS ---
History of Present Illness History of Present Illness Consent: Risks, benefits, and alternatives have been discussed and questions answered. Patient agrees to proceed with procedure. Chief complaint: Abnormal CT scan Narrative: Ashlee Webster is a 34 year old female referred for colonoscopy. Patient has a history of abdominal pain requiring her to go to the emergency room in April of this year. CT scan of the abdomen revealed thickening to the transverse colon. For this reason she presents today for colonoscopy. Patient reports that dilated gallbladder was noted on that CT scan. Additional testing and ongoing pain prompted additional testing and ultimately cholecystectomy. Patient states that her abdominal pain has resolved. She also reports having had a miscarriage within the last month. Patient presents today for colonoscopy to assess abnormalities seen on initial CT scanning 6 months ago. Review of Systems Review of Systems: All systems reviewed & are unremarkable except as noted in HPI and below PMFSH Past Medical History Medical History History of spontaneous x5 Hypertension former, resolved with weight loss Trace tricuspid valve regurgitation Trace mitral valve regurgitation Positive MANDO (antinuclear antibody) Eczema Anxiety Gestational diabetes mellitus (GDM) affecting , antepartum (spontaneous vaginal delivery) x3 Panic attacks Surgical History Surgical History Hx laparoscopic cholecystectomy 06/26/24 Dr. Katrina Blackwell History of dilatation and curettage Family History Family History Mother Unknown family medical history Father Unknown family medical history Grandparent Esophageal cancer Grandparent Cerebrovascular accident Social History Social History Smoking status: Former smoker Tobacco type: e-cigarettes/vaping Smokeless tobacco user: other Second hand tobacco smoke exposure: No Additional smoking assessment comments: pt states vapes, but not cigarettes. Alcohol intake: never Substance use: never Substance use type: does not use Do You Feel Safe in your Home?: Yes Lack of Transportation: No Lack of Food: Sometimes True Current Housing: I Have Housing Concerned About Future Housing: No Difficulty Paying Gas/Electric Bills: YES Difficulty Paying for Meds: No Currently Unemployed: No Education: High School Diploma/GED Difficulty w/ Childcare or Family Care: YES Living arrangements: with family Additional living arrangements comments: with one child Occupation/Education: unemployed Gender identity (if verbalized by the patient): Female Spiritual care concerns: No Meds Home Medications and Allergies Home Medications ?Medication ?Instructions ?Recorded ?Confirmed ?Type ferrous sulfate 28 mg PO BID 30 days #60 tabs 07/26/22 10/28/24 Rx clonazepam 0.5 mg tablet 0.5 mg PO QHS 04/24/24 10/28/24 History lamotrigine 100 mg tablet 200 mg PO DAILY 04/24/24 10/28/24 History cyclobenzaprine 5 mg tablet 5 mg PO QHS PRN muscle spasm #30 05/05/24 10/28/24 Rx tabs dicyclomine 20 mg tablet 20 mg PO TID PRN abdominal pain 05/05/24 10/28/24 Rx #30 tabs acetaminophen 325 mg capsule 650 mg PO Q6H PRN pain 06/25/24 10/28/24 History (Tylenol) omeprazole magnesium 20 mg 20 mg PO DAILY acid reflux 06/25/24 10/28/24 History tablet,delayed release (Prilosec OTC) propranolol 10 mg tablet 5 mg PO DAILY 06/25/24 10/28/24 History benzonatate 200 mg capsule 200 mg PO TID PRN cough #30 caps 09/07/24 10/28/24 Rx guaifenesin 200 mg tablet 200 mg PO QID PRN congestion #30 09/07/24 10/28/24 Rx tabs hydroxychloroquine 100 mg tablet 200 mg PO DAILY 10/02/24 10/28/24 History melatonin 1 tab-cap PO DIRECTED 10/06/24 10/28/24 History nicotine 14 mg/24 hr daily 10/28/24 History transdermal patch semaglutide 1 mg/dose (4 mg/3 mL) mg subcut 10/28/24 History subcutaneous pen injector (Ozempic) Allergies Allergy/AdvReac Type Severity Reaction Status Date / Time ciprofloxacin Allergy Intermediate trouble Verified 10/28/24 10:53 breathing Vital Signs Vital Signs - 24 hr 10/28/24 11:05 Temperature 98.7 F Pulse Rate 85 Respiratory Rate 15 Blood Pressure 117/77 Pulse Oximetry 100 Oxygen Delivery Room Air Exam Narrative: Physical exam reveals patient to be alert. Vital signs stable. HEENT exam is unremarkable. Patient is anicteric. Lungs are clear to auscultation and percussion. Heart is without murmur or extra sounds. Abdomen bowel sounds are present soft nontender with no organomegaly. Digital external rectal exam normal. Assessment and Plan Assessment and plan (1) Abnormal CT scan, colon: Code(s): R93.3 - Abnormal findings on diagnostic imaging of other parts of digestive tract Status: Acute Assessment and Plan: Patient was found to have abnormal CT scan suggesting thickening of the transverse colon in April of 2024. Patient presents today for colonoscopy to assess this area. Previous symptoms have resolved after cholecystectomy.
[2024-10-28 12:33] VITALS: BP 105/66; PULSE 92; RESP 18; O2SAT 100
[2024-10-28 12:43] VITALS: BP 104/60; PULSE 72; RESP 16; O2SAT 100
[2024-10-28 12:53] VITALS: BP 106/71; PULSE 85; RESP 18; O2SAT 100
[2024-10-28 13:08] LABS: Glucose Point of Care 72 mg/dl (65-105)
== END 2024-10-28 13:15 | disposition home or self-care (01) ==
PROVIDERS: PCP Nurse Practitioner Family; Visit Provider Internal Medicine Gastroenterology
PROC: 0DJD8ZZ Inspection of Lower Intestinal Tract, Via Natural or Artificial Opening Endoscopic (ICD-10-PCS; CPT 45378; principal; 2024-10-28 12:00)
DX: R93.3 Abnormal findings on diagnostic imaging of other parts of digestive tract (principal)
CPT/HCPCS: 45378

== ENCOUNTER 2024-11-05 09:26 | Outpatient (RCR) | payer MEDICARE, SELFPAY | END 2025-01-28 23:59 | disposition home or self-care (01) | LOC: CHSLAB 09:26 | PROVIDERS: PCP Nurse Practitioner Family; Visit Provider Obstetrics & Gynecology Gynecology | DX: O03.9 Complete or unspecified spontaneous abortion without complication (principal); O02.81 Inappropriate change in quantitative human chorionic gonadotropin (hCG) in early pregnancy | CPT/HCPCS: 36415; 84702 ==

== ENCOUNTER 2024-11-12 00:53 | Day surgery (SDC) | payer MEDICARE, MEDICAID, SELFPAY ==
[2024-11-05 15:28] VITALS: BMI 28.3
--- NOTE | 2024-11-05 15:33 | PC.NURSE ---
Report to the Outpatient Waiting Room, entrance under the green pavilion located off [facility], at time _0600_ on date _[id number]_. Planned Procedure Time: _0730_.? Time changes happen often and if your time is changed the preop area will call you the afternoon before. - You and your visitor will be asked to self-screen and do not enter if you have any COVID symptoms. Please call surgeon if you need to reschedule. - A mask is optional within the hospital at this time. Patients may have clear liquids (water, carbonated beverages, clear teas, apple juice) until 3 hours prior to surgery with a maximum of 20 ounces. - No food from midnight until time of surgery and no smoking. This includes no chewing gum, candy or mints. Take only the following medications with a SIP of water on the morning of surgery: Lamotrigine and Propanolol DO NOT STOP ANY OF YOUR OTHER PRESCRIPTION MEDICATIONS PRIOR TO SURGERY EXCEPT THE FOLLOWING Medications to discontinue per physician __Vitamins and supplements____ Date to take last wxah___[phone]__ Please no make-up, nail maori, hairspray, perfume, deodorant, or body powder the day of surgery.? No jewelry (including any body piercings) or valuables the day of surgery, leave them at home.? Please take a shower or bath the night before, or the morning of, surgery with an antibacterial soap.? Wear comfortable, loose fitting clothing.? - Jewelry must be removed prior to entering the operating room.? Rings and piercings that are not removed may be cut off. - The hospital will not accept responsibility for valuables.? - Please leave all valuables, including medications, at home the day of surgery. If you are going home after surgery, a licensed regional dedicated truck driver must drive you home.? - NO public transportation without another adult if you receive anesthesia. - We recommend that an adult stay with you for 24 hours following discharge. - We also recommend that you do not drive, make important decision, drink alcoholic beverages, or take any drugs that were not prescribed by your health care provider for at least 24 hours after your discharge time. Follow any additional instructions given to you from your surgeon. Telephone instructions given to _Ashlee__and asked if any additional questions and then verbalized understanding. Patient advised to call surgeon office or pre surgery nurse liaison [phone] if any additional questions.
[2024-11-12 06:57] VITALS: BP 95/55; PULSE 80; TEMP 36.2; O2SAT 99
--- NOTE | 2024-11-12 06:59 | P.PNAN_ITS ---
Anes - Initial Pre Proc Eval Procedure: Operation Date: 11/12/24 07:30 Proposed Procedures p Suction Dilation and Curettage - Minerva Hercules MD Date/Time: 11/12/24 06:59 Surgeon: Minerva Hercules MD Pre Op Diagnosis: Miscarriage Patient Data Age: 34 Gender: F Height: 1.65 m Weight: 77.3 kg Allergies Allergy/AdvReac Type Severity Reaction Status Date / Time ciprofloxacin Allergy Intermediate trouble Verified 11/05/24 15:23 breathing Home Medications ?Medication ?Instructions ?Recorded ?Confirmed ?Type ferrous sulfate 28 mg PO BID 30 days #60 tabs 07/26/22 11/05/24 Rx clonazepam 0.5 mg tablet 0.5 mg PO QHS 04/24/24 11/05/24 History lamotrigine 100 mg tablet 200 mg PO DAILY 04/24/24 11/05/24 History cyclobenzaprine 5 mg tablet 5 mg PO QHS PRN muscle spasm #30 05/05/24 11/05/24 Rx tabs dicyclomine 20 mg tablet 20 mg PO TID PRN abdominal pain 05/05/24 11/05/24 Rx #30 tabs acetaminophen 325 mg capsule 650 mg PO Q6H PRN pain 06/25/24 11/05/24 History (Tylenol) omeprazole magnesium 20 mg 20 mg PO DAILY acid reflux 06/25/24 11/05/24 History tablet,delayed release (Prilosec OTC) propranolol 10 mg tablet 5 mg PO DAILY 06/25/24 11/05/24 History hydroxychloroquine 100 mg tablet 200 mg PO DAILY 10/02/24 11/05/24 History melatonin 1 tab-cap PO DIRECTED 10/06/24 11/05/24 History nicotine 7 mg/24 hr daily See Rx Instructions .Route 10/29/24 11/05/24 Rx transdermal patch .COMPLEX #14 patches semaglutide 0.25 mg or 0.5 mg (2 0.25 mg (0.368 mL) subcut WEEKLY 1 10/29/24 11/05/24 Rx mg/3 mL) subcutaneous pen injector month #1.84 mL (Ozempic) zaleplon 10 mg capsule 10 mg PO DAILY PRN sleep 11/05/24 11/05/24 History Patient hx anesthesia problems: none Family hx anesthesia problems: none Results Review: All pre-operative results and documents have been reviewed as part of the pre- operative evaluation. FOR[facility]LY [facility] Past Medical History Medical History Schizoaffective disorder, bipolar type Borderline diabetes History of spontaneous x6 Hypertension former, resolved with weight loss Trace tricuspid valve regurgitation Trace mitral valve regurgitation Positive MANDO (antinuclear antibody) Eczema Anxiety (spontaneous vaginal delivery) x3 Panic attacks Surgical History Surgical History Hx laparoscopic cholecystectomy 06/26/24 Dr. Katrina Blackwell History of dilatation and curettage Family History Family History Mother Unknown family medical history Father Unknown family medical history Grandparent Esophageal cancer Grandparent Cerebrovascular accident Social History Social History Smoking status: Former smoker Tobacco type: e-cigarettes/vaping Smokeless tobacco user: other Second hand tobacco smoke exposure: No Additional smoking assessment comments: pt states vapes, but not cigarettes. Alcohol intake: never Substance use: never Substance use type: does not use Do You Feel Safe in your Home?: Yes Lack of Transportation: No Lack of Food: Sometimes True Current Housing: I Have Housing Concerned About Future Housing: No Difficulty Paying Gas/Electric Bills: YES Difficulty Paying for Meds: No Currently Unemployed: No Education: High School Diploma/GED Difficulty w/ Childcare or Family Care: YES Living arrangements: with family Additional living arrangements comments: with one child Occupation/Education: unemployed Gender identity (if verbalized by the patient): Female Spiritual care concerns: No Anes - Eval Final PreProcedure Day of Procedure 11/12/24 06:59 Patient weight: obese Heart: regular rate and rhythm Lungs: clear to auscultation Airway: Mallampati scale class 1 Neurological: alert and oriented Last oral intake: >/= 8 hours ASA classification: II Emergent: no Anesthetic plan: proceed Anesthesia type and monitoring: general GIVS and standard monitoring Results Review: All pre-operative results and documents have been reviewed as part of the pre- operative evaluation. Prev pt vaped, now on nicotine patch. DM, ozempic last taken 5 days ago, no N/V or early satiety. Informed Consent: The patient's anesthetic plan and its attendant risks and benefits were discussed with the patient/family/POA. Questions were solicited and answers provided to the satisfaction of the patient/family/POA.
[2024-11-12 07:00] LABS: Glucose Point of Care 85 mg/dl (65-105)
[2024-11-12] MEDS: ACETAMINOPHEN 500 MG TABLET 1000 MG PO (07:01)
[2024-11-12] MEDS: LACTATED RINGERS 1,000 ML 30 ML IV CONT (07:01)
--- NOTE | 2024-11-12 07:16 | PM.HPGS ---
History of Present Illness History of Present Illness Consent: Risks, benefits, and alternatives have been discussed and questions answered. Patient agrees to proceed with procedure. Chief complaint: Miscarriage Narrative: Ashlee Webster is a 34 year old female with a missed . Pelvic ultrasound shows no with hCG 14,000 initially. HCGs have continued to decrease except from 10/30 to 11 05 the hCG went from 2700 to 2900. It was therefore recommended the patient undergo D&C for pathology evaluation. Risks of procedure were reviewed including possible pathology, infection, bleeding, perforation, and anesthesia. Patient voices understanding and agrees to proceed. Review of Systems Review of Systems: not repeated day of surgery; patient states no changes in status PMFSH Past Medical History Medical History (Updated 11/12/24 @ 07:20 by Minerva Hercules MD) Schizoaffective disorder, bipolar type Borderline diabetes History of spontaneous x6 Hypertension former, resolved with weight loss Trace tricuspid valve regurgitation Trace mitral valve regurgitation Positive MANDO (antinuclear antibody) Eczema Anxiety (spontaneous vaginal delivery) x3 Panic attacks Surgical History Surgical History Hx laparoscopic cholecystectomy 06/26/24 Dr. Katrina Blackwell History of dilatation and curettage Family History Family History Mother Unknown family medical history Father Unknown family medical history Grandparent Esophageal cancer Grandparent Cerebrovascular accident Social History Social History Smoking status: Former smoker Tobacco type: e-cigarettes/vaping Smokeless tobacco user: other Second hand tobacco smoke exposure: No Additional smoking assessment comments: pt states vapes, but not cigarettes. Alcohol intake: never Substance use: never Substance use type: does not use Do You Feel Safe in your Home?: Yes Lack of Transportation: No Lack of Food: Sometimes True Current Housing: I Have Housing Concerned About Future Housing: No Difficulty Paying Gas/Electric Bills: YES Difficulty Paying for Meds: No Currently Unemployed: No Education: High School Diploma/GED Difficulty w/ Childcare or Family Care: YES Living arrangements: with family Additional living arrangements comments: with one child Occupation/Education: unemployed Gender identity (if verbalized by the patient): Female Spiritual care concerns: No Meds Home Medications and Allergies Home Medications ?Medication ?Instructions ?Recorded ?Confirmed ?Type ferrous sulfate 28 mg PO BID 30 days #60 tabs 07/26/22 11/05/24 Rx clonazepam 0.5 mg tablet 0.5 mg PO QHS 04/24/24 11/05/24 History lamotrigine 100 mg tablet 200 mg PO DAILY 04/24/24 11/05/24 History cyclobenzaprine 5 mg tablet 5 mg PO QHS PRN muscle spasm #30 05/05/24 11/05/24 Rx tabs dicyclomine 20 mg tablet 20 mg PO TID PRN abdominal pain 05/05/24 11/05/24 Rx #30 tabs acetaminophen 325 mg capsule 650 mg PO Q6H PRN pain 06/25/24 11/05/24 History (Tylenol) omeprazole magnesium 20 mg 20 mg PO DAILY acid reflux 06/25/24 11/05/24 History tablet,delayed release (Prilosec OTC) propranolol 10 mg tablet 5 mg PO DAILY 06/25/24 11/05/24 History hydroxychloroquine 100 mg tablet 200 mg PO DAILY 10/02/24 11/05/24 History melatonin 1 tab-cap PO DIRECTED 10/06/24 11/05/24 History nicotine 7 mg/24 hr daily See Rx Instructions .Route 10/29/24 11/05/24 Rx transdermal patch .COMPLEX #14 patches semaglutide 0.25 mg or 0.5 mg (2 0.25 mg (0.368 mL) subcut WEEKLY 1 10/29/24 11/05/24 Rx mg/3 mL) subcutaneous pen injector month #1.84 mL (Ozempic) zaleplon 10 mg capsule 10 mg PO DAILY PRN sleep 11/05/24 11/05/24 History Allergies Allergy/AdvReac Type Severity Reaction Status Date / Time ciprofloxacin Allergy Intermediate trouble Verified 11/05/24 15:23 breathing Vital Signs Vital Signs - 24 hr 11/12/24 06:57 Temperature 97.2 F L Pulse Rate 80 Blood Pressure 95/55 L Pulse Oximetry 99 Oxygen Delivery Room Air Exam Const: General: healthy appearing and alert Orientation/consciousness: patient oriented x3 Resp: Effort & Inspection: normal respiratory effort : External Female Exam: normal external appearance Speculum Exam - Vagina: normal appearance of the vagina and normal vaginal discharge Speculum Exam - Cervix: normal appearance of the cervix Bimanual exam- vagina & uterus: uterine size normal and consistency normal Bimanual Exam- Adnexa, other: normal adnexae and No adnexal tenderness Neuro: General: patient oriented x3 Assessment and Plan Assessment and plan (1) Missed : Code(s): O02.1 - Missed Status: Acute Assessment and Plan: Plan to proceed with D&C
--- NOTE | 2024-11-12 07:27 | WPDHPUPDATE1 ---
History and Physical Update Update Date/Time: 11/12/24 07:27 History and Physical has been reviewed, including an updated exam of the patient. There are NO changes in the patient's condition. Risks, benefits, and alternatives have been discussed and questions answered. Patient agrees to proceed with procedure.
[2024-11-12] MEDS: LIDOCAINE 1% PF INJ 5 ML VIAL 10 ML INFILTRATE (07:42)
--- NOTE | 2024-11-12 07:51 | P.OP_ITS ---
Procedure Note - Detailed Date of Procedure 11/12/24 Pre-op Diagnosis Missed Post-op Diagnosis Same Procedure Performed Suction D&C Surgeon Minerva Hercules MD Anesthesia MAC and Local Findings Uterus sounds to 8cm. Minimal products of conception. Description of Procedure Patient was taken to the operating room and placed under anesthesia in the dorsal lithotomy position. She was prepped and draped in the usual sterile fashion. [place] speculum was placed in the vagina and cervix was the anterior with a tenaculum. Cervix was injected in each quadrant with 1% lidocaine. Uterus is sounded to 8cm. The cervix was serially dilated to an 8 [place]. The uterus is evacuated using an 8 curved suction curette until no products were noted in the tubing. One additional pass was taken with a sharp curette and 1 additional pass was taken with the suction curette no additional material was obtained. All instruments are removed. The patient is awakened from anesthesia and taken to recovery in stable condition. Sponge, needle, and instrument c ounts are correct per the OR staff. Estimated Blood Loss 25 Drains No Packing No Pathology Yes (Products of conception) Complications No immediate complications Condition Stable Disposition PACU
[2024-11-12 07:53] VITALS: BP 86/54; PULSE 73; RESP 16; O2SAT 100
[2024-11-12] MEDS: KETOROLAC 15 MG/ML VIAL (*BKC) IV PUSH (08:06)
[2024-11-12 08:20] VITALS: BP 98/66; PULSE 62; RESP 20
[2024-11-12] MEDS: oxyCODONE HCL (*CRX) 5 MG TAB IR PO (08:25)
[2024-11-12 08:40] VITALS: BP 94/56; PULSE 60; RESP 20
== END 2024-11-12 08:55 | disposition home or self-care (01) ==
PROVIDERS: PCP Nurse Practitioner Family; Visit Provider Obstetrics & Gynecology Gynecology
PROC: (CPT 59820; principal; 2024-11-12 07:30)
DX: O02.1 Missed abortion (principal); I10 Essential (primary) hypertension; R73.03 Prediabetes; F25.0 Schizoaffective disorder, bipolar type; F41.9 Anxiety disorder, unspecified; F41.0 Panic disorder [episodic paroxysmal anxiety]; F17.290 Nicotine dependence, other tobacco product, uncomplicated; Z79.85 Long-term (current) use of injectable non-insulin antidiabetic drugs; Z98.890 Other specified postprocedural states; Z90.49 Acquired absence of other specified parts of digestive tract; Z80.0 Family history of malignant neoplasm of digestive organs; Z82.49 Family history of ischemic heart disease and other diseases of the circulatory system
CPT/HCPCS: 59820; 36415; 82948; 85461; 86850; 86900; 86901; 88305; A9270; J1885; J2003; J2210; J2250; J2704; J3010; J7120

== ENCOUNTER 2025-01-01 11:15 | Outpatient (CLI) | payer MEDICARE, MEDICAID, SELFPAY ==
--- OUTSIDE RECORDS SUMMARY | 2025-01-01 11:25 | XMS_ITS | Clinical Summary ---
Author Organization [facility] Address [address] [place] [address] Care Team Providers Care Student Union Consultant Name Role Phone Mai Saeed NP Primary Care Provider [phone] Encounters Date Type Department Care Team Description 12/07/2024 1:40 PM [facility] Lab [facility] [address] [place] [address] from Last 3 Months Social History Tobacco Use Types Packs/Day Years Used Date Smoking Tobacco: Never Assessed Personal Safety Answer Date Recorded Getting School Help Needed Not on file 01/18 Comments Unknown Sex and Gender Information Value Date Recorded Sex Assigned at Not on file Legal Sex Female 2:59 PM CDT Gender Identity Not on file Sexual Orientation Not on file Plan of Treatment Health Maintenance Due Date Last Done Comments Cervical Cancer Screening 1990 Depression Screening 1990 DTaP/Tdap/Td Vaccine (1 - Tdap) 2001 Varicella Vaccines (1 of 2 - 13+ 2-dose series) 2003 Hepatitis B Screening 2008 Regular Well Visit/Exam 18-64 2008 Covid-19 Vaccine (3 - 2023-2 5 season) 2024 03/24/2022, 03/15/2021 Influenza Vaccine (#1) 2024 Hepatitis C Screening Completed 2023 HPV Vaccines Aged Out No longer eligi ble based on patient's age to complete this topic Pneumococcal vaccine <65 Aged Out No longer eligible based on patient's age to complete this topic Procedures Procedure Name Priority Date/Time Associated Diagnosis Comments ALLEN ANTIBODY EVALUATION WITH REFLEX Routine 12/07/2024 1:41 PM [employer]IAL ANTI-DOUBLE STRANDED DNA ANTIBODIES Routine 12/07/2024 1:41 PM [employer]IAL EGFR Routine 12/07/2024 1:41 PM [employer]ICIAL DIFFERENTIAL AUTO Routine 12/07/2024 1:4 1 PM [employer]IAL RHEUMATOID FACTOR Routine 12/07/2024 1:4 1 PM [employer]IAL CRP (ACUTE PHASE) Routine 12/07/2024 1:4 1 PM [employer] OFFICIAL C3 COMPLEMENT Routine 12/07/2024 1:41 PM [employer]ADE [employer] OFFICIAL MANDO SCREEN W/REFLEX ALLEN+DSDNA Routine 12/07/2024 1:41 PM [employer] OFFICIAL C4 COMPLEMENT Routine 12/07/2024 1:41 PM [employer] OFFICIAL CREATINE KINASE (CK), TOTAL Routine 12/07/2024 1:41 PM [employer] OFFICIAL ERYTHROCYTE SEDIMENTATION RATE Routine 12/07/2024 1:41 PM [employer]IAL COMPREHENSIVE METABOLIC PANEL Routine 12/07/2024 1:41 PM [employer]ICIAL CYCLIC CITRUL PEPTIDE ANTIBODY, IGG Routine 12/07/2024 1:41 PM [employer] OFFICIAL CBC WITH AUTO DIFFERENTIAL Routine 12/07/2024 1:41 PM [employer]IAL HEPATITIS C ANTIBODY Routine 2023 3:12 PM CDT from Last 3 Months or Most Recently Relevant to Health Maintenance Results * (ABNORMAL) MANDO screen w/rflx ALLEN+dsDNA (12/07/2024 1:41 PM [employer] OFFICIAL) MANDO Positive 1:80 Comment: Interpretive Data Normal range for MANDO Qualitative Antibody = Negative. 1. MANDO is performed using indirect immunofluorescence against HEp-2 cells 2. MANDO titers are performed on all positive qualitative results. 3. A significantly positive MANDO result is defined as a positive nuclear fluorescence at a titer of 1:80 or greater. 4. 15% of normal people above age 65 have significantly positive MANDO results. 5% or less of normal people age 65 or under have significantly positive MANDO results. Current interpretive data was last revised on 2020. Testing performed by: [facility], [address] [place] [address]., [id number] MANDO, quant 1:80 titer [facility] Comment:Testing performed by : [facility], [address] [place] [address]., [id number] MANDO, interp Homogeneous (A) [facility] Comment:Testing performed by : [facility], [address] [place] [address]., [id number] Blood 12/07/2024 1:41 PM [employer] OFFICIAL 12/07/2024 8:18 PM [employer] OFFICIAL us Anca Negron MD LAB BLOOD ORDERABLES Final Resul t Performing Organization Address City/[facility]/ZIP Co de Phone Number [facility] [address] Department [place] [address] * Anti-double stranded DNA abs (12/07/2024 1:41 PM [employer] OFFICIAL) dsDNA Ab <1.0 <=4.0 IUnits/mL Comment: Interpretive Data Negative: < or = 4 IUnits/mL Indeterminate: 5 - 9 IUnits/mL Positive: > or = 10 IUnits/mL Current interpretive data was last revised on 2017. Testing performed by: [facility], [address] [place] [address]., [id number] Blood 12/07/2024 1:41 PM [employer] OFFICIAL 12/07/2024 8:18 PM [employer] OFFICIAL us Anca Negron MD LAB BLOOD ORDERABLES Final Resul t Performing Organization Address City/[facility]/ZIP Co de Phone Number [facility] [address] Department [place] [address] * eGFR (12/07/2024 1:41 PM TRADE [employer] OFFICIAL) Pathologist [facility] eGFR >90 >=60 mL/min/1. 73 m2 Comment: Interpretive Data Reference Interval Normal >/= 90 mL/min/1.73m2 Mildly decreased* 60 - 89 mL/min/1.73m2 Mildly to moderately decreased 45 - 59 mL/min/1.73m2 Moderately to severely decreased 30 - 44 mL/min/1.73m2 Severely decreased 15 - 29 mL/min/1.73m2 Kidney Failure < 15 mL/min/1.73m2 *Relative to young adult level Estimated glomerular filtration rate is determined by the 2020 CKD-EPI equation recommended by the National Kidney Foundation (A Unifying Approach to GFR Estimation: Recommendations of the NKF-ASK Task Force on Reassessing the Inclusion of Race in Diagnosing Kidney Disease, JASN 2020). The CKD-EPI equation should not be used for patients with unstable renal function and has not been validated in children and those over 70. Current interpretive data was last reviewed 2021. Blood 12/07/2024 1:41 PM [employer] OFFICIAL 12/07/2024 7:03 PM [employer] OFFICIAL us Anca Negron MD LAB BLOOD ORDERABLES Final Resul t [facility] [address] Department [place] [address] * Differential, auto (12/07/2024 1:41 PM [employer] OFFICIAL) Pathologist [facility] Neutrophil abs 3.7 1.5 - 6.5 K/cumm Imm gran abs 0.0 0.0 - 0.1 K/cumm [facility] Lymphocyte abs 2.1 0.8 - 3.3 K/cumm [facility] Monocyte abs 0.4 0.2 - 0.8 K/cumm [facility] Eosinophil abs 0.1 0.0 - 0.5 K/cumm [facility] Basophil abs 0.0 0.0 - 0.1 K/cumm [facility] Neutrophil pct 57.8 % [facility] Comment: Interpretive Data Percent cell count reference ranges are not reported, since discordance with absolute values may lead to misinterpretation of CBC data. Current Interpretive Data was last revised on 2018. Imm gran pct 0.3 % [facility] Comment: Interpretive Data Percent cell count reference ranges are not reported, since discordance with absolute values may lead to misinterpretation of CBC data. Current Interpretive Data was last revised on 2018. Lymphocyte pct 33.6 % [facility] Comment: Interpretive Data Percent cell count reference ranges are not reported, since discordance with absolute values may lead to misinterpretation of CBC data. Current Interpretive Data was last revised on 2018. Monocyte pct 5.8 % [facility] Comment: Interpretive Data Percent cell count reference ranges are not reported, since discordance with absolute values may lead to misinterpretation of CBC data. Current Interpretive Data was last revised on 2018. Eosinophil pct 2.0 % [facility] Comment: Interpretive Data Percent cell count reference ranges are not reported, since discordance with absolute values may lead to misinterpretation of CBC data. Current Interpretive Data was last revised on 2018. Basophil pct 0.5 % [facility] Comment: Interpretive Data Percent cell count reference ranges are not reported, since discordance with absolute values may lead to misinterpretation of CBC data. Current Interpretive Data was last revised on 2018. Blood 12/07/2024 1:41 PM [employer] OFFICIAL 12/07/2024 3:08 PM [employer] OFFICIAL us Anca Negron MD LAB BLOOD ORDERABLES Final Resul t [facility] [address] Department [place] [address] * C4 complement (12/07/2024 1:41 PM [employer] OFFICIAL) Complement C4 25 10 - 40 mg/dL Blood 12/07/2024 1:41 PM [employer] OFFICIAL 12/07/2024 7:03 PM [employer] OFFICIAL us Anca Negron MD LAB BLOOD ORDERABLES Final Resul t Performing Organization Address [facility] Co de Phone Number [facility] [address] [facility] [employer] [address] * ALLEN ab eval w/reflex (12/07/2024 1:41 PM [employer] OFFICIAL) Pathologist [facility] ALLEN ab Negative Negative Comment: Interpretive Data Positive Screens will be reflexed to specific testing for Antibodies against the following antigens: Thania-1 Ab, BUSINESS ANALYTICS DIRECTOR Ab, Scl-70 Ab, Jj Ab, SS-A/Ro Ab, and SS- B/La Ab. Further testing for dsDNA, Centromere, or Ribosomal P antibodies is suggested in patient with a positive screen and negative specific antibodies. Current interpretive data was last revised on 2023. Testing performed by: [facility], [address] [place]., [address] Blood 12/07/2024 1:41 PM [employer] OFFICIAL 12/07/2024 8:18 PM [employer] OFFICIAL us Anca Negron MD LAB BLOOD ORDERABLES Final Resul t Performing Organization Address [facility] Co de Phone Number [facility] [address] [place] [address] * CBC with auto differential (12/07/2024 1:41 PM [employer] OFFICIAL) [facility] WBC 6.4 3.8 - 9.9 K/cumm Hgb 14.5 11.9 - 15.5 g/dL [facility] Hct 42.9 35.6 - 45.5 % [facility] Plt 298 150 - 400 K/cumm [facility] MPV 9.3 9.1 - 12.3 fL [facility] RBC 4.64 3.90 - 5.20 M/cumm [facility] MCV 92.5 81.3 - 96.4 fL [facility] MCH 31.3 27.1 - 33.3 pg [facility] MCHC 33.8 32.3 - 35.7 g/dL [facility] RDW CV 12.6 11.1 - 14.9 % [facility] RDW SD 42.5 35.7 - 48.1 fL [facility] NRBC abs 0.00 0.00 - 0.01 K/cumm [facility] Blood 12/07/2024 1:41 PM [employer] OFFICIAL 12/07/2024 3:08 PM [employer] OFFICIAL us Anca Negron MD LAB BLOOD ORDERABLES Final Resul t Performing Organization Address [facility] Co de Phone Number [facility] [address] Department [place] [address] * Cyclic citrul peptide antibody, IgG (12/07/2024 1:41 PM [employer] OFFICIAL) CCP Ab <0.5 <=2.9 units/mL Comment: Interpretive data Negative: <3 units/mL Positive: > or equal to 3 units/mL Current interpretive data was last revised on 2017. Testing performed by: [facility], [address] [place]., [address] Blood 12/07/2024 1:41 PM [employer] OFFICIAL 12/07/2024 8:18 PM [employer] OFFICIAL Result Shiva Negron MD LAB BLOOD ORDERABLES Final Resul t Performing Organization Address [facility] Co de Phone Number [facility] [address] Department [place] [address] * Erythrocyte sedimentation rate (12/07/2024 1:41 PM [employer] OFFICIAL) Erythrocyte sedimentation rate 8 1 - 20 mm/hr Blood 12/07/2024 1:41 PM [employer] OFFICIAL 12/07/2024 3:08 PM [employer] OFFICIAL Result Shiva Negron MD LAB BLOOD ORDERABLES Final Resul t Performing Organization Address [facility] Co de Phone Number [facility] [address] Department [place] [address] * Rheumatoid factor (12/07/2024 1:41 PM [employer] OFFICIAL) Pathologist [facility] Rheumatoid factor, quant <10 <=15 IUnits/mL Blood 12/07/2024 1:41 PM [employer] OFFICIAL 12/07/2024 7:03 PM [employer] OFFICIAL us Anca Negron MD LAB BLOOD ORDERABLES Final Resul t Performing Organization Address City/[facility] Co de Phone Number [facility] [address] Department [employer] [address] * C3 complement (12/07/2024 1:41 PM TR[employer] OFFICIAL) Pathologist [facility] Complement C3 150 90 - 180 mg/dL Blood 12/07/2024 1:41 PM [employer] OFFICIAL 12/07/2024 7:03 PM [employer] OFFICIAL us Anca Negron MD LAB BLOOD ORDERABLES Final Resul t Performing Organization Address [facility] de Phone Number [place] [address] [facility] [employer] [address] * CRP (acute phase) (12/07/2024 1:41 PM [employer] OFFICIAL) Pathologist [facility] CRP <3.0 <=10.0 mg/L Blood 12/07/2024 1:41 PM [employer] OFFICIAL 12/07/2024 7:03 PM [employer] OFFICIAL Result Shiva Negron MD LAB BLOOD ORDERABLES Final Resul t Performing Organization Address [facility] de Phone Number [facility] [address] [facility] [employer] [address] * Creatine kinase (CK), total (12/07/2024 1:41 PM [employer] OFFICIAL) Pathologist [facility] CK 87 30 - 200 Units/L Blood 12/07/2024 1:41 PM [employer] OFFICIAL 12/07/2024 7:03 PM [employer] OFFICIAL Anca Nergon MD LAB BLOOD ORDERABLES Final Resul t [facility] [address] Department [place] [address] * Comprehensive metabolic panel (12/07/2024 1:41 PM [employer] OFF[employer]IAL) Sodium 142 135 - 145 mmol/L Potassium, pl 3.7 3.3 - 4.9 mmol/L [facility] Chloride 104 97 - 110 mmol/L [facility] CO2 25 22 - 32 mmol/L [facility] Anion gap 13 2 - 15 mmol/L [facility] BUN 14 6 - 25 mg/dL [facility] Creatinine 0.80 0.60 - 1.10 mg/dL [facility] Glucose 73 70 - 199 mg/dL [facility] Comment: Interpretive Data Fasting glucose >/= 126 mg/dl is diagnostic for diabetes. Fasting is defined as no caloric intake for at least 8 hours. Fasting glucose between 100 mg/dl to 125 mg/dl is diagnostic of prediabetes. In a patient with classic symptoms of hyperglycemia or hyperglycemic crisis, a random glucose >/= 200 mg/dl is diagnostic for diabetes. In the absence of unequivocal hyperglycemia, results should be confirmed by repeat testing. The classification and Diagnosis of Diabetes Diabetes Care 2021; 46: S19-S40. Current interpretive data was last revised 2022. Calcium 9.3 8.5 - 10.3 mg/dL [facility] Bilirubin, total 0.7 0.1 - 1.2 mg/dL [facility] Protein, pl 7.4 6.5 - 8.5 g/dL [facility] Albumin 4.6 3.5 - 5.0 g/dL [facility] Alk phos 87 40 - 130 Units/L [facility] ALT 32 7 - 45 Units/L [facility] AST 23 10 - 45 Units/L [facility] Blood 12/07/2024 1:41 PM [employer] OFFICIAL 12/07/2024 7:03 PM [employer] OFFICIAL Anca Negron MD LAB BLOOD ORDERABLES Final Resul t Performing Organization Address City/[facility] Co de Phone Number [facility] [address] [place] [address] * Hepatitis C antibody (2023 3:12 PM CDT) Hep C Ab Nonreactive Nonreactive [facility] Comment: Interpretive Data Nonreactive: Antibodies to HCV not detected. Does NOT exclude the possibility of recent exposure to HCV. Equivocal: Equivocal for HCV antibodies. Supplemental molecular testing will be automatically performed to determine infection status in accordance with current CDC screening recommendations. Reactive: Positive for HCV antibodies. This may represent current or past HCV infection. Supplemental molecular testing will be automatically performed to determine current infection status in accordance with current CDC screening recommendations. Interpretive data was last revised on 2020. Blood 2023 3:12 PM CDT 2023 6:02 PM CDT Anca Negron MD LAB MICROBIOLOGY - GENERAL ORDER BERNICE Final Result Performing Organization Address [facility] Co de Phone Number [facility] [address] [place] [address] from Last 3 Months or Most Recently Relevant to Health Maintenance Insurance [place] [address] [facility] Care Teams Student Union Consultant Relationship Specialty Start Date End Date Mai Saeed NP [address] [place] [address] PCP - General Nurse Practitioner 06/21/23
--- OUTSIDE RECORDS SUMMARY | 2025-01-01 11:25 | XMS_ITS | Referral Summary ---
Author Organization [facility] Address [address] [place] [address] Care Team Providers Care Control Technician Name Role Phone Mai Saeed NP Primary Care Provider +[phone] Encounters Date Type Department Care Team Description 12/07/2024 1:40 PM RAW STOCK DRIER TENDER Lab [facility] [address] [place] [address] from Last 3 Months Social [...] Orientation Not on file Plan of Treatment Not on file Procedures Procedure Name Priority Date/Time Associated Diagnosis Comments ALLEN ANTIBODY EVALUATION WITH REFLEX Routine 12/07/2024 1:41 PM RAW STOCK DRIER TENDER ANTI-DOUBLE STRANDED DNA ANTIBODIES Routine 12/07/2024 1:41 PM RAW STOCK DRIER TENDER EGFR Routine 12/07/2024 1:41 PM RAW STOCK DRIER TENDER DIFFERENTIAL AUTO Routine 12/07/2024 1:4 1 PM RAW STOCK DRIER TENDER RHEUMATOID FACTOR Routine 12/07/2024 1:4 1 PM RAW STOCK DRIER TENDER CRP (ACUTE PHASE) Routine 12/07/2024 1:4 1 PM RAW STOCK DRIER TENDER C3 COMPLEMENT Routine 12/07/2024 1:41 PM RAW STOCK DRIER TENDER MANDO SCREEN W/REFLEX ALLEN+DSDNA Routine 12/07/2024 1:41 PM RAW STOCK DRIER TENDER C4 COMPLEMENT Routine 12/07/2024 1:41 PM RAW STOCK DRIER TENDER CREATINE KINASE (CK), TOTAL Routine 12/07/2024 1:41 PM RAW STOCK DRIER TENDER ERYTHROCYTE SEDIMENTATION RATE Routine 12/07/2024 1:41 PM RAW STOCK DRIER TENDER COMPREHENSIVE METABOLIC PANEL Routine 12/07/2024 1:41 PM RAW STOCK DRIER TENDER CYCLIC CITRUL PEPTIDE ANTIBODY, IGG Routine 12/07/2024 1:41 PM RAW STOCK DRIER TENDER CBC WITH AUTO DIFFERENTIAL Routine 12/07/2024 1:41 PM RAW STOCK DRIER TENDER HEPATITIS C ANTIBODY Routine 2023 3:12 PM CDT from Last 3 Months or Most Recently Relevant to Health Maintenance Results * (ABNORMAL) MANDO screen w/rflx ALLEN+dsDNA (12/07/2024 1:41 PM RAW STOCK DRIER TENDER) MANDO Positive 1:80 Comment: Interpretive Data Normal [...] last revised on 2020. Testing performed by: [facility], [address] [place]., [address] MANDO, quant 1:80 titer [facility] Comment:Testing performed by : [facility], [address] [place] [address] MANDO, interp Homogeneous (A) [facility] Comment:Testing performed by : [facility], [address] [place]., [address] Blood 12/07/2024 1:41 PM RAW STOCK DRIER TENDER 12/07/2024 8:18 PM RAW STOCK DRIER TENDER us Anca Negron MD LAB BLOOD ORDERABLES Final Resul t Performing Organization Address [facility] de Phone Number [facility] [address] [place] [address] * Anti-double stranded DNA abs (12/07/2024 1:41 PM RAW STOCK DRIER TENDER) Pathologist [facility] dsDNA Ab <1.0 <=4.0 IUnits/mL Comment: Interpretive Data Negative: < or = 4 IUnits/mL Indeterminate: 5 - 9 IUnits/mL Positive: > or = 10 IUnits/mL Current interpretive data was last revised on 2017. Testing performed by: [facility], [address] [place] [address] Blood 12/07/2024 1:41 PM RAW STOCK DRIER TENDER 12/07/2024 8:18 PM RAW STOCK DRIER TENDER Result Shiva Negron MD LAB BLOOD ORDERABLES Final Resul t Performing Organization Address [facility] de Phone Number [facility] [address] Department [place] [address] * eGFR (12/07/2024 1:41 PM RAW STOCK DRIER TENDER) Pathologist [facility] eGFR >90 >=60 mL/min/1. 73 m2 Comment: [...] of Race in Diagnosing Kidney Disease, JASN 202). The CKD-EPI equation should not be used for patients with unstable renal function and has not been validated in children and those over 70. Current interpretive data was last reviewed 2021. Blood 12/07/2024 1:41 PM RAW STOCK DRIER TENDER 12/07/2024 7:03 PM RAW STOCK DRIER TENDER us Anca Negron MD LAB BLOOD ORDERABLES Final Resul t [facility] [address] Department [place] [address] * Differential, auto (12/07/2024 1:41 PM RAW STOCK DRIER TENDER) Neutrophil abs 3.7 1.5 - 6.5 K/cumm Imm gran abs 0.0 0.0 - 0.1 K/cumm [facility] Lymphocyte abs 2.1 0.8 - 3.3 K/cumm [facility] Monocyte abs 0.4 0.2 - 0.8 K/cumm [facility] Eosinophil abs 0.1 0.0 - 0.5 K/cumm [facility] Basophil abs 0.0 0.0 - 0.1 K/cumm [facility] Neutrophil pct 57.8 % [facility] Comment: Interpretive Data Percent cell count reference ranges are not reported, since discordance with absolute values may lead to misinterpretation of CBC data. Current Interpretive Data was last revised on 2018. Imm gran pct 0.3 % [facility] Comment: Interpretive Data Percent cell count reference ranges are not reported, since discordance with absolute values may lead to misinterpretation of CBC data. Current Interpretive Data was last revised on 2018. Lymphocyte pct 33.6 % [facility] Comment: Interpretive Data Percent cell count reference ranges are not reported, since discordance with absolute values may lead to misinterpretation of CBC data. Current Interpretive Data was last revised on 2018. Monocyte pct 5.8 % [facility] Comment: Interpretive Data Percent cell count reference ranges are not reported, since discordance with absolute values may lead to misinterpretation of CBC data. Current Interpretive Data was last revised on 2018. Eosinophil pct 2.0 % [facility] Comment: Interpretive Data Percent cell count reference ranges are not reported, since discordance with absolute values may lead to misinterpretation of CBC data. Current Interpretive Data was last revised on 2018. Basophil pct 0.5 % [facility] Comment: Interpretive Data Percent cell count reference ranges are not reported, since discordance with absolute values may lead to misinterpretation of CBC data. Current Interpretive Data was last revised on 2018. Blood 12/07/2024 1:41 PM RAW STOCK DRIER TENDER 12/07/2024 3:08 PM RAW STOCK DRIER TENDER us Anca Negron MD LAB BLOOD ORDERABLES Final Resul t Performing Organization Address [facility] Co de Phone Number [facility] [address] Department [place] [address] * C4 complement (12/07/2024 1:41 PM RAW STOCK DRIER TENDER) Complement C4 25 10 - 40 mg/dL Blood 12/07/2024 1:41 PM RAW STOCK DRIER TENDER 12/07/2024 7:03 PM RAW STOCK DRIER TENDER us Anca Negron MD LAB BLOOD ORDERABLES Final Resul t Performing Organization Address [facility] Co de Phone Number [facility] [address] Department [place] [address] * ALLEN ab eval w/reflex (12/07/2024 1:41 PM RAW STOCK DRIER TENDER) Pathologist [facility] ALLEN ab Negative Negative Comment: Interpretive Data Positive Screens will be reflexed to specific testing for Antibodies against the following antigens: Thania-1 Ab, PROSTHETIC LAB TECHNICIAN Ab, Scl-70 Ab, Jj Ab, SS-A/Ro Ab, and SS- B/La Ab. Further testing for dsDNA, Centromere, or Ribosomal P antibodies is suggested in patient with a positive screen and negative specific antibodies. Current interpretive data was last revised on 2023. Testing performed by: [facility], [address] [place]., [address] Blood 12/07/2024 1:41 PM RAW STOCK DRIER TENDER 12/07/2024 8:18 PM RAW STOCK DRIER TENDER Anca Negron MD LAB BLOOD ORDERABLES Final Resul t Performing Organization Address [facility] Co de Phone Number [facility] [address] [place] [address] * CBC with auto differential (12/07/2024 1:41 PM RAW STOCK DRIER TENDER) WBC 6.4 3.8 - 9.9 K/cumm Hgb 14.5 11.9 - 15.5 g/dL [facility] Hct 42.9 35.6 - 45.5 % [facility] Plt 298 150 - 400 K/cumm [facility] MPV 9.3 9.1 - 12.3 fL [facility] RBC 4.64 3.90 - 5.20 M/cumm [facility] MCV 92.5 81.3 - 96.4 fL [facility] MCH 31.3 27.1 - 33.3 pg [facility] MCHC 33.8 32.3 - 35.7 g/dL [facility] RDW CV 12.6 11.1 - 14.9 % [facility] RDW SD 42.5 35.7 - 48.1 fL [facility] NRBC abs 0.00 0.00 - 0.01 K/cumm [facility] Blood 12/07/2024 1:41 PM RAW STOCK DRIER TENDER 12/07/2024 3:08 PM RAW STOCK DRIER TENDER us Anca Negron MD LAB BLOOD ORDERABLES Final Resul t Performing Organization Address [facility] Co de Phone Number [facility] [address] Department [place] [address] * Cyclic citrul peptide antibody, IgG (12/07/2024 1:41 PM RAW STOCK DRIER TENDER) CCP Ab <0.5 <=2.9 units/mL Comment: Interpretive data Negative: <3 units/mL Positive: > or equal to 3 units/mL Current interpretive data was last revised on 2017. Testing performed by: [facility], [address] [place]., [address] Blood 12/07/2024 1:41 PM RAW STOCK DRIER TENDER 12/07/2024 8:18 PM RAW STOCK DRIER TENDER Result Shiva Negron MD LAB BLOOD ORDERABLES Final Resul t Performing Organization Address [facility] Co de Phone Number [facility] [address] [facility] [place] [address] * Erythrocyte sedimentation rate (12/07/2024 1:41 PM RAW STOCK DRIER TENDER) Pathologist [facility] Erythrocyte sedimentation rate 8 1 - 20 mm/hr Blood 12/07/2024 1:41 PM RAW STOCK DRIER TENDER 12/07/2024 3:08 PM RAW STOCK DRIER TENDER Result Shiva Negron MD LAB BLOOD ORDERABLES Final Resul t Performing Organization Address [facility] Co de Phone Number [place] [address] [facility] [place] [address] * Rheumatoid factor (12/07/2024 1:41 PM RAW STOCK DRIER TENDER) Pathologist [facility] Rheumatoid factor, quant <10 <=15 IUnits/mL Blood 12/07/2024 1:41 PM RAW STOCK DRIER TENDER 12/07/2024 7:03 PM RAW STOCK DRIER TENDER Result Shiva Negron MD LAB BLOOD ORDERABLES Final Resul t Performing Organization Address [facility] Co de Phone Number [facility] [address] [facility] [place] [address] * C3 complement (12/07/2024 1:41 PM RAW STOCK DRIER TENDER) [facility] Complement C3 150 90 - 180 mg/dL Blood 12/07/2024 1:41 PM RAW STOCK DRIER TENDER 12/07/2024 7:03 PM RAW STOCK DRIER TENDER Result Shiva Negron MD LAB BLOOD ORDERABLES Final Resul t Performing Organization Address [facility] Co de Phone Number [facility] [address] [facility] [place] [address] * CRP (acute phase) (12/07/2024 1:41 PM RAW STOCK DRIER TENDER) [facility] CRP <3.0 <=10.0 mg/L Blood 12/07/2024 1:41 PM RAW STOCK DRIER TENDER 12/07/2024 7:03 PM RAW STOCK DRIER TENDER Result Shiva Negron MD LAB BLOOD ORDERABLES Final Resul t Performing Organization Address [facility] de Phone Number [facility] [address] [place] [address] * Creatine kinase (CK), total (12/07/2024 1:41 PM RAW STOCK DRIER TENDER) [facility] CK 87 30 - 200 Units/L Blood 12/07/2024 1:41 PM RAW STOCK DRIER TENDER 12/07/2024 7:03 PM RAW STOCK DRIER TENDER Result Shiva Negron MD LAB BLOOD ORDERABLES Final Resul t Performing Organization Address [facility] de Phone Number [facility] [address] [facility] [place] [address] * Comprehensive metabolic panel (12/07/2024 1:41 PM RAW STOCK DRIER TENDER) [facility] Sodium 142 135 - 145 mmol/L Potassium, pl 3.7 3.3 - 4.9 mmol/L [facility] Chloride 104 97 - 110 mmol/L [facility] CO2 25 22 - 32 mmol/L [facility] Anion gap 13 2 - 15 mmol/L [facility] BUN 14 6 - 25 mg/dL [facility] Creatinine 0.80 0.60 - 1.10 mg/dL [facility] Glucose 73 70 - 199 mg/dL [facility] Comment: Interpretive Data Fasting glucose >/= 126 [...] 2022. Calcium 9.3 8.5 - 10.3 mg/dL [facility] Bilirubin, total 0.7 0.1 - 1.2 mg/dL [facility] Protein, pl 7.4 6.5 - 8.5 g/dL [facility] Albumin 4.6 3.5 - 5.0 g/dL [facility] Alk phos 87 40 - 130 Units/L [facility] ALT 32 7 - 45 Units/L [facility] AST 23 10 - 45 Units/L [facility] Blood 12/07/2024 1:41 PM RAW STOCK DRIER TENDER 12/07/2024 7:03 PM RAW STOCK DRIER TENDER us Anca Negron MD LAB BLOOD ORDERABLES Final Resul t [facility] [address] Department [place] [address] * Hepatitis C antibody (2023 3:12 PM CDT) Hep C Ab Nonreactive Nonreactive [facility] Comment: Interpretive Data Nonreactive: Antibodies to HCV [...] 3:12 PM CDT 2023 6:02 PM CDT us Anca Negron MD LAB MICROBIOLOGY - GENERAL ORDER BERNICE Final Result [facility] [address] Department [place] [address] from Last 3 Months or Most Recently Relevant to Health Maintenance Insurance MEDICARE SOLUTIONS [facility] MEDICARE Address: [address] [address] [place] [address] [facility] Care Teams Control Technician Relationship Specialty Start Date End Date Mai Saeed NP [address] [place] [address] PCP - General Nurse Practitioner 06/21/23
[2025-01-01 12:49] LABS: Troponin I < 4.0 ng/L (0.00-60.4)
[2025-01-04 13:02] LABS: Immunoglobulin A 143 mg/dL (47-310); TTG IGA AB <1.0 U/mL
[2025-01-06 21:24] LABS: Almond (F20) IgE <0.10 kU/L; Brazil Nut (f18) <0.10 kU/L; Brazil Nut (f18) Class 0; Cashew Nut (F202) IgE <0.10 kU/L; Cashew Nut (F202) IgE Class 0; Codfish (F3) IgE <0.10 kU/L; Codfish (F3) IgE Class 0; Cow's Milk (F2) IgE <0.10 kU/L; Cow's Milk (F2) IgE Class 0; Egg White (F1) IgE <0.10 kU/L; Egg White (F1) IgE Class 0; Hazelnut (F17) IgE <0.10 kU/L; Hazelnut (F17) IgE Class 0; Macadamia Nut (rf345) <0.10 kU/L; Macadamia Nut (rf345) Class 0; Peanut (F13) IgE <0.10 kU/L; Peanut (F13) IgE Class 0; Salmon (F41) IgE <0.10 kU/L; Salmon (F41) IgE Class 0; Scallop (F338) IgE <0.10 kU/L; Scallop (F338) IgE Class 0; Sesame Seed <0.10 kU/L; Shrimp (F24) IgE <0.10 kU/L; Soybean (F14) IgE <0.10 kU/L; Soybean (F14) IgE Class 0; Tuna (F40) <0.10 kU/L; Tuna (F40) Class 0; Walnut (F256) IgE <0.10 kU/L; Walnut (F256) IgE Class 0; Wheat (F4) IgE <0.10 kU/L; Wheat (F4) IgE Class 0
== END 2025-01-01 11:16 | disposition home or self-care (01) ==
LOC: CHSLAB 11:17
PROVIDERS: PCP Nurse Practitioner Family; Visit Provider Nurse Practitioner Family
DX: R07.89 Other chest pain (principal); R14.0 Abdominal distension (gaseous); J30.5 Allergic rhinitis due to food
CPT/HCPCS: 36415; 82784; 83516; 84484; 86003

== ENCOUNTER 2025-03-26 11:24 | Outpatient (CLI) | payer MEDICARE, MEDICAID, SELFPAY ==
--- OUTSIDE RECORDS SUMMARY | 2025-03-26 11:32 | XMS_ITS | Referral Summary ---
Author Organization [facility] Address [address] [place] [address] Care Team Providers Care Torch Straightener And Heater Name Role Phone Mai Saeed NP Primary Care Provider +1 [phone] Social History Tobacco Use Types Packs/Day Years [...] Procedure Name Priority Date/Time Associated Diagnosis Comments HEPATITIS C ANTIBODY Routine 2023 3:12 PM CDT from Last 3 Months or Most Recently Relevant to Health Maintenance Results * Hepatitis C antibody (2023 3:12 PM CDT) Hep C Ab Nonreactive Nonreactive [facility] Comment: Interpretive Data Nonreactive: Antibodies to HCV [...] - GENERAL ORDER BERNICE Final Result [facility] [address] [place] [address] from Last 3 Months or Most Recently Relevant to Health Maintenance Insurance [facility] MEDICARE ADVANTAGE [facility] IDPA Care Teams Torch Straightener And Heater Relationship Specialty Start Date End Date Mai Saeed NP [address] [place] [address] PCP - General Nurse Practitioner 06/21/23
--- OUTSIDE RECORDS SUMMARY | 2025-03-26 11:32 | XMS_ITS | Clinical Summary ---
Author Organization [facility] Address [address] [place] [address] Care Team Providers Care Machine Shop Supervisor Name Role Phone Mai Saeed NP Primary Care Provider [phone] [phone] Social History Tobacco Use Types Packs/Day Years [...] Regular Well Visit/Exam 18-64 2008 Covid-19 Vaccine ( - 2023-2 5 season) 2024 03/24/2022, 03/15/2021 [...] PM CDT) Hep C Ab Nonreactive [facility] Comment: Interpretive Data Nonreactive: Antibodies to HCV [...] MICROBIOLOGY - GENERAL ORDER BERNICE Final Result [facility] [address] Department [place] [address] from Last 3 Months or Most Recently Relevant to Health Maintenance Insurance [facility] MEDICARE ADVANTAGE [facility] Address: [facility] [address] [place] [address] [facility] IDPA Care Teams Machine Shop Supervisor Relationship Specialty Start Date End Date Mai Saeed NP [address] [place] [address] PCP - General Nurse Practitioner 06/21/23
--- NOTE | 2025-03-26 11:44 | ECG_ITS ---
Test Date: 2025-03-26 11:54:34 Measurements Intervals [place] Rate: 73 P: 62 VA: 142 QRS: 76 QRSD: 90 T: 64 QT: 374 QTc: 415 Interpretive Statements SINUS RHYTHM Compared to ECG 10/12/2024 16:06:31 No significant changes Electronically Signed On 03-26-2025 12:02:55 CDT by Leonard Solorio M.D.
[2025-03-26 12:19] LABS: Troponin I < 4.0 ng/L (0.00-60.4)
[2025-03-26 12:20] LABS: CRP < 0.5 mg/dL (0.0-0.9)
== END 2025-03-26 11:25 | disposition home or self-care (01) ==
PROVIDERS: PCP Nurse Practitioner Family; Visit Provider Nurse Practitioner Family
DX: R07.89 Other chest pain (principal)
CPT/HCPCS: 36415; 84484; 86140; 93005

== ENCOUNTER 2025-05-17 09:43 | Outpatient (CLI) | payer MEDICARE, MEDICAID, SELFPAY ==
--- NOTE | 2025-05-17 09:47 | EST_ITS ---
Patient Info Name: Ashlee Webster Age: 34 years : 1990 Gender: Female Ht: 65 in Wt: 188 lbs BSA: 2.01 m2 HR: 89 bpm BP: 118 / 77 mmHg Heart Rhythm: Sinus Rhythm Technical Quality: Good Exam Date: 05/17/2025 9:47 AM Patient Status: O Admit Date: 05/17/2025 Exam Type: CA stress test treadmill A treadmill exercise stress test was performed. Staff Attending Provider: Bob Encarnacion DO Summary 1. 1. Negative Roger exercise stress test for ischemic ST changes by ECG criteria. 2. 2. Good functional capacity, achieving 7 METs of workload. 3. 3. Appropriate HR response to exercise. 4. 4. Appropriate HR recovery at 1 minute post exercise. 5. 5. No imaging with stress testing. Protocol: Roger Stress ECG Details Stage: REST Duration (min): 1 min : 28 sec Speed (mph): 0.0 Grade (%): 0 HR (bpm): 90 SBP (mmHg): 118 DBP (mmHg): 77 METS: --- Stage: REST Duration (min): 9 min : 49 sec Speed (mph): 0.0 Grade (%): 0 HR (bpm): 105 SBP (mmHg): 118 DBP (mmHg): 77 METS: --- Stage: STAGE 1 Duration (min): 1 min : 0 sec Speed (mph): 1.7 Grade (%): 10 HR (bpm): 107 SBP (mmHg): 118 DBP (mmHg): 77 METS: --- Stage: STAGE 1 Duration (min): 2 min : 0 sec Speed (mph): 1.7 Grade (%): 10 HR (bpm): 117 SBP (mmHg): 118 DBP (mmHg): 77 METS: --- Stage: STAGE 1 Duration (min): 3 min : 0 sec Speed (mph): 1.7 Grade (%): 10 HR (bpm): 123 SBP (mmHg): 118 DBP (mmHg): 77 METS: --- Stage: STAGE 2 Duration (min): 1 min : 0 sec Speed (mph): 2.5 Grade (%): 12 HR (bpm): 135 SBP (mmHg): 159 DBP (mmHg): 87 METS: --- Stage: STAGE 2 Duration (min): 2 min : 0 sec Speed (mph): 2.5 Grade (%): 12 HR (bpm): 140 SBP (mmHg): 159 DBP (mmHg): 87 METS: --- Stage: STAGE 2 Duration (min): 3 min : 0 sec Speed (mph): 2.5 Grade (%): 12 HR (bpm): 146 SBP (mmHg): 159 DBP (mmHg): 87 METS: --- Stage: STAGE 3 Duration (min): 1 min : 0 sec Speed (mph): 3.4 Grade (%): 14 HR (bpm): 161 SBP (mmHg): 142 DBP (mmHg): 92 METS: --- Stage: STAGE 3 Duration (min): 1 min : 15 sec Speed (mph): 3.4 Grade (%): 14 HR (bpm): 161 SBP (mmHg): 142 DBP (mmHg): 92 METS: --- Stage: RECOVERY Duration (min): 0 min : 44 sec Speed (mph): 0.0 Grade (%): 0 HR (bpm): 147 SBP (mmHg): 142 DBP (mmHg): 92 METS: --- Stage: RECOVERY Duration (min): 1 min : 44 sec Speed (mph): 0.0 Grade (%): 0 HR (bpm): 123 SBP (mmHg): 121 DBP (mmHg): 60 METS: --- Stage: RECOVERY Duration (min): 2 min : 44 sec Speed (mph): 0.0 Grade (%): 0 HR (bpm): 114 SBP (mmHg): 121 DBP (mmHg): 60 METS: --- Stage: RECOVERY Duration (min): 3 min : 44 sec Speed (mph): 0.0 Grade (%): 0 HR (bpm): 110 SBP (mmHg): 109 DBP (mmHg): 60 METS: --- Stage: RECOVERY Duration (min): 4 min : 44 sec Speed (mph): 0.0 Grade (%): 0 HR (bpm): 111 SBP (mmHg): 109 DBP (mmHg): 60 METS: --- Stage: RECOVERY Duration (min): 5 min : 18 sec Speed (mph): 0.0 Grade (%): 0 HR (bpm): 110 SBP (mmHg): 109 DBP (mmHg): 60 METS: --- Rest HR: 105 bpm Peak HR: 161 bpm Rest Sys BP: 118 mmHg Peak Sys BP: 159 mmHg Max Pred HR: 186 bpm % Max Pred HR: 87 % Target HR: 158 bpm Max RPP: 25,599 bpm*mmHg Paulson Score: -0 Target HR Summary: Test terminated after reaching target heart rate (85% max predicted) BP Response: Normal blood pressure response Termination Reason: Fatigue Cardiac Symptoms: None Max ST Seg Deviation: -1.50 mm Total Time: 7 min : 15 sec Rest Damon BP: 77 mmHg Peak Damon BP: 87 mmHg Angina Score: None Total METS: 9.2 Resting ECG Normal sinus rhythm. Stress ECG No abnormal ST/T wave changes with exercise. Arrhythmias None. Report Signatures
== END 2025-05-17 09:44 | disposition home or self-care (01) ==
LOC: CHSCARD 09:44
PROVIDERS: PCP Nurse Practitioner Family; Visit Provider Internal Medicine Cardiovascular Disease
DX: R07.89 Other chest pain (principal)
CPT/HCPCS: 93017

== ENCOUNTER 2025-05-26 11:42 | Outpatient (CLI) | payer MEDICARE, MEDICAID, SELFPAY ==
--- OUTSIDE RECORDS SUMMARY | 2025-05-26 11:46 | XMS_ITS | Clinical Summary ---
Author Organization [facility] Address [address] [place] [address] Care Team Providers Care Darklight Inspector Name Role Phone Mai Saeed NP Primary Care Provider [phone] Social History Tobacco Use Types Packs/Day Years [...] 5 season) 2024 03/24/2022, 03/15/2021 Influenza Vaccine (Season Ended) 2025 Hepatitis C Screening Completed 2023 HPV Vaccines [...] PM CDT) Hep C Ab Nonreactive Nonreactive [facility] Comment: Interpretive Data Nonreactive: Antibodies to HCV [...] MICROBIOLOGY - GENERAL ORDER BERNICE Final Result [facility] [address] Department [place] [address] from Last 3 Months or Most Recently Relevant to Health Maintenance Insurance [facility] MEDICARE ADVANTAGE [facility] IDPA Care Teams Darklight Inspector Relationship Specialty Start Date End Date Mai Saeed NP [address] [place] [address] PCP - General Nurse Practitioner 06/21/23
--- OUTSIDE RECORDS SUMMARY | 2025-05-26 11:46 | XMS_ITS | Referral Summary ---
Author Organization [facility] Address [address] [place] [address] Care Team Providers Care Single Wire Saw Operator Name Role Phone Mai Saeed NP Primary Care Provider +1 [phone] Social History Tobacco Use Types Packs/Day Years [...] CDT) Hep C Ab Nonreactive Nonreactive [facility] Comment: Interpretive Data Nonreactive: Antibodies to [...] - GENERAL ORDER BERNICE Final Result [facility] [address] Department [place] [address] from Last 3 Months or Most Recently Relevant to Health Maintenance Insurance [facility] MEDICARE ADVANTAGE [facility] IDPA Care Teams Single Wire Saw Operator Relationship Specialty Start Date End Date Mai Saeed NP [address] [place] [address] PCP - General Nurse Practitioner 06/21/23
== END 2025-05-26 11:43 | disposition home or self-care (01) ==
PROVIDERS: PCP Nurse Practitioner Family; Visit Provider Nurse Practitioner Family
DX: H04.129 Dry eye syndrome of unspecified lacrimal gland (principal)
CPT/HCPCS: 86235

== ENCOUNTER 2025-06-04 08:46 | Outpatient (CLI) | payer MEDICARE, MEDICAID, SELFPAY ==
--- NOTE | ~2025-06-04 | MM_ITS ---
EXAMINATION: MM diagnostic regla BI w simona HISTORY: Breast pain TECHNIQUE: Additional 3-D tomosynthesis images of the breasts were performed and synthetic 2-D images were generated. CAD analysis was submitted and interpreted. COMPARISON: None BREAST PARENCHYMAL COMPOSITION: Not dense: There are scattered areas of fibroglandular density. FINDINGS: There are no suspicious masses, calcifications or architectural distortion in either breast to suggest malignancy. IMPRESSION: 1. No evidence for malignancy in either breast. 2. Routine yearly screening mammogram and regular clinical breast examination are recommended. BI-RADS Category 1: Negative Reviewed, dictated and finalized at location B. IMPRESSION: 1. No evidence for malignancy in either breast. 2. Routine yearly screening mammogram and regular clinical breast examination a re recommended. BI-RADS Category 1: Negative
--- OUTSIDE RECORDS SUMMARY | 2025-06-04 08:50 | XMS_ITS ---
Author Organization [facility] Address [address] [place] [address] Care Team Providers Care Scheduling Clerk Name Role Phone Darlin BELTRAN, Mai Primary Care Provider Anca Pink [phone] REASON FOR VISIT yd/3 month follow up/flc Encounters Encounter Location Date Provider Diagnosis [facility] [address] [place] [address] 03/22/2025 Anca Joshi Plan Of Treatment No Information Progress Notes * Ashlee WEBSTERDOB:1989 (34 yo F)Acc No.[id number]:03/22/2025 Progress Notes Patient: Ashlee VILLAVICENCIO Appointment Provider: Greta JOSHI MD :1990 A ge:34 Y S ex:Female Date:03/22/2025 [address] [facility] Pcp:Mai Saeed NP Subjective: * Chief Complaints: * 1 . Yd/3 month follow up/flc. * Medical History: Objective: * Vitals: Assessment: Plan: * Treatment: * Billing Information: * Visit Code: * Procedure Codes: * Electronic signature of Anca Joshi MD on 06/04/2025 at 08:49 AM CDT Sign off status: Pending * Appointment Provider: Greta JOSHI MD Date: 0 03/22/2025 Generated for Printi ng/Faxing/eTransmitting on: 0 06/04/2025 08:49 AM CDT
--- OUTSIDE RECORDS SUMMARY | 2025-06-04 08:50 | XMS_ITS | Clinical Summary ---
Author Organization [facility] Address [address] [place] [address] Care Team Providers Care Blood Bank Custodian Name Role Phone Mai Saeed NP Primary Care Provider [phone] Social History Tobacco Use Types Packs/Day Years [...] PM CDT) Hep C Ab Nonreactive Nonreactive [facility] Comment: Interpretive Data Nonreactive: Antibodies to [...] MICROBIOLOGY - GENERAL ORDER BERNICE Final Result [facility] [address] Department [place] [address] from Last 3 Months or Most Recently Relevant to Health Maintenance Insurance [facility] MEDICARE ADVANTAGE [facility] IDPA Care Teams Blood Bank Custodian Relationship Specialty Start Date End Date Mai Saeed NP [address] [place] [address] PCP - General Nurse Practitioner 06/21/23
--- OUTSIDE RECORDS SUMMARY | 2025-06-04 08:50 | XMS_ITS | Referral Summary ---
Author Organization [facility] Address [address] [place] [address] Care Team Providers Care Mill Roll Operator Name Role Phone Mai Saeed NP Primary Care Provider [phone] [phone] Social History Tobacco Use Types Packs/Day Years [...] CDT) Hep C Ab Nonreactive Nonreactive [facility] Comment: Interpretive Data Nonreactive: Antibodies to [...] - GENERAL ORDER BERNICE Final Result [facility] [address] Department [place] [address] from Last 3 Months or Most Recently Relevant to Health Maintenance Insurance [place] MEDICARE ADVANTAGE [facility] IDPA Care Teams Mill Roll Operator Relationship Specialty Start Date End Date Mai Saeed NP [address] [place] [address] PCP - General Nurse Practitioner 06/21/23
--- OUTSIDE RECORDS SUMMARY | 2025-06-04 08:50 | XMS_ITS | Patient Health Record ---
Author Organization [facility] Address [address] [place] [address] Care Team Providers Care Photogrammetric Surveyor Name Role Phone Darlin BELTRAN, Mai Primary Care Provider Sacha bobbysofie Anca Negron Unavailable [phone] Allergies Allergen (clinical drug ingredient) Drug/Non Drug Allergy documented on EMR Reaction Allergy Type Onset Date Status ciprofloxacin Cipro Unknown Drug Allergy 06/13/2023 Ac tive Results Component Value Reference Range Notes MANDO reflex titer pattern ALLEN + dsDNA Reviewed date:12/08/2024 02:09:53 PM Interpretation: Performing Lab:[facility] , [address] [facility] [address] Notes/Report: MANDO, Qual Positive 1:80 Interpretive Data Normal range for MANDO Qualitative [...] last revised on 2020. Testing performed by: [facility], [address] [place] [address] MANDO, Josiah 1:80 Testing performed by: [facility], [address] [place]., [address] MANDO Pattern 1 Homogeneous Testing performed by: [facility], [address] [facility] [place]., [address] Anti-CCP (Cyclic Citrullinat ed Peptide Ab) Reviewed date:12/08/2024 10:41:41 AM Interpretation: Performing Lab:[facility] , [address] [place] [address] Notes/Report: CCP Ab <0.5 <=2.9 units/mL Interpretive data Negative: <3 units/mL Positive: > or equal to 3 units/mL Current interpretive data was last revised on 2017. C Reactive Protein Reviewed date:12/07/2024 07:46:16 PM Interpretation: Performing Lab:[facility] , [address] [place] [address]. [facility] [address] Notes/Report: C-Reactive Protein <3.0 <=10.0 mg/L CBC w auto diff Reviewed date:12/07/2024 07:46:16 PM Interpretation: Performing Lab:[facility] , [address] [place] [address] Notes/Report: WBC 6.4 3.8-9.9 K/cumm Hgb 14.5 11.9-15.5 g/dL Hct 42.9 35.6-45.5 % Platelet Ct 298 150-400 K/cumm MPV 9.3 9.1-12.3 fL RBC 4.64 3.90-5.20 M/cumm MCV 92.5 81.3-96.4 fL MCH 31.3 27.1-33.3 pg MCHC 33.8 32.3-35.7 g/dL RDW CV 12.6 11.1-14.9 % RDW SD 42.5 35.7-48.1 fL NRBC Abs Auto 0.00 0.00-0.01 K/cumm Complement C3 Reviewed date:12/07/2024 07:46:16 PM Interpretation: Performing Lab:[facility] , [address] [place] [address] Notes/Report: Complement, C3 150 90-180 mg/dL Complement C4 Reviewed date:12/07/2024 07:46:16 PM Interpretation: Performing Lab:[facility] , [address] [place] [address] Notes/Report: Complement, C4 25 10-40 mg/dL Comprehensive metabolic pane l (CMP) Reviewed date:12/07/2024 07:46:16 PM Interpretation: Performing Lab:[facility] , [address] [place] [address]. [facility] [address] Notes/Report: Sodium 142 135-145 mmol/L Plasma Potassium 3.7 3.3-4.9 mmol/L Chloride 104 97-110 mmol/L Total CO2 25 22-32 mmol/L Anion Gap 13 2-15 mmol/L BUN 14 6-25 mg/dL Creatinine 0.80 0.60-1.10 mg/dL Glucose 73 70-199 mg/dL Interpretive Data Fasting glucose >/= 126 mg/dl [...] Current interpretive data was last revised 2022. Total Calcium 9.3 8.5-10.3 mg/dL Total Bilirubin 0.7 0.1-1.2 mg/dL Plasma Total Protein 7.4 6.5-8.5 g/dL Albumin 4.6 3.5-5.0 g/dL Alkaline Phosphatase 87 40-130 Units/L ALT 32 7-45 Units/L AST 23 10-45 Units/L Creatine Kinase Reviewed date:12/07/2024 07:46:16 PM Interpretation: Performing Lab:[facility] , [address] [place] [address]. [facility] [address] Notes/Report: Total CK 87 30-200 Units/L Rheumatoid Factor Reviewed date:12/07/2024 07:46:16 PM Interpretation: Performing Lab:[facility] , [address] [place] [address]. [facility] [address] Notes/Report: RF, Josiah <10 <=15 IUnits/mL Sed Rate Reviewed date:12/07/2024 07:46:16 PM Interpretation: Performing Lab:[facility] , [address] [place] [address]. [facility] [address] Notes/Report: ESR 8 1-20 mm/hr Differential Automated Reviewed date:12/07/2024 07:46:16 PM Interpretation: Performing Lab:[facility] , [address] [place] [address]. [facility] [address] Notes/Report: Neut Abs 3.7 1.5-6.5 K/cumm ImmGran Abs 0.0 0.0-0.1 K/cumm Lymphocyte Abs 2.1 0.8-3.3 K/cumm Teton Abs 0.4 0.2-0.8 K/cumm Eos Abs 0.1 0.0-0.5 K/cumm Baso Abs 0.0 0.0-0.1 K/cumm Neut Pct 57.8 Interpretive Data Percent cell count reference ranges are not reported, since discordance with absolute values may lead to misinterpretation of CBC data. Current Interpretive Data was last revised on 2018. ImmGran Pct 0.3 Interpretive Data Percent cell count reference ranges are not reported, since discordance with absolute values may lead to misinterpretation of CBC data. Current Interpretive Data was last revised on 2018. Lymph Pct 33.6 Interpretive Data Percent cell count reference ranges are not reported, since discordance with absolute values may lead to misinterpretation of CBC data. Current Interpretive Data was last revised on 2018. Teton Pct 5.8 Interpretive Data Percent cell count reference ranges are not reported, since discordance with absolute values may lead to misinterpretation of CBC data. Current Interpretive Data was last revised on 2018. Eos Pct 2.0 Interpretive Data Percent cell count reference ranges are not reported, since discordance with absolute values may lead to misinterpretation of CBC data. Current Interpretive Data was last revised on 2018. Baso Pct 0.5 Interpretive Data Percent cell count reference ranges are not reported, since discordance with absolute values may lead to misinterpretation of CBC data. Current Interpretive Data was last revised on 2018. DS DNA Reviewed date:12/08/2024 04:21:24 PM Interpretation: Performing Lab:[facility] , [address] [place] [address]. [facility] [address] Notes/Report: Double Stranded DNA, Josiah <1.0 <=4.0 IUnits/mL Interpretive Data Negative: < or = 4 IUnits/mL Indeterminate: 5 - 9 IUnits/mL Positive: > or = 10 IUnits/mL Current interpretive data was last revised on 2017. ALLEN Screen Reviewed date:12/08/2024 04:21:15 PM Interpretation:Lab Result Generalized Performing Lab:[facility] , [address] [place] [address]. [facility] [address] Notes/Report: ALLEN Screen Negative Negative Interpretive Data Positive Screens will be reflexed to specific testing for Antibodies against the following antigens: Thania-1 Ab, ROAD GANG SUPERVISOR Ab, Scl-70 Ab, Jj Ab, SS-A/Ro Ab, and SS-B/La Ab. Further testing for dsDNA, Centromere, or Ribosomal P antibodies is suggested in patient with a positive screen and negative specific antibodies. Current interpretive data was last revised on 2023. eGFR Reviewed date:12/07/2024 07:46:16 PM Interpretation: Performing Lab:[facility] , [address] [place] [address]. [place] [address] Notes/Report: eGFR >90 >=60 mL/min/1.73 m2 Interpretive Data Reference Interval Normal >/= 90 [...] Current interpretive data was last reviewed 2021. Reason For Referral No Information Medications Medication SIG (Take, Route, Frequency, Duration) Notes Start Date End Date Status clonazePAM 0.5 MG take 1 tablet daily Oral Active Propranolol HCl 10 MG half tablet Orally Twice a day; Duration: 30 day(s) Active Hydroxychloroquine Sulfate 200 MG TAKE 1 TABLET BY MOUTH EVERY DAY; Duration: 90 Active Melatonin 10 MG take 1 capsule by oral route once Oral 1 Active Tylenol Extra Strength 500 mg prn oral Active MiraLax 17 GM/SCOOP 1 scoop mixed with 8 ounces of fluid Orally Once a day; Duration: 30 day(s) Active Dicyclomine HCl Acti ve Iron 159 mg (45 mg iron) take 1 tablet b y oral route once Oral 1 *Pick strength-form from [employer] for eRX* Active lamoTRIgine 200 MG 1 tablet Orally Once a day; Duration: 30 day(s) Active Ozempic (0.25 or 0.5 MG/DOSE) Active Omeprazole 20 MG take 1 capsule (20 mg) by oral route once daily before a meal Oral 1 Active Problems Problem Type SNOMED Code ICD Code Onset Dates Problem Status W/U Status Risk Notes Problem Connective tissue disease (504578088) Connective tissue disease (M35.9) Active confirmed Problem Raynaud's disease (212582794) Raynaud's disease without gangrene (I73.00) Active confirmed Problem Vitamin D deficiency (47040324) Vitamin D deficiency (E55.9) Active confirmed Vital Signs Heart Rate 90 /min 12/07/2024 Temperature 98.8 degrees Fahrenheit 12/07/2024 Blood pressure diastolic 80 mm Hg 12/07/2024 Oximetry 98 % 12/07/2024 Height-cm 165.1 cm 12/07/2024 Weight-kg 84.99 kg 12/07/2024 Height 65 in 12/07/2024 Blood pressure systolic 126 mm Hg 12/07/2024 Weight 187.4 lbs 12/07/2024 BMI 31.18 kg/m2 12/07/2024 Encounters Encounter Location Date Provider Diagnosis [facility] [address] [place] [address] 09/15/2024 Anca Du Connective tissue disease M35.9 ; Lumbar back pain M54.50 ; Vitamin D deficiency E55.9 and Raynaud's disease without gangrene I73.00 [facility] [address] [place] [address] 12/07/2024 Anca Jamil Connective tissue disease M35.9 ; Lumbar back pain M54.50 ; Vitamin D deficiency E55.9 and Raynaud's disease without gangrene I73.00 [facility] [address] [place] [address] 06/08/2024 Anca Negron Assessments Encounter Date Diagnosis (ICD Code) Assessment Notes Treatment Notes Treatment Clinical Notes Section Notes 09/15/2024 Connective tissue disease (ICD-10 - M35.9) increase plaquenil to 200mg/day, avoid MTX due to elevated liver enzyme, continue flexeril and tylenol , return in 3 months 12/07/2024 Connective tissue disease (ICD-10 - M35.9) continue plaquenil 200mg/day, avoid MTX due to elevated liver enzyme, continue flexeril and tylenol , labs today, return in 3 months 09/15/2024 Lumbar back pain (ICD-10 - M54.50) increase plaquenil to 200mg/day, avoid MTX due to elevated liver enzyme, continue flexeril and tylenol , return in 3 months 12/07/2024 Lumbar back pain (ICD-10 - M54.50) continue plaquenil 200mg/day, avoid MTX due to elevated liver enzyme, continue flexeril and tylenol , labs today, return in 3 months 12/07/2024 Vitamin D deficiency (ICD-10 - E55.9) continue plaquenil 200mg/day, avoid MTX due to elevated liver enzyme, continue flexeril and tylenol , labs today, return in 3 months 09/15/2024 Vitamin D deficiency (ICD-10 - E55.9) increase plaquenil to 200mg/day, avoid MTX due to elevated liver enzyme, continue flexeril and tylenol , return in 3 months 12/07/2024 Raynaud's disease without gangrene (ICD-10 - I73.00) continue plaquenil 200mg/day, avoid MTX due to elevated liver enzyme, continue flexeril and tylenol , labs today, return in 3 months 09/15/2024 Raynaud's disease without gangrene (ICD-10 - I73.00) increase plaquenil to 200mg/day, avoid MTX due to elevated liver enzyme, continue flexeril and tylenol , return in 3 months Plan Of Treatment No Information Insurance Providers Payer Name Payer Address Payer Phone Subscriber Number Group Number Insured Name Patient Relationship to Insured Coverage Start Date Coverage End Date [employer] Medicare Advantage [employer] [address] [address] [place] [address] [id number] Ashlee Webster Self - patient is the insured Medical (General) History Medical History History ICD Code MANDO positive; Anemia; Bipolar 1 disorder; Gestational diabetes mellitus; Insomnia; Schizoaffective disorder;
--- OUTSIDE RECORDS SUMMARY | 2025-06-04 08:50 | XMS_ITS | Patient Health Record ---
Author Organization [facility] [email or web address] Address [address] [place] [address] Care Team Providers Care Paint Stock Clerk Name Role Phone Rohith Braga Unavailable [phone] Reason For Referral No Information Medications Medication SIG (Take, Route, Frequency, Duration) Notes Start Date End Date Status HYDROcodone-Acetamino phen 5-325 MG Oral 06/10/2019 Active Promethazine HCl 25 MG Oral 06/10/2019 Active Ibuprofen 400 MG Oral 06/10/2019 Ac tive LILLOW (28) 0.15 MG-0.03 MG TABLET *Reorder from [employer] for eRx and Interaction Alerts* 06/10/2019 Active Strattera 80 MG Oral 06/10/2019 Act kelly ARIPiprazole 15 MG Oral 06/10/2019 Active traZODone HCl 100 MG Oral 06/10/2019 Active Clotrimazole-Betameth asone 1-0.05 % External 06/10/2019 Active Ibuprofen 600 MG Oral 06/10/2019 Ac tive Sertraline HCl 50 MG Oral 06/10/2019 Active buPROPion HCl ER (XL) 300 MG Oral 06/10/2019 Active Atomoxetine HCl 60 MG Oral 06/10/2019 Active Atomoxetine HCl 80 MG Oral 06/10/2019 Active Propranolol HCl 20 MG Oral 06/10/2019 Active Strattera 60 MG Oral 06/10/2019 Act kelly Plan Of Treatment No Information Insurance Providers Payer Name Payer Address Payer Phone Subscriber Number Group Number Insured Name Patient Relationship to Insured Coverage Start Date Coverage End Date [facility] [address] [place] [address] [id number] KIMBERLYN NIX Spouse - patient is the spouse of the insured [employer] [facility] - Dos Prior To [address] [address] [place] [phone] [id number] Self - patient is the insured
== END 2025-06-04 08:47 | disposition home or self-care (01) ==
PROVIDERS: PCP Nurse Practitioner Family; Visit Provider Obstetrics & Gynecology Gynecology
DX: N64.4 Mastodynia (principal)
CPT/HCPCS: 77062; 77066; G0279

== ENCOUNTER 2025-07-13 11:18 | Outpatient (CLI) | payer MEDICARE, MEDICAID, SELFPAY ==
[2025-07-13 11:44] LABS: Negative Monotest Control Negative (Negative); Positive Monotest Control Positive (Positive)
--- OUTSIDE RECORDS SUMMARY | 2025-07-13 11:46 | XMS_ITS | Clinical Summary ---
Author Organization [facility] Address [address] [place] [address] Care Team Providers Care Quote Clerk Name Role Phone Mai Saeed NP Primary Care Provider +1 [phone] Social History Tobacco Use Types Packs/Day Years [...] Screening 2008 Regular Well Visit/Exam 18-64 2008 HPV Vaccines (1 - 3-dose SCD M series) 2017 Covid-19 Vaccine ( - 2023-2 5 season) 2024 03/24/2022, 03/15/2021 Influenza Vaccine (#1) 2025 Hepatitis C Screening Completed 2023 Pneumococcal vaccine <65 Aged Out No longer eligible based on patient's age to complete this topic Procedures Procedure Name Priority Date/Time Associated Diagnosis Comments HEPATITIS C ANTIBODY Routine 2023 3:12 PM CDT from Last 3 Months or Most Recently Relevant to Health Maintenance Results * Hepatitis C antibody (2023 3:12 PM CDT) Hep C Ab Nonreactive Nonreactive [facility] Comment: Interpretive Data Nonreactive: Antibodies to HCV [...] MICROBIOLOGY - GENERAL ORDER BERNICE Final Result [facility] [address] Department [place] [address] from Last 3 Months or Most Recently Relevant to Health Maintenance Insurance [facility] MEDICARE ADVANTAGE [facility] IDPA Care Teams Quote Clerk Relationship Specialty Start Date End Date Mai Saeed NP [address] [place] [address] PCP - General Nurse Practitioner 06/21/23
== END 2025-07-13 11:19 | disposition home or self-care (01) ==
LOC: CHSLAB 11:21
PROVIDERS: PCP Nurse Practitioner Family; Visit Provider Nurse Practitioner Family
DX: J03.90 Acute tonsillitis, unspecified (principal)
CPT/HCPCS: 36415; 86308

== ENCOUNTER 2025-11-05 10:51 | Outpatient (CLI) | payer MEDICARE, MEDICAID, SELFPAY ==
--- OUTSIDE RECORDS SUMMARY | 2025-03-22 09:45 | XMS_ITS ---
Author Organization [facility] Address [address] [facility] [address] [place] [address] Care Team Providers Care Revising Clerk Name Role Phone Darlin BELTRAN, Mai Primary Care Provider Anca Pink [phone] REASON FOR VISIT yd/3 month follow up/flc Encounters Encounter Location Date Provider Diagnosis [facility] [address] [facility] [address] [place] [address] 03/22/2025 Anca Joshi Plan Of Treatment No Information Progress Notes * Ashlee WEBSTERDOB:1989 (35 yo F)Acc No.[id number]:03/22/2025 Progress Notes Patient: Ashlee VILLAVICENCIO Appointment Provider: Greta JOSHI MD :1990 A ge:34 Y S ex:Female Date:03/22/2025 Address:[address] Pcp:Mai Saeed NP Subjective: * Chief Complaints: * 1 . Yd/3 month follow up/flc. * Medical History: Objective: * Vitals: Assessment: Plan: * Treatment: * Billing Information: * Visit Code: * Procedure Codes: * Electronic signature of Anca Joshi MD on 11/05/2025 at 11:24 AM DATA COMMUNICATIONS ENGINEER Sign off status: Pending * Appointment Provider: Greta JOSHI MD Date: 0 03/22/2025 Generated for Printi ng/Faxing/eTransmitting on: 1 01/06/2025 11:24 AM DATA COMMUNICATIONS ENGINEER
--- NOTE | ~2025-11-05 | US_ITS ---
EXAMINATION: US transvaginal, 11/05/2025 10:56 USPS LETTER CARRIER HISTORY: postcoital bleeding Comparison: None Technique: Faulkner-scale and color Doppler images were obtained. Findings: Uterus: Uterus retroverted 7.6 x 4.8 x 3.2 cm. . Endometrium 5 mm, IUD in appropriate location. Right Ovary:Right ovary 3.1 x 2.8 x 2 cm, no adnexal mass, normal flow. Left Ovary: Left ovary 4 x 2 x 2.2 cm, no adnexal mass, normal flow. Free Fluid: None Impression: No etiology to explain the patient's symptoms. Reviewed, dictated and finalized at location P. LETTER CARRIER Impression: No etiology to explain the patient's symptoms.
--- OUTSIDE RECORDS SUMMARY | 2025-11-05 11:25 | XMS_ITS | Patient Health Record ---
Author Organization [facility] Address [address] [facility] [address] [place] [address] Care Team Providers Care Ict Help Desk Officer Name Role Phone Darlin BELTRAN, Mai Primary Care Provider Sacha bobbysofie Anca Negron Unavailable [phone] Allergies Allergen (clinical drug ingredient) Drug/Non Drug Allergy documented on EMR Reaction Allergy Type Onset Date Status ciprofloxacin Cipro Unknown Drug Allergy 06/13/2023 Ac tive Results Component Value Reference Range Notes MANDO reflex titer pattern ALLEN + dsDNA Reviewed date:12/08/2024 02:09:53 PM Interpretation: Performing Lab:[facility] , [address] [facility] [address] Notes/Report: MANDO, Qual Positive 1:80 Interpretive Data [...] last revised on 2020. Testing performed by: [facility], [address] [place]., [address] MANDO, Josiah 1:80 Testing performed by: [facility], [address] [place]., [address] MANDO Pattern 1 Homogeneous Testing performed by: [facility], [address] [place]., [address] Anti-CCP (Cyclic Citrullinat ed Peptide Ab) Reviewed date:12/08/2024 10:41:41 AM Interpretation: Performing Lab:[facility] , [address] [place] [address] Notes/Report: CCP Ab <0.5 <=2.9 units/mL Interpretive data Negative: <3 units/mL Positive: > or equal to 3 units/mL Current interpretive data was last revised on 2017. C Reactive Protein Reviewed date:12/07/2024 07:46:16 PM Interpretation: Performing Lab:[facility] , [address] [place] [address]. [facility] [address] Notes/Report: C-Reactive Protein <3.0 <=10.0 mg/L CBC w auto diff Reviewed date:12/07/2024 07:46:16 PM Interpretation: Performing Lab:[facility] , [address] [place] [address] Notes/Report: WBC 6.4 3.8-9.9 K/cumm Hgb 14.5 11.9-15.5 g/dL Hct 42.9 35.6-45.5 % Platelet Ct 298 150-400 K/cumm MPV 9.3 9.1-12.3 fL RBC 4.64 3.90-5.20 M/cumm MCV 92.5 81.3-96.4 fL MCH 31.3 27.1-33.3 pg MCHC 33.8 32.3-35.7 g/dL RDW CV 12.6 11.1-14.9 % RDW SD 42.5 35.7-48.1 fL NRBC Abs Auto 0.00 0.00-0.01 K/cumm Complement C3 Reviewed date:12/07/2024 07:46:16 PM Interpretation: Performing Lab:[facility] , [address] [place] [address] Notes/Report: Complement, C3 150 90-180 mg/dL Complement C4 Reviewed date:12/07/2024 07:46:16 PM Interpretation: Performing Lab:[facility] , [address] [place] [address] Notes/Report: Complement, C4 25 10-40 mg/dL Comprehensive metabolic pane l (CMP) Reviewed date:12/07/2024 07:46:16 PM Interpretation: Performing Lab:[facility] , [address] [place] [address]. [facility] [address] Notes/Report: Sodium 142 135-145 mmol/L Plasma Potassium [...] Kinase Reviewed date:12/07/2024 07:46:16 PM Interpretation: Performing Lab:[facility] , [address] [place] [address]. [facility] [address] Notes/Report: Total CK 87 30-200 Units/L Rheumatoid Factor Reviewed date:12/07/2024 07:46:16 PM Interpretation: Performing Lab:[facility] , [address] [place] [address]. [facility] [address] Notes/Report: RF, Josiah <10 <=15 IUnits/mL Sed Rate Reviewed date:12/07/2024 07:46:16 PM Interpretation: Performing Lab:[facility] , [address] [place] [address]. [facility] [address] Notes/Report: ESR 8 1-20 mm/hr Differential Automated Reviewed date:12/07/2024 07:46:16 PM Interpretation: Performing Lab:[facility] , [address] [place] [address]. [facility] [address] Notes/Report: Neut Abs 3.7 1.5-6.5 K/cumm ImmGran Abs 0.0 0.0-0.1 K/cumm Lymphocyte Abs 2.1 0.8-3.3 K/cumm [place] Abs 0.4 0.2-0.8 K/cumm Eos Abs 0.1 [...] Interpretive Data was last revised on 2018. [place] Pct 5.8 Interpretive Data Percent cell count [...] DNA Reviewed date:12/08/2024 04:21:24 PM Interpretation: Performing Lab:[facility] , [address] [place] [address]. [facility] [address] Notes/Report: Double Stranded DNA, Josiah <1.0 <=4.0 IUnits/mL Interpretive Data Negative: < or = 4 IUnits/mL Indeterminate: 5 - 9 IUnits/mL Positive: > or = 10 IUnits/mL Current interpretive data was last revised on 2017. ALLEN Screen Reviewed date:12/08/2024 04:21:15 PM Interpretation:Lab Result Generalized Performing Lab:[facility] , [address] [place] [address]. [facility] [address] Notes/Report: ALLEN Screen Negative Negative Interpretive Data Positive Screens will be reflexed to specific testing for Antibodies against the following antigens: Thania-1 Ab, DRAG SAWYER Ab, Scl-70 Ab, Jj Ab, SS-A/Ro Ab, and SS-B/La Ab. Further testing for dsDNA, Centromere, or Ribosomal P antibodies is suggested in patient with a positive screen and negative specific antibodies. Current interpretive data was last revised on 2023. eGFR Reviewed date:12/07/2024 07:46:16 PM Interpretation: Performing Lab:[facility] , [address] [place] [address]. [place] [address] Notes/Report: eGFR >90 >=60 mL/min/1.73 m2 Interpretive [...] route once Oral 1 *Pick strength-form from Wisr for eRX* Active lamoTRIgine 200 MG 1 tablet Orally Once a day; Duration: 30 day(s) Active Ozempic (0.25 or 0.5 MG/DOSE) Active Omeprazole 20 MG take 1 capsule (20 mg) by oral route once daily before a meal Oral 1 Active Problems Problem Type SNOMED Code ICD Code Onset Dates Problem Status W/U Status Risk Notes Problem Connective tissue disease (701001631) Connective tissue disease (M35.9) Active confirmed Problem Raynaud's disease (170214378) Raynaud's disease without gangrene (I73.00) Active confirmed Problem Vitamin D deficiency (13669188) Vitamin D deficiency (E55.9) Active confirmed Vital Signs Heart Rate 90 /min 12/07/2024 Temperature 98.8 degrees Fahrenheit 12/07/2024 Oximetry 98 % 12/07/2024 Blood pressure diastolic 80 mm Hg 12/07/2024 Height-cm 165.1 cm 12/07/2024 Weight-kg 84.99 kg 12/07/2024 Height 65 in 12/07/2024 Blood pressure systolic 126 mm Hg 12/07/2024 Weight 187.4 lbs 12/07/2024 BMI 31.18 kg/m2 12/07/2024 Encounters Encounter Location Date Provider Diagnosis [facility] [address] [facility] [address] [place] [address] 12/07/2024 Anca Du Connective tissue disease M35.9 ; Lumbar back pain M54.50 ; Vitamin D deficiency E55.9 and Raynaud's disease without gangrene I73.00 Assessments Encounter Date Diagnosis (ICD Code) Assessment Notes Treatment Notes Treatment Clinical Notes Section Notes 12/07/2024 Connective tissue disease (ICD-10 - M35.9) continue plaquenil 200mg/day, avoid MTX due to elevated liver enzyme, continue flexeril and tylenol , labs today, return in 3 months 12/07/2024 Lumbar back pain (ICD-10 - M54.50) continue plaquenil 200mg/day, avoid MTX due to elevated liver enzyme, continue flexeril and tylenol , labs today, return in 3 months 12/07/2024 Vitamin D deficiency (ICD-10 - E55.9) continue plaquenil 200mg/day, avoid MTX due to elevated liver enzyme, continue flexeril and tylenol , labs today, return in 3 months 12/07/2024 Raynaud's disease without gangrene (ICD-10 - I73.00) continue plaquenil 200mg/day, avoid MTX due to elevated liver enzyme, continue flexeril and tylenol , labs today, return in 3 months Plan Of Treatment No Information Insurance Providers Payer Name Payer Address Payer Phone Subscriber Number Group Number Insured Name Patient Relationship to Insured Coverage Start Date Coverage End Date [facility] Medicare Advantage [facility] [address] [address] [place] [address] [id number] Ashlee Webster Self - patient is the insured Medical (General) History Medical History History ICD Code MANDO positive; Anemia; Bipolar 1 disorder; Gestational diabetes mellitus; Insomnia; Schizoaffective disorder;
--- OUTSIDE RECORDS SUMMARY | 2025-11-05 11:25 | XMS_ITS | Clinical Summary ---
Author Organization [facility] Address [address] [place] [address] Care Team Providers Care Fashion Merchandiser Name Role Phone Mai Saeed NP Primary Care Provider [phone] Social History Tobacco Use Types Packs/Day Years Used Date Smoking Tobacco: Never Assessed Personal Safety Answer Date Recorded Getting School Help Needed Not on file 01/18 Comments Unknown Sex and Gender Information Value Date Recorded Sex Assigned at Not on file Legal Sex Female 2:59 PM CDT Gender Identity Not on file Sexual Orientation Not on file Plan of Treatment Not on file Insurance [facility] MEDICARE ADVANTAGE [facility] IDPA Care Teams Fashion Merchandiser Relationship Specialty Start Date End Date Mai Saeed NP [address] [place] [address] PCP - General Nurse Practitioner 06/21/23
--- OUTSIDE RECORDS SUMMARY | 2025-11-05 11:25 | XMS_ITS | Patient Health Record ---
Author Organization [facility] [employer] Address [address] [place] [address] Care Team Providers Care Oracle Wms Consultant Name Role Phone Rohith Braga Unavailable [phone] Reason For Referral No Information Medications Medication SIG (Take, Route, Frequency, Duration) Notes Start Date End Date Status HYDROcodone-Acetamino phen 5-325 MG Tablet Oral 06/10/2019 Active Promethazine HCl 25 MG Tablet Oral 06/10/2019 Active Ibuprofen 400 MG Tablet Oral 06/10/2019 Active LILLOW (28) 0.15 MG-0.03 MG TABLET *Reorder from Vetr for eRx and Interaction Alerts* 06/10/2019 Active Strattera 80 MG Capsule Oral 06/10/2019 Active ARIPiprazole 15 MG Tablet Oral 06/10/2019 Active traZODone HCl 100 MG Tablet Oral 06/10/2019 Active Clotrimazole-Betameth asone 1-0.05 % Cream External 06/10/2019 Active Ibuprofen 600 MG Tablet Oral 06/10/2019 Active Sertraline HCl 50 MG Tablet Oral 06/10/2019 Active buPROPion HCl ER (XL) 300 MG Tablet Extended Release 24 Hour Oral 06/10/2019 Active Atomoxetine HCl 60 MG Capsule Oral 06/10/2019 Active Atomoxetine HCl 80 MG Capsule Oral 06/10/2019 Active Propranolol HCl 20 MG Tablet Oral 06/10/2019 Active Strattera 60 MG Capsule Oral 06/10/2019 Active Social History Social History Additional Details Category Social Info Options Details Migrated Social History Migrated Social History Alcohol Intake: None 01/22/2019,Tobacco Years: Never smoker 01/22/2019 Plan Of Treatment No Information Insurance Providers Payer Name Payer Address Payer Phone Subscriber Number Group Number Insured Name Patient Relationship to Insured Coverage Start Date Coverage End Date [facility] [address] [place] [address] [id number] KIMBERLYN NIX Spouse - patient is the spouse of the insured [facility] Prior To [address] [employer] [address] [place] [phone] [id number] Self - patient is the insured
--- OUTSIDE RECORDS SUMMARY | 2025-11-05 11:25 | XMS_ITS | Clinical Summary ---
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 Gender Identity Not on file Sexual Orientation Not on file Plan of Treatment Health Maintenance Due Date Last Done Comments Cervical Cancer Screening Pa p Smear (Age 30 to 64) Every 3 Years 1990 Annual Physical 1993 Hepatitis C 2008 DTaP, Tdap and Td Vaccines ( 1 - Tdap) 2009 Hepatitis B Vaccines (1 of 3 - 19+ 3-dose series) 2009 Pneumococcal Vaccine: Pediat rics (0 to 5 Years) and At-Risk Patients (6 to 49 Years) (1 of 2 - PCV) 2009 HPV Vaccines (1 - 3-dose SCD M series) 2017 Cervical Cancer Screening Pa p with HPV Testing (Age 30 to 64) Every 5 Years 2020 Cervical Cancer Screening with HPV 2020 COVID-19 Vaccine (2024-2 6 season) 2025 Influenza Adult (#1) 2025 Hepatitis A Vaccines Aged Out No long er eligible based on patient's age to complete this topic Meningococcal B Vaccine Aged Out No l onger eligible based on patient's age to complete this topic Meningococcal Vaccine Aged Out No aleksey nivia eligible based on patient's age to complete this topic RSV Immunizations Under 20 Months Aged Out No longer eligible based on patient's age to complete this topic Procedures Procedure Name Priority Date/Time Associated Diagnosis Comments ECHO GENERIC (SCAN ORDER) Routine 09/20/2025 from Last 3 Months Results * ECHO (09/20/2025) Anatomical Region Laterality Modality Other us Doc Pccl Scanned SCANNING Final Result from Last 3 Months Insurance
--- OUTSIDE RECORDS SUMMARY | 2025-11-05 11:25 | XMS_ITS | Clinical Summary ---
Author Organization [employer] [facility] Address [address] [place] [address] Care Team Providers Care Operations And Maintenance Technican Name Role Phone No, Pcp CARE TECH Primary Care Provider Unavailabl e Social History Tobacco Use Types Packs/Day Years Used Date Smoking Tobacco: Never Assessed Comments Unknown Sex and Gender Information Value Date Recorded Sex Assigned at Not on file Legal Sex Female 8:30 AM EST Gender Identity Not on file Sexual Orientation Not on file Plan of Treatment Not on file Medical Devices Not on file Care Teams Operations And Maintenance Technican Relationship Specialty Start Date End Date No, Pcp, CARE TECH N/A Do not use PCP - General Family Medicine 12/31/20
== END 2025-11-05 10:52 | disposition home or self-care (01) ==
PROVIDERS: PCP Nurse Practitioner Family
DX: N93.0 Postcoital and contact bleeding (principal)
CPT/HCPCS: 76830